=== PATIENT | female | born 1980 | race Caucasian/White ===

== ENCOUNTER 2020-01-02 18:31 | Emergency (ER) | payer OTHER, SELFPAY ==
[2020-01-02 18:37] VITALS: BP 122/85; PULSE 112; RESP 20; TEMP 36.9; O2SAT 98; BMI 37.9
--- NOTE | 2020-01-02 20:15 | ED_ITS ---
HPI - Back Pain/Injury General Chief Complaint: Extremity Injury, Lower Stated Complaint: slip and fall head injury Time Seen by Provider: 01/02/20 19:40 Source: patient Mode of arrival: ambulatory History of Present Illness HPI Narrative: 47-year-old female complaining right-sided low back /buttock pain radiating down right lower extremity times today s/p stepping wrong while going down the stairs. Denies direct trauma / falls. Reports pain with associated tingling. Denies fever, chills, numbness /tingling, incontinence /retention MD elicited complaint: back pain Related Data Previous Rx's Medication Instructions Recorded acetaminophen [Tylenol Extra 500 mg PO Q6H PRN #20 tab 01/02/20 Strength] cyclobenzaprine 5 mg PO Q8H PRN 5 Days #14 tab 01/02/20 lidocaine [Lidoderm] 1 patch TOPICAL DAILY PRN #30 ea 01/02/20 MDD remove after 12 hours naproxen 500 mg PO BID PRN 10 Days #20 tab 01/02/20 Allergies Allergy/AdvReac Type Severity Reaction Status Date / Time bee pollen [BEE STINGS] Allergy Unknown SWELLING Unverified 12/10/19 16:41 capsaicin [CAPSAICIN] Allergy Unknown BAD RED Unverified 12/10/19 16:41 RASH, hives hydromorphone [From DILAUDID] Allergy Unknown NAUSEA & Unverified 12/10/19 16:41 VOMITING Bee stings Allergy Unknown angioedema Uncoded 08/27/19 00:00 bee stings Allergy Unknown Uncoded 08/03/19 00:00 Capsaicin Allergy Unknown Uncoded 08/03/19 00:00 Pt states no food allergies Allergy Unknown Uncoded 08/03/19 00:00 Review of Systems Review of Systems: Constitutional: No Weight loss, No Fever, No Chills, No Night Sweats, No Fatigue, Cardiovascular: No Chest Pain, No SOB, No Dyspnea on Exertion, No Orthopnea, Respiratory: No Cough, No Sputum Gastrointestinal: No Nausea, No Vomiting, No Diarrhea Genitourinary: No irregular bleeding, No Urinary Frequency, No Hematuria,No Urinary Incontinence /retention, No Flank Pain Musculoskeletal: No joint pain, No Myalgias, No Joint Swelling Skin: No Skin Lesions, No rash Neuro: No Weakness, No Numbness, +tingling Yes all other systems are reviewed and are negative Neurologic: Denies Sensory deficit (Neuro) [facility] Past Medical History Attestation statement: The following information was validated with the patient. Medical History (Updated 01/02/20 @ 20:16 by DEMARCUS Cummins) No known health problems Social History Social History Alcohol intake: never Smoked in Last 30 Days: No Use of substances other than those prescribed or required for medical reasons: No Advance Directives: No Advance Directives Information Provided: Yes Physical Exam Vital Signs: Vital Signs: Vital Signs Temp Pulse Resp BP Pulse Ox 01/02/20 18:37 98.4 F 112 H 20 122/85 98 Body Mass Index 37.9 Const: General: cooperative and healthy appearing Orientation/consciousness: patient oriented x3 Limitations: no limitations Eyes: General: appearance normal, both eyes and all related structures EOM: EOMs intact bilaterally Neck: Other: no midline cervical spinous tenderness Neck: Yes normal visual inspection Resp: Effort & Inspection: normal respiratory effort Back/Spine/Pelvis: Other: no midline thoracic or lumbar spinous tenderness. Right-sided lumbar MSK tenderness Skin: Wounds: no wounds Neuro: Other: no saddle anesthesia General: patient oriented x3 Gait exam (Neuro): Normal gait present Motor exam (neuro): 5/5 motor strength present throughout Sensory Exam: No Sensory deficit (Neuro) Extrem: General: Yes normal to inspection Course Course Course Narrative: no red flag symptoms or midline spinous tenderness Discharge Plan Discharge Clinical Impression: Back pain, Sciatic leg pain Patient Disposition: Home, Self-Care Instructions: Back Pain (ED) Additional Instructions: naproxen as an anti-inflammatory /pain medication, take with food Cyclobenzaprine is a muscle relaxer, take at night as it makes you drowsy, do not drive, drink alcohol, or operate machinery while taking In addition Lidoderm patches or numbing patches, apply to painful area. Take Tylenol as well Follow-up with her doctor If you developed numbness, tingling, weakness, incontinence or retention return to the ED Prescriptions: New acetaminophen [Tylenol Extra Strength] 500 mg tablet 500 mg PO Q6H PRN (Reason: pain or fever) Qty: 20 RF: 0 lidocaine [Lidoderm] 5 % adhesive patch,medicated 1 patch topical DAILY MDD remove after 12 hours PRN (Reason: pain) Qty: 30 RF: 0 naproxen 500 mg tablet 500 mg PO BID PRN (Reason: pain) 10 Days Qty: 20 RF: 0 cyclobenzaprine 5 mg tablet 5 mg PO Q8H PRN (Reason: pain (scale score 7-10)) 5 Days Qty: 14 RF: 0
[2020-01-02] MEDS: Cyclobenzaprine HCl 5 MG TABLET PO (20:20)
[2020-01-02] MEDS: Ketorolac Tromethamine 15 MG/ML VIAL IM (20:21)
== END 2020-01-02 20:37 | disposition home or self-care (01) ==
PROVIDERS: Emergency Provider Emergency Medicine Emergency Medical Services; PCP Internal Medicine
DX: S39.92XA Unspecified injury of lower back, initial encounter (principal); S09.90XA Unspecified injury of head, initial encounter; G44.309 Post-traumatic headache, unspecified, not intractable; M54.6 Pain in thoracic spine; M54.32 Sciatica, left side; M54.31 Sciatica, right side; W01.0XXA Fall on same level from slipping, tripping and stumbling without subsequent striking against object, initial encounter; Y93.9 Activity, unspecified; Y92.9 Unspecified place or not applicable
CPT/HCPCS: 96374; 99284; J1885

== ENCOUNTER → 2020-02-11 08:42 | Outpatient (BNVA) | payer OTHER, SELFPAY | PROVIDERS: PCP Internal Medicine; Visit Provider Anesthesiology | DX: Z76.89 Persons encountering health services in other specified circumstances (principal) ==

== ENCOUNTER → 2020-03-30 08:43 | Outpatient (BNVA) | payer OTHER, SELFPAY | PROVIDERS: PCP Internal Medicine; Visit Provider Anesthesiology | DX: Z76.89 Persons encountering health services in other specified circumstances (principal) ==

== ENCOUNTER → 2020-04-21 15:53 | Outpatient (BNVA) | payer OTHER, SELFPAY | PROVIDERS: PCP Internal Medicine; Visit Provider Anesthesiology | DX: M46.1 Sacroiliitis, not elsewhere classified (principal); M53.2X8 Spinal instabilities, sacral and sacrococcygeal region | CPT/HCPCS: 99212 ==

== ENCOUNTER 2020-05-02 11:36 | Emergency (ER) | payer OTHER, SELFPAY ==
[2020-05-02 13:13] VITALS: BP 119/83; PULSE 117; RESP 18; TEMP 36.9; O2SAT 100; BMI 41.5
--- NOTE | 2020-05-02 13:13 | ED.ABDPAIN ---
HPI - Abdominal Pain General Chief Complaint: Abdominal Pain Stated Complaint: abd pain Time Seen by Provider: 05/02/20 13:12 Related Data Previous Rx's Medication Instructions Recorded acetaminophen [Tylenol Extra 500 mg PO Q6H PRN #20 tab 01/02/20 Strength] lidocaine [Lidoderm] 1 patch TOPICAL DAILY PRN #30 ea 01/02/20 MDD remove after 12 hours naproxen 500 mg PO BID PRN 10 Days #20 tab 01/02/20 cyclobenzaprine 10 mg tablet 10 mg PO BID PRN 30 Days #60 tab 02/11/20 gabapentin 300 mg capsule 600 mg PO TID 30 Days #180 cap 02/11/20 trazodone 50 mg tablet 50 mg PO BEDTIME PRN #90 tab 03/15/20 fluoxetine 20 mg tablet 60 mg PO DAILY #270 tab 04/05/20 oxycodone-acetaminophen 5 mg-325 1 tab PO TID PRN #90 tab 04/22/20 mg tablet Allergies Allergy/AdvReac Type Severity Reaction Status Date / Time bee pollen [BEE STINGS] Allergy Unknown SWELLING Verified 05/02/20 13:13 capsaicin [CAPSAICIN] Allergy Unknown BAD RED Verified 05/02/20 13:13 RASH, hives hydromorphone [From DILAUDID] Allergy Unknown NAUSEA & Verified 05/02/20 13:13 VOMITING Bee stings Allergy Unknown angioedema Uncoded 08/27/19 00:00 bee stings Allergy Unknown unknown Uncoded 02/11/20 08:43 Capsaicin Allergy Unknown [email or web address] Uncoded 02/11/20 08:43 Pt states no food allergies Allergy Unknown unknown Uncoded 02/11/20 08:43 Course Course Course Narrative: RME done at this time 1:15pm - 39yoF c PMHx of gastritis/gastric ulcers/gastric bypass [address] Morris and currently on pain contract for chronic SI joint pain presenting to the ED c c/o diffuse abd pain c associated N/V/D x 3 days - Pt A&Ox3 not in any acute distress. Vitals stable. Pt TTP diffusely on abdomen exam. - Labs, UA, UHCG ordered at this time. Discharge Plan Discharge Prescriptions: No Action trazodone 50 mg tablet 50 mg PO BEDTIME PRN (Reason: sleep) Qty: 90 RF: 2 fluoxetine 20 mg tablet 60 mg PO DAILY Qty: 270 RF: 3 oxycodone-acetaminophen [Percocet] 5-325 mg tablet 1 tab PO TID PRN (Reason: pain) Qty: 90 RF: 0 acetaminophen [Tylenol Extra Strength] 500 mg tablet 500 mg PO Q6H PRN (Reason: pain or fever) Qty: 20 RF: 0 lidocaine [Lidoderm] 5 % adhesive patch,medicated 1 patch topical DAILY MDD remove after 12 hours PRN (Reason: pain) Qty: 30 RF: 0 naproxen 500 mg tablet 500 mg PO BID PRN (Reason: pain) 10 Days Qty: 20 RF: 0 cyclobenzaprine 10 mg tablet 10 mg PO BID PRN (Reason: muscle spasm) 30 Days Qty: 60 RF: 12 gabapentin 300 mg capsule 600 mg PO TID 30 Days Qty: 180 RF: 12 PMFSH Past Medical History Medical History (Updated 05/02/20 @ 13:15 by Ailyn Rainey) Gastric ulcer Instability of sacroiliac joint No known health problems Sacroiliitis Surgical History (Updated 05/02/20 @ 13:15 by Ailyn Rainey) Gastric bypass status for obesity Social History Social History Alcohol intake: never
[2020-05-02 13:48] LABS: MANUAL DIFF FLAG NO
[2020-05-02 13:52] LABS: Basophils Percent Auto 0.6 % (0-2); Eosinophils Absolute Auto 0.1 X10*3/uL (0.0-0.4); Eosinophils Percent Auto 0.9 % (0-4); Hematocrit 37.8 % (37-47); Hemoglobin 11.6 g/dl (12.0-16.0); Imm Gran Abs Auto 0.01 X10*3/uL (0.00-0.03); Imm Gran Pct Auto 0.2 % (0.0-0.4); Lymphocytes Absolute Auto 2.3 X10*3/uL (1.2-4.9); Lymphocytes Percent Auto 35.9 % (20-40); Mean Corpuscular HGB Conc 30.7 g/dl (31.0-35.0); Mean Corpuscular Hemoglobin 23.1 pg (27.0-33.0); Mean Corpuscular Volume 75.1 fL (80-98); Mean Platelet Volume 8.9 fL (9.4-12.3); Monocytes Absolute Auto 0.5 X10*3/uL (0.1-1.2); Monocytes Percent Auto 7.1 % (2-11); Neutrophils Absolute Auto 3.6 X10*3/uL (2.0-8.3); Neutrophils Percent Auto 55.3 % (45-73); Platelet Count 448 X10*3/uL (160-400); Red Blood Count 5.03 X10*6/uL (4.20-5.50); Red Cell Distribution Width 15.6 % (11.0-16.0); White Blood Count 6.5 X10*3/uL (4.8-10.8)
[2020-05-02 13:57] LABS: UPreg QC Valid YES; Urine Pregnancy NEGATIVE (NEGATIVE)
[2020-05-02 13:58] LABS: Glucose Urine UA NEG (NEG); Leukocyte Esterase Urine NEG (NEG); Nitrite Urine NEG (NEG); Specific Gravity - Urine >= 1.030 (1.005-1.025); Urine Blood NEG (NEG); Urine Ketones 15 MG/DL (NEG); Urine Protein TRACE MG/DL (NEG-TRACE)
[2020-05-02 13:59] LABS: Appearance Urine CLOUDY; Color Urine DARK YELLOW
[2020-05-02 14:01] LABS: Prothrombin Time 11.4 SEC (10.8-13.0)
[2020-05-02 14:23] LABS: Alanine Aminotransferase 27 U/L (0-31); Albumin Level 4.6 g/dL (3.5-5.0); Alkaline Phosphatase 90 U/L (39-117); Anion Gap 14 (12-20); Aspartate Amino Transferase 19 U/L (5-31); Bilirubin Direct 0.3 mg/dL (0.0-0.5); Bilirubin Total 0.8 mg/dL (0.0-1.0); Blood Urea Nitrogen 9 mg/dL (9-16); C Reactive Protein 0.14 mg/dL (< or = 0.50); Calcium 9.4 mg/dL (8.4-10.2); Carbon Dioxide 25 mmol/L (22-29); Chloride 106 mmol/L (96-108); Creatinine Clr Calc Pharmacy 140.2; Estimated Glomerular Filt Rate > 60; Glucose Random 102 mg/dL (60-115); Lactate Dehydrogenase 177 U/L (122-220); Lipase 31 U/L (8-78); Magnesium 2.1 mg/dL (1.6-2.6); Potassium 4.3 mmol/L (3.3-5.1); Sodium 141 mmol/L (135-145); Total Protein 8.1 g/dL (6.5-8.0)
[2020-05-02 14:40] LABS: Procalcitonin 0.02 ng/mL
[2020-05-02 14:44] LABS: Ferritin 5 ng/mL (10-250)
[2020-05-02 16:02] LABS: Influenza A PCR NEGATIVE (Negative); Influenza B PCR NEGATIVE (Negative); Resp Syncy Virus RNA Qual PCR NEGATIVE (Negative); SARS COV2 PCR INHOUSE NEGATIVE (Negative)
== END 2020-05-02 17:02 | disposition left against medical advice (07) ==
PROVIDERS: Physician Assistant Medical; Emergency Provider Emergency Medicine; PCP Internal Medicine
DX: R10.9 Unspecified abdominal pain (principal); R11.2 Nausea with vomiting, unspecified; Z20.822 Contact with and (suspected) exposure to COVID-19
CPT/HCPCS: 0241U; 36415; 80048; 80076; 81003; 81025; 82728; 83615; 83690; 83735; 84145; 85025; 85610; 86140; 99283

== ENCOUNTER 2020-05-03 10:10 | Emergency (ER) | payer OTHER, SELFPAY ==
--- NOTE | ~2020-05-03 | CT_ITS ---
EXAMINATION: CT ABDOMEN AND PELVIS WITH CONTRAST CLINICAL INFORMATION: Abdominal pain and vomiting. History of gastric bypass. COMPARISON: Previous CT most recent February 2019 TECHNIQUE: Multidetector volumetric images were obtained from the superior aspect of the liver through the pubic symphysis following administration 85 mL of Omnipaque 350 intravenous contrast. Sagittal and coronal reformatted images were obtained on the technologist's workstation. Oral contrast: Yes This CT examination was performed using dose optimization techniques as appropriate, variously including the following: *Automated exposure control *Adjustment of mA and/or kV according to patient size (this includes techniques or standardized protocols for targeted exams where dose is matched to indication/reason for exam; i.e. extremities or head) *Use of iterative reconstruction technique DLP: 979 mGy-cm FINDINGS: LUNG BASES: The visualized lung bases are unremarkable. LIVER, GALLBLADDER, AND BILIARY TREE: The liver is slightly enlarged, right lobe measuring 21 cm in length. The liver is normal in shape and attenuation. No focal hepatic lesion or biliary ductal dilatation is present. The gallbladder has been removed. PANCREAS: Unremarkable. SPLEEN: Unremarkable. ADRENAL GLANDS: Unremarkable. KIDNEYS AND URETERS: There are small bilateral renal stones. Largest stone measures 3 mm in the upper and midpole of the left kidney. No hydronephrosis, ureteral dilatation or ureteral stone is seen. BLADDER: Unremarkable. GASTROINTESTINAL TRACT: There are postoperative changes from gastric bypass. Small and large bowel is otherwise unremarkable. No evidence of obstruction or bowel wall thickening is seen. The appendix has been removed. ABDOMINAL WALL: No significant hernia is appreciated. LYMPH NODES: Normal. VASCULAR: Unremarkable. PELVIC VISCERA: Unremarkable. OSSEOUS STRUCTURES: There are degenerative changes of the spine. CT/CT abdomen pelvis w con IMPRESSION: Stable postoperative change from gastric bypass. No evidence of obstruction. Bilateral renal stones. No hydronephrosis, ureteral dilatation or ureteral stone.
[2020-05-03 10:22] VITALS: BP 103/79; BP 128/81; PULSE 102; PULSE 90; RESP 18; TEMP 37.1; O2SAT 99; BMI 41.5
--- NOTE | 2020-05-03 10:36 | ED_ITS ---
HPI - Abdominal Pain General Chief Complaint: Abdominal Pain Stated Complaint: N+V Time Seen by Provider: 05/03/20 10:34 Source: patient and EMS Mode of arrival: EMS Limitations: no limitations History of Present Illness HPI narrative: 39yoF c PMHx of gastritis/gastric ulcers/gastric bypass [address] oMrris and currently on pain contract for chronic SI joint pain presenting to the ED c c/o diffuse abd pain c associated N/V/D x 48hr. Patient tells me that she has had 3-4 episodes of vomiting a day which she describes as clear and NBNB. She has also had loose stools but no diarrhea. 2-3 episodes today. Generalized diffuse abdominal cramping with no focal tenderness per patient. No fevers or chills or body aches or cough or shortness of breath. Had a COVID test yesterday which was unremarkable. She was seen here yesterday in the emergency department but left prior to being seen by provider due to the wait. MD elicited complaint: abdominal pain Related Data Previous Rx's Medication Instructions Recorded acetaminophen [Tylenol Extra 500 mg PO Q6H PRN #20 tab 01/02/20 Strength] lidocaine [Lidoderm] 1 patch TOPICAL DAILY PRN #30 ea 01/02/20 MDD remove after 12 hours naproxen 500 mg PO BID PRN 10 Days #20 tab 01/02/20 cyclobenzaprine 10 mg tablet 10 mg PO BID PRN 30 Days #60 tab 02/11/20 gabapentin 300 mg capsule 600 mg PO TID 30 Days #180 cap 02/11/20 trazodone 50 mg tablet 50 mg PO BEDTIME PRN #90 tab 03/15/20 fluoxetine 20 mg tablet 60 mg PO DAILY #270 tab 04/05/20 oxycodone-acetaminophen 5 mg-325 1 tab PO TID PRN #90 tab 04/22/20 mg tablet dicyclomine 10 mg PO TID PRN #10 cap 05/03/20 ondansetron 4 mg PO Q6H PRN #10 tab 05/03/20 Allergies Allergy/AdvReac Type Severity Reaction Status Date / Time bee pollen [BEE STINGS] Allergy Unknown SWELLING Verified 05/02/20 13:13 capsaicin [CAPSAICIN] Allergy Unknown BAD RED Verified 05/02/20 13:13 RASH, hives hydromorphone [From DILAUDID] Allergy Unknown NAUSEA & Verified 05/02/20 13:13 VOMITING Bee stings Allergy Unknown angioedema Uncoded 08/27/19 00:00 bee stings Allergy Unknown unknown Uncoded 02/11/20 08:43 Capsaicin Allergy Unknown [email or web address] Uncoded 02/11/20 08:43 Pt states no food allergies Allergy Unknown unknown Uncoded 02/11/20 08:43 Review of Systems Review of Systems Yes all other systems are reviewed and are negative Constitutional: Reports no additional constitutional complaints, Denies body ache(s), Denies chills, Denies fever(s), Denies headache(s) and Denies weakness Eyes: Reports no additional eye complaints and Denies change in vision Reports system reviewed and no additional complaints, except as documented, Denies dizziness, Denies headache(s), Denies nasal congestion, Denies nasal discharge and Denies neck pain Cardiovascular: Reports no additional cardiovascular complaints, Denies chest pain, Denies leg edema and Denies dyspnea Respiratory: Reports no additional respiratory complaints, Denies cough and Denies dyspnea Gastrointestinal: Reports no additional gastrointestinal complaints, Reports abdominal pain, Denies diarrhea, Reports loose stools, Reports nausea and Reports vomiting Genitourinary: Reports no additional female genitourinary complaints and Denies urinary incontinence Musculoskeletal: Reports no additional musculoskeletal complaints, Denies back pain, Denies arthralgias, Denies joint swelling, Denies neck pain, Denies numbness and Denies tingling Skin/Breast: Reports system reviewed and no additional complaints, except as docu and Denies rash Reports system reviewed and no additional complaints, except as documented, Denies Abnormal speech present, Denies dizziness, Denies headache(s), Denies numbness, Denies tingling and Denies weakness Physical Exam Vital Signs: Vital Signs: Last Vital Signs Temp 98.5 F 05/03/20 16:36 Pulse 98 05/03/20 16:36 Resp 18 05/03/20 16:36 BP 115/76 05/03/20 16:36 Pulse Ox 98 05/03/20 16:36 Body Mass Index 41.5 Const: General: cooperative, healthy appearing, comfortable and no acute distress Orientation/consciousness: patient oriented x3 Limitations: no limitations HENMT: Head: Yes normal to inspection Ears: hearing grossly normal bilaterally General nose exam: Normal external nose present Face and sinus: Yes normal facial exam Mouth: Normal oral and palatal mucosa present Throat: Yes posterior oropharynx normal Eyes: General: appearance normal, both eyes and all related structures Pupils: Equal, round and reactive pupils present Neck: Neck: Yes normal visual inspection Chest: Chest palpation & inspection: normal inspection of the chest Resp: Effort & Inspection: normal respiratory effort Auscultation: clear to auscultation bilaterally Cardio: Rate: regular rate Rhythm: regular rhythm Peripheral pulses: Peripheral pulses 2+ throughout GI: Inspection: Yes normal to inspection Palpation (GI): Soft to palpation and Tenderness to palpation present (GI) (Mild diffuse tenderness. No rebound or guarding) Auscultation: normal bowel sounds Back/Spine/Pelvis: Thoracic/Lumbar Spine: thoracic and lumbar spine normal to inspection Skin: General skin exam: no rashes or lesions noted Neuro: General: patient oriented x3, no focal motor deficits and normal sensation to monofilament Cranial nerves: Yes Equal, round and reactive pupils present Cognition (Neuro): normal cognition Speech: No Abnormal speech present Gait exam (Neuro): Normal gait present Motor exam (neuro): 5/5 motor strength present throughout Extrem: General: Yes normal to inspection Course Course Course Narrative: 39 yo female here with diffuse abdominal cramping, vomiting and loose stools x 2 days. No focal tenderness on exam, mild diffuse tenderness. Will check labs, UA. Give NSB, antiemetic, PPI and antispasmodic and re-assess. 1230-labs reviewed and unremarkable. UA is pending. Patient continues to have discomfort. Will provide dose of morphine and discussed bariatric. 1300-Discussed with arron TRACY who will discuss with Dr Castaneda. 1455-D/w with Dr Castaneda who recommended Ct A/P with oral contrast. 1545-CT shows no acute abdominal pathology. Call out to bariatrics to discuss. 1650-Discussed with bariatrics. Plan for discharge home. Likely gastroenteritis. Pain and nausea improved on discharge. Able to tolerate some p.o. liquids. Reviewed worrisome signs and symptoms and when to return to the emergency department. Comfortable discharge home. MDM - Abdominal Pain Medical Records Attestation: I reviewed the patient's medical records. Lab Data Attestation: I reviewed the patient's lab results. Result diagrams: 05/03/20 10:57 05/03/20 10:57 Labs: Lab Results 05/03/20 05/03/20 05/03/20 Range/Units 10:57 10:57 10:57 WBC 5.7 (4.8-10.8) X10*3/uL RBC 4.60 (4.20-5.50) X10*6/uL Hgb 10.8 L (12.0-16.0) g/dl Hct 34.5 L (37-47) % MCV 75.0 L (80-98) fL MCH 23.5 L (27.0-33.0) pg MCHC 31.3 (31.0-35.0) g/dl RDW 15.2 (11.0-16.0) % Plt Count 383 (160-400) X10*3/uL MPV 8.9 L (9.4-12.3) fL Immature Gran % (Auto) 0.2 (0.0-0.4) % Neut % (Auto) 51.4 (45-73) % Lymph % (Auto) 38.5 (20-40) % Casey % (Auto) 8.0 (2-11) % Eos % (Auto) 1.4 (0-4) % Baso % (Auto) 0.5 (0-2) % Lymph # (Auto) 2.2 (1.2-4.9) X10*3/uL Casey # (Auto) 0.5 (0.1-1.2) X10*3/uL Eos # (Auto) 0.1 (0.0-0.4) X10*3/uL Baso # (Auto) 0.0 (0.0-0.2) X10*3/uL Abs Immat Gran (auto) 0.01 (0.00-0.03) X10*3/uL Absolute Neuts (auto) 2.9 (2.0-8.3) X10*3/uL Absolute Nucleated RBC 0.000 (0.0-0.012) X10*3/uL Nucleated RBC % (auto) 0.0 (0.0-0.2) /100WBC Hold Blue Top SEE NOTE Sodium 139 (135-145) mmol/L Potassium 3.9 (3.3-5.1) mmol/L Chloride 105 (96-108) mmol/L Carbon Dioxide 25 (22-29) mmol/L Anion Gap 13 (12-20) BUN 9 (9-16) mg/dL Creatinine 0.68 (0.5-1.4) mg/dL Estim Creat Clear Calc 138.0 Estimated GFR > 60 Random Glucose 101 (60-115) mg/dL Calcium 8.9 (8.4-10.2) mg/dL Total Bilirubin 0.9 (0.0-1.0) mg/dL Direct Bilirubin 0.3 (0.0-0.5) mg/dL AST 18 (5-31) U/L ALT 21 (0-31) U/L Alkaline Phosphatase 85 (39-117) U/L Total Protein 7.4 (6.5-8.0) g/dL Albumin 4.3 (3.5-5.0) g/dL Urine Color Urine Appearance Urine pH (5.0-8.0) Ur Specific [place] (1.005-1.025) Urine Protein (NEG-TRACE) MG/DL Urine Glucose (UA) (NEG) MG/DL Urine Ketones (NEG) MG/DL Urine Blood (NEG) Urine Nitrite (NEG) Ur Leukocyte Esterase (NEG) 05/03/20 Range/Units 12:37 WBC (4.8-10.8) X10*3/uL RBC (4.20-5.50) X10*6/uL Hgb (12.0-16.0) g/dl Hct (37-47) % MCV (80-98) fL MCH (27.0-33.0) pg MCHC (31.0-35.0) g/dl RDW (11.0-16.0) % Plt Count (160-400) X10*3/uL MPV (9.4-12.3) fL Immature Gran % (Auto) (0.0-0.4) % Neut % (Auto) (45-73) % Lymph % (Auto) (20-40) % Casey % (Auto) (2-11) % Eos % (Auto) (0-4) % Baso % (Auto) (0-2) % Lymph # (Auto) (1.2-4.9) X10*3/uL Casey # (Auto) (0.1-1.2) X10*3/uL Eos # (Auto) (0.0-0.4) X10*3/uL Baso # (Auto) (0.0-0.2) X10*3/uL Abs Immat Gran (auto) (0.00-0.03) X10*3/uL Absolute Neuts (auto) (2.0-8.3) X10*3/uL Absolute Nucleated RBC (0.0-0.012) X10*3/uL Nucleated RBC % (auto) (0.0-0.2) /100WBC Hold Blue Top Sodium (135-145) mmol/L Potassium (3.3-5.1) mmol/L Chloride (96-108) mmol/L Carbon Dioxide (22-29) mmol/L Anion Gap (12-20) BUN (9-16) mg/dL Creatinine (0.5-1.4) mg/dL Estim Creat Clear Calc Estimated GFR Random Glucose (60-115) mg/dL Calcium (8.4-10.2) mg/dL Total Bilirubin (0.0-1.0) mg/dL Direct Bilirubin (0.0-0.5) mg/dL AST (5-31) U/L ALT (0-31) U/L Alkaline Phosphatase (39-117) U/L Total Protein (6.5-8.0) g/dL Albumin (3.5-5.0) g/dL Urine Color YELLOW Urine Appearance HAZY Urine pH 6.0 (5.0-8.0) Ur Specific [place] >= 1.030 H (1.005-1.025) Urine Protein TRACE (NEG-TRACE) MG/DL Urine Glucose (UA) NEG (NEG) MG/DL Urine Ketones NEG (NEG) MG/DL Urine Blood NEG (NEG) Urine Nitrite NEG (NEG) Ur Leukocyte Esterase NEG (NEG) Imaging Data CT scan - abdomen: Attestation: I personally reviewed and interpreted this imaging study as follows: Radiologist's impression: EXAMINATION: CT ABDOMEN AND PELVIS WITH CONTRAST CLINICAL INFORMATION: Abdominal pain and vomiting. History of gastric bypass. COMPARISON: Previous CT most recent February 2019 TECHNIQUE: Multidetector volumetric images were obtained from the superior aspect of the liver through the pubic symphysis following administration 85 mL of Omnipaque 350 intravenous contrast. Sagittal and coronal reformatted images were obtained on the technologist's workstation. Oral contrast: Yes This CT examination was performed using dose optimization techniques as appropriate, variously including the following: *Automated exposure control *Adjustment of mA and/or kV according to patient size (this includes techniques or standardized protocols for targeted exams where dose is matched to indication/reason for exam; i.e. extremities or head) *Use of iterative reconstruction technique DLP: 979 mGy-cm FINDINGS: LUNG BASES: The visualized lung bases are unremarkable. LIVER, GALLBLADDER, AND BILIARY TREE: The liver is slightly enlarged, right lobe measuring 21 cm in length. The liver is normal in shape and attenuation. No focal hepatic lesion or biliary ductal dilatation is present. The gallbladder has been removed. PANCREAS: Unremarkable. SPLEEN: Unremarkable. ADRENAL GLANDS: Unremarkable. KIDNEYS AND URETERS: There are small bilateral renal stones. Largest stone measures 3 mm in the upper and midpole of the left kidney. No hydronephrosis, ureteral dilatation or ureteral stone is seen. BLADDER: Unremarkable. GASTROINTESTINAL TRACT: There are postoperative changes from gastric bypass. Small and large bowel is otherwise unremarkable. No evidence of obstruction or bowel wall thickening is seen. The appendix has been removed. ABDOMINAL WALL: No significant hernia is appreciated. LYMPH NODES: Normal. VASCULAR: Unremarkable. PELVIC VISCERA: Unremarkable. OSSEOUS STRUCTURES: There are degenerative changes of the spine. CT/CT abdomen pelvis w con IMPRESSION: Stable postoperative change from gastric bypass. No evidence of obstruction. Bilateral renal stones. No hydronephrosis, ureteral dilatation or ureteral stone. Discharge Plan Discharge Clinical Impression: Gastroenteritis Patient Disposition: Home, Self-Care Instructions: Gastroenteritis (ED) Additional Instructions: Start with clear liquids and advance diet as tolerated You have the nausea meds at home and you may take as needed as well as the medicine helped discomfort. Dr. Garza will reach out to the next few days to check on you and see how you are feeling. Return to the emergency department for severe abdominal pain, 2 or more episodes of vomiting unrelieved with nausea medicine at home. Prescriptions: New ondansetron 4 mg tablet,disintegrating 4 mg PO Q6H PRN (Reason: nausea and vomiting) Qty: 10 RF: 0 dicyclomine 10 mg capsule 10 mg PO TID PRN (Reason: abdominal pain) Qty: 10 RF: 0 No Action trazodone 50 mg tablet 50 mg PO BEDTIME PRN (Reason: sleep) Qty: 90 RF: 2 fluoxetine 20 mg tablet 60 mg PO DAILY Qty: 270 RF: 3 oxycodone-acetaminophen [Percocet] 5-325 mg tablet 1 tab PO TID PRN (Reason: pain) Qty: 90 RF: 0 acetaminophen [Tylenol Extra Strength] 500 mg tablet 500 mg PO Q6H PRN (Reason: pain or fever) Qty: 20 RF: 0 lidocaine [Lidoderm] 5 % adhesive patch,medicated 1 patch topical DAILY MDD remove after 12 hours PRN (Reason: pain) Qty: 30 RF: 0 naproxen 500 mg tablet 500 mg PO BID PRN (Reason: pain) 10 Days Qty: 20 RF: 0 cyclobenzaprine 10 mg tablet 10 mg PO BID PRN (Reason: muscle spasm) 30 Days Qty: 60 RF: 12 gabapentin 300 mg capsule 600 mg PO TID 30 Days Qty: 180 RF: 12 Referrals: Zay Garza MD [Physician] - 2 days Interventions: ED Discharge Assessment Last Done: 05/03/20 16:44 Discharge Date/Time: 05/03/20 16:46 [facility] Past Medical History Attestation statement: The following information was validated with the patient. Source: old records reviewed and nursing notes reviewed Medical History Gastric ulcer Instability of sacroiliac joint No known health problems Sacroiliitis Surgical History Gastric bypass status for obesity Social History Social History Alcohol intake: never Smoking Status: Never smoker Use of substances other than those prescribed or required for medical reasons: No Advance Directives: Yes Advance Directives Information Provided: Yes Advance Directives on File: No
[2020-05-03 11:03] LABS: MANUAL DIFF FLAG NO
[2020-05-03 11:04] LABS: Basophils Percent Auto 0.5 % (0-2); Eosinophils Absolute Auto 0.1 X10*3/uL (0.0-0.4); Eosinophils Percent Auto 1.4 % (0-4); Hematocrit 34.5 % (37-47); Hemoglobin 10.8 g/dl (12.0-16.0); Imm Gran Abs Auto 0.01 X10*3/uL (0.00-0.03); Imm Gran Pct Auto 0.2 % (0.0-0.4); Lymphocytes Absolute Auto 2.2 X10*3/uL (1.2-4.9); Lymphocytes Percent Auto 38.5 % (20-40); Mean Corpuscular HGB Conc 31.3 g/dl (31.0-35.0); Mean Corpuscular Hemoglobin 23.5 pg (27.0-33.0); Mean Platelet Volume 8.9 fL (9.4-12.3); Monocytes Absolute Auto 0.5 X10*3/uL (0.1-1.2); Neutrophils Absolute Auto 2.9 X10*3/uL (2.0-8.3); Neutrophils Percent Auto 51.4 % (45-73); Platelet Count 383 X10*3/uL (160-400); Red Cell Distribution Width 15.2 % (11.0-16.0); White Blood Count 5.7 X10*3/uL (4.8-10.8)
[2020-05-03] MEDS: Famotidine/PF 20 MG/2 ML VIAL IVPUSH (11:23)
[2020-05-03] MEDS: Dicyclomine HCl 10 MG CAPSULE PO (11:23)
[2020-05-03] MEDS: ondansetron HCL 4 MG/2 ML VIAL IVPUSH ×2 (11:23→16:38)
[2020-05-03] MEDS: 0.9 % Sodium Chloride 1,000 ML 999 ML IVCONT ×2 (11:23→13:56)
[2020-05-03 11:28] LABS: Alanine Aminotransferase 21 U/L (0-31); Albumin Level 4.3 g/dL (3.5-5.0); Alkaline Phosphatase 85 U/L (39-117); Anion Gap 13 (12-20); Aspartate Amino Transferase 18 U/L (5-31); Bilirubin Direct 0.3 mg/dL (0.0-0.5); Bilirubin Total 0.9 mg/dL (0.0-1.0); Blood Urea Nitrogen 9 mg/dL (9-16); Calcium 8.9 mg/dL (8.4-10.2); Carbon Dioxide 25 mmol/L (22-29); Chloride 105 mmol/L (96-108); Estimated Glomerular Filt Rate > 60; Glucose Random 101 mg/dL (60-115); Potassium 3.9 mmol/L (3.3-5.1); Sodium 139 mmol/L (135-145); Total Protein 7.4 g/dL (6.5-8.0)
[2020-05-03 11:54] VITALS: BP 112/73; PULSE 87; RESP 18; TEMP 37.1; O2SAT 99
--- NOTE | 2020-05-03 11:54 | PC.NURSE ---
still c/o lower abd pain 10/01, has been nausea and vomited but feeling better overall. fluids running. mmoist mm, skin pale warm dry. up for urine wth steay gait. awaiting call back from bariatrics.
[2020-05-03 12:43] LABS: Glucose Urine UA NEG (NEG); Leukocyte Esterase Urine NEG (NEG); Nitrite Urine NEG (NEG); Specific Gravity - Urine >= 1.030 (1.005-1.025); Urine Blood NEG (NEG); Urine Ketones NEG (NEG); Urine Protein TRACE MG/DL (NEG-TRACE)
[2020-05-03] MEDS: Morphine Sulfate 4 MG/ML CARTRIDGE IVPUSH (12:46)
[2020-05-03 12:47] LABS: Color Urine YELLOW
[2020-05-03 12:48] LABS: Appearance Urine HAZY
[2020-05-03 13:48] VITALS: BP 105/61; PULSE 81; RESP 18; O2SAT 98
[2020-05-03] MEDS: iohexoL 350 MG/ML 100 ML INFUS..BTL 85 ML IV (15:18)
[2020-05-03 16:36] VITALS: BP 115/76; PULSE 98; RESP 18; TEMP 36.9; O2SAT 98
== END 2020-05-03 16:46 | disposition home or self-care (01) ==
PROVIDERS: Nurse Practitioner Family; Emergency Provider Emergency Medicine Emergency Medical Services; PCP Internal Medicine
DX: K52.9 Noninfective gastroenteritis and colitis, unspecified (principal); R10.9 Unspecified abdominal pain; Z98.84 Bariatric surgery status; Z79.899 Other long term (current) drug therapy
CPT/HCPCS: 36415; 74177; 80048; 80076; 81003; 85025; 96361; 96374; 96375; 96376; 99284; J2270; J2405; Q9967

== ENCOUNTER → 2020-05-05 16:18 | Outpatient (BNVA) | payer OTHER, SELFPAY | PROVIDERS: PCP Internal Medicine; Visit Provider Anesthesiology | DX: M46.1 Sacroiliitis, not elsewhere classified (principal); M53.2X8 Spinal instabilities, sacral and sacrococcygeal region | CPT/HCPCS: 99212 ==

== ENCOUNTER → 2020-05-20 11:04 | Day surgery (SDC) | payer OTHER, SELFPAY ==
--- NOTE | 2020-05-19 09:52 | HO.ANESPROP2 ---
Documented by User: Jennifer Xiong 05/19/20 09:59 HPI - Anesthesia Eval Consult details Narrative: 39yo F for Sacroiliac Joint Innervation Injection last Sacroiliac Joint Innervation Injection 08/2019 with MAC PMFSH Active Problems Active Problems: All Active Problems (Updated 05/16/20 @ 13:01 by Kristy Allen) Instability of sacroiliac joint (Acute) Sacroiliitis (Acute) Past Medical History Medical History Anemia Anxiety Back pain Fatty liver Gastric ulcer GERD (gastroesophageal reflux disease) History of tachycardia Hx of hypotension Instability of sacroiliac joint Kidney stones RENO on CPAP Sacroiliitis Surgical History Surgical History Gastric bypass status for obesity History of cholecystectomy History of laparoscopic appendectomy Status post laser lithotripsy of ureteral calculus Social History Social History Alcohol intake: never Smoking Status: Former smoker Use of substances other than those prescribed or required for medical reasons: No Advance Directives: No Advance Directives Information Provided: Yes Meds Allergies Allergy/AdvReac Type Severity Reaction Status Date / Time bee pollen [BEE STINGS] Allergy Unknown SWELLING Verified 05/05/20 16:43 capsaicin [CAPSAICIN] Allergy Unknown BAD RED Verified 05/05/20 16:43 RASH, hives hydromorphone [From DILAUDID] AdvReac Unknown NAUSEA & Verified 05/20/20 11:22 VOMITING Pt states no food allergies Allergy Unknown unknown Uncoded 02/11/20 08:43 Home Medications Medication Instructions Recorded Confirmed Last Taken Type cetirizine 1 tab PO DAILY 05/16/20 05/16/20 Unknown History pantoprazole 1 tab PO DAILY 05/16/20 05/16/20 05/20/20 History Exam Exam Date and Time: May 19, 2020951 Narrative Narrative: ECHO 2018 nml study Assessment and Plan Assessment Anesthesia Assessment: Chart Reviewed Documented by User: Zandra Mckeon 05/20/20 11:40 PMFSH Past Medical History Medical History Anemia Anxiety Back pain Fatty liver Gastric ulcer GERD (gastroesophageal reflux disease) History of tachycardia Hx of hypotension Instability of sacroiliac joint Kidney stones RENO on CPAP Sacroiliitis Surgical History Surgical History Gastric bypass status for obesity History of cholecystectomy History of laparoscopic appendectomy Status post laser lithotripsy of ureteral calculus Social History Social History Alcohol intake: never Smoking Status: Former smoker Use of substances other than those prescribed or required for medical reasons: No Advance Directives: No Advance Directives Information Provided: Yes Meds Allergies Allergy/AdvReac Type Severity Reaction Status Date / Time bee pollen [BEE STINGS] Allergy Unknown SWELLING Verified 05/05/20 16:43 capsaicin [CAPSAICIN] Allergy Unknown BAD RED Verified 05/05/20 16:43 RASH, hives hydromorphone [From DILAUDID] AdvReac Unknown NAUSEA & Verified 05/20/20 11:22 VOMITING Pt states no food allergies Allergy Unknown unknown Uncoded 02/11/20 08:43 Home Medications Medication Instructions Recorded Confirmed Last Taken Type cetirizine 1 tab PO DAILY 05/16/20 05/16/20 Unknown History pantoprazole 1 tab PO DAILY 05/16/20 05/16/20 05/20/20 History Exam Airway Mallampati Class: II TM Dist: >3cm Neck ROM: Full Denture: Upper Heart: RRR Lungs: CTA
--- NOTE | ~2020-05-20 | FL_ITS ---
EXAMINATION: XR FLUOROSCOPY WITH IMAGES CLINICAL INFORMATION: Sacroiliac joint innervation injection COMPARISON: None. TECHNIQUE: Fluoroscopy performed by Dr. Alanis. Fluoroscopy time: 0.6 minutes DAP: 10.7 mGycm2 Images: 2 FINDINGS: FINDINGS: Intraoperative fluoroscopy was provided for use by Dr. Alanis. A radiologist was not present during imaging. Today's dictation is only for administrative purposes to document intraoperative fluoroscopy. FL/FL guidance in OR IMPRESSION: Intraoperative fluoroscopy provided for use by Dr. Alanis. Please see procedure note for details findings.
[2020-05-20 11:22] LABS: UPreg QC Valid YES; Urine Pregnancy NEGATIVE (NEGATIVE)
[2020-05-20 11:30] VITALS: BP 127/83; PULSE 109; RESP 16; TEMP 36.3; O2SAT 98; BMI 41.5
--- NOTE | 2020-05-20 12:27 | MHC.SHP ---
Pre-Procedural Eval Section B Chief Complaint: sacroiliitis Details of Present Illness: as above Relevant Family History (Specify if Yes): No Relevant Social History: None Present Medications: see Short Stay Collaborative assessment Medical History: Significant History History of Previous Operations: No relevant previous surgery Allergies: Allergies Allergy/AdvReac Type Severity Reaction Status Date / Time bee pollen [BEE STINGS] Allergy Unknown SWELLING Verified 05/05/20 16:43 capsaicin [CAPSAICIN] Allergy Unknown BAD RED Verified 05/05/20 16:43 RASH, hives hydromorphone [From DILAUDID] AdvReac Unknown NAUSEA & Verified 05/20/20 11:22 VOMITING Pt states no food allergies Allergy Unknown unknown Uncoded 02/11/20 08:43 Review of Systems Sugical H&P ROS: Negative: Constitution, Cardiovascular, Respiratory, Neurological, Psychiatric, Hem-Onc, Allergic/Immunologic, Gastrointestinal, Genitourinary, Musculoskeletal, Integumentary, Endocrine and Eyes/Ears/Nose/Throat Exam Surgical H&P Exam: Normal: HEENT, Normal: Heart, Normal: Lungs, Normal: Extremities, Normal: Abdomen, Normal: Skin and Normal: Neurological Plan Diagnosis/Plan: Unchanged I have reviewed the history and physical and performed a pertinent physical examination on my patient. No changes have occurred unless specified.
--- NOTE | 2020-05-20 12:28 | W.PM.OPN ---
Operative Note Operative Note Date of Service: 05/20/20 Narrative: Narrative: After obtaining informed consent patient was brought to the operating room, SHE was positioned prone on operating table, [employer] [employer] monitors were applied and patient was deeply sedated. The patient was taken inside of the operating room where she was positioned prone operating table. Time-out was performed delineating correct site, side, the nature of the procedure, patient's allergy, preoperative antibiotic if needed. All operating room staff was participating in OR time-out procedure. Patient's lower back and buttocks were prepped with ChloraPrep and draped with utility drapes. Sterilely draped C-arm was brought over the operating field and the right sacroiliac joint was demonstrated on the screen. The point of interest were delineated as the connection of superior articular process of L5 vertebra with corresponding transverse process, as well as connection of superior articular process of S1 with sacral as well as points down in a palisade fashion from the S1 needle position all the way to the lowest point of the sacroiliac joint on sacral bone side. The projection of the points of interest to the skin was injected with lidocaine 2%. After that 22 gauge 3-1/2 inch and 5 inch needles were driven sequentially to the points of interest under x-ray guidance. When needle gently contacted the bone small amount of the contrast was injected demonstrating no intravascular and no intrathecal uptake of the contrast. After that small amount of bupivacaine 0.5% was injected into each needle without any complications. Total amount of bupivacaine was no more than 12 cc. Total amount per each needle position was no more than 1 mL After that the needles were removed sterile dressing was applied. The patient was awaken and went to PACU without immediate complications.
[2020-05-20] MEDS: Lactated Ringers 1,000 ML 100 ML IVCONT (13:30)
[2020-05-20 14:55] VITALS: BP 122/79; PULSE 92; RESP 16; O2SAT 100
[2020-05-20 15:15] VITALS: BP 111/73; PULSE 97; RESP 18; TEMP 36.6; O2SAT 99
[2020-05-20 15:20] VITALS: BP 122/79; PULSE 108; RESP 20; O2SAT 100
== END | disposition home or self-care (01) ==
PROVIDERS: Nurse Practitioner; PCP Internal Medicine; Visit Provider Anesthesiology
PROC: (CPT 64451; principal; 2020-05-20 12:20)
DX: M46.1 Sacroiliitis, not elsewhere classified (principal); Z98.84 Bariatric surgery status; G47.33 Obstructive sleep apnea (adult) (pediatric); Z99.89 Dependence on other enabling machines and devices; Z79.899 Other long term (current) drug therapy; Z88.8 Allergy status to other drugs, medicaments and biological substances
CPT/HCPCS: 64451; 81025; J2250; J3010; J3300; Q9967

== ENCOUNTER → 2020-05-26 10:25 | Outpatient (BNVA) | payer OTHER, SELFPAY | PROVIDERS: PCP Internal Medicine; Visit Provider Anesthesiology ==

== ENCOUNTER 2020-05-28 13:08 | Emergency (ER) | payer OTHER, SELFPAY ==
--- NOTE | ~2020-05-28 | CT_ITS ---
EXAMINATION: CT ABDOMEN AND PELVIS WITHOUT CONTRAST CLINICAL INFORMATION: Flank pain. History of kidney stones COMPARISON: Portions of a previous CT 05/03/20 TECHNIQUE: Multidetector volumetric imaging was performed from the superior aspect of the liver through the pubic symphysis. Sagittal and coronal reformatted images were obtained on the technologist's workstation. This CT examination was performed using dose optimization techniques as appropriate, variously including the following: *Automated exposure control *Adjustment of mA and/or kV according to patient size (this includes techniques or standardized protocols for targeted exams where dose is matched to indication/reason for exam; i.e. extremities or head) *Use of iterative reconstruction technique DLP: 1188 mGy-cm FINDINGS: Digital Retina Subspecialist: There are surgical clips in the right upper quadrant. There is metallic suture in the left midabdomen. Gas and fecal residue throughout the colon. No large abnormality in the visualized lower chest. LUNG BASES: Gas distends the lower esophagus. LIVER, GALLBLADDER, AND BILIARY TREE: No suspicious focal liver lesion. The liver contour is smooth. There are surgical clips in the expected region of the gallbladder. There is no biliary dilation. PANCREAS: No suspicious abnormality SPLEEN: No suspicious abnormality. ADRENAL GLANDS: Within normal limits and unchanged. KIDNEYS AND URETERS: There is a 0.3 cm nonobstructing calculus at the junction of the mid interpolar right kidney. There is a 0.2 cm nonobstructing mid right renal calculus. There is a punctate calcification at the junction of the interpolar and mid right kidney. No suspicious right renal mass. No dilation of the collecting system on the right. There is mild to moderate left ureteral pelvocaliectasis to the level of a 0.6 cm calculus at the left ureterovesical junction. There is some mild periureteric stranding. There is a 0.3 cm upper pole left renal calculus. There are 3 tiny punctate nonobstructing lower pole left renal calculi. No suspicious left renal mass. BLADDER: No suspicious abnormality in the urinary bladder. GASTROINTESTINAL TRACT: No localized colonic wall thickening. I suspect previous appendectomy. There is no significant small bowel dilation. There is metallic suture in the left midabdomen and there are multiple sutures in the region of the proximal stomach. I suspect previous gastric bypass surgery. No convincing evidence of an internal hernia. No intraperitoneal abscess. ABDOMINAL WALL: No significant hernia is appreciated. LYMPH NODES: There are no enlarged abdominal or pelvic lymph nodes. VASCULAR: There is no abdominal aortic aneurysm. PELVIC VISCERA: The uterus appears within normal limits. No suspicious adnexal mass or collection. OSSEOUS STRUCTURES: No suspicious abnormality. CT/CT abdomen pelvis wo con IMPRESSION: There is a moderately obstructing 0.6 cm left ureterovesical junction calculus. There are several small nonobstructing bilateral renal calculi. Evidence of previous gastric bypass surgery.
[2020-05-28 13:12] VITALS: BP 123/101; PULSE 75; RESP 28; TEMP 36.6; O2SAT 98; BMI 41.5
[2020-05-28] MEDS: 0.9 % Sodium Chloride 1,000 ML 999 ML IVCONT ×2 (13:21→16:17)
[2020-05-28] MEDS: Morphine Sulfate 4 MG/ML CARTRIDGE IVPUSH ×2 (13:21→13:47)
--- NOTE | 2020-05-28 13:23 | ED.ABDPAIN ---
HPI - Abdominal Pain General Chief Complaint: Abdominal Pain Stated Complaint: FLANK PAIN Time Seen by Provider: 05/28/20 13:11 Source: patient and EMS Mode of arrival: EMS Limitations: no limitations History of Present Illness HPI narrative: 39 y/o female with history of kidney stones, s/p gastric bypass, chronic pain on chronic opiates, sacroilitis s/p recent injections, and depression who presents to the ED with acute onset of severe left sided flank pain that started when she was out bringing her nephew for a haircut. She states the pain is sharp and burning in nature and wraps around to her LLQ. She is nauseated and vomiting. She called 911 and received Zofran from EMS with improvement. She denies fever, chills. She arrives to the ER with 10/10 left flank pain she reports is very similar to her prior kidney stones that she experiences several years ago. She denies change of and just finshed her menses. MD elicited complaint: flank pain Pertinent past history: kidney stones Onset (ago): hour(s) (2) Pain Consistency: constant Location: L flank Severity: severe Pain scale (0-10): 10 Quality: stabbing and burning Radiation: LLQ Migration to: no migration Exacerbating factors: movement Relieving factors: nothing Context: history of similar episodes Associated symptoms: nausea and vomiting Treatments prior to arrival: other (IV Zofran ) Related Data Date of Last Menstrual Period: 05/21/20 Patient : No Home Medications Medication Instructions Recorded Confirmed cetirizine 1 tab PO DAILY 05/16/20 05/16/20 pantoprazole 1 tab PO DAILY 05/16/20 05/16/20 Previous Rx's Medication Instructions Recorded acetaminophen [Tylenol Extra 500 mg PO Q6H PRN #20 tab 01/02/20 Strength] lidocaine [Lidoderm] 1 patch TOPICAL DAILY PRN #30 ea 01/02/20 MDD remove after 12 hours naproxen 500 mg PO BID PRN 10 Days #20 tab 01/02/20 cyclobenzaprine 10 mg tablet 10 mg PO BID PRN 30 Days #60 tab 02/11/20 gabapentin 300 mg capsule 600 mg PO TID 30 Days #180 cap 02/11/20 trazodone 50 mg tablet 50 mg PO BEDTIME PRN #90 tab 03/15/20 fluoxetine 20 mg tablet 60 mg PO DAILY #270 tab 04/05/20 dicyclomine 10 mg PO TID PRN #10 cap 05/03/20 ondansetron 4 mg PO Q6H PRN #10 tab 05/03/20 oxycodone-acetaminophen 5 mg-325 1 tab PO TID PRN #90 tab 05/05/20 mg tablet ondansetron HCl [Zofran] 4 mg PO Q8H PRN #10 tab 05/28/20 oxycodone 5 mg PO Q4H PRN #10 tab 05/28/20 prednisone 40 mg PO DAILY #6 tab 05/28/20 tamsulosin [Flomax] 0.4 mg PO DAILY #6 cap 05/28/20 Allergies Allergy/AdvReac Type Severity Reaction Status Date / Time bee pollen [BEE STINGS] Allergy Unknown SWELLING Verified 05/26/20 10:26 capsaicin [CAPSAICIN] Allergy Unknown BAD RED Verified 05/26/20 10:26 RASH, hives hydromorphone [From DILAUDID] AdvReac Unknown NAUSEA & Verified 05/26/20 10:26 VOMITING Pt states no food allergies Allergy Unknown unknown Uncoded 02/11/20 08:43 Review of Systems Review of Systems Constitutional: No Fever, No Chills Cardiovascular: No Chest Pain, No SOB, No Orthopnea, No Edema Respiratory: No Cough, No Sputum, No Wheezing, No dyspnea Gastrointestinal: + Nausea,+ Vomiting, No Diarrhea, + abdominal Pain Genitourinary: No Dysuria, No Urinary Frequency, No Hematuria Musculoskeletal: + joint pain, No Myalgias Skin: No Skin Lesions, No rash Neuro: No Weakness, No Numbness, No Dizziness, No Headache Psych: + Anxiety/Panic, No Depression Heme/Lymph: No Bruising, No Lymphadenopathy Endocrine: No Polyuria, No Polydipsia Physical Exam Vital Signs: Vital Signs: Last Vital Signs Temp 97.9 F 05/28/20 13:12 Pulse 92 05/28/20 14:51 Resp 22 H 05/28/20 13:35 BP 123/82 05/28/20 14:51 Pulse Ox 98 05/28/20 13:12 Body Mass Index 41.5 Appearance: Alert. Oriented X3. Appears in significant pain. Eyes: Pupils equal, round and reactive to light. ENT: Pharynx normal. Neck: Normal inspection. Neck supple. CVS: Normal heart rate and rhythm. Pulses normal. Respiratory: Hyperventilating due to pain. Breath sounds normal. Abdomen: Soft, obese, and nontender. +BS x4, +CVA tenderness on the left Skin: Skin warm and dry. Normal skin color. Normal skin turgor. No rashes. Extremities: No lower extremity edema. Neuro: Oriented X 3. Non-focal Course Course Course Narrative: 39 y/o female presenting with acute onset of severe left sided flank pain along with N/V, concerning for kidney stones. Severe pain on arrival requiring IV morphine x2 for adequate pain control. IVF, labs and CT scan ordered. Dispo pending results and improvement. Reevaluation(s) Reevaluation #1: Significant improvement in pain after medications. CT scan showing mild-moderate left ureteral pelvocalictasis to the level of a 0.6 cm calculus at the left UVJ with mild periureteric stranding. Given decadron for ureteral inflammatoion and flomax in addition to more IVF. She may be able to pass the stone on her own. Will continue to monitor. Reevaluation #2: Patient continues to do well with pain well controlled. She is not nauseated, no vomiting since arrival. UA is negative for infection. Results of CT scan were discussed with the patient. She is comfortable with d/c home with pain control and plan to follow up with Urology on Saturday. She has been our Urology group in the past. She understands to come back to the ER if she has recurrence of severe pain. MDM - Abdominal Pain Lab Data Result diagrams: 05/28/20 13:44 05/28/20 13:44 Labs: Lab Results 05/28/20 05/28/20 05/28/20 Range/Units 13:44 13:44 13:44 WBC 7.7 (4.8-10.8) X10*3/uL RBC 4.41 (4.20-5.50) X10*6/uL Hgb 10.2 L (12.0-16.0) g/dl Hct 32.3 L (37-47) % MCV 73.2 L (80-98) fL MCH 23.1 L (27.0-33.0) pg MCHC 31.6 (31.0-35.0) g/dl RDW 16.0 (11.0-16.0) % Plt Count 426 H (160-400) X10*3/uL MPV 9.6 (9.4-12.3) fL Immature Gran % (Auto) 0.1 (0.0-0.4) % Neut % (Auto) 65.0 (45-73) % Lymph % (Auto) 26.8 (20-40) % Bullock % (Auto) 6.6 (2-11) % Eos % (Auto) 1.2 (0-4) % Baso % (Auto) 0.3 (0-2) % Lymph # (Auto) 2.1 (1.2-4.9) X10*3/uL Bullock # (Auto) 0.5 (0.1-1.2) X10*3/uL Eos # (Auto) 0.1 (0.0-0.4) X10*3/uL Baso # (Auto) 0.0 (0.0-0.2) X10*3/uL Abs Immat Gran (auto) 0.01 (0.00-0.03) X10*3/uL Absolute Neuts (auto) 5.0 (2.0-8.3) X10*3/uL Absolute Nucleated RBC 0.000 (0.0-0.012) X10*3/uL Nucleated RBC % (auto) 0.0 (0.0-0.2) /100WBC Hold Blue Top SEE NOTE Sodium 139 (135-145) mmol/L Potassium 4.2 (3.3-5.1) mmol/L Chloride 106 (96-108) mmol/L Carbon Dioxide 21 L (22-29) mmol/L Anion Gap 16 (12-20) BUN 6 L (9-16) mg/dL Creatinine 0.68 (0.5-1.4) mg/dL Estim Creat Clear Calc 138.0 Estimated GFR > 60 Random Glucose 128 H (60-115) mg/dL Calcium 8.7 (8.4-10.2) mg/dL Magnesium 1.7 (1.6-2.6) mg/dL Total Bilirubin 0.6 (0.0-1.0) mg/dL Direct Bilirubin 0.3 (0.0-0.5) mg/dL AST 15 (5-31) U/L ALT 15 (0-31) U/L Alkaline Phosphatase 79 (39-117) U/L Total Protein 6.9 (6.5-8.0) g/dL Albumin 4.0 (3.5-5.0) g/dL Beta HCG, Quant mIU/mL Urine Color Urine Appearance Urine pH (5.0-8.0) Ur Specific [place] (1.005-1.025) Urine Protein (NEG-TRACE) MG/DL Urine Glucose (UA) (NEG) MG/DL Urine Ketones (NEG) MG/DL Urine Blood (NEG) Urine Nitrite (NEG) Ur Leukocyte Esterase (NEG) Urine RBC (0) /HPF Urine WBC (0-4) /HPF Ur Squamous Epith Cells /LPF Calcium Oxalate Crystal /LPF Urine Bacteria /LPF Urine Mucus /LPF Urine Test (NEGATIVE) 05/28/20 05/28/20 05/28/20 Range/Units 13:44 14:50 14:50 WBC (4.8-10.8) X10*3/uL RBC (4.20-5.50) X10*6/uL Hgb (12.0-16.0) g/dl Hct (37-47) % MCV (80-98) fL MCH (27.0-33.0) pg MCHC (31.0-35.0) g/dl RDW (11.0-16.0) % Plt Count (160-400) X10*3/uL MPV (9.4-12.3) fL Immature Gran % (Auto) (0.0-0.4) % Neut % (Auto) (45-73) % Lymph % (Auto) (20-40) % Bullock % (Auto) (2-11) % Eos % (Auto) (0-4) % Baso % (Auto) (0-2) % Lymph # (Auto) (1.2-4.9) X10*3/uL Bullock # (Auto) (0.1-1.2) X10*3/uL Eos # (Auto) (0.0-0.4) X10*3/uL Baso # (Auto) (0.0-0.2) X10*3/uL Abs Immat Gran (auto) (0.00-0.03) X10*3/uL Absolute Neuts (auto) (2.0-8.3) X10*3/uL Absolute Nucleated RBC (0.0-0.012) X10*3/uL Nucleated RBC % (auto) (0.0-0.2) /100WBC Hold Blue Top Sodium (135-145) mmol/L Potassium (3.3-5.1) mmol/L Chloride (96-108) mmol/L Carbon Dioxide (22-29) mmol/L Anion Gap (12-20) BUN (9-16) mg/dL Creatinine (0.5-1.4) mg/dL Estim Creat Clear Calc Estimated GFR Random Glucose (60-115) mg/dL Calcium (8.4-10.2) mg/dL Magnesium (1.6-2.6) mg/dL Total Bilirubin (0.0-1.0) mg/dL Direct Bilirubin (0.0-0.5) mg/dL AST (5-31) U/L ALT (0-31) U/L Alkaline Phosphatase (39-117) U/L Total Protein (6.5-8.0) g/dL Albumin (3.5-5.0) g/dL Beta HCG, Quant < 2 mIU/mL Urine Color YELLOW Urine Appearance CLEAR Urine pH 6.5 (5.0-8.0) Ur Specific [place] 1.020 (1.005-1.025) Urine Protein NEG (NEG-TRACE) MG/DL Urine Glucose (UA) NEG (NEG) MG/DL Urine Ketones 40 (NEG) MG/DL Urine Blood 2+ H (NEG) Urine Nitrite NEG (NEG) Ur Leukocyte Esterase NEG (NEG) Urine RBC 10-14 H (0) /HPF Urine WBC 1-4 (0-4) /HPF Ur Squamous Epith Cells 2+ /LPF Calcium Oxalate Crystal 1+ /LPF Urine Bacteria TRACE /LPF Urine Mucus 1+ /LPF Urine Test NEGATIVE (NEGATIVE) Discharge Plan Discharge Clinical Impression: Kidney calculi Patient Disposition: Home, Self-Care Instructions: Kidney Stones (ED), How to Strain Your Urine (ED) Additional Instructions: Your CT scan today showed a large kidney stone at the end of your left ureter. It is near the bladder. You are likely to pass this on your own. Increase your fluid intake, drink plenty of water. Take the prescribed medication as directed. Follow up with the Urologist on Saturday. If you have worsening pain, come back to the ER for further evaluation. Prescriptions: New ondansetron HCl [Zofran] 4 mg tablet 4 mg PO Q8H PRN (Reason: nausea and vomiting) Qty: 10 RF: 0 tamsulosin [Flomax] 0.4 mg capsule 0.4 mg PO DAILY Qty: 6 RF: 0 prednisone 20 mg tablet 40 mg PO DAILY Qty: 6 RF: 0 oxycodone 5 mg tablet 5 mg PO Q4H PRN (Reason: pain) Qty: 10 RF: 0 No Action trazodone 50 mg tablet 50 mg PO BEDTIME PRN (Reason: sleep) Qty: 90 RF: 2 fluoxetine 20 mg tablet 60 mg PO DAILY Qty: 270 RF: 3 cetirizine 10 mg tablet 1 tab PO DAILY RF: 0 pantoprazole 40 mg tablet,delayed release (DR/EC) 1 tab PO DAILY RF: 0 ondansetron 4 mg tablet,disintegrating 4 mg PO Q6H PRN (Reason: nausea and vomiting) Qty: 10 RF: 0 dicyclomine 10 mg capsule 10 mg PO TID PRN (Reason: abdominal pain) Qty: 10 RF: 0 acetaminophen [Tylenol Extra Strength] 500 mg tablet 500 mg PO Q6H PRN (Reason: pain or fever) Qty: 20 RF: 0 lidocaine [Lidoderm] 5 % adhesive patch,medicated 1 patch topical DAILY MDD remove after 12 hours PRN (Reason: pain) Qty: 30 RF: 0 naproxen 500 mg tablet 500 mg PO BID PRN (Reason: pain) 10 Days Qty: 20 RF: 0 oxycodone-acetaminophen [Percocet] 5-325 mg tablet 1 tab PO TID PRN (Reason: pain) Qty: 90 RF: 0 cyclobenzaprine 10 mg tablet 10 mg PO BID PRN (Reason: muscle spasm) 30 Days Qty: 60 RF: 12 gabapentin 300 mg capsule 600 mg PO TID 30 Days Qty: 180 RF: 12 Referrals: Asif Arteaga MD [Physician] - 2 days (obstructing kidney stone) Stand Alone Forms: Work/School Release [facility], [facility] Past Medical History Medical History Anemia Anxiety Back pain Fatty liver Gastric ulcer GERD (gastroesophageal reflux disease) History of tachycardia Hx of hypotension Instability of sacroiliac joint Kidney stones RENO on CPAP Sacroiliitis Surgical History Gastric bypass status for obesity History of cholecystectomy History of laparoscopic appendectomy Status post laser lithotripsy of ureteral calculus Date of Last Menstrual Period: 05/21/20 Social History Social History Alcohol intake: never Smoking Status: Former smoker Advance Directives: No Advance Directives Information Provided: No
[2020-05-28 13:35] VITALS: BP 139/82; PULSE 88; RESP 22
[2020-05-28 13:57] LABS: MANUAL DIFF FLAG NO
[2020-05-28 14:04] LABS: Basophils Percent Auto 0.3 % (0-2); Eosinophils Absolute Auto 0.1 X10*3/uL (0.0-0.4); Eosinophils Percent Auto 1.2 % (0-4); Hematocrit 32.3 % (37-47); Hemoglobin 10.2 g/dl (12.0-16.0); Imm Gran Abs Auto 0.01 X10*3/uL (0.00-0.03); Imm Gran Pct Auto 0.1 % (0.0-0.4); Lymphocytes Absolute Auto 2.1 X10*3/uL (1.2-4.9); Lymphocytes Percent Auto 26.8 % (20-40); Mean Corpuscular HGB Conc 31.6 g/dl (31.0-35.0); Mean Corpuscular Hemoglobin 23.1 pg (27.0-33.0); Mean Corpuscular Volume 73.2 fL (80-98); Mean Platelet Volume 9.6 fL (9.4-12.3); Monocytes Absolute Auto 0.5 X10*3/uL (0.1-1.2); Monocytes Percent Auto 6.6 % (2-11); Platelet Count 426 X10*3/uL (160-400); Red Blood Count 4.41 X10*6/uL (4.20-5.50); White Blood Count 7.7 X10*3/uL (4.8-10.8)
[2020-05-28 14:25] LABS: Alanine Aminotransferase 15 U/L (0-31); Alkaline Phosphatase 79 U/L (39-117); Anion Gap 16 (12-20); Aspartate Amino Transferase 15 U/L (5-31); Bilirubin Direct 0.3 mg/dL (0.0-0.5); Bilirubin Total 0.6 mg/dL (0.0-1.0); Blood Urea Nitrogen 6 mg/dL (9-16); Calcium 8.7 mg/dL (8.4-10.2); Carbon Dioxide 21 mmol/L (22-29); Chloride 106 mmol/L (96-108); Estimated Glomerular Filt Rate > 60; Glucose Random 128 mg/dL (60-115); Magnesium 1.7 mg/dL (1.6-2.6); Potassium 4.2 mmol/L (3.3-5.1); Sodium 139 mmol/L (135-145); Total Protein 6.9 g/dL (6.5-8.0)
[2020-05-28 14:29] LABS: HCG Quantitative < 2 mIU/mL
[2020-05-28 14:51] VITALS: BP 123/82; PULSE 92
[2020-05-28 14:59] LABS: Glucose Urine UA NEG (NEG); Leukocyte Esterase Urine NEG (NEG); Nitrite Urine NEG (NEG); PH 6.5 (5.0-8.0); Urine Blood 2+ (NEG); Urine Ketones 40 MG/DL (NEG); Urine Protein NEG (NEG-TRACE)
[2020-05-28 15:03] LABS: Appearance Urine CLEAR; Color Urine YELLOW; Urine Pregnancy NEGATIVE (NEGATIVE)
[2020-05-28 15:04] LABS: UPreg QC Valid YES
[2020-05-28 15:17] LABS: Bacteria Urine TRACE /LPF; Calcium Oxalate Crystals Urine 1+ /LPF; Mucus Urine 1+ /LPF; Squamous Epithelial Cell Urine 2+ /LPF
[2020-05-28] MEDS: Tamsulosin HCL 0.4 MG CAPSULE PO (16:17)
== END 2020-05-28 18:14 | disposition home or self-care (01) ==
PROVIDERS: Physician Assistant; Emergency Provider Emergency Medicine; PCP Internal Medicine
DX: N20.2 Calculus of kidney with calculus of ureter (principal); Z87.442 Personal history of urinary calculi; Z98.84 Bariatric surgery status; G89.29 Other chronic pain; Z79.891 Long term (current) use of opiate analgesic
CPT/HCPCS: 36415; 74176; 80048; 80076; 81001; 81025; 83735; 84702; 85025; 96361; 96374; 96375; 99284; J1100; J2270

== ENCOUNTER → 2020-06-02 16:12 | Outpatient (BNVA) | payer OTHER, SELFPAY | PROVIDERS: PCP Internal Medicine; Visit Provider Anesthesiology | DX: M46.1 Sacroiliitis, not elsewhere classified (principal); M53.2X8 Spinal instabilities, sacral and sacrococcygeal region; Z79.891 Long term (current) use of opiate analgesic | CPT/HCPCS: 99212 ==

== ENCOUNTER → 2020-07-07 15:52 | Outpatient (BNVA) | payer OTHER, SELFPAY | PROVIDERS: PCP Internal Medicine; Visit Provider Anesthesiology | DX: M46.1 Sacroiliitis, not elsewhere classified (principal); M53.2X8 Spinal instabilities, sacral and sacrococcygeal region; Z79.899 Other long term (current) drug therapy | CPT/HCPCS: 99212 ==

== ENCOUNTER → 2020-08-04 09:55 | Outpatient (BNVA) | payer OTHER, SELFPAY | PROVIDERS: PCP Internal Medicine; Visit Provider Anesthesiology | DX: M46.1 Sacroiliitis, not elsewhere classified (principal); M53.2X8 Spinal instabilities, sacral and sacrococcygeal region | CPT/HCPCS: 99212 ==

== ENCOUNTER → 2020-09-01 13:28 | Outpatient (BNVA) | payer OTHER, SELFPAY | PROVIDERS: PCP Internal Medicine; Visit Provider Anesthesiology | DX: M46.1 Sacroiliitis, not elsewhere classified (principal); M53.2X8 Spinal instabilities, sacral and sacrococcygeal region | CPT/HCPCS: 99212 ==

== ENCOUNTER → 2020-09-20 16:30 | Outpatient (BNVA) | payer OTHER, SELFPAY | PROVIDERS: PCP Internal Medicine; Visit Provider Physician Assistant | DX: E66.9 Obesity, unspecified (principal); Z98.84 Bariatric surgery status | CPT/HCPCS: 99212 ==

== ENCOUNTER → 2020-09-29 16:00 | Outpatient (BNVA) | payer OTHER, SELFPAY | PROVIDERS: PCP Internal Medicine; Visit Provider Anesthesiology | DX: M46.1 Sacroiliitis, not elsewhere classified (principal); M53.2X8 Spinal instabilities, sacral and sacrococcygeal region | CPT/HCPCS: 99212 ==

== ENCOUNTER 2020-10-08 07:23 | Outpatient (REF) | payer OTHER, SELFPAY ==
[2020-10-08 08:20] LABS: MANUAL DIFF FLAG NO
[2020-10-08 08:30] LABS: Basophils Percent Auto 0.4 % (0-2); Eosinophils Absolute Auto 0.1 X10*3/uL (0.0-0.4); Eosinophils Percent Auto 2.1 % (0-4); Hematocrit 31.6 % (37-47); Hemoglobin 9.5 g/dl (12.0-16.0); Imm Gran Abs Auto 0.01 X10*3/uL (0.00-0.03); Imm Gran Pct Auto 0.2 % (0.0-0.4); Lymphocytes Absolute Auto 1.9 X10*3/uL (1.2-4.9); Lymphocytes Percent Auto 36.5 % (20-40); Mean Corpuscular HGB Conc 30.1 g/dl (31.0-35.0); Mean Corpuscular Hemoglobin 22.3 pg (27.0-33.0); Mean Corpuscular Volume 74.2 fL (80-98); Mean Platelet Volume 9.6 fL (9.4-12.3); Monocytes Absolute Auto 0.4 X10*3/uL (0.1-1.2); Monocytes Percent Auto 8.2 % (2-11); Neutrophils Absolute Auto 2.8 X10*3/uL (2.0-8.3); Neutrophils Percent Auto 52.6 % (45-73); Platelet Count 417 X10*3/uL (160-400); Red Blood Count 4.26 X10*6/uL (4.20-5.50); Red Cell Distribution Width 16.7 % (11.0-16.0); White Blood Count 5.3 X10*3/uL (4.8-10.8)
[2020-10-08 08:42] LABS: Estimated Average Glucose 108 mg/dL; Hemoglobin A1c % 5.4 %
[2020-10-08 08:51] LABS: Alanine Aminotransferase 7 U/L (0-31); Albumin Level 4.1 g/dL (3.5-5.0); Alkaline Phosphatase 77 U/L (39-117); Anion Gap 14 (12-20); Aspartate Amino Transferase 13 U/L (5-31); Bilirubin Total 0.7 mg/dL (0.0-1.0); Blood Urea Nitrogen 7 mg/dL (9-16); C Reactive Protein 0.49 mg/dL (< or = 0.50); Calcium 9.1 mg/dL (8.4-10.2); Carbon Dioxide 23 mmol/L (22-29); Chloride 107 mmol/L (96-108); Cholesterol 193 mg/dL; Estimated Glomerular Filt Rate > 60; Glucose Random 92 mg/dL (60-115); HDL Cholesterol 41 mg/dL; Iron 18 mcg/dL (30-160); LDL Cholesterol Calculated 117 mg/dl; Percent Iron Saturation 5 % (15-50); Potassium 4.3 mmol/L (3.3-5.1); Sodium 140 mmol/L (135-145); Total Iron Binding Capacity 387 mcg/dL (228-428); Total Protein 7.1 g/dL (6.5-8.0); Triglycerides 178 mg/dL; Unsaturated Iron Binding 369 ug/dL
[2020-10-08 09:13] LABS: Ferritin 6 ng/mL (10-250); TSH reflex Free T4 0.59 uIU/mL (0.32-4.0); Vitamin D 25-OH Total 27.9 ng/mL (>30)
[2020-10-10 10:34] LABS: Folate 9.5 ng/mL (> or = 4.0); Vitamin B12 181 pg/mL (200-900)
[2020-10-10 15:11] LABS: Calcium (PTHI) 9.1 mg/dL (8.6-10.2); PTHI 95 pg/mL (14-64)
[2020-10-10 21:51] LABS: Insulin Level Total 8.7 uIU/mL
[2020-10-11 16:11] LABS: Zinc 62 mcg/dL (60-130)
[2020-10-12 19:16] LABS: Vitamin A 45 mcg/dL (38-98)
[2020-10-13 13:01] LABS: Vitamin B1 8 nmol/L (8-30)
== END 2020-10-08 07:24 | disposition home or self-care (01) ==
LOC: HO.LAB 07:23
PROVIDERS: PCP Internal Medicine; Visit Provider Physician Assistant
DX: E66.9 Obesity, unspecified (principal); Z98.84 Bariatric surgery status
CPT/HCPCS: 36415; 80053; 80061; 82306; 82607; 82728; 82746; 83036; 83525; 83540; 83970; 84425; 84443; 84590; 84630; 85025; 86140

== ENCOUNTER → 2020-10-20 08:10 | Outpatient (BNVA) | payer OTHER, SELFPAY | PROVIDERS: PCP Internal Medicine; Visit Provider Anesthesiology | DX: M46.1 Sacroiliitis, not elsewhere classified (principal); G57.03 Lesion of sciatic nerve, bilateral lower limbs; M53.2X8 Spinal instabilities, sacral and sacrococcygeal region; G47.33 Obstructive sleep apnea (adult) (pediatric); Z99.89 Dependence on other enabling machines and devices | CPT/HCPCS: 99212 ==

== ENCOUNTER 2020-11-17 08:49 | Outpatient (REF) | payer OTHER, SELFPAY | END 2020-11-17 08:50 | disposition home or self-care (01) | LOC: HO.LAB 08:49 | PROVIDERS: PCP Internal Medicine; Visit Provider Anesthesiology | DX: M46.1 Sacroiliitis, not elsewhere classified (principal); M53.2X8 Spinal instabilities, sacral and sacrococcygeal region | CPT/HCPCS: 99212 ==

== ENCOUNTER 2020-12-09 11:29 | Day surgery (SDC) | payer OTHER, SELFPAY ==
[2020-12-05 13:47] VITALS: BMI 41.5
--- NOTE | 2020-12-08 10:25 | HO.ANESPROP2 ---
Documented by User: Jennifer Xiong NP 12/08/20 10:28 HPI - Anesthesia Eval Consult details Narrative: 40yo F for Right S.I. Joint Fusion s/p SI joint injection 04/2020 with MAC PMFSH Active Problems Active Problems: All Active Problems (Updated 09/20/20 @ 15:33 by Sally Giordano PA-C) Obesity (Acute) Gastric bypass status for obesity (Acute) Instability of sacroiliac joint (Acute) Sacroiliitis (Acute) Past Medical History Medical History Anemia Anxiety Back pain Fatty liver Gastric ulcer GERD (gastroesophageal reflux disease) History of tachycardia Hx of hypotension Instability of sacroiliac joint Kidney stones RENO on CPAP Sacroiliitis Family History Family History Father Diabetes Mother Throat cancer HTN (hypertension) Maternal Grandmother Ovarian cancer Maternal Grandfather Prostate cancer Surgical History Surgical History Gastric bypass status for obesity History of cholecystectomy History of laparoscopic appendectomy History of surgery Status post laser lithotripsy of ureteral calculus Social History Social History (Updated 09/20/20 @ 16:50 by Kathy Torre LPN) Alcohol intake: never Patient Tobacco Use Status: Never used Tobacco Advance Directives Information Provided: No Meds Allergies Allergy/AdvReac Type Severity Reaction Status Date / Time bee pollen [BEE STINGS] Allergy Intermediate SWELLING Verified 12/05/20 13:43 capsaicin [CAPSAICIN] Allergy Intermediate BAD RED Verified 12/05/20 13:43 RASH, hives hydromorphone [From DILAUDID] AdvReac Intermediate NAUSEA & Verified 12/05/20 13:43 VOMITING Exam Exam Date and Time: December 08, 2020 1025 Height,Weight and Vital Signs: Height 5 ft 6 in Weight 116.63 kg Pertinent Lab Results Pertinent Lab Results: Laboratory Tests 10/08/20 10/08/20 07:40 07:40 WBC 5.3 Hgb 9.5 L Hct 31.6 L Plt Count 417 H Sodium 140 Potassium 4.3 Chloride 107 Carbon Dioxide 23 BUN 7 L Creatinine 0.70 Narrative Narrative: ECHO 2018 nml study Assessment and Plan Assessment Anesthesia Assessment: Chart Reviewed Documented by User: Zandra Castillo MD 12/09/20 12:45 PMFSH Past Medical History Medical History Anemia Anxiety Back pain Fatty liver Gastric ulcer GERD (gastroesophageal reflux disease) History of tachycardia Hx of hypotension Instability of sacroiliac joint Kidney stones RENO on CPAP Sacroiliitis Functional capacity: independent ambulation Patient : No Family History Family History Father Diabetes Mother Throat cancer HTN (hypertension) Maternal Grandmother Ovarian cancer Maternal Grandfather Prostate cancer Family history of problems with anesthesia: No Surgical History Surgical History Gastric bypass status for obesity History of cholecystectomy History of laparoscopic appendectomy History of surgery Status post laser lithotripsy of ureteral calculus History of Problems with Anesthesia: No Social History Social History (Updated 09/20/20 @ 16:50 by Kathy Torre LPN) Alcohol intake: never Patient Tobacco Use Status: Never used Tobacco Advance Directives Information Provided: No Meds Allergies Allergy/AdvReac Type Severity Reaction Status Date / Time bee pollen [BEE STINGS] Allergy Intermediate SWELLING Verified 12/05/20 13:43 capsaicin [CAPSAICIN] Allergy Intermediate BAD RED Verified 12/05/20 13:43 RASH, hives hydromorphone [From DILAUDID] AdvReac Intermediate NAUSEA & Verified 12/05/20 13:43 VOMITING Exam Airway Mallampati Class: III TM Dist: >3cm Neck ROM: Full Denture: Upper and Lower Heart: RRR Lungs: CTA Assessment and Plan Final Anesthetic Review Family History of Problems with Anesthesia: No History of Problems with Anesthesia: No
[2020-12-09] VITALS (9 sets, daily range): BP systolic 110–142; BP diastolic 70–93; PULSE 101–113; RESP 14–18; TEMP 36.1–36.8; O2SAT 94–100
--- NOTE | ~2020-12-09 | FL_ITS ---
EXAMINATION: XR FLUOROSCOPY WITH IMAGES CLINICAL INFORMATION: SI joint fusion. COMPARISON: None. TECHNIQUE: Fluoroscopy performed by Dr. Art Alanis. Fluoroscopy time: 0.6 minutes DAP: 13.0 mGy-cm2 Images: 4 FINDINGS: There are 4 images obtained of right SI joints with needle positioned in the inferior aspect of SI joint. The last image reveals a small probe within the SI joint on lateral view. FL/FL guidance in OR IMPRESSION: Fluoroscopy was provided for right SI joint fusion/injection to the referring physician.
--- NOTE | 2020-12-09 08:34 | W.PM.OPN ---
Operative Note Operative Note Date of Service: 12/09/20 Narrative: ?Sacroiliac joint stabilisation procedure. posterior sacroiliac joint fusion using LINQ SI joint stabilization system with C-arm fluoroscopy for guidance.? Ms Vargas is very pleasant 40 years old female who is suffering right sacroiliac joint insufficiency and sacroiliitis on the right.??She failed conservative management of sacroiliitis.??She came today to receive the procedures as above.??The risks and benefits including bleeding, infection, peripheral nerve damage, failure to reduce the pain were explained to the patient.?The patient came to the operating room, she was positioned on the stretcher supine, [place] [employer] monitors were applied and patient was administered with general endotracheal anesthesia.??After that the patient was transferred on operating table and positioned prone with all pressure points protected. The patient was administered 2 grams cefazolin IV approximately 25 minutes before the start of the procedure.? Time-out was performed delineating correct site, side, and nature of the procedure, name and date of of the patient, risk of fire, need for DVT prophylaxis, need for antibiotics.? The patient was transferred?on?radiolucent table. All pressure points were protected again. Lower back and bilateral buttocks were prepped with ChloraPrep and draped with full body drape. 3. 5 cm posterior midline incision over the projection of the right S1 foramina was performed.? Soft tissue dissection done to sacroiliac joint and thorough blind dissection was made in the direction of the?sacroiliac joint.? K-wire pin was inserted into the sacroiliac joint and guiding instrument was inserted into the joint using the pin as a guide and advanced into the joint on the intermittent anterior posterior and lateral views.??? After that pin was removed and rasping device was inserted to broach and rasp sacroiliac joint.? Once joint was prepared and inserted the structural allograft implant was hammered into the joint . It was packed with ortho biologics in and around the implant to provide better opportunity? for bones fusion.? The position of the allograft was confirmed radiographically.? The wound was irrigated hemostasis was achieved wound was closed in 2 layers.? Surgery was concluded by performing standard suture closing technique: 0 Polysorb suture was used to close the wound and nylon 2-0 suture vertical mattress was used to approximate the levels of the skin. Injection of the lidocaine 2% mixed with bupivacaine 0.5% was injected into the wound before closure. Skin glue was applied to the skin edges.? Sterile?dressing was applied with bacitracin ointment . The patient tolerated procedure well she was awaken and taken outside of the operating room to PACU where she recovered uneventfully. She went home without immediate complications. She will be wearing an SI joint fixation belt for the 8 weeks after the procedure.
[2020-12-09 12:22] LABS: UPreg QC Valid YES
[2020-12-09 12:23] LABS: Urine Pregnancy NEGATIVE (NEGATIVE)
[2020-12-09] MEDS: Lactated Ringers 1,000 ML 100 ML IVCONT (13:06)
--- NOTE | 2020-12-09 14:04 | MHC.SHP ---
Pre-Procedural Eval Section A Date of Service: 12/09/20 Section B Chief Complaint: sacroiliitis Details of Present Illness: As above Relevant Family History (Specify if Yes): No Relevant Social History: None Present Medications: see Short Stay Collaborative assessment Medical History: No relevant PMH History of Previous Operations: No relevant previous surgery Allergies: Allergies Allergy/AdvReac Type Severity Reaction Status Date / Time bee pollen [BEE STINGS] Allergy Intermediate SWELLING Verified 12/05/20 13:43 capsaicin [CAPSAICIN] Allergy Intermediate BAD RED Verified 12/05/20 13:43 RASH, hives hydromorphone [From DILAUDID] AdvReac Intermediate NAUSEA & Verified 12/05/20 13:43 VOMITING Review of Systems Sugical H&P ROS: Negative: Cardiovascular, Respiratory, Neurological, Psychiatric, Hem-Onc, Allergic/Immunologic, Gastrointestinal, Genitourinary, Musculoskeletal, Integumentary, Endocrine and Eyes/Ears/Nose/Throat and Yes, Specify: Constitution (Morbid obesity) Exam Surgical H&P Exam: Normal: HEENT and Significant Findings: Abdomen (Morbid obesity) Plan Diagnosis/Plan: Unchanged I have reviewed the history and physical and performed a pertinent physical examination on my patient. No changes have occurred unless specified.
--- NOTE | 2020-12-09 15:43 | P.BOP_ITS ---
Brief Operative Note Date of Service: 12/09/20 Pre-op diagnosis: SI joint insufficient, sacroiliitis Post-op diagnosis: same Procedure: SI joint fusion Implants: Cadaver bone Allograft with biologic application to create fusion Surgeon: Art Alanis MD Anesthesia: GETA Was an Claims Account Manager used for this Procedure?: No Estimated blood loss (mL): 80 Pathology: none sent Condition: stable Disposition: PACU
[2020-12-09] MEDS: fentaNYL citrate/PF 100 MCG/2 ML VIAL 50 MCG IVPUSH (16:02)
[2020-12-09] MEDS: oxyCODONE HCl Immed Release 5 MG TABLET PO (16:28)
== END 2020-12-09 16:47 | disposition home or self-care (01) ==
PROVIDERS: Nurse Practitioner; PCP Internal Medicine; Visit Provider Anesthesiology
PROC: (CPT 27279; principal; 2020-12-09 13:10)
DX: M46.1 Sacroiliitis, not elsewhere classified (principal); M53.2X8 Spinal instabilities, sacral and sacrococcygeal region; G47.33 Obstructive sleep apnea (adult) (pediatric); Z79.899 Other long term (current) drug therapy; Z98.84 Bariatric surgery status
CPT/HCPCS: 27279; 81025; C1713; J0690; J1100; J2250; J2405; J3010; J3370

== ENCOUNTER → 2020-12-15 11:04 | Outpatient (BNVA) | payer OTHER, SELFPAY | PROVIDERS: PCP Internal Medicine; Visit Provider Anesthesiology | DX: Z51.81 Encounter for therapeutic drug level monitoring (principal); M53.2X8 Spinal instabilities, sacral and sacrococcygeal region; M46.1 Sacroiliitis, not elsewhere classified | CPT/HCPCS: 99212 ==

== ENCOUNTER → 2020-12-22 09:15 | Outpatient (BNVA) | payer OTHER, SELFPAY | PROVIDERS: PCP Internal Medicine; Visit Provider Anesthesiology | DX: M46.1 Sacroiliitis, not elsewhere classified (principal); M53.2X8 Spinal instabilities, sacral and sacrococcygeal region | CPT/HCPCS: 99212 ==

== ENCOUNTER → 2021-01-09 16:54 | Outpatient (BNVA) | payer OTHER, SELFPAY | PROVIDERS: PCP Internal Medicine; Visit Provider Anesthesiology | DX: Z98.1 Arthrodesis status (principal); M46.1 Sacroiliitis, not elsewhere classified; M53.2X8 Spinal instabilities, sacral and sacrococcygeal region; G47.33 Obstructive sleep apnea (adult) (pediatric); Z98.84 Bariatric surgery status; Z90.49 Acquired absence of other specified parts of digestive tract; Z88.8 Allergy status to other drugs, medicaments and biological substances; Z88.6 Allergy status to analgesic agent; Z91.030 Bee allergy status; Z99.89 Dependence on other enabling machines and devices | CPT/HCPCS: 99212 ==

== ENCOUNTER → 2021-02-13 15:43 | Outpatient (BNVA) | payer OTHER, SELFPAY | PROVIDERS: PCP Internal Medicine; Visit Provider Anesthesiology | DX: Z51.81 Encounter for therapeutic drug level monitoring (principal); M46.1 Sacroiliitis, not elsewhere classified; M53.2X8 Spinal instabilities, sacral and sacrococcygeal region | CPT/HCPCS: 99212 ==

== ENCOUNTER → 2021-03-13 14:54 | Outpatient (BNVA) | payer OTHER, SELFPAY | PROVIDERS: PCP Internal Medicine; Visit Provider Anesthesiology | DX: Z51.81 Encounter for therapeutic drug level monitoring (principal); M46.1 Sacroiliitis, not elsewhere classified; M53.2X8 Spinal instabilities, sacral and sacrococcygeal region | CPT/HCPCS: 99212 ==

== ENCOUNTER → 2021-04-10 15:25 | Outpatient (BNVA) | payer OTHER, SELFPAY | PROVIDERS: PCP Internal Medicine; Visit Provider Anesthesiology | DX: Z51.81 Encounter for therapeutic drug level monitoring (principal); M46.1 Sacroiliitis, not elsewhere classified; M53.2X8 Spinal instabilities, sacral and sacrococcygeal region | CPT/HCPCS: 99212 ==

== ENCOUNTER → 2021-05-08 15:51 | Outpatient (BNVA) | payer OTHER, SELFPAY | PROVIDERS: PCP Internal Medicine; Visit Provider Anesthesiology | DX: Z51.81 Encounter for therapeutic drug level monitoring (principal); F11.20 Opioid dependence, uncomplicated; M46.1 Sacroiliitis, not elsewhere classified; M53.2X8 Spinal instabilities, sacral and sacrococcygeal region | CPT/HCPCS: 99212 ==

== ENCOUNTER → 2021-05-22 10:10 | Outpatient (BNVA) | payer OTHER, SELFPAY | PROVIDERS: PCP Internal Medicine; Referring Provider Internal Medicine; Visit Provider Internal Medicine Cardiovascular Disease | DX: I49.8 Other specified cardiac arrhythmias (principal); R53.83 Other fatigue | CPT/HCPCS: 93005; 99212 ==

== ENCOUNTER → 2021-06-05 15:57 | Outpatient (BNVA) | payer OTHER, SELFPAY | PROVIDERS: PCP Internal Medicine; Visit Provider Anesthesiology | DX: Z51.81 Encounter for therapeutic drug level monitoring (principal); F11.20 Opioid dependence, uncomplicated | CPT/HCPCS: 99211 ==

== ENCOUNTER 2021-06-23 09:55 | Day surgery (SDC) | payer OTHER, SELFPAY ==
--- NOTE | 2021-06-21 14:37 | HO.ANESPROP2 ---
Documented by User: Jennifer Xiong NP 06/21/21 14:37 HPI - Anesthesia Eval Consult details Narrative: 40yo F for Left Diagnostic Sacroiliac Joint Innervation Injection s/p SI joint injection 04/2020 with MAC PMFSH Active Problems Active Problems: All Active Problems (Updated 05/22/21 @ 10:48 by Jayson Rosas MD) POTS (postural orthostatic tachycardia syndrome) (Acute) Anxiety (Acute) Annual physical exam (Acute) Obesity (Acute) Gastric bypass status for obesity (Acute) Instability of sacroiliac joint (Acute) Sacroiliitis (Acute) Past Medical History Medical History Anemia Annual physical exam Anxiety Back pain Fatty liver Gastric ulcer GERD (gastroesophageal reflux disease) History of tachycardia Hx of hypotension Instability of sacroiliac joint Kidney stones RENO on CPAP Sacroiliitis Family History Family History Father Diabetes Mother Throat cancer HTN (hypertension) Maternal Grandmother Ovarian cancer Maternal Grandfather Prostate cancer Family history of problems with anesthesia: No Surgical History Surgical History Gastric bypass status for obesity History of cholecystectomy History of laparoscopic appendectomy History of surgery Status post laser lithotripsy of ureteral calculus History of Problems with Anesthesia: No Social History Social History Housing: House Alcohol intake: never Patient Tobacco Use Status: Former Tobacco user Tobacco use type: Cigarette Years Smoked: quit 19 years ago Smoked in Last 30 Days: No e-Cigarette/Vaping Use: Never Used Second Hand Smoke Exposure: No Use of substances other than those prescribed or required for medical reasons: No Are you DNR?: No Advance Directives: No Advance Directives Information Provided: Yes service: No Current occupational status: employed 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/hazards: No Meds Allergies Allergy/AdvReac Type Severity Reaction Status Date / Time bee pollen [BEE STINGS] Allergy Intermediate SWELLING Verified 06/23/21 10:26 capsaicin [CAPSAICIN] Allergy Intermediate BAD RED Verified 06/23/21 10:26 RASH, hives hydromorphone [From DILAUDID] AdvReac Intermediate NAUSEA & Verified 06/23/21 10:26 VOMITING Exam Exam Date and Time: June 21, 2021 1437 Assessment and Plan Assessment Anesthesia Assessment: Chart Reviewed Final Anesthetic Review Family History of Problems with Anesthesia: No History of Problems with Anesthesia: No Documented by User: Britni Mar MD 06/23/21 12:34 PMFSH Past Medical History Medical History Anemia Annual physical exam Anxiety Back pain Fatty liver Gastric ulcer GERD (gastroesophageal reflux disease) History of tachycardia Hx of hypotension Instability of sacroiliac joint Kidney stones RENO on CPAP Sacroiliitis Family History Family History Father Diabetes Mother Throat cancer HTN (hypertension) Maternal Grandmother Ovarian cancer Maternal Grandfather Prostate cancer Surgical History Surgical History Gastric bypass status for obesity History of cholecystectomy History of laparoscopic appendectomy History of surgery Status post laser lithotripsy of ureteral calculus Social History Social History Housing: House Alcohol intake: never Patient Tobacco Use Status: Former Tobacco user Tobacco use type: Cigarette Years Smoked: quit 19 years ago Smoked in Last 30 Days: No e-Cigarette/Vaping Use: Never Used Second Hand Smoke Exposure: No Use of substances other than those prescribed or required for medical reasons: No Are you DNR?: No Advance Directives: No Advance Directives Information Provided: Yes service: No Current occupational status: employed 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/hazards: No Meds Allergies Allergy/AdvReac Type Severity Reaction Status Date / Time bee pollen [BEE STINGS] Allergy Intermediate SWELLING Verified 06/23/21 10:26 capsaicin [CAPSAICIN] Allergy Intermediate BAD RED Verified 06/23/21 10:26 RASH, hives hydromorphone [From DILAUDID] AdvReac Intermediate NAUSEA & Verified 06/23/21 10:26 VOMITING Exam Airway Mallampati Class: II TM Dist: >3cm Neck ROM: Full Denture: Upper and Lower Loose/Missing/Broken Teeth: Yes, Upper and Lower Heart: RRR Lungs: CTA Assessment and Plan Assessment Anesthesia Assessment: Anesthesia Plan Discussed Final Anesthetic Review NPO: Yes ASA Class: III Final Preanesthetic Review: Meds/Allgs Chart Reviewed, Consent Obtained/Reviewed and Anes Risks/Benef Reviewed Patient Risk: Intermediate Procedure Risk: Low Anesthetic Plan Anesthetic Plan: MAC: Disposition: Standard PACU
--- NOTE | ~2021-06-23 | FL_ITS ---
EXAMINATION: XR FLUOROSCOPY WITH IMAGES CLINICAL INFORMATION: Diagnostic sacroiliac joint injection, left COMPARISON: 12/09/2020 TECHNIQUE: Fluoroscopy performed by Dr. Art Alanis. Fluoroscopy time: 0.3 minutes DAP: 2.50 Gycm2 Images: 4 FINDINGS: There is injection of contrast seen overlying the left sacrum/sacroiliac joint. FL/FL guidance in OR IMPRESSION: Fluoroscopic guidance for injection over the left sacroiliac region. Please refer to procedural report for further information.
[2021-06-23 10:16] VITALS: BP 128/84; PULSE 90; RESP 16; TEMP 36.4; O2SAT 97
[2021-06-23 10:22] VITALS: BMI 42.0
[2021-06-23 10:26] LABS: UPreg QC Valid YES; Urine Pregnancy NEGATIVE (NEGATIVE)
[2021-06-23] MEDS: Lactated Ringers 1,000 ML 100 ML IVCONT (10:50)
--- NOTE | 2021-06-23 12:21 | MHC.SHP ---
Pre-Procedural Eval Section A Date of Service: 06/23/21 The patient is an INPATIENT: No Changes since office visit: Yes Patient answered all questions The History & Physical has been completed within 30 days and I have reviewed it.: No Section B Chief Complaint: sacroilitis Details of Present Illness: as above Relevant Family History (Specify if Yes): No Relevant Social History: None Present Medications: see Short Stay Collaborative assessment Medical History: Significant History History of Previous Operations: No relevant previous surgery Allergies: Allergies Allergy/AdvReac Type Severity Reaction Status Date / Time bee pollen [BEE STINGS] Allergy Intermediate SWELLING Verified 06/23/21 10:26 capsaicin [CAPSAICIN] Allergy Intermediate BAD RED Verified 06/23/21 10:26 RASH, hives hydromorphone [From DILAUDID] AdvReac Intermediate NAUSEA & Verified 06/23/21 10:26 VOMITING Review of Systems Sugical H&P ROS: Negative: Cardiovascular, Respiratory, Neurological, Psychiatric, Hem-Onc, Allergic/Immunologic, Gastrointestinal, Genitourinary, Integumentary, Endocrine and Eyes/Ears/Nose/Throat and Yes, Specify: Constitution (morbid obesity) and Musculoskeletal (sacroiliatis) Exam Surgical H&P Exam: Normal: HEENT, Normal: Heart, Normal: Lungs, Normal: Extremities, Normal: Abdomen, Normal: Skin and Normal: Neurological Plan Diagnosis/Plan: Unchanged I have reviewed the history and physical and performed a pertinent physical examination on my patient. No changes have occurred unless specified.
--- NOTE | 2021-06-23 13:10 | P.OP_ITS ---
Operative Note Operative Note Date of Service: 06/23/21 Narrative: Informed consent was explained to the patient. All questions were explained and? answered.? The patient was taken inside the operating room where she was positioned prone on the operating table. ASA m-rs applied and the patient was minimally sedated. Time-out was performed delineating correct site, side, the nature of the procedure, patient's allergy, preoperative antibiotic if needed.? All operating room staff was participating in OR time-out procedure. ? ?The lower back was prepped with ChloraPrep and draped with sterile towels. C- arm was brought over the operating field and picture of the LEFT SI joint was delineated on the screen.? Point of interest were delineated as POINT A: connection of the sacral ala on the left? with superior articular process of S1.?the other point of interest was POINT B : the lowest portion of the sacroiliac joint on the left on the sacral side of the joint. The rest of the targets were points 0.7 cm apart points from the Point A and point B in a palisade fashion. The projection of the point of interest to the skin were injected with the small amount of local anesthetic lidocaine 2% 1-1.5 cc.? After that 22 gauge 5 and 3-1/2 inch spinal needle was driven sequentially to the points of interest in tunnel vision fashion. After needles gently contacted the bone at the point of interests the needle was injected with small amount of the contrast.? The injection of the contrast did not demonstrate any intravascular or intrathecal spread of the contrast.? After that injection of the?Bupivacain 0.5% - about 1cc was performed at each needle location.?total number of injectio n was 10. ?Upon completion of the injections? needle was? removed and sterile Band-Aids were applied.? Patient tolerated procedure well. She was taken outside the OR to the PACU.
[2021-06-23 13:12] VITALS: BP 124/84; PULSE 98; RESP 16; TEMP 36.8; O2SAT 98
[2021-06-23 13:28] VITALS: BP 122/82; PULSE 93; RESP 16; TEMP 36.8; O2SAT 98
== END 2021-06-23 13:50 | disposition home or self-care (01) ==
PROVIDERS: Nurse Practitioner; PCP Internal Medicine; Visit Provider Anesthesiology
PROC: (CPT 64451; principal; 2021-06-23 11:40)
DX: M46.1 Sacroiliitis, not elsewhere classified (principal); M53.2X8 Spinal instabilities, sacral and sacrococcygeal region; G47.33 Obstructive sleep apnea (adult) (pediatric); Z79.891 Long term (current) use of opiate analgesic; Z99.89 Dependence on other enabling machines and devices; Z88.5 Allergy status to narcotic agent; Z88.8 Allergy status to other drugs, medicaments and biological substances; Z98.84 Bariatric surgery status
CPT/HCPCS: 64451; 81025; J2250; Q9967

== ENCOUNTER → 2021-06-28 16:11 | Outpatient (BNVA) | payer OTHER, SELFPAY | PROVIDERS: PCP Internal Medicine; Visit Provider Anesthesiology | DX: M46.1 Sacroiliitis, not elsewhere classified (principal); M53.2X8 Spinal instabilities, sacral and sacrococcygeal region | CPT/HCPCS: 99212 ==

== ENCOUNTER → 2021-07-17 11:23 | Outpatient (BNVA) | payer OTHER, SELFPAY | PROVIDERS: PCP Internal Medicine; Visit Provider Nurse Practitioner Family | DX: Z13.89 Encounter for screening for other disorder (principal) ==

== ENCOUNTER → 2021-08-02 14:55 | Outpatient (REF) | payer OTHER, SELFPAY ==
--- NOTE | 2021-08-02 15:00 | HM_ITS ---
* Total monitoring time 3 days and 10 hours. * Underlying rhythm is sinus. Average rate 105/Min; range 69 to 175/Min. About 56% the time, rate > 100/Min. * No atrial fibrillation or flutter. No pauses or AV blocks. * Very rare supraventricular and ventricular ectopy with minimal burden. * No patient events. MTDD
--- NOTE | 2021-08-02 15:00 | CA_ITS ---
Transthoracic Echocardiogram Patient (Last, First, Middle): Eloina Vargas S Gender: Female Date of : 1980 Age: 40 Procedure Date: 08/02/2021 Procedure Type: Transthoracic Echocardiogram Location: OP Height: 165.1 cm Weight: 113.85 kg BSA: 2.18 m2 Heart Rate: bpm [employer] Checker: EDWIN Referring MD: Jayson Rosas MD [employer] Founder: Jayson Rosas MD Symptoms: I49.8 - Other specified cardiac arrhythmias Study Quality: Technically Difficult, Contrast used ECG Rhythm: Sinus Conclusions: - 1. Technically limited study due to body habitus 2. Normal LV systolic and diastolic function 3. Limited evaluation of cardiac valves with normal cardiac valvular Doppler Findings Left Ventricle Normal left ventricular size, thickness, and systolic function. The visually estimated ejection fraction is between 60-65%. Spectral Doppler is indicative of a normal filling pattern. Right Ventricle The right ventricle was not well visualized. Atria The left atrium was not well visualized. Interatrial shunt cannot be excluded. The right atrium was not well visualized. Aortic Valve The aortic valve was not well visualized. There is no aortic valve stenosis. There is no aortic valve regurgitation. Mitral Valve The mitral valve was not well visualized. There is no mitral valve stenosis. Pulmonic Valve The pulmonic valve was not well visualized. Tricuspid Valve The tricuspid valve was not well visualized. Tricuspid regurgitation envelope is inadequate for calculation of right ventricular systolic pressure. Great Vessels The aorta was not well visualized. The pulmonary artery was not well visualized. Venous The inferior vena cava was not well visualized. Pericardium/Pleural The pericardium was not well visualized. Measurements 2D Linear Measurements IVSd: 0.72 0.6-0.9/0.6-1.0 cm LVIDd: 5.11 3.9-5.3/4.2-5.9 cm LVIDd Index: 2.34 2.4-3.2/2.2-3.1 cm/m2 LVIDs: 3.75 2.0-3.6 cm LVPWd: 0.61 0.7-1.1 cm Ao Root: 2.70 2.1-3.5 cm LA Diam: 3.00 2.7-3.8/3.0-4.0 cm LAIDs Index: 1.38 1.5-2.3 cm/m2 LV Mass: 137.97 67-162/88-224 g LV Mass Index: 63.29 43-95/49-115 g/m2 LVOT Diam: 2.20 3.0+(-)1.3 cm 2D Systolic Function EF 4C: 50.00 >55% EF 2C: 53.20 >55% Mitral Valve MV Pk E: 0.72 MV PK A: 0.54 MV Decel Time: 202.00 E/A: 1.30 E'Lateral: 12.50 E'Medial: 9.90 E/E' Med: 7.30 E/E' Lat: 5.80 PHT: 59.00 MVA PHT: 3.73 Decel Borden: 3.56 Aortic Valve AoV Pk Ramon: 1.10 AoV Mn Ramon: 0.86 AoV VTI: 0.24 AoV Pk Grad: 5.00 Aov Mn Grad: 3.00 BRAD Cont.VTI: 3.01 LVOT LVOT Pk Ramon: 0.94 LVOT Mn Ramon: 0.66 LVOT VTI: 0.19 LVOT Pk Grad: 4.00 LVOT Mn Grad: 2.00 LVOT Diam: 2.20 LVOT Area: 3.80 Diastolic Function MV Pk E: 0.72 MV Pk A: 0.54 E/A: 1.30 E'Medial: 9.90 E/E' Med: 7.30 E' Laterial: 12.50 E/E' Lat: 5.80 Right Ventricle TAPSE (mm): 23.50 TVS' Ramon: 12.30 Tricuspid Valve RA Press: 3.00 Great Vessels Aorta Ao Root-2D: 2.70 2.0-3.7 cm Sinus of Valsalva: 2.70 2.0-3.5 cm Ao Asc: 2.70 2.1-3.4 cm Pulmonary Veins Pulm Vein S/D 1.70 Pulmonary Valve PV Pk Ramon: 0.90 Peak PV Grad: 3.00 Updated in Other Vendor System with Status of Final Jayson Rosas MD electronically signed on 08/03/2021 1:45:02 PM with status of Final
== END ==
LOC: HO.CARD 14:55
PROVIDERS: PCP Internal Medicine; Visit Provider Internal Medicine Cardiovascular Disease
DX: I49.8 Other specified cardiac arrhythmias (principal)
CPT/HCPCS: 93242; 93306; Q9957

== ENCOUNTER → 2021-08-14 13:42 | Outpatient (BNVA) | payer OTHER, SELFPAY | PROVIDERS: PCP Internal Medicine; Visit Provider Anesthesiology | DX: Z13.89 Encounter for screening for other disorder (principal) ==

== ENCOUNTER → 2021-08-28 10:48 | Outpatient (BNVA) | payer OTHER, SELFPAY | PROVIDERS: Visit Provider Anesthesiology | DX: Z13.89 Encounter for screening for other disorder (principal) ==

== ENCOUNTER 2021-09-01 15:22 | Emergency (ER) | payer OTHER, SELFPAY ==
--- NOTE | ~2021-09-01 | CT_ITS ---
EXAMINATION: CT ABDOMEN AND PELVIS WITH CONTRAST CLINICAL INFORMATION: Epigastric pain COMPARISON: 05/28/2020 TECHNIQUE: Multidetector volumetric images were obtained from the superior aspect of the liver through the pubic symphysis following administration 85 mL of Omnipaque 350 intravenous contrast. Sagittal and coronal reformatted images were obtained on the technologist's workstation. Oral contrast: No This CT examination was performed using dose optimization techniques as appropriate, variously including the following: *Automated exposure control *Adjustment of mA and/or kV according to patient size (this includes techniques or standardized protocols for targeted exams where dose is matched to indication/reason for exam; i.e. extremities or head) *Use of iterative reconstruction technique DLP: 896 mGy-cm FINDINGS: LUNG BASES: The visualized lung bases are unremarkable. LIVER, GALLBLADDER, AND BILIARY TREE: The liver is normal in size, shape, and attenuation. No focal hepatic lesion or biliary ductal dilatation is present. Cholecystectomy. PANCREAS: Unremarkable. SPLEEN: Unremarkable. ADRENAL GLANDS: Unremarkable. KIDNEYS AND URETERS: The kidneys are normal in size, shape, and attenuation. There are 2 punctate nonobstructive calculi in the right kidney and a single punctate nonobstructive calculus in the left kidney. No hydronephrosis or hydroureter No perinephric stranding. BLADDER: Unremarkable. GASTROINTESTINAL TRACT: Arsenio-en-Y gastrojejunostomy is normal in appearance. No intestinal obstruction or inflammation. Previous appendectomy. Left colonic diverticulosis without evidence of diverticulitis. ABDOMINAL WALL: No significant hernia is appreciated. LYMPH NODES: Normal. VASCULAR: Aorta is mildly atherosclerotic. Patent vascular structures. PELVIC VISCERA: Uterus and ovaries unremarkable. OSSEOUS STRUCTURES: No acute or suspicious osseous abnormalities. CT/CT abdomen pelvis w con IMPRESSION: * No potential etiology for the patient's symptomatology is identified. * Normal appearance of the patient's Arsenio-en-Y gastrojejunostomy. * Bilateral punctate nonobstructive intrarenal calculi. * Cholecystectomy.
[2021-09-01 15:59] VITALS: BP 106/79; PULSE 89; RESP 16; TEMP 36.9; O2SAT 97; BMI 42.5
--- NOTE | 2021-09-01 16:03 | ECG_ITS ---
Test Reason : LIGHTHEADED Blood Pressure : / mmHG Vent. Rate : 085 BPM Atrial Rate : 085 BPM P-R Int : 146 ms QRS Dur : 074 ms QT Int : 356 ms P-R-T Axes : 007 -24 -04 degrees QTc Int : 423 ms Normal sinus rhythm Septal infarct , age undetermined Abnormal ECG When compared with ECG of 06-NOV-2018 11:25, No significant change was found Referred By: Generic ED Physician Electronically Signed By:SHIRA SHI
--- NOTE | 2021-09-01 22:04 | ED.ABDPAIN ---
HPI - Abdominal Pain General Chief Complaint: Abdominal Pain Stated Complaint: Abdominal pain Time Seen by Provider: 09/01/21 21:54 History of Present Illness HPI narrative: Patient is a 40-year-old female presents today with having abdominal pain in the epigastric area. Status post gastric bypass approximately 4 years prior. History of reflux. Pain is epigastric in nature. There is no change in the nature of the pain. It is burning. It is worse with food. Patient denies any chest pain. No shortness of breath no diaphoresis. No fever no chills. No history of diabetes, hypertension, mi, family history of DE. Positive epigastric pain. No change in bowel movement. Related Data Previous Rx's Medication Instructions Recorded lidocaine 5 % topical patch 1 patch topical DAILY PRN pain #30 01/02/20 (Lidoderm) ea gabapentin 300 mg capsule 600 mg PO TID 30 days #180 caps 02/11/20 cholecalciferol (vitamin D3) 50 50 mcg PO DAILY #30 caps 10/10/20 mcg (2,000 unit) capsule iron,carbonyl 65 mg-vitamin C 125 1 tab PO BEDTIME #30 tabs 10/10/20 mg tablet,delayed release (Vitron-C) cyclobenzaprine 10 mg tablet 10 mg PO BID PRN for muscle spasm 03/27/21 #60 tabs trazodone 50 mg tablet 50 mg PO BEDTIME PRN sleep #90 tabs 05/19/21 fludrocortisone 0.1 mg tablet 0.1 mg PO DAILY #30 tabs 05/22/21 fluoxetine 60 mg tablet 60 mg PO DAILY #90 tabs 05/22/21 cetirizine 10 mg tablet 10 mg PO DAILY #90 tabs 06/29/21 metoprolol succinate 25 mg 25 mg PO DAILY 30 days #30 tabs 08/16/21 tablet,extended release 24 hr oxycodone-acetaminophen 5 mg-325 1 tab PO TID PRN pain 30 days #90 08/24/21 mg tablet (Percocet) tabs pantoprazole 40 mg tablet,delayed 40 mg PO DAILY #14 tabs 09/02/21 release (Protonix) Allergies Allergy/AdvReac Type Severity Reaction Status Date / Time bee pollen [BEE STINGS] Allergy Intermediate SWELLING Verified 08/28/21 10:49 capsaicin [CAPSAICIN] Allergy Intermediate BAD RED Verified 08/28/21 10:49 RASH, hives hydromorphone [From DILAUDID] AdvReac Intermediate NAUSEA & Verified 08/28/21 10:49 VOMITING Review of Systems Review of Systems No fever no chills positive epigastric pain Yes all other systems are reviewed and are negative [facility] Past Medical History Attestation statement: The following information was validated with the patient. Medical History Anemia Annual physical exam Anxiety Back pain Fatty liver Gastric ulcer GERD (gastroesophageal reflux disease) History of tachycardia Hx of hypotension Instability of sacroiliac joint Kidney stones RENO on CPAP Sacroiliac joint pain Sacroiliitis Surgical History Gastric bypass status for obesity History of cholecystectomy History of laparoscopic appendectomy History of surgery Status post laser lithotripsy of ureteral calculus Family History Family History Father Diabetes Mother Throat cancer HTN (hypertension) Maternal Grandmother Ovarian cancer Maternal Grandfather Prostate cancer Social History Social History Housing: House Alcohol intake: never Patient Tobacco Use Status: Former Tobacco user Tobacco use type: Cigarette Years Smoked: quit 19 years ago e-Cigarette/Vaping Use: Never Used Second Hand Smoke Exposure: No Use of substances other than those prescribed or required for medical reasons: No Advance Directives: No Advance Directives Information Provided: No Patient : No service: No Current occupational status: employed 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/hazards: No Physical Exam ED Vital Signs: Vital Signs - 24 hr 09/01/21 15:59 09/01/21 22:16 09/02/21 00:09 Temperature 98.4 F Pulse Rate 89 85 75 Respiratory Rate 16 20 16 Blood Pressure 106/79 136/84 146/93 H Pulse Oximetry 97 98 100 Oxygen Delivery Method Nasal Cannula Room Air Room Air BMI result Body Mass Index 42.5 Appearance: Alert. Oriented X3. No acute distress. Eyes: Pupils equal, round and reactive to light. ENT: Pharynx normal. Neck: Normal inspection. Neck supple. No lymph nodes noted. No crepitus CVS: Normal heart rate and rhythm. Pulses normal. Normal S1 and S2 Respiratory: No respiratory distress. Breath sounds normal. No Wheezing. No rales Abdomen: Soft and nontender. No rigidity. No distention. good BS x4 Skin: Skin warm and dry. Normal skin color. Normal skin turgor. Extremities: No lower extremity edema. Neurovascular intact to all extremities. No Lacerations. No Rash Neuro: Oriented X 3. No motor deficit. No sensory deficit. Moving all extermities. No slurred speech MDM - Abdominal Pain MDM Narrative Medical decision making narrative: Patient had epigastric pain. Status post gastric bypass. CT scan of the abdomen was done. There is no evidence obstruction, abscess, perforation, leakage. No evidence for appendicitis. Patient's white count is normal. Electrolytes unremarkable. test negative. Urine showed no signs of infection. Question gastritis. Will have patient take PPI. Will have patient follow-up on an outpatient basis. An EKG was done and showed a sinus pattern heart rate was 80 [place] cares QT within normal limits no acute ST segment elevation noted. Differential Diagnosis Differential diagnosis: Likely gastritis Medical Records Attestation: I reviewed the patient's medical records. Lab Data Attestation: I reviewed the patient's lab results. Result diagrams: 09/01/21 22:33 09/02/21 00:07 Labs: Lab Results 09/01/21 09/01/21 09/02/21 Range/Units 22:30 22:33 00:07 WBC 8.4 (4.8-10.8) X10*3/uL RBC 4.36 (4.20-5.50) X10*6/uL Hgb 11.4 L (12.0-16.0) g/dl Hct 35.1 L (37.0-47.0) % MCV 80.5 (80.0-98.0) fL MCH 26.1 L (27.0-33.0) pg MCHC 32.5 (31.0-35.0) g/dl RDW 15.9 (11.0-16.0) % Plt Count 370 (160-400) X10*3/uL MPV 9.0 L (9.4-12.3) fL Immature Gran % (Auto) 0.2 (0.0-0.4) % Neut % (Auto) 53.7 (45-73) % Lymph % (Auto) 35.8 (20-40) % [place] % (Auto) 7.4 (2-11) % Eos % (Auto) 2.5 (0-4) % Baso % (Auto) 0.4 (0-2) % Lymph # (Auto) 3.0 (1.2-4.9) X10*3/uL [place] # (Auto) 0.6 (0.1-1.2) X10*3/uL Eos # (Auto) 0.2 (0.0-0.4) X10*3/uL Baso # (Auto) 0.0 (0.0-0.2) X10*3/uL Abs Immat Gran (auto) 0.02 (0.00-0.03) X10*3/uL Absolute Neuts (auto) 4.5 (2.0-8.3) x10*3/uL Absolute Nucleated RBC 0.000 (0.0-0.012) X10*3/uL Nucleated RBC % (auto) 0.0 (0.0-0.2) /100WBC Sodium 138 (135-145) mmol/L Potassium 4.0 (3.3-5.1) mmol/L Chloride 107 (96-108) mmol/L Carbon Dioxide 21 L (22-29) mmol/L Anion Gap 14 (12-20) BUN 9 (9-16) mg/dL Creatinine 0.62 (0.5-1.4) mg/dL Estim Creat Clear Calc 151.9 Estimated GFR > 60 Random Glucose 91 (60-115) mg/dL Calcium 8.6 (8.4-10.2) mg/dL Total Bilirubin 0.8 (0.0-1.0) mg/dL Direct Bilirubin 0.3 (0.0-0.5) mg/dL AST 45 H D (5-31) U/L ALT 87 H (0-31) U/L Alkaline Phosphatase 94 D (39-117) U/L Total Protein 7.0 (6.5-8.0) g/dL Albumin 4.0 (3.5-5.0) g/dL Lipase 26 (8-78) U/L Beta HCG, Quant < 2 mIU/mL Urine Color DK YELLOW Urine Appearance HAZY Urine pH 5.5 (5.0-8.0) Ur Specific [place] >= 1.030 H (1.005-1.025) Urine Protein TRACE (NEG-TRACE) MG/DL Urine Glucose (UA) NEG (NEG) MG/DL Urine Ketones 5 (NEG) MG/DL Urine Blood NEG (NEG) Urine Nitrite NEG (NEG) Ur Leukocyte Esterase NEG (NEG) Urine RBC 0-2 (0) /HPF Urine WBC 0-2 (0-4) /HPF Ur Squamous Epith Cells 2+ /LPF Calcium Oxalate Crystal 2+ /LPF Urine Bacteria NONE /LPF Urine Mucus 2+ /LPF Discharge Plan Discharge Clinical Impression: Gastric bypass status for obesity, Gastritis Patient Disposition: Home, Self-Care Instructions: Gastritis (ED) Prescriptions: New pantoprazole [Protonix] 40 mg tablet,delayed release (DR/EC) 40 mg PO DAILY Qty: 14 0RF No Action cholecalciferol (vitamin D3) 50 mcg (2,000 unit) capsule 50 mcg PO DAILY Qty: 30 11RF Vitron-C 65 mg iron- 125 mg tablet,delayed release (DR/EC) 1 tab PO BEDTIME Qty: 30 6RF cyclobenzaprine 10 mg tablet 10 mg PO BID PRN (Reason: for muscle spasm) Qty: 60 12RF fluoxetine 60 mg tablet 60 mg PO DAILY Qty: 90 3RF cetirizine 10 mg tablet 10 mg PO DAILY Qty: 90 3RF metoprolol succinate 25 mg tablet extended release 24 hr 25 mg PO DAILY 30 Days Qty: 30 3RF oxycodone-acetaminophen [Percocet] 5-325 mg tablet 1 tab PO TID PRN (Reason: pain) 30 Days Qty: 90 0RF Rx Instructions: Partial fill only per patient's request lidocaine [Lidoderm] 5 % adhesive patch,medicated 1 patch topical DAILY MDD remove after 12 hours PRN (Reason: pain) Qty: 30 0RF Rx Instructions: leave on most painful area for up to 12 hrs trazodone 50 mg tablet 50 mg PO BEDTIME PRN (Reason: sleep) Qty: 90 2RF gabapentin 300 mg capsule 600 mg PO TID 30 Days Qty: 180 12RF Rx Instructions: 1-2 capsules 3 times a day p.r.n. pain fludrocortisone 0.1 mg tablet 0.1 mg PO DAILY Qty: 30 11RF Referrals: Natalia Boogie MD [Primary Care Provider] -
[2021-09-01 22:16] VITALS: BP 136/84; PULSE 85; RESP 20; O2SAT 98
[2021-09-01] MEDS: ondansetron HCL 4 MG/2 ML VIAL IVPUSH (22:26)
[2021-09-01] MEDS: Magnesium Hydrox/Alum Hydrox 30 ML ORAL.SUSP PO (22:26)
[2021-09-01] MEDS: 0.9 % Sodium Chloride 1,000 ML 999 ML IV (22:26)
[2021-09-01 22:37] LABS: MANUAL DIFF FLAG NO
[2021-09-01 22:39] LABS: Basophils Percent Auto 0.4 % (0-2); Eosinophils Absolute Auto 0.2 X10*3/uL (0.0-0.4); Eosinophils Percent Auto 2.5 % (0-4); Hematocrit 35.1 % (37.0-47.0); Hemoglobin 11.4 g/dl (12.0-16.0); Imm Gran Abs Auto 0.02 X10*3/uL (0.00-0.03); Imm Gran Pct Auto 0.2 % (0.0-0.4); Lymphocytes Percent Auto 35.8 % (20-40); Mean Corpuscular HGB Conc 32.5 g/dl (31.0-35.0); Mean Corpuscular Hemoglobin 26.1 pg (27.0-33.0); Mean Corpuscular Volume 80.5 fL (80.0-98.0); Monocytes Absolute Auto 0.6 X10*3/uL (0.1-1.2); Monocytes Percent Auto 7.4 % (2-11); Neutrophils Absolute Auto 4.5 x10*3/uL (2.0-8.3); Neutrophils Percent Auto 53.7 % (45-73); Platelet Count 370 X10*3/uL (160-400); Red Blood Count 4.36 X10*6/uL (4.20-5.50); Red Cell Distribution Width 15.9 % (11.0-16.0); White Blood Count 8.4 X10*3/uL (4.8-10.8)
[2021-09-01 22:40] LABS: Appearance Urine HAZY; Color Urine DK YELLOW; Glucose Urine UA NEG (NEG); Leukocyte Esterase Urine NEG (NEG); Nitrite Urine NEG (NEG); PH 5.5 (5.0-8.0); Specific Gravity - Urine >= 1.030 (1.005-1.025); Urine Blood NEG (NEG); Urine Ketones 5 MG/DL (NEG); Urine Protein TRACE MG/DL (NEG-TRACE)
[2021-09-01 23:07] LABS: RBC Urine 0-2 /HPF (0); WBC Urine 0-2 /HPF (0-4)
[2021-09-01 23:08] LABS: Calcium Oxalate Crystals Urine 2+ /LPF; Mucus Urine 2+ /LPF; Squamous Epithelial Cell Urine 2+ /LPF
[2021-09-02 00:09] VITALS: BP 146/93; PULSE 75; RESP 16; O2SAT 100
[2021-09-02] MEDS: Morphine Sulfate 4 MG/ML CARTRIDGE IVPUSH (00:10)
[2021-09-02 00:32] LABS: Alanine Aminotransferase 87 U/L (0-31); Alkaline Phosphatase 94 U/L (39-117); Anion Gap 14 (12-20); Aspartate Amino Transferase 45 U/L (5-31); Bilirubin Direct 0.3 mg/dL (0.0-0.5); Bilirubin Total 0.8 mg/dL (0.0-1.0); Blood Urea Nitrogen 9 mg/dL (9-16); Calcium 8.6 mg/dL (8.4-10.2); Carbon Dioxide 21 mmol/L (22-29); Chloride 107 mmol/L (96-108); Creatinine Clr Calc Pharmacy 151.9; Estimated Glomerular Filt Rate > 60; Glucose Random 91 mg/dL (60-115); Lipase 26 U/L (8-78); Sodium 138 mmol/L (135-145)
[2021-09-02 01:13] LABS: HCG Quantitative < 2 mIU/mL
[2021-09-02] MEDS: iohexoL 300 MG/ML 100 ML INFUS..BTL IV (01:28)
[2021-09-02 02:50] VITALS: BP 147/96; PULSE 99; RESP 20; TEMP 36.5; O2SAT 97
== END 2021-09-02 02:59 | disposition home or self-care (01) ==
PROVIDERS: Emergency Provider Emergency Medicine Emergency Medical Services; PCP Internal Medicine
DX: K29.70 Gastritis, unspecified, without bleeding (principal); G47.33 Obstructive sleep apnea (adult) (pediatric); E66.9 Obesity, unspecified; Z68.42 Body mass index [BMI] 45.0-49.9, adult; Z98.84 Bariatric surgery status; Z99.89 Dependence on other enabling machines and devices
CPT/HCPCS: 36415; 74177; 80048; 80076; 81001; 83690; 84702; 85025; 93005; 96361; 96374; 96375; 99284; J2270; J2405; Q9967

== ENCOUNTER → 2021-09-11 13:22 | Outpatient (BNVA) | payer OTHER, SELFPAY | PROVIDERS: PCP Internal Medicine; Visit Provider Anesthesiology | DX: Z79.891 Long term (current) use of opiate analgesic (principal) | CPT/HCPCS: 99211 ==

== ENCOUNTER → 2021-10-09 13:22 | Outpatient (BNVA) | payer OTHER, SELFPAY | PROVIDERS: PCP Internal Medicine; Visit Provider Anesthesiology | DX: M46.1 Sacroiliitis, not elsewhere classified (principal); M53.2X8 Spinal instabilities, sacral and sacrococcygeal region; M53.3 Sacrococcygeal disorders, not elsewhere classified; Z79.891 Long term (current) use of opiate analgesic | CPT/HCPCS: 99212 ==

== ENCOUNTER → 2021-11-06 13:26 | Outpatient (BNVA) | payer OTHER, SELFPAY | PROVIDERS: PCP Internal Medicine; Visit Provider Anesthesiology | DX: Z79.899 Other long term (current) drug therapy (principal); Z79.891 Long term (current) use of opiate analgesic | CPT/HCPCS: 99211 ==

== ENCOUNTER 2021-11-27 11:16 | Emergency (ER) | payer OTHER, SELFPAY ==
--- NOTE | ~2021-11-27 | XR_ITS ---
EXAMINATION: XR SHOULDER, LEFT CLINICAL INFORMATION: Left shoulder pain status post fall. COMPARISON: None. TECHNIQUE: AP external rotation, Grashey, scapular Y, and axillary views of the left shoulder. FINDINGS: The bones and soft tissues are normal. No fracture. Glenohumeral and acromioclavicular alignment is anatomic with normal joint space. No abnormal soft tissue calcifications. XR/XR shoulder LT min 2V IMPRESSION: Unremarkable left shoulder.
[2021-11-27 11:17] VITALS: BP 123/90; PULSE 110; RESP 18; TEMP 36.7; O2SAT 96; BMI 41.5
--- NOTE | 2021-11-27 11:54 | ED_ITS ---
HPI - Extremity Problem General Chief complaint: Extremity Problem Stated complaint: L shoulder inj Time Seen by Provider: 11/27/21 11:20 Source: patient Mode of arrival: ambulatory Limitations: no limitations History of Present Illness HPI Narrative: patient presents emergency department for evaluation of left shoulder pain. She states that 2 days ago she was lifting something up over her head and she developed worsening pain to the right shoulder. She additionally had a fall 3 weeks ago where she landed onto the right shoulder and had been having pain since then. She is currently followed by pain management clinic for which she is prescribed oxycodone for her chronic hip pain. She has not been using any gort-dyj-zigsjka medications such as NSAIDs. denies any numbness or tingling to the arm or hand. Denies any weakness. Related Data Home Medications Medication Instructions Recorded Confirmed omeprazole 20 mg capsule,delayed 20 mg PO DAILY 11/06/21 11/06/21 release Previous Rx's Medication Instructions Recorded gabapentin 300 mg capsule 600 mg PO TID 30 days #180 caps 02/11/20 cholecalciferol (vitamin D3) 50 50 mcg PO DAILY #30 caps 10/10/20 mcg (2,000 unit) capsule iron,carbonyl 65 mg-vitamin C 125 1 tab PO BEDTIME #30 tabs 10/10/20 mg tablet,delayed release (Vitron-C) cyclobenzaprine 10 mg tablet 10 mg PO BID PRN for muscle spasm 03/27/21 #60 tabs trazodone 50 mg tablet 50 mg PO BEDTIME PRN sleep #90 tabs 05/19/21 fludrocortisone 0.1 mg tablet 0.1 mg PO DAILY #30 tabs 05/22/21 fluoxetine 60 mg tablet 60 mg PO DAILY #90 tabs 05/22/21 cetirizine 10 mg tablet 10 mg PO DAILY #90 tabs 06/29/21 metoprolol succinate 25 mg 25 mg PO DAILY 30 days #30 tabs 08/16/21 tablet,extended release 24 hr oxycodone-acetaminophen 5 mg-325 1 tab PO TID PRN pain 30 days #90 11/08/21 mg tablet (Percocet) tabs lidocaine 5 % topical patch 2 patch topical DAILY #30 ea 11/27/21 (Lidoderm) Allergies Allergy/AdvReac Type Severity Reaction Status Date / Time bee pollen [BEE STINGS] Allergy Intermediate SWELLING Verified 11/06/21 13:39 capsaicin [CAPSAICIN] Allergy Intermediate BAD RED Verified 11/06/21 13:39 RASH, hives hydromorphone [From DILAUDID] AdvReac Intermediate NAUSEA & Verified 11/06/21 13:39 VOMITING Review of Systems Review of Systems: Constitutional: No weight loss, fever, chills, weakness or fatigue. Skin: No rash or itching. Cardiovascular: No chest pain, chest pressure or chest discomfort. No palpitations Respiratory: No shortness of breath, cough or sputum production. Gastrointestinal: No nausea, vomiting or diarrhea. No abdominal pain Genitourinary: No burning micturition. No urinary frequency or incontinence. Musculoskeletal: Positive shoulder pain Psychiatric: No depression or anxiety. Yes all other systems are reviewed and are negative [facility] Past Medical History Attestation statement: The following information was validated with the patient. Source: old records reviewed Medical History Anemia Annual physical exam Anxiety Back pain Fatty liver Gastric ulcer GERD (gastroesophageal reflux disease) History of tachycardia Hx of hypotension Instability of sacroiliac joint Kidney stones RENO on CPAP Sacroiliac joint pain Sacroiliitis Surgical History Gastric bypass status for obesity History of cholecystectomy History of laparoscopic appendectomy History of surgery Status post laser lithotripsy of ureteral calculus Family History Family History Father Diabetes Mother Throat cancer HTN (hypertension) Maternal Grandmother Ovarian cancer Maternal Grandfather Prostate cancer Social History Social History Housing: House Alcohol intake: never Patient Tobacco Use Status: Former Tobacco user Tobacco use type: Cigarette Years Smoked: quit 19 years ago e-Cigarette/Vaping Use: Never Used Second Hand Smoke Exposure: No Advance Directives: Yes Advance Directives Information Provided: Yes Advance Directives on File: No service: No Current occupational status: employed 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/hazards: No Physical Exam Vital Signs: Vital Signs: Last Vital Signs Temp 98.0 F 11/27/21 11:17 Pulse 110 H 11/27/21 11:17 Resp 18 11/27/21 11:17 BP 123/90 H 11/27/21 11:17 Pulse Ox 96 11/27/21 11:17 O2 Del Method 11/27/21 11:17 BMI result Body Mass Index 41.5 Appearance: Alert.?Oriented to person, place and time. No acute distress.?Normal affect. Eyes: Pupils equal, round and reactive to light.? ENT: Pharynx normal.?? Neck: Normal inspection.? Neck supple.?? CVS: Heart sounds normal. Normal heart rate and rhythm.? Pulses normal.?? Respiratory: No respiratory distress.? Lung sounds clear to auscultation bilaterally?? Abdomen: Soft and non-tender. Skin: Skin warm and dry.? Normal skin color.? Extremities: No lower extremity edema.? left shoulder with mild decreased range of motion, particularly with abduction and forward raising. Palpable 2+ radial pulse bilaterally. Able to externally rotate the shoulder. 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 Sensation is intact. No obvious swelling, redness, or deformity. Neuro: Moves all extremities spontaneously. Sensation intact bilaterally. No motor deficits. Ambulates with normal steady gait. Course Course Course Narrative: patient is a 41-year-old female with a past medical history of POTS, anxiety, obesity, SI joint pain followed by pain management with oxycodone prescription. Presents emergency department for evaluation of left shoulder pain. Has been ongoing for a few weeks after a fall, exacerbated 2 days ago with overhead lifting. XR reveals acute fracture or dislocation, AC joint is normal. Physical exam/ history not consistent with septic arthritis. Advised patient cannot completely exclude ligamentous injury as XR imaging is not the preferred modality for this. However, no red flag signs upon examination. Discussed plan of care for discharge home, NSAIDs, Lidoderm patch, outpatient follow-up with primary care provider/ Orthopedics as needed. Reviewed worrisome signs and symptoms to return back to the emergency department for. All questions were answered, patient is discharged home in stable condition. MDM - Extremity (Nontraumatic) Medical Records Attestation: I reviewed the patient's medical records. Imaging Data XR shoulder: Radiologist's impression: FINDINGS: The bones and soft tissues are normal. No fracture. Glenohumeral and acromioclavicular alignment is anatomic with normal joint space. No abnormal soft tissue calcifications.? XR/XR shoulder LT min 2V IMPRESSION: Unremarkable left shoulder. Discharge Plan Discharge Clinical Impression: Sprain of left shoulder Patient Disposition: Home, Self-Care Instructions: Shoulder Sprain (ED) Additional Instructions: As we discussed, your x-ray does not reveal any fracture or dislocation. You can take ibuprofen 200 mg, 3 tablets (600mg) every 6-8 hours as needed for pain, in addition to Tylenol 500 mg, 2 tablets (1,000mg) every 4-6 hours as needed for pain, but not to exceed 3 doses daily (3,000mg).? You have additionally been given a prescription for Lidoderm patch, please place this to the area of most pain daily, leave on for 12 hours and remove for 12 hours. Follow-up with your primary care provider as needed for further evaluation and treatment. Return to the emergency department any new or worsening symptoms or concerns Prescriptions: New lidocaine [Lidoderm] 5 % adhesive patch,medicated 2 patch topical DAILY Qty: 30 0RF Rx Instructions: leave on most painful area for up to 12 hrs No Action cholecalciferol (vitamin D3) 50 mcg (2,000 unit) capsule 50 mcg PO DAILY Qty: 30 11RF Vitron-C 65 mg iron- 125 mg tablet,delayed release (DR/EC) 1 tab PO BEDTIME Qty: 30 6RF cyclobenzaprine 10 mg tablet 10 mg PO BID PRN (Reason: for muscle spasm) Qty: 60 12RF fluoxetine 60 mg tablet 60 mg PO DAILY Qty: 90 3RF cetirizine 10 mg tablet 10 mg PO DAILY Qty: 90 3RF metoprolol succinate 25 mg tablet extended release 24 hr 25 mg PO DAILY 30 Days Qty: 30 3RF oxycodone-acetaminophen [Percocet] 5-325 mg tablet 1 tab PO TID PRN (Reason: pain) 30 Days Qty: 90 0RF Rx Instructions: Partial fill only per patient's request trazodone 50 mg tablet 50 mg PO BEDTIME PRN (Reason: sleep) Qty: 90 2RF gabapentin 300 mg capsule 600 mg PO TID 30 Days Qty: 180 12RF Rx Instructions: 1-2 capsules 3 times a day p.r.n. pain fludrocortisone 0.1 mg tablet 0.1 mg PO DAILY Qty: 30 11RF omeprazole 20 mg capsule,delayed release(DR/EC) 20 mg PO DAILY Referrals: Natalia Boogie MD [Primary Care Provider] -
== END 2021-11-27 12:27 | disposition home or self-care (01) ==
PROVIDERS: Emergency Provider Emergency Medicine; PCP Internal Medicine
DX: S43.402A Unspecified sprain of left shoulder joint, initial encounter (principal); X50.0XXA Overexertion from strenuous movement or load, initial encounter; Y93.9 Activity, unspecified; Y92.9 Unspecified place or not applicable; Y99.9 Unspecified external cause status
CPT/HCPCS: 73030; 99282; 99283

== ENCOUNTER → 2021-12-06 13:53 | Outpatient (BNVA) | payer OTHER, SELFPAY | PROVIDERS: PCP Internal Medicine; Visit Provider Anesthesiology | DX: M46.1 Sacroiliitis, not elsewhere classified (principal); M53.2X8 Spinal instabilities, sacral and sacrococcygeal region; M53.3 Sacrococcygeal disorders, not elsewhere classified; Z79.891 Long term (current) use of opiate analgesic | CPT/HCPCS: 99212 ==

== ENCOUNTER → 2022-01-03 08:28 | Outpatient (BNVA) | payer OTHER, SELFPAY | PROVIDERS: PCP Internal Medicine; Visit Provider Anesthesiology | DX: Z51.81 Encounter for therapeutic drug level monitoring (principal); F11.20 Opioid dependence, uncomplicated | CPT/HCPCS: 99211 ==

== ENCOUNTER 2022-01-04 12:09 | Day surgery (SDC) | payer OTHER, SELFPAY ==
--- NOTE | 2022-01-03 11:44 | P.CONAN_ITS ---
Documented by User: Jennifer Xiong NP 01/03/22 11:46 HPI - Anesthesia Eval Consult details Narrative: 41yo F for Left Sacroiliac Joint Fusion s/p SI injection 06/2021 with MAC PMF Active Problems Active Problems: All Active Problems (Updated 11/28/21 @ 00:02 by Background [place]) Sacroiliac joint pain (Acute) POTS (postural orthostatic tachycardia syndrome) (Acute) Anxiety (Acute) Annual physical exam (Acute) Obesity (Acute) Gastric bypass status for obesity (Acute) Instability of sacroiliac joint (Acute) Sacroiliitis (Acute) Past Medical History Medical History Anemia Annual physical exam Anxiety Back pain Fatty liver Gastric ulcer GERD (gastroesophageal reflux disease) History of tachycardia Hx of hypotension Instability of sacroiliac joint Kidney stones RENO on CPAP Sacroiliac joint pain Sacroiliitis Family History Family History Father Diabetes Mother Throat cancer HTN (hypertension) Maternal Grandmother Ovarian cancer Maternal Grandfather Prostate cancer Family history of problems with anesthesia: No Surgical History Surgical History Gastric bypass status for obesity History of cholecystectomy History of laparoscopic appendectomy History of surgery Status post laser lithotripsy of ureteral calculus History of Problems with Anesthesia: No Social History Social History Housing: House Alcohol intake: never Patient Tobacco Use Status: Former Tobacco user Tobacco use type: Cigarette Years Smoked: quit 19 years ago e-Cigarette/Vaping Use: Never Used Second Hand Smoke Exposure: No Use of substances other than those prescribed or required for medical reasons: No Are you DNR?: No Advance Directives: No Advance Directives Information Provided: Yes service: No Current occupational status: employed 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/hazards: No Meds Allergies Allergy/AdvReac Type Severity Reaction Status Date / Time bee pollen [BEE STINGS] Allergy Intermediate SWELLING Verified 01/03/22 08:51 capsaicin [CAPSAICIN] Allergy Intermediate BAD RED Verified 01/03/22 08:51 RASH, hives hydromorphone [From DILAUDID] AdvReac Intermediate NAUSEA & Verified 01/03/22 08:51 VOMITING Home Medications Medication Instructions Recorded Confirmed Last Taken Type omeprazole 20 mg capsule,delayed 20 mg PO DAILY 11/06/21 01/03/22 Unknown History release Exam Exam Date and Time: January 03, 2022 1144 Pertinent Lab Results Pertinent Lab Results: Laboratory Tests 09/01/21 09/02/21 22:33 00:07 WBC 8.4 Hgb 11.4 L Hct 35.1 L Plt Count 370 Sodium 138 Potassium 4.0 Chloride 107 Carbon Dioxide 21 L BUN 9 Creatinine 0.62 Narrative Narrative: EKG 08/2021 Vent. Rate : 085 BPM ? ? Atrial Rate : 085 BPM ?? P-R Int : 146 ms? QRS Dur : 074 ms ? ? QT Int : 356 ms ? ? ? P-R-T Axes : 007 -24 -04 degrees ?? QTc Int : 423 ms ? Normal sinus rhythm Septal infarct , age undetermined Abnormal ECG When compared with ECG of 06-NOV-2018 11:25, No significant change was found Assessment and Plan Assessment Anesthesia Assessment: Chart Reviewed Final Anesthetic Review Family History of Problems with Anesthesia: No History of Problems with Anesthesia: No Documented by User: Fara Castillo MD 01/04/22 18:00 [facility] Past Medical History Medical History Anemia Annual physical exam Anxiety Back pain Fatty liver Gastric ulcer GERD (gastroesophageal reflux disease) History of tachycardia Hx of hypotension Instability of sacroiliac joint Kidney stones RENO on CPAP Sacroiliac joint pain Sacroiliitis Family History Family History Father Diabetes Mother Throat cancer HTN (hypertension) Maternal Grandmother Ovarian cancer Maternal Grandfather Prostate cancer Surgical History Surgical History Gastric bypass status for obesity History of cholecystectomy History of laparoscopic appendectomy History of surgery Status post laser lithotripsy of ureteral calculus Social History Social History Housing: House Alcohol intake: never Patient Tobacco Use Status: Former Tobacco user Tobacco use type: Cigarette Years Smoked: quit 19 years ago e-Cigarette/Vaping Use: Never Used Second Hand Smoke Exposure: No Use of substances other than those prescribed or required for medical reasons: No Are you DNR?: No Advance Directives: No Advance Directives Information Provided: Yes service: No Current occupational status: employed 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/hazards: No Meds Allergies Allergy/AdvReac Type Severity Reaction Status Date / Time bee pollen [BEE STINGS] Allergy Intermediate SWELLING Verified 01/03/22 08:51 capsaicin [CAPSAICIN] Allergy Intermediate BAD RED Verified 01/03/22 08:51 RASH, hives hydromorphone [From DILAUDID] AdvReac Intermediate NAUSEA & Verified 01/03/22 08:51 VOMITING Home Medications Medication Instructions Recorded Confirmed Last Taken Type omeprazole 20 mg capsule,delayed 20 mg PO DAILY 11/06/21 01/03/22 Unknown History release Exam Airway Mallampati Class: III Denture: Upper and Lower Assessment and Plan Assessment Anesthesia Assessment: Anesthesia Plan Discussed Final Anesthetic Review NPO: Yes ASA Class: III Final Preanesthetic Review: No Changes in Pt Med Stat, Meds/Allgs Chart Reviewed, Consent Obtained/Reviewed and Anes Risks/Benef Reviewed Patient Risk: Low Procedure Risk: Low Anesthetic Plan Anesthetic Plan: GA Disposition: Standard PACU
--- NOTE | ~2022-01-04 | FL_ITS ---
EXAMINATION: XR FLUOROSCOPY WITH IMAGES CLINICAL INFORMATION: SI joint fusion COMPARISON: CT pelvis 09/02/2021 TECHNIQUE: Fluoroscopy performed by Dr. Art Alanis. Fluoroscopy time: 0.7 minutes. Cumulative Dose: 23.3 mGy. DAP: 6.35 Gycm2. Images: 14. FINDINGS: FINDINGS: Initial images demonstrate spinal needle overlying mid right SI joint with needle tip at mid to anterior depth. Subsequent images show hardware and a cannulated device overlying the SI joint. FL/FL guidance in OR IMPRESSION: Fluoroscopy for pain management procedure.
[2022-01-04 12:46] VITALS: BMI 41.2
[2022-01-04 12:55] VITALS: BP 106/74; PULSE 92; RESP 16; TEMP 36.3; O2SAT 96
[2022-01-04 13:06] LABS: UPreg QC Valid YES; Urine Pregnancy NEGATIVE (NEGATIVE)
[2022-01-04] MEDS: Lactated Ringers 1,000 ML 100 ML IVCONT (13:24)
--- NOTE | 2022-01-04 15:39 | MHC.SHP ---
Pre-Procedural Eval Section A Date of Service: 01/04/22 The patient is an INPATIENT: No Changes since office visit: Yes Patient answered all questions The History & Physical has been completed within 30 days and I have reviewed it.: No Section B Chief Complaint: Sacroiliitis, not elsewhere classified Details of Present Illness: as above Relevant Family History (Specify if Yes): No Relevant Social History: None Present Medications: see Short Stay Collaborative assessment Medical History: No relevant PMH History of Previous Operations: Relevant previous surgery/procedure and date(s) Allergies: Allergies Allergy/AdvReac Type Severity Reaction Status Date / Time bee pollen [BEE STINGS] Allergy Intermediate SWELLING Verified 01/03/22 08:51 capsaicin [CAPSAICIN] Allergy Intermediate BAD RED Verified 01/03/22 08:51 RASH, hives hydromorphone [From DILAUDID] AdvReac Intermediate NAUSEA & Verified 01/03/22 08:51 VOMITING Review of Systems Sugical H&P ROS: Negative: Constitution, Cardiovascular, Respiratory, Neurological, Psychiatric, Hem-Onc, Allergic/Immunologic, Gastrointestinal, Genitourinary, Musculoskeletal, Integumentary, Endocrine and Eyes/Ears/Nose/Throat Exam Surgical H&P Exam: Normal: HEENT, Normal: Heart, Normal: Lungs, Normal: Extremities, Normal: Abdomen, Normal: Skin and Normal: Neurological Plan Diagnosis/Plan: Unchanged I have reviewed the history and physical and performed a pertinent physical examination on my patient. No changes have occurred unless specified.
--- NOTE | 2022-01-04 17:41 | P.BOP_ITS ---
Brief Operative Note Date of Service: 01/04/22 Pre-op diagnosis: Sacroiliitis Post-op diagnosis: same Procedure: sacroiliac joint stabilization with cadaver bone fusion Implants: cadaver bone allograft and ortho biological Surgeon: Art Alanis MD Anesthesia: GETA Was an Scientific Software Developer used for this Procedure?: No Estimated blood loss (mL): 120 Pathology: none sent Condition: stable Disposition: PACU
--- NOTE | 2022-01-04 17:42 | W.PM.OPN ---
Operative Note Operative Note Date of Service: 12/09/20 Narrative: ?Sacroiliac joint stabilisation procedure. posterior sacroiliac joint fusion using LINQ SI joint stabilization system with C-arm fluoroscopy for guidance.? Ms Vargas is very pleasant 40 years old female who is suffering from left sacroiliac joint insufficiency and sacroiliitis . previously she had right sacroiliac joint fusion performed with good results in pain reduction to 0. However she on the background of disappearing right-sided pain started to feel more of her pain on the left. She had diagnostic injection into the left sacroiliac joint with very good results.??She failed conservative management of sacroiliitis.??She came today to receive the procedures as above.??The risks and benefits including bleeding, infection, peripheral nerve damage, failure to reduce the pain were explained to the patient.?The patient came to the operating room, she was positioned on the stretcher supine, [place] [employer] monitors were applied and patient was administered with general endotracheal anesthesia.??After that the patient was transferred on operating table and positioned prone with all pressure points protected. The patient was administered 3 grams cefazolin IV approximately 25 minutes before the start of the procedure.? Time-out was performed delineating correct site, side, and nature of the procedure, name and date of of the patient, risk of fire, need for DVT prophylaxis, need for antibiotics.? The patient was transferred?on?radiolucent table. All pressure points were protected again. Lower back and bilateral buttocks were prepped with ChloraPrep and draped with full body drape. 3. 5 cm posterior midline incision over the projection of the Left S1 foramina was performed.? Soft tissue dissection done to sacroiliac joint and thorough blind dissection was made in the direction of the?sacroiliac joint.? K-wire pin was inserted into the sacroiliac joint and guiding instrument was inserted into the joint using the pin as a guide and advanced into the joint on the intermittent anterior posterior and lateral views.??? After that pin was removed and rasping device was inserted to broach and rasp sacroiliac joint.? Once joint was prepared and inserted the structural allograft implant was hammered into the joint . It was packed with ortho biologics in and around the implant to provide better opportunity? for bones fusion.? The position of the allograft was confirmed radiographically.? brisk bleeding after removal of the was stopped using electrocautery and temporary packing of the wound with Surgicel. Surgicel was removed, the hemorrhage was arrested.The wound was irrigated , Final hemostasis was achieved, the wound was closed in 2 layers.? Surgery was concluded by performing standard suture closing technique: 0 Polysorb suture was used to close the wound 2-0 Polysorb sutures were used to approximate the level of the skin. After that krystyna were applied to the level of the skin. Bacitracin ointment was applied. Injection of the lidocaine 2% mixed with Ropivacaine0.5% was injected into the wound before closure. Sterile?dressing was applied with bacitracin ointment . The patient tolerated procedure well she was awaken and taken outside of the operating room to PACU where she recovered uneventfully. She went home without immediate complications. She will be wearing an SI joint fixation belt for the 10 weeks after the procedure.
[2022-01-04 17:55] VITALS: BP 125/81; PULSE 129; RESP 16; TEMP 36.7; O2SAT 100
[2022-01-04 18:10] VITALS: BP 123/72; PULSE 112; RESP 16; O2SAT 100
[2022-01-04 18:15] VITALS: BP 117/72; PULSE 98; RESP 18; O2SAT 94
[2022-01-04 18:23] VITALS: BP 112/80; PULSE 98; RESP 18; TEMP 36.6; O2SAT 92
== END 2022-01-04 18:42 | disposition home or self-care (01) ==
PROVIDERS: Nurse Practitioner; PCP Internal Medicine; Visit Provider Anesthesiology
PROC: (CPT 27279; principal; 2022-01-04 13:50)
DX: M46.1 Sacroiliitis, not elsewhere classified (principal); M53.2X8 Spinal instabilities, sacral and sacrococcygeal region; M53.3 Sacrococcygeal disorders, not elsewhere classified; D64.9 Anemia, unspecified; K76.0 Fatty (change of) liver, not elsewhere classified; G90.A Postural orthostatic tachycardia syndrome [POTS]; G47.33 Obstructive sleep apnea (adult) (pediatric); K21.9 Gastro-esophageal reflux disease without esophagitis; Z79.899 Other long term (current) drug therapy; Z99.89 Dependence on other enabling machines and devices; Z88.8 Allergy status to other drugs, medicaments and biological substances; Z98.84 Bariatric surgery status; Z87.442 Personal history of urinary calculi; Z90.49 Acquired absence of other specified parts of digestive tract; Z87.891 Personal history of nicotine dependence
CPT/HCPCS: 27279; 81025; C1713; J0690; J1100; J1170; J1885; J2250; J2405; J2795; J3010; J3370

== ENCOUNTER → 2022-01-10 08:23 | Outpatient (BNVA) | payer OTHER, SELFPAY | PROVIDERS: PCP Internal Medicine; Visit Provider Anesthesiology | DX: M46.1 Sacroiliitis, not elsewhere classified (principal); M53.2X8 Spinal instabilities, sacral and sacrococcygeal region; M53.3 Sacrococcygeal disorders, not elsewhere classified | CPT/HCPCS: 99212 ==

== ENCOUNTER → 2022-01-18 09:51 | Outpatient (BNVA) | payer OTHER, SELFPAY | PROVIDERS: PCP Internal Medicine; Visit Provider Nurse Practitioner Family | DX: Z48.02 Encounter for removal of sutures (principal); M46.1 Sacroiliitis, not elsewhere classified; M53.3 Sacrococcygeal disorders, not elsewhere classified; M53.2X8 Spinal instabilities, sacral and sacrococcygeal region | CPT/HCPCS: 99212 ==

== ENCOUNTER 2022-10-08 16:01 | Emergency (ER) | payer OTHER, SELFPAY ==
--- NOTE | 2022-10-08 16:06 | ECG_ITS ---
Test Reason : CHEST PAIN Blood Pressure : / mmHG Vent. Rate : 083 BPM Atrial Rate : 083 BPM P-R Int : 158 ms QRS Dur : 080 ms QT Int : 378 ms P-R-T Axes : 005 -25 -10 degrees QTc Int : 444 ms Normal sinus rhythm Normal ECG When compared with ECG of 01-SEP-2021 15:58, No significant change was found Referred By: Generic ED Physician Electronically Signed By:Skyler Ewing
[2022-10-08 17:40] VITALS: BP 120/70; PULSE 83; RESP 16; TEMP 36.6; O2SAT 96; BMI 43.3
--- NOTE | 2022-10-08 17:40 | ED.GENADULT ---
HPI - General Adult General Chief complaint: Abdominal Pain Stated complaint: chest pain, history of gastric ulcers Related Data Previous Rx's Medication Instructions Recorded gabapentin 300 mg capsule 600 mg PO TID 30 days #180 caps 02/11/20 cholecalciferol (vitamin D3) 50 50 mcg PO DAILY #30 caps 10/10/20 mcg (2,000 unit) capsule iron,carbonyl 65 mg-vitamin C 125 1 tab PO BEDTIME #30 tabs 10/10/20 mg tablet,delayed release (Vitron-C) cetirizine 10 mg tablet 10 mg PO DAILY #90 tabs 06/29/21 metoprolol succinate 25 mg 25 mg PO DAILY #30 tabs 12/19/21 tablet,extended release 24 hr trazodone 50 mg tablet 50 mg PO BEDTIME PRN for insomnia 02/12/22 #90 tabs cyclobenzaprine 10 mg tablet 10 mg PO BID PRN for muscle spasm 06/18/22 #60 tabs fludrocortisone 0.1 mg tablet 0.1 mg PO DAILY 90 days #90 tabs 06/18/22 fluoxetine 60 mg tablet 60 mg PO DAILY #90 tabs 08/22/22 Allergies Allergy/AdvReac Type Severity Reaction Status Date / Time bee pollen [BEE STINGS] Allergy Intermediate SWELLING Verified 10/08/22 17:40 capsaicin [CAPSAICIN] Allergy Intermediate BAD RED Verified 10/08/22 17:40 RASH, hives hydromorphone [From DILAUDID] AdvReac Intermediate NAUSEA & Verified 10/08/22 17:40 VOMITING PMFSH Past Medical History Medical History Anemia Annual physical exam Anxiety Back pain Fatty liver Gastric ulcer GERD (gastroesophageal reflux disease) History of tachycardia Hx of hypotension Instability of sacroiliac joint Kidney stones RENO on CPAP Sacroiliac joint pain Sacroiliitis Surgical History Gastric bypass status for obesity History of cholecystectomy History of laparoscopic appendectomy History of surgery Status post laser lithotripsy of ureteral calculus Family History Family History Father Diabetes Mother Throat cancer HTN (hypertension) Maternal Grandmother Ovarian cancer Maternal Grandfather Prostate cancer Social History Social History Housing: House Alcohol intake: never Patient Tobacco Use Status: Former Tobacco user (15 years ago) Tobacco use type: Cigarette Years Smoked: quit 19 years ago e-Cigarette/Vaping Use: Never Used Second Hand Smoke Exposure: No Advance Directives: No Advance Directives Information Provided: Yes service: No Current occupational status: employed 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 This is a [id number] presenting to the emergency department with a complaint of epigastric pain since last night. Hx of ulcers, sxs feel similar. No bloody vomitus. 9/10 epigastric pain. Has been taking tylenol for her symptoms without any pain. Currently on omeprazole. Hard time eating. hx of gastric bypass in 2018, cholescystectomy. No fevers or chills. Plan: Labs Reevaluation(s) Reevaluation #1: Patient eloped prior to being seen by primary provider. Discharge Plan Discharge Clinical Impression: Abdominal pain Patient Disposition: Elopement Prescriptions: No Action cholecalciferol (vitamin D3) 50 mcg (2,000 unit) capsule 50 mcg PO DAILY Qty: 30 11RF Vitron-C 65 mg iron- 125 mg tablet,delayed release (DR/EC) 1 tab PO BEDTIME Qty: 30 6RF cetirizine 10 mg tablet 10 mg PO DAILY Qty: 90 3RF metoprolol succinate 25 mg tablet extended release 24 hr 25 mg PO DAILY Qty: 30 5RF Rx Instructions: Please call and schedule follow up for 2022. [phone] trazodone 50 mg tablet 50 mg PO BEDTIME PRN (Reason: for insomnia) Qty: 90 2RF fludrocortisone 0.1 mg tablet 0.1 mg PO DAILY 90 Days Qty: 90 0RF Rx Instructions: Must make cardiology appt for refills cyclobenzaprine 10 mg tablet 10 mg PO BID PRN (Reason: for muscle spasm) Qty: 60 12RF fluoxetine 60 mg tablet 60 mg PO DAILY Qty: 90 3RF gabapentin 300 mg capsule 600 mg PO TID 30 Days Qty: 180 12RF Rx Instructions: 1-2 capsules 3 times a day p.r.n. pain Interventions: ED Discharge Assessment Last Done: 10/08/22 22:27 Discharge Date/Time: 10/08/22 22:27
== END 2022-10-08 22:27 | disposition left against medical advice (07) ==
PROVIDERS: Emergency Provider Emergency Medicine; PCP Internal Medicine
DX: R10.13 Epigastric pain (principal); Z87.891 Personal history of nicotine dependence; Z90.49 Acquired absence of other specified parts of digestive tract; Z98.84 Bariatric surgery status; Z79.899 Other long term (current) drug therapy
CPT/HCPCS: 93005; 99283

== ENCOUNTER → 2022-10-08 16:06 | Outpatient (BNV) | payer OTHER, SELFPAY | PROVIDERS: Emergency Provider Emergency Medicine; PCP Internal Medicine; Visit Provider Internal Medicine Cardiovascular Disease | DX: R07.9 Chest pain, unspecified (principal) | CPT/HCPCS: 93010 ==

== ENCOUNTER 2022-11-28 16:24 | Emergency (ER) | payer OTHER, SELFPAY ==
--- NOTE | 2022-11-28 16:31 | ECG_ITS ---
Test Reason : MED CLEARANCE Blood Pressure : / mmHG Vent. Rate : 088 BPM Atrial Rate : 088 BPM P-R Int : 152 ms QRS Dur : 082 ms QT Int : 386 ms P-R-T Axes : 010 -22 -02 degrees QTc Int : 467 ms Normal sinus rhythm Normal ECG When compared with ECG of 08-OCT-2022 16:32, No significant change was found Referred By: Generic ED Physician Electronically Signed By:LAURA HELLER
[2022-11-28 16:32] VITALS: BP 138/89; BP 154/100; PULSE 110; PULSE 89; RESP 14; TEMP 36.6; O2SAT 98; BMI 44.9
[2022-11-28 16:47] LABS: MANUAL DIFF FLAG NO
[2022-11-28 16:49] LABS: Basophils Percent Auto 0.7 % (0-2); Eosinophils Absolute Auto 0.1 X10*3/uL (0.0-0.4); Eosinophils Percent Auto 1.3 % (0-4); Hematocrit 32.3 % (37.0-47.0); Hemoglobin 10.3 g/dl (12.0-16.0); Imm Gran Abs Auto 0.02 X10*3/uL (0.00-0.03); Imm Gran Pct Auto 0.3 % (0.0-0.4); Lymphocytes Absolute Auto 2.2 X10*3/uL (1.2-4.9); Lymphocytes Percent Auto 36.7 % (20-40); Mean Corpuscular HGB Conc 31.9 g/dl (31.0-35.0); Mean Corpuscular Hemoglobin 24.5 pg (27.0-33.0); Mean Corpuscular Volume 76.9 fL (80.0-98.0); Mean Platelet Volume 9.3 fL (9.4-12.3); Monocytes Absolute Auto 0.6 X10*3/uL (0.1-1.2); Monocytes Percent Auto 9.9 % (2-11); Neutrophils Absolute Auto 3.1 x10*3/uL (2.0-8.3); Neutrophils Percent Auto 51.1 % (45-73); Platelet Count 451 X10*3/uL (160-400); Red Cell Distribution Width 17.9 % (11.0-16.0); White Blood Count 6.1 X10*3/uL (4.8-10.8)
[2022-11-28 17:08] LABS: Alanine Aminotransferase 16 U/L (0-31); Albumin Level 3.8 g/dL (3.5-5.0); Alkaline Phosphatase 64 U/L (39-117); Anion Gap 13 (12-20); Aspartate Amino Transferase 23 U/L (5-31); Bilirubin Total 0.6 mg/dL (0.0-1.0); Blood Urea Nitrogen 9 mg/dL (9-16); Calcium 9.3 mg/dL (8.4-10.2); Carbon Dioxide 23 mmol/L (22-29); Chloride 107 mmol/L (96-108); Creatinine Clr Calc Pharmacy 140.1; Estimated Glomerular Filt Rate > 60; Glucose Random 93 mg/dL (60-115); Lipase 18 U/L (8-78); Potassium 3.4 mmol/L (3.3-5.1); Sodium 140 mmol/L (135-145)
[2022-11-28 17:23] LABS: Troponin-I High Sensitivity < 2.7 ng/L (<3.5-17.0)
--- NOTE | 2022-11-28 17:49 | ED.CHESTPAIN ---
HPI - Chest Pain General Chief Complaint: Chest Pain Stated Complaint: n/v x 3 days, chest pains, abd pain, per ems Time Seen by Provider: 11/28/22 16:43 Source: patient Mode of arrival: EMS History of Present Illness HPI narrative: 42-year-old female with epigastric pain with nausea and vomiting and diarrhea, denies any sick contacts, denies any fevers or chills but is still nauseous at this time, denies any urinary pain/burning/frequency. Related Data Previous Rx's Medication Instructions Recorded gabapentin 300 mg capsule 600 mg PO TID 30 days #180 caps 02/11/20 cholecalciferol (vitamin D3) 50 50 mcg PO DAILY #30 caps 10/10/20 mcg (2,000 unit) capsule iron,carbonyl 65 mg-vitamin C 125 1 tab PO BEDTIME #30 tabs 10/10/20 mg tablet,delayed release (Vitron-C) cetirizine 10 mg tablet 10 mg PO DAILY #90 tabs 06/29/21 metoprolol succinate 25 mg 25 mg PO DAILY #30 tabs 12/19/21 tablet,extended release 24 hr cyclobenzaprine 10 mg tablet 10 mg PO BID PRN for muscle spasm 06/18/22 #60 tabs fludrocortisone 0.1 mg tablet 0.1 mg PO DAILY 90 days #90 tabs 06/18/22 fluoxetine 60 mg tablet 60 mg PO DAILY #90 tabs 08/22/22 trazodone 50 mg tablet 50 mg PO BEDTIME PRN for insomnia 11/20/22 #90 tabs Allergies Allergy/AdvReac Type Severity Reaction Status Date / Time bee pollen [BEE STINGS] Allergy Intermediate SWELLING Verified 10/08/22 17:40 capsaicin [CAPSAICIN] Allergy Intermediate BAD RED Verified 10/08/22 17:40 RASH, hives hydromorphone [From DILAUDID] AdvReac Intermediate NAUSEA & Verified 10/08/22 17:40 VOMITING Review of Systems Review of Systems: Pertinent positives and negatives as stated in HPI PMFSH Past Medical History Source: nursing notes reviewed Medical History Anemia Annual physical exam Anxiety Back pain Fatty liver Gastric ulcer GERD (gastroesophageal reflux disease) History of tachycardia Hx of hypotension Instability of sacroiliac joint Kidney stones RENO on CPAP Sacroiliac joint pain Sacroiliitis Surgical History Gastric bypass status for obesity History of cholecystectomy History of laparoscopic appendectomy History of surgery Status post laser lithotripsy of ureteral calculus Family History Family History Father Diabetes Mother Throat cancer HTN (hypertension) Maternal Grandmother Ovarian cancer Maternal Grandfather Prostate cancer Social History Social History Housing: House Alcohol intake: never Patient Tobacco Use Status: Former Tobacco user (15 years ago) Tobacco use type: Cigarette Years Smoked: quit 19 years ago Smoked in Last 30 Days: No e-Cigarette/Vaping Use: Never Used Second Hand Smoke Exposure: No Use of substances other than those prescribed or required for medical reasons: No Advance Directives: No Advance Directives Information Provided: Yes Patient : No service: No Current occupational status: employed 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/hazards: No Cognitive needs: No Hearing needs: No Vision needs: Yes Physical Exam Vital Signs: Vital Signs: Last Vital Signs Temp 98.6 F 11/28/22 20:09 Pulse 80 11/28/22 20:09 Resp 18 11/28/22 20:09 BP 125/89 11/28/22 20:09 Pulse Ox 96 11/28/22 20:09 O2 Del Method Room Air 11/28/22 20:09 BMI result Body Mass Index 44.9 VITAL SIGNS: Reviewed. GENERAL: Well developed, well nourished, in no acute distress. HEAD: Normocephalic/atraumatic EYES: PERRLA, EOMI EARS: Ext canals without abnormality NOSE: Nares patent bilateral OROPHARYNX: no oral lesions noted, posterior pharynx clear NECK: Supple, no adenopathy LUNGS: Normal breath sounds. No adventitious sounds or accessory muscle use. SpO2<98> CARDIOVASCULAR: Regular rate and rhythm without noted murmurs ABDOMEN: Soft, non-tender, non-distended with bowel sounds. MUSCULOSKELETAL: No tenderness, deformities, or effusions noted on gross inspection. EXTREMITIES: No cyanosis, clubbing or edema. SKIN: Inspection of the skin reveals no rashes NEUROLOGIC: Alert and oriented x 4. Strength and sensation to light touch were grossly intact x 4. Medications Administered Discontinued Medications Generic Name Dose Route Start Last Admin Trade Name Son PRN Reason Stop Dose Admin Sodium Chloride 1,000 mls @ 999 mls/hr 11/28/22 18:00 11/28/22 18:13 Ns IV 11/28/22 19:00 999 mls/hr .Q1H1M [place] Administration Sodium Chloride 1,000 mls @ 999 mls/hr 11/28/22 19:30 11/28/22 20:11 Ns IV 11/28/22 20:30 999 mls/hr .Q1H1M [place] Administration Lidocaine/Diphenhydr/Alum/Mg/Simeth 10 ml 11/28/22 20:22 11/28/22 20:30 Mag&Al/Sim/Diphenhyd/Lidocaine 10 Ml Oral.Susp PO 11/28/22 20:23 10 ml ONCE ONE Administration Protocol Ondansetron HCl 4 mg 11/28/22 17:50 11/28/22 18:13 Ondansetron Hcl 4 Mg/2 Ml Vial IVPUSH 11/28/22 17:51 4 mg ONCE ONE Administration Sucralfate 1 gm 11/28/22 20:22 11/28/22 20:30 Sucralfate Oral Suspension 1 Gm/10 Ml Oral.Susp PO 11/28/22 20:23 1 gm ONCE ONE Administration Medical Decision Making Medical Decision Making MDM Narrative: 42-year-old female with history and clinical presentation, DDX: Gastroenteritis, gastritis, COVID, low clinical suspicion for pancreatitis or cholecystitis, and no clinical suspicion for ACS or pneumonia.. I reviewed all investigations after giving patient IV fluids and antiemetics, hematologic indices are negative for leukocytosis or left shift, patient is afebrile and has a chronically stable microcytic anemia without thrombocytopenia. Chemistry indices are negative for NENO and there are no electrolyte derangements. Liver enzymes are without abnormalities and troponin is undetectable. COVID-19 testing is negative. Patient no longer nauseous and vomiting, provided GI cocktail as well as Carafate and on re-evaluation she reports feeling better in she is otherwise discharged with a prescription for Carafate and Zofran. My interpretation is that patient has an episode of gastroenteritis with corresponding gastritis. Differential Diagnosis Differential Diagnoses: The differential diagnosis associated with the presentation includes Please see the discussion above Admission/Observation Consideration of admission/observation: Escalation of care including admission/observation considered Please see the discussion above Lab Data MDM Lab Attestation statement: I reviewed the patient's lab results. Please see the discussion above 11/28/22 16:36 11/28/22 16:36 Labs: Lab Results 11/28/22 11/28/22 11/28/22 Range/Units 16:36 16:36 16:36 WBC 6.1 (4.8-10.8) X10*3/uL RBC 4.20 (4.20-5.50) X10*6/uL Hgb 10.3 L (12.0-16.0) g/dl Hct 32.3 L (37.0-47.0) % MCV 76.9 L (80.0-98.0) fL MCH 24.5 L (27.0-33.0) pg MCHC 31.9 (31.0-35.0) g/dl RDW 17.9 H (11.0-16.0) % Plt Count 451 H (160-400) X10*3/uL MPV 9.3 L (9.4-12.3) fL Immature Gran % (Auto) 0.3 (0.0-0.4) % Neut % (Auto) 51.1 (45-73) % Lymph % (Auto) 36.7 (20-40) % [place] % (Auto) 9.9 (2-11) % Eos % (Auto) 1.3 (0-4) % Baso % (Auto) 0.7 (0-2) % Lymph # (Auto) 2.2 (1.2-4.9) X10*3/uL [place] # (Auto) 0.6 (0.1-1.2) X10*3/uL Eos # (Auto) 0.1 (0.0-0.4) X10*3/uL Baso # (Auto) 0.0 (0.0-0.2) X10*3/uL Abs Immat Gran (auto) 0.02 (0.00-0.03) X10*3/uL Absolute Neuts (auto) 3.1 (2.0-8.3) x10*3/uL Absolute Nucleated RBC 0.000 (0.0-0.012) X10*3/uL Nucleated RBC % (auto) 0.0 (0.0-0.2) /100WBC Sodium 140 (135-145) mmol/L Potassium 3.4 (3.3-5.1) mmol/L Chloride 107 (96-108) mmol/L Carbon Dioxide 23 (22-29) mmol/L Anion Gap 13 (12-20) BUN 9 (9-16) mg/dL Creatinine 0.68 (0.5-1.4) mg/dL Estim Creat Clear Calc 140.1 Estimated GFR > 60 Random Glucose 93 (60-115) mg/dL Calcium 9.3 D (8.4-10.2) mg/dL Total Bilirubin 0.6 (0.0-1.0) mg/dL AST 23 (5-31) U/L ALT 16 (0-31) U/L Alkaline Phosphatase 64 (39-117) U/L Troponin I High Sens < 2.7 (<3.5-17.0) ng/L Total Protein 7.0 (6.5-8.0) g/dL Albumin 3.8 (3.5-5.0) g/dL Lipase 18 (8-78) U/L COVID-19 ([facility]) (Negative) COVID-19 Clin Com 11/28/22 Range/Units 18:11 WBC (4.8-10.8) X10*3/uL RBC (4.20-5.50) X10*6/uL Hgb (12.0-16.0) g/dl Hct (37.0-47.0) % MCV (80.0-98.0) fL MCH (27.0-33.0) pg MCHC (31.0-35.0) g/dl RDW (11.0-16.0) % Plt Count (160-400) X10*3/uL MPV (9.4-12.3) fL Immature Gran % (Auto) (0.0-0.4) % Neut % (Auto) (45-73) % Lymph % (Auto) (20-40) % [place] % (Auto) (2-11) % Eos % (Auto) (0-4) % Baso % (Auto) (0-2) % Lymph # (Auto) (1.2-4.9) X10*3/uL [place] # (Auto) (0.1-1.2) X10*3/uL Eos # (Auto) (0.0-0.4) X10*3/uL Baso # (Auto) (0.0-0.2) X10*3/uL Abs Immat Gran (auto) (0.00-0.03) X10*3/uL Absolute Neuts (auto) (2.0-8.3) x10*3/uL Absolute Nucleated RBC (0.0-0.012) X10*3/uL Nucleated RBC % (auto) (0.0-0.2) /100WBC Sodium (135-145) mmol/L Potassium (3.3-5.1) mmol/L Chloride (96-108) mmol/L Carbon Dioxide (22-29) mmol/L Anion Gap (12-20) BUN (9-16) mg/dL Creatinine (0.5-1.4) mg/dL Estim Creat Clear Calc Estimated GFR Random Glucose (60-115) mg/dL Calcium (8.4-10.2) mg/dL Total Bilirubin (0.0-1.0) mg/dL AST (5-31) U/L ALT (0-31) U/L Alkaline Phosphatase (39-117) U/L Troponin I High Sens (<3.5-17.0) ng/L Total Protein (6.5-8.0) g/dL Albumin (3.5-5.0) g/dL Lipase (8-78) U/L COVID-19 ([facility]) Negative (Negative) COVID-19 Clin Com See Note Independent Interpretation I performed an independent interpretation of an: EKG Interpretation: Normal sinus rhythm, HR-88, no STEMI, CA/QRS/QTC is within normal limits. External Record Review External record reviewed: Outpatient record, Prior outpatient labs and Prior outpatient radiology Discharge Plan Discharge Clinical Impression: Gastroenteritis, Gastritis Patient Disposition: Home, Self-Care Instructions: Gastritis (ED), Diet for Stomach Ulcers and Gastritis (ED), Gastroenteritis (ED), Nutrition Tips for Relief of Diarrhea (ED) Additional Instructions: 1. Resume all home medications as prescribed. 2. Please take the Carafate and Zofran as prescribed. 3. Follow-up with primary care provider. Return to the ER for any worsening symptoms. Prescriptions: No Action cholecalciferol (vitamin D3) 50 mcg (2,000 unit) capsule 50 mcg PO DAILY Qty: 30 11RF Vitron-C 65 mg iron- 125 mg tablet,delayed release (DR/EC) 1 tab PO BEDTIME Qty: 30 6RF cetirizine 10 mg tablet 10 mg PO DAILY Qty: 90 3RF metoprolol succinate 25 mg tablet extended release 24 hr 25 mg PO DAILY Qty: 30 5RF Rx Instructions: Please call and schedule follow up for 2022. [phone] fludrocortisone 0.1 mg tablet 0.1 mg PO DAILY 90 Days Qty: 90 0RF Rx Instructions: Must make cardiology appt for refills cyclobenzaprine 10 mg tablet 10 mg PO BID PRN (Reason: for muscle spasm) Qty: 60 12RF trazodone 50 mg tablet 50 mg PO BEDTIME PRN (Reason: for insomnia) Qty: 90 2RF fluoxetine 60 mg tablet 60 mg PO DAILY Qty: 90 3RF gabapentin 300 mg capsule 600 mg PO TID 30 Days Qty: 180 12RF Rx Instructions: 1-2 capsules 3 times a day p.r.n. pain Referrals: Natalia Boogie MD [Primary Care Provider] -
[2022-11-28] MEDS: ondansetron HCL 4 MG/2 ML VIAL IVPUSH (18:13)
[2022-11-28] MEDS: 0.9 % Sodium Chloride 1,000 ML 999 ML IV ×2 (18:13→20:11)
[2022-11-28 18:57] LABS: COVID-19 Test Negative (Negative); IDNOW Serial# 08D9AD1C
[2022-11-28 20:09] VITALS: BP 125/89; PULSE 80; RESP 18; TEMP 37; O2SAT 96
[2022-11-28] MEDS: Sucralfate Oral Suspension 1 GM/10 ML ORAL.SUSP PO (20:30)
[2022-11-28] MEDS: Mag&Al/Sim/Diphenhyd/Lidocaine 10 ML ORAL.SUSP PO (20:30)
[2022-11-28 22:00] VITALS: BP 125/89; PULSE 84; RESP 16
== END 2022-11-28 22:49 | disposition home or self-care (01) ==
PROVIDERS: Emergency Provider Student in an Organized Health Care Education/Training Program; PCP Internal Medicine
DX: K52.9 Noninfective gastroenteritis and colitis, unspecified (principal); K29.60 Other gastritis without bleeding; Z20.822 Contact with and (suspected) exposure to COVID-19; E66.9 Obesity, unspecified; Z68.41 Body mass index [BMI] 40.0-44.9, adult; Z98.84 Bariatric surgery status
CPT/HCPCS: 36415; 80053; 83690; 84484; 85025; 87635; 93005; 96361; 96374; 99284; 99285; J2405

== ENCOUNTER 2023-02-27 08:37 | Outpatient (AMB) | payer OTHER, SELFPAY ==
--- NOTE | 2023-02-27 08:44 | A.OFFVIS_ITS ---
Intake Vital Signs 02/27/23 08:45 02/27/23 08:52 02/27/23 08:52 Height 5 ft 5 in Weight 244 lb 11.41 oz BMI 40.7 BP 123/57 L 123/84 114/76 Blood Pressure Location Lt brachial Lt brachial Lt brachial Position Supine Sitting Standing Pulse 100 102 H 122 H Intake Visit Reasons: Pots check up Intake Note: Follow-up on POTS with orthostatic bp c/o dizziness is worries in the summer not to bad now [employer] Super[employer] Required: No Allergies bee pollen [BEE STINGS] Allergy (Intermediate, Verified 10/08/22 17:40) SWELLING capsaicin [CAPSAICIN] Allergy (Intermediate, Verified 10/08/22 17:40) BAD RED RASH, hives hydromorphone [From DILAUDID] Adverse Reaction (Intermediate, Verified 10/08/22 17:40) NAUSEA & VOMITING Medication List - Last Reconciled 02/27/23 by Jayson Rosas MD cetirizine 10 mg PO DAILY cholecalciferol (vitamin D3) 50 mcg PO DAILY cyclobenzaprine 10 mg PO BID PRN fludrocortisone 0.1 mg PO DAILY iron,carbonyl-vitamin C 65 mg iron- 125 mg (Vitron-C) 1 tab PO BEDTIME metoprolol succinate ER 25 mg PO DAILY trazodone 50 mg PO BEDTIME PRN HPI HPI Comments History of Present Illness Details Eloina continues to have symptoms of orthostatic lightheadedness and rapid heart rate. She also complains of fatigue. She says she tries to drink a lot of fluid but is not always possible for her. Denies any syncopal episodes. Denies any orthopnea, PND, leg edema. [facility] Medical History Sacroiliac joint pain Annual physical exam Back pain Anemia GERD (gastroesophageal reflux disease) Kidney stones Fatty liver Anxiety RENO on CPAP History of tachycardia Hx of hypotension Gastric ulcer Instability of sacroiliac joint Sacroiliitis Surgical History History of surgery History of laparoscopic appendectomy History of cholecystectomy Status post laser lithotripsy of ureteral calculus Gastric bypass status for obesity Family History Father Diabetes Mother Throat cancer HTN (hypertension) Maternal Grandmother Ovarian cancer Maternal Grandfather Prostate cancer Social History Housing: House Alcohol intake: never Patient Tobacco Use Status: Former Tobacco user (15 years ago) Tobacco use type: Cigarette Years Smoked: quit 19 years ago e-Cigarette/Vaping Use: Never Used Second Hand Smoke Exposure: No service: No Current occupational status: employed 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/hazards: No Cognitive needs: No Hearing needs: No Vision needs: Yes Review of Systems Const Denies chills, Denies fatigue, Denies fever(s), Denies frequent falls, Denies weakness, Denies weight gain and Denies weight loss ENT Denies dizziness Card Denies chest pain, Denies leg edema, Denies lightheadedness, Denies palpitati ons, Denies dyspnea, Denies dyspnea on exertion, Denies orthopnea and Denies other (loss of consciousness) Resp Denies cough, Denies dyspnea and Denies dyspnea on exertion GI Denies hematochezia and Denies change in stool character Musc Denies abnormal gait, Denies muscle weakness, Denies numbness, Denies radiating pain into limb and Denies tingling Neuro Denies abnormal gait, Denies dizziness, Denies frequent falls, Denies numbness, Denies tingling and Denies weakness Endo Denies fatigue and Denies palpitations Physical Exam Vital Signs: Last Vital Signs Pulse 122 H 02/27/23 08:52 BP 114/76 02/27/23 08:52 BMI result Body Mass Index 40.7 Const General: cooperative, comfortable, no acute distress, alert and awake Nutritional Appearance: obese centrally obese Orientation/consciousness: patient oriented x3 Neck Neck: Yes trachea midline, Yes supple and Yes no JVD Resp Effort & Inspection: normal respiratory effort Auscultation: clear to auscultation bilaterally Cardio Jugular venous distension: no JVD Rate: regular rate and tachycardic Rhythm: regular rhythm Heart sounds: S1 normal heart sound present, S2 normal heart sound present, no click, no gallops, no murmurs and no rubs GI Inspection: Yes obesity Auscultation: normal bowel sounds Skin General skin exam: no rashes or lesions noted Neuro General: patient oriented x3 and no focal motor deficits Extrem General: Yes no clubbing, cyanosis or edema Assessment & Plan Assessment & Plan (1) POTS (postural orthostatic tachycardia syndrome): Comment: On metoprolol follow-up with Cardiology Code(s): I49.8 - Other specified cardiac arrhythmias Plan: Postural orthostatic tachycardia syndrome with persistent orthostatic tachycardia. Advised to increase fluid and salt intake. Meanwhile will also increase fludrocortisone to 0.2 mg daily for volume expansion and at the same time increase Toprol XL to 50 mg daily. Follow-up orthostatic vitals in 1 month's time. Lab work in 1 month's time. Patient also complains of fatigue and daytime somnolence. Would advise home sleep study. Continue participate heart healthy lifestyle and weight loss program. Will follow up in the clinic in 1 year's time, sooner p.r.n.. Orders: Orders Basic Metabolic Panel 4 Weeks I49.8 - Other specified cardiac arrhythmias Magnesium 4 Weeks I49.8 - Other specified cardiac arrhythmias, I50.30 - Unspecified diastolic (congestive) heart failure TSH reflex Free T4 4 Weeks I49.8 - Other specified cardiac arrhythmias RT home sleep study Today R40.0 - Somnolence Medications: New metoprolol succinate ER (Toprol XL) 50 mg PO DAILY 90 tabs 3RF Changed From fludrocortisone OVERDUE FOR APPT. PLEASE CALL [phone] TO SCHEDULE FOLLOW UP SO WE CAN CONTINUE REFILLING YOUR MEDICATIONS. 0.1 mg PO DAILY 90 tabs 0RF To fludrocortisone OVERDUE FOR APPT. PLEASE CALL [phone] TO SCHEDULE FOLLOW UP SO WE CAN CONTINUE REFILLING YOUR MEDICATIONS. 0.2 mg (2 x 0.1 mg) PO DAILY 180 tabs 3RF Discontinued metoprolol succinate ER Please keep your appointment on 02/27/23 8:45 w Jayson Vasquez MD at [facility] [address] Discontinued Reason: Doctor's Order 25 mg PO DAILY 30 tabs 1RF Coding Level of Care Code Est Pt Level 3 (95214) Diagnoses POTS (postural orthostatic tachycardia syndrome) I49.8
[2023-02-27 08:45] VITALS: BP 123/57; PULSE 100; BMI 40.7
[2023-02-27 08:52] VITALS: BP 114/76; BP 123/84; PULSE 102; PULSE 122
== END 2023-02-27 09:07 | disposition home or self-care (01) ==
PROVIDERS: PCP Internal Medicine; Visit Provider Internal Medicine Cardiovascular Disease
DX: I49.8 Other specified cardiac arrhythmias (principal)
CPT/HCPCS: 99213

== ENCOUNTER → 2023-02-27 08:37 | Outpatient (BNVA) | payer OTHER, SELFPAY | PROVIDERS: PCP Internal Medicine; Visit Provider Internal Medicine Cardiovascular Disease | DX: I49.8 Other specified cardiac arrhythmias (principal); Z79.899 Other long term (current) drug therapy | CPT/HCPCS: 99212 ==

== ENCOUNTER 2023-06-11 13:21 | Outpatient (REF) | payer OTHER, SELFPAY ==
[2023-06-11 13:37] VITALS: BP 146/80; PULSE 86; O2SAT 100
[2023-06-17 14:44] LABS: Hematocrit 34.1 % (37.0-47.0); Hemoglobin 10.6 g/dl (12.0-16.0); Mean Corpuscular HGB Conc 31.1 g/dl (31.0-35.0); Mean Corpuscular Hemoglobin 24.1 pg (27.0-33.0); Mean Corpuscular Volume 77.7 fL (80.0-98.0); Mean Platelet Volume 10.7 fL (9.4-12.3); Platelet Count 365 X10*3/uL (160-400); Red Blood Count 4.39 X10*6/uL (4.20-5.50); Red Cell Distribution Width 15.5 % (11.0-16.0); White Blood Count 4.9 X10*3/uL (4.8-10.8)
[2023-06-17 14:49] LABS: Estimated Average Glucose 105 mg/dL; Hemoglobin A1c % 5.3 % (<6.0)
[2023-06-17 15:05] LABS: Alanine Aminotransferase 10 U/L (0-31); Alkaline Phosphatase 89 U/L (39-117); Anion Gap 11 (12-20); Aspartate Amino Transferase 13 U/L (5-31); Bilirubin Total 0.6 mg/dL (0.0-1.0); Blood Urea Nitrogen 5 mg/dL (9-16); Carbon Dioxide 25 mmol/L (22-29); Chloride 106 mmol/L (96-108); Cholesterol 172 mg/dL (<200); Estimated Glomerular Filt Rate > 60; Glucose Fasting 95 mg/dL (60-99); HDL Cholesterol 45 mg/dL (>40); Iron 8 mcg/dL (30-160); LDL Cholesterol Calculated 108 mg/dL (<100); Percent Iron Saturation 3 % (15-50); Potassium 4.1 mmol/L (3.3-5.1); Sodium 138 mmol/L (135-145); Total Iron Binding Capacity 319 mcg/dL (228-428); Total Protein 7.1 g/dL (6.5-8.0); Triglycerides 99 mg/dL (<150); Unsaturated Iron Binding 311 ug/dL
[2023-06-17 15:39] LABS: Folate 7.4 ng/mL (> or = 4.0); Vitamin B12 210 pg/mL (200-900)
[2023-06-21 01:28] LABS: VITAMIN D (1,25 OH) D3 103 pg/mL; Vit D (1,25-Dihydroxy) Total 103 pg/mL (18-72); Vitamin D (1,25 OH) D2 <8 pg/mL
== END 2023-06-17 11:33 | disposition home or self-care (01) ==
LOC: HO.WFDLDS 06-17 11:32
PROVIDERS: Emergency Provider Emergency Medicine; Visit Provider Nurse Practitioner Family
DX: D50.9 Iron deficiency anemia, unspecified (principal); K76.0 Fatty (change of) liver, not elsewhere classified; K21.9 Gastro-esophageal reflux disease without esophagitis
CPT/HCPCS: 36415; 80053; 80061; 82607; 82652; 82746; 83036; 83540; 85027

== ENCOUNTER 2023-06-17 10:29 | Outpatient (AMB) | payer OTHER, SELFPAY ==
--- NOTE | 2023-06-17 10:34 | A.OFFPC_ITS ---
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: No Is last menstrual period known: Yes Patient : No Allergies bee pollen [BEE STINGS] Allergy (Intermediate, Verified 06/17/23 11:09) SWELLING capsaicin [CAPSAICIN] Allergy (Intermediate, Verified 06/17/23 11:09) BAD RED RASH, hives hydromorphone [From DILAUDID] Adverse Reaction (Intermediate, Verified 06/17/23 11:09) NAUSEA & VOMITING Medication List - Last Reconciled 06/17/23 by Shanell Olson, [employer]- cetirizine 10 mg PO DAILY cholecalciferol (vitamin D3) 50 mcg PO DAILY cyclobenzaprine 10 mg PO BID PRN fludrocortisone 0.2 mg (2 x 0.1 mg) PO DAILY metoprolol succinate ER (Toprol XL) 50 mg PO DAILY trazodone 50 mg PO BEDTIME PRN Tobacco use date assessed: 08/22/22 Dental Screening Did you have a dental visit in the last 12 months?: No Did you have a dental problem in the last 6 months where you did not have access to dental care?: No Was dental information given to patient?: Patient has dentist HPI HPI Comments History of Present Illness Details 42-year-old female with vitamin-D defic iency, MDD, generalized anxiety disorder, iron deficiency anemia, insomnia, chronic low back pain, fatty liver, GERD, kidney stones, sleep apnea on CPAP, POTs, Surgical history Gastric bypass, cholecystectomy, appendectomy, ESWL Health maintenance Mammogram has never had 1, ordered today. Pap smear Specialists Cardiology visits twice per year, last Fall 2022. Lasted a labs 11/28/2022 show chronic anemia, normal CMP Here today for complaints of abdominal pain. Pain started last week assoc w/ vomiting. Pressure in epigastric region. States it reminds her when she had her gastric ulcer. was taking OMeprazole in the past; has been w/o as she couldnt get refills. Was on carafate as well. Has been without meds for at least months. Pain is Worse when eating. Normal bowel movements. NOrmal urination. pain radiates into shoulder blades. Denies fever, chills. MDD/MONIK was on prozac. Has been w/o refills. So stopped. Interested in restarting. [facility] Medical History (Updated 06/17/23 @ 12:45 by Shanell Olson, [facility]) Sacroiliac joint pain Annual physical exam Back pain Anemia GERD (gastroesophageal reflux disease) Kidney stones Fatty liver Anxiety RENO on CPAP History of tachycardia Hx of hypotension Gastric ulcer Instability of sacroiliac joint Sacroiliitis Surgical History History of surgery History of laparoscopic appendectomy History of cholecystectomy Status post laser lithotripsy of ureteral calculus Gastric bypass status for obesity Family History Father Diabetes Mother Throat cancer HTN (hypertension) Maternal Grandmother Ovarian cancer Maternal Grandfather Prostate cancer Social History Housing: House Alcohol intake: never Patient Tobacco Use Status: Former Tobacco user (15 years ago) Tobacco use type: Cigarette Years Smoked: quit 19 years ago e-Cigarette/Vaping Use: Never Used Second Hand Smoke Exposure: No service: No Current occupational status: employed 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 1. Little interest or pleasure in doing things: not at all 2. Feeling down, depressed, or hopeless: not at all 3. Trouble falling or staying asleep, or sleeping too much: not at all 4. Feeling tired or having little energy: not at all 5. Poor appetite or overeating: not at all 6. Feeling bad about yourself - or that you are a failure or have let yourself or your family down: not at all 7. Trouble concentrating on things, such as reading the newspaper or watching television: not at all 8. Moving or speaking so slowly that other people could have noticed. Or the opposite - being so fidgety or restless that you have been moving around a lot more than usual: not at all 9. Thoughts that you would be better off or of hurting yourself in some way: not at all Total score: 0 Depression Screening Interpretation: Negative Depression Screening Done: Yes [id number] - PHQ-9 Billing: Yes Source: Developed by Drs. Chadwick Sheth, Kami Mishra, Delfino Winchester and colleagues, with an educational pedro luis from [employer]. Thrive Questionnaire Date Thrive assessed: 08/22/22 What is your living situation today?: I have a steady place to live Within the past 12 months, did the food you bought not last and you didn't have the money to get more?: Never true Within the past 12 months, did you worry whether your food would run out before you got money to buy more?: Never true Do you have trouble paying for medicines?: No Do you have trouble getting transportation to medical appointments?: No Do you have trouble paying your heating and electricity bill?: No Do you have trouble taking care of your child, family member or friend?: No Do you have trouble with day-to-day activities such as bathing, preparing meals, shopping, managing finances, etc.?: No Are you currently unemployed and looking for a job?: No Are you interested in more education?: No Please select the resources that you would like help with: None Currently or been in a relationship where the following occur: no concerns reported THRIVE Score: 0 AUDIT C Alcohol Use Questionnaire (AUDIT-C) 1. How often do you have a drink containing alcohol?: Monthly or less 2. How many drinks containing alcohol do you have on a typical day when you are drinking?: 1 or 2 3. How often do you have six or more drinks on one occasion?: Never Total Score: 1 Score Reviewed/Action Taken: Yes MONIK-7 AMB Questionnaire MONIK-7 Date MONIK - 7 assessed: 08/22/22 Feeling nervous, anxious, or on edge: 0 = Not at all Not being able to stop or control worryin = Not at all Worrying too much about different things: 0 = Not at all Trouble relaxin = Not at all Being so restless that it is hard to sit still: 0 = Not at all Becoming easily annoyed or irritable: 0 = Not at all Feeling afraid as if something awful might happen: 0 = Not at all Total MONIK-7 score (0-4 normal; 5-9 mild; 10-14 moderate; 15-21 severe): 0 Source: Developed by Drs. Chadwick Sheth, Kami Mishra, Delfino Winchester and colleagues, with an educational pedro luis from [employer]. MONIK-7 Assessment Billing MONIK-7 Assessment Tool: MONIK-7 Assessment 64459 Review of Systems Const All systems reviewed & are unremarkable except as noted in HPI and below Physical exam (Primary Care) Vital Signs: Last Vital Signs Temp 97.6 F 06/17/23 10:40 Pulse 89 06/17/23 10:40 Resp 13 06/17/23 10:40 BP 118/86 06/17/23 10:40 Pulse Ox 99 06/17/23 10:40 Oxygen Delivery Method Room Air 06/17/23 10:40 BMI result Body Mass Index 40.3 Tobacco/Smoking Status: Tobacco use Status Tobacco use date assessed 08/22/22 06/17/23 10:46 Patient Tobacco Use Status Former Tobacco user (15 06/17/23 10:46 years ago) Tobacco use type Cigarette 06/17/23 10:46 e-Cigarette/Vaping Use Never Used 06/17/23 10:46 PHQ-9: PHQ-9 Score PHQ-9: Total score 0 06/17/23 11:12 Depression Screening Interpretation: Negative Thrive Assessment: Date of Thrive Assessment Date Thrive assessed 08/22/22 06/17/23 10:46 Currently or been in a relationship where the following occur: no concerns reported Const Other: awake alert NAD Scleras nonicteric bilat MMM RRR LS CTAB Abd soft, normoactive bs x 4 quads, epigastric tendernessm no CVAT Mood and affect appropriate Assessment and Plan Assessment & Plan (1) Iron deficiency anemia: Comment: KNOWN HISTORY. WAS ON IRON SUPPLEMENTS IN THE PAST. HAS STOPPED TAKING. WE WILL CHECK LABS. Code(s): D50.9 - Iron deficiency anemia, unspecified Qualifiers: Iron deficiency anemia type: other iron deficiency Qualified Code(s): D50.8 - Other iron deficiency anemias (2) Fatty liver: Comment: We will check LFTs. Code(s): K76.0 - Fatty (change of) liver, not elsewhere classified (3) GERD (gastroesophageal reflux disease): Comment: With history of gastric ulcer in the past status post gastric bypass. She was on omeprazole as well as Carafate. She has been with out refills on these medications. The symptoms of GERD and ulceration have recurred. The plan will be to check an H pylori stool as well as her labs and then have her restart omeprazole 20 mg p.o. daily. We will follow up with her in 1 week to make sure that her symptoms are improving. She may benefit from a referral to GI. Code(s): K21.9 - Gastro-esophageal reflux disease without esophagitis Qualifiers: Esophagitis presence: without esophagitis Qualified Code(s): K21.9 - Gastro-esophageal reflux disease without esophagitis (4) Morbid obesity: Comment: BMI > 40 S/P GASTRIC BYPASS Code(s): E66.01 - Morbid (severe) obesity due to excess calories (5) Anxiety: Comment: Was maintained on Prozac 60 mg in the past. Has been without this for 1 year. Interested in restarting. Plan: Prozac 20 mg take 1 tablet daily for 1 week, then increase to 2 tablets daily for 1 week, then increase to 3 tablets daily x1 week. Code(s): F41.9 - Anxiety disorder, unspecified Plan This note is constructed using voice recognition software. While every effort has been made to ensure accuracy in garment manufacturer, still errors may have been included Sometimes, these errors may affect the content or meaning of the given sentence . Total time spent caring for the patient today was 45 minutes. This includes time spent before the visit reviewing the chart, time spent during the visit, and time spent after the visit on documentation Orders: Orders H pylori Ag Stool Today D50.9 - Iron deficiency anemia, unspecified, K21.9 - Gastro-esophageal reflux disease without esophagitis, K76.0 - Fatty (change of) liver, not elsewhere classified Comprehensive Carriere. Panel Fast Today D50.9 - Iron deficiency anemia, unspecified, K21.9 - Gastro-esophageal reflux disease without esophagitis, K76.0 - Fatty (change of) liver, not elsewhere classified Lipid Panel Today D50.9 - Iron deficiency anemia, unspecified, K21.9 - Gastro- esophageal reflux disease without esophagitis, K76.0 - Fatty (change of) liver, not elsewhere classified Vitamin D 1,25 dihydroxy Today D50.9 - Iron deficiency anemia, unspecified, K21.9 - Gastro-esophageal reflux disease without esophagitis, K76.0 - Fatty (change of) liver, not elsewhere classified IRON PROFILE Today D50.9 - Iron deficiency anemia, unspecified, K21.9 - Gastro-esophageal reflux disease without esophagitis, K76.0 - Fatty (change of) liver, not elsewhere classified Complete Blood Count no Diff Today D50.9 - Iron deficiency anemia, unspecified, K21.9 - Gastro-esophageal reflux disease without esophagitis, K76.0 - Fatty (change of) liver, not elsewhere classified Vitamin B12 and Folate Today D50.9 - Iron deficiency anemia, unspecified, K21.9 - Gastro-esophageal reflux disease without esophagitis, K76.0 - Fatty (change of) liver, not elsewhere classified Hemoglobin A1c Today D50.9 - Iron deficiency anemia, unspecified, K21.9 - Gastro-esophageal reflux disease without esophagitis, K76.0 - Fatty (change of) liver, not elsewhere classified Amylase Today D50.9 - Iron deficiency anemia, unspecified, K21.9 - Gastro- esophageal reflux disease without esophagitis, K76.0 - Fatty (change of) liver, not elsewhere classified MM tomosynthesis screening BI Today Z12.31 - Encounter for screening mammogram for malignant neoplasm of breast TSH reflex Free T4 Today D50.9 - Iron deficiency anemia, unspecified, K21.9 - Gastro-esophageal reflux disease without esophagitis, K76.0 - Fatty (change of) liver, not elsewhere classified Lipase Today D50.9 - Iron deficiency anemia, unspecified, K21.9 - Gastro- esophageal reflux disease without esophagitis, K76.0 - Fatty (change of) liver, not elsewhere classified Microalbumin, Random (w Creat) Today K76.0 - Fatty (change of) liver, not elsewhere classified Medications: New omeprazole 20 mg PO DAILY 90 caps 0RF ondansetron 4 mg PO Q8H 5 days PRN 15 tabs 0RF nausea and vomiting fluoxetine (Prozac) Take 1 tab daily x 1 week, then 2 tabs daily x 1 week then 3 tabs daily (60mg) 20 mg PO DAILY 90 caps 0RF Patient Instructions: Return to office in 1 week to follow up on lab results and symptom management. Telehealth visit is fine. Coding Level of Care Code Est Pt Level 5 (60801) Diagnoses Other iron deficiency anemia D50.8 Iron deficiency anemia type: other iron deficiency Fatty liver K76.0 Gastroesophageal reflux disease without esophagitis K21.9 Esophagitis presence: without esophagitis Morbid obesity E66.01 Anxiety F41.9 Additional Codes MONIK-7 Assessment Billing - MONIK-7 Assessment Tool: MONIK-7 Assessment 02546 ([id number])
[2023-06-17 10:40] VITALS: BP 118/86; PULSE 89; RESP 13; TEMP 36.4; O2SAT 99; BMI 40.3
== END 2023-06-17 11:53 | disposition home or self-care (01) ==
PROVIDERS: Visit Provider Nurse Practitioner Family
DX: D50.8 Other iron deficiency anemias (principal); E66.01 Morbid (severe) obesity due to excess calories; Z68.41 Body mass index [BMI] 40.0-44.9, adult; K76.0 Fatty (change of) liver, not elsewhere classified; K21.9 Gastro-esophageal reflux disease without esophagitis; F41.9 Anxiety disorder, unspecified
CPT/HCPCS: 99215

== ENCOUNTER 2023-06-17 21:18 | Emergency (ER) | payer OTHER, SELFPAY ==
[2023-06-17 21:32] VITALS: BP 134/91; PULSE 88; RESP 16; TEMP 36.5; O2SAT 98; BMI 40.7
[2023-06-17 21:53] LABS: MANUAL DIFF FLAG NO
[2023-06-17 21:54] LABS: Basophils Percent Auto 0.3 % (0-2); Eosinophils Absolute Auto 0.1 X10*3/uL (0.0-0.4); Eosinophils Percent Auto 1.3 % (0-4); Hematocrit 33.4 % (37.0-47.0); Hemoglobin 10.7 g/dl (12.0-16.0); Imm Gran Abs Auto 0.01 X10*3/uL (0.00-0.03); Imm Gran Pct Auto 0.1 % (0.0-0.4); Lymphocytes Percent Auto 39.5 % (20-40); Mean Corpuscular Hemoglobin 24.2 pg (27.0-33.0); Mean Corpuscular Volume 75.6 fL (80.0-98.0); Mean Platelet Volume 9.8 fL (9.4-12.3); Monocytes Absolute Auto 0.7 X10*3/uL (0.1-1.2); Monocytes Percent Auto 9.5 % (2-11); Neutrophils Absolute Auto 3.7 x10*3/uL (2.0-8.3); Neutrophils Percent Auto 49.3 % (45-73); Platelet Count 355 X10*3/uL (160-400); Red Blood Count 4.42 X10*6/uL (4.20-5.50); Red Cell Distribution Width 15.3 % (11.0-16.0); White Blood Count 7.6 X10*3/uL (4.8-10.8)
[2023-06-17 22:12] LABS: Anion Gap 11 (12-20); Blood Urea Nitrogen 8 mg/dL (9-16); Calcium 8.9 mg/dL (8.4-10.2); Carbon Dioxide 24 mmol/L (22-29); Chloride 108 mmol/L (96-108); Creatinine Clr Calc Pharmacy 123.2; Estimated Glomerular Filt Rate > 60; Glucose Random 100 mg/dL (60-115); Potassium 4.2 mmol/L (3.3-5.1); Sodium 139 mmol/L (135-145)
[2023-06-17 23:38] LABS: Appearance Urine Clear; Color Urine Yellow; Glucose Urine UA Negative (Negative); Leukocyte Esterase Urine Negative (Negative); Nitrite Urine Negative (Negative); PH 7.5 (5.0-9.0); Urine Blood Negative (Negative); Urine Ketones Negative (Negative); Urine Protein Negative (Neg-Trace)
[2023-06-17 23:42] LABS: UPreg QC Valid YES; Urine Pregnancy NEGATIVE (NEGATIVE)
[2023-06-18 00:12] VITALS: BP 110/77; PULSE 70; RESP 17; TEMP 36.6; O2SAT 100
--- NOTE | 2023-06-18 00:25 | ED_ITS ---
HPI - Abdominal Pain General Chief Complaint: Abdominal Pain Stated Complaint: abd pain,nausea Time Seen by Provider: 06/18/23 00:24 Source: patient Mode of arrival: ambulatory Limitations: no limitations History of Present Illness HPI narrative: Patient is status post gastric bypass surgery 2018 complaining of pain in the epigastric area with vomiting about 4 times clear in color no melena . Patient is moving her bowels normal Related Data Previous Rx's Medication Instructions Recorded cholecalciferol (vitamin D3) 50 50 mcg PO DAILY #30 caps 10/10/20 mcg (2,000 unit) capsule cetirizine 10 mg tablet 10 mg PO DAILY #90 tabs 01/11/23 cyclobenzaprine 10 mg tablet 10 mg PO BID PRN for muscle spasm 01/11/23 #60 tabs trazodone 50 mg tablet 50 mg PO BEDTIME PRN for insomnia 01/11/23 #90 tabs fludrocortisone 0.1 mg tablet 0.2 mg (2 x 0.1 mg) PO DAILY #180 02/27/23 tabs metoprolol succinate 50 mg 50 mg PO DAILY #90 tabs 02/27/23 tablet,extended release 24 hr (Toprol XL) fluoxetine 20 mg capsule (Prozac) 20 mg PO DAILY #90 caps 06/17/23 omeprazole 20 mg capsule,delayed 20 mg PO DAILY #90 caps 06/17/23 release ondansetron 4 mg disintegrating 4 mg PO Q8H PRN nausea and 06/17/23 tablet vomiting 5 days #15 tabs pantoprazole 40 mg tablet,delayed 40 mg PO DAILY #30 tabs 06/18/23 release (Protonix) sucralfate 1 gram tablet 1 g PO BID #60 tabs 06/18/23 Allergies Allergy/AdvReac Type Severity Reaction Status Date / Time bee pollen [BEE STINGS] Allergy Intermediate SWELLING Verified 06/17/23 11:09 capsaicin [CAPSAICIN] Allergy Intermediate BAD RED Verified 06/17/23 11:09 RASH, hives hydromorphone [From DILAUDID] AdvReac Intermediate NAUSEA & Verified 06/17/23 11:09 VOMITING PMFSH Past Medical History Medical History (Updated 06/18/23 @ 02:01 by Fox Díaz MD) Sacroiliac joint pain Annual physical exam Back pain Anemia GERD (gastroesophageal reflux disease) Kidney stones Fatty liver Anxiety RENO on CPAP History of tachycardia Hx of hypotension Gastric ulcer Instability of sacroiliac joint Sacroiliitis Surgical History History of surgery History of laparoscopic appendectomy History of cholecystectomy Status post laser lithotripsy of ureteral calculus Gastric bypass status for obesity Family History Family History Father Diabetes Mother Throat cancer HTN (hypertension) Maternal Grandmother Ovarian cancer Maternal Grandfather Prostate cancer Social History Social History Housing: House Alcohol intake: never Patient Tobacco Use Status: Former Tobacco user (15 years ago) Tobacco use type: Cigarette Years Smoked: quit 19 years ago Smoked in Last 30 Days: No e-Cigarette/Vaping Use: Never Used Second Hand Smoke Exposure: No Use of substances other than those prescribed or required for medical reasons: No Advance Directives: No Advance Directives Information Provided: No service: No Current occupational status: employed 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 Oriented X3. No acute distress. Eyes: No pallor or icterus ENT: Pharynx normal. Oral Mucosa moist Neck: Normal inspection. Neck supple. CVS: Normal heart rate and rhythm. Pulses normal. Respiratory: No respiratory distress. Equal air entry bilateral, no wheezing/rales/rhonchi Abdomen: Soft , mild epigastric tenderness Bowel sounds are present, Skin: Skin warm and dry. Normal skin color. Normal skin turgor. Extremities: No lower extremity edema. No calf tenderness Neuro: Oriented X 3. No motor deficit. Medical Decision Making Medical Decision Making MDM Narrative: Patient has epigastric pain with nausea vomiting no bleeding no melena out coffee colored vomitus responded to Maalox discharge patient on Protonix and MiraLax advised to follow with PCP/GI Differential Diagnosis Differential Diagnoses: The differential diagnosis associated with the presentation includes Acute gastritis/chronic abdominal pain/pancreatitis Lab Data MDM Lab Attestation statement: I reviewed the patient's lab results. 06/17/23 21:48 06/17/23 21:48 Labs: Lab Results 06/17/23 06/17/23 Range/Units 21:48 23:28 WBC 7.6 (4.8-10.8) X10*3/uL RBC 4.42 (4.20-5.50) X10*6/uL Hgb 10.7 L (12.0-16.0) g/dl Hct 33.4 L (37.0-47.0) % MCV 75.6 L (80.0-98.0) fL MCH 24.2 L (27.0-33.0) pg MCHC 32.0 (31.0-35.0) g/dl RDW 15.3 (11.0-16.0) % Plt Count 355 (160-400) X10*3/uL MPV 9.8 (9.4-12.3) fL Immature Gran % (Auto) 0.1 (0.0-0.4) % Neut % (Auto) 49.3 (45-73) % Lymph % (Auto) 39.5 (20-40) % Harney % (Auto) 9.5 (2-11) % Eos % (Auto) 1.3 (0-4) % Baso % (Auto) 0.3 (0-2) % Lymph # (Auto) 3.0 (1.2-4.9) X10*3/uL Harney # (Auto) 0.7 (0.1-1.2) X10*3/uL Eos # (Auto) 0.1 (0.0-0.4) X10*3/uL Baso # (Auto) 0.0 (0.0-0.2) X10*3/uL Abs Immat Gran (auto) 0.01 (0.00-0.03) X10*3/uL Absolute Neuts (auto) 3.7 (2.0-8.3) x10*3/uL Absolute Nucleated RBC 0.000 (0.0-0.012) X10*3/uL Nucleated RBC % (auto) 0.0 (0.0-0.2) /100WBC Sodium 139 (135-145) mmol/L Potassium 4.2 (3.3-5.1) mmol/L Chloride 108 (96-108) mmol/L Carbon Dioxide 24 (22-29) mmol/L Anion Gap 11 L (12-20) BUN 8 L (9-16) mg/dL Creatinine 0.68 (0.5-1.4) mg/dL Estim Creat Clear Calc 123.2 Estimated GFR > 60 Random Glucose 100 (60-115) mg/dL Calcium 8.9 (8.4-10.2) mg/dL Urine Color Yellow Urine Appearance Clear Urine pH 7.5 (5.0-9.0) Ur Specific Cavalier 1.020 (1.005-1.025) Urine Protein Negative (Neg-Trace) mg/dL Urine Glucose (UA) Negative (Negative) mg/dL Urine Ketones Negative (Negative) mg/dL Urine Blood Negative (Negative) Urine Nitrite Negative (Negative) Ur Leukocyte Esterase Negative (Negative) Urine Test NEGATIVE (NEGATIVE) Medications Administered Discontinued Medications Generic Name Dose Route Start Last Admin Trade Name Freq PRN Reason Stop Dose Admin Al Hydroxide/Mg Hydroxide 30 ml 06/18/23 00:32 06/18/23 00:58 Magnesium Hydrox/Alum Hydrox 30 Ml Oral.Susp PO 06/18/23 00:33 30 ml ONCE ONE Administration Lidocaine HCl 15 ml 06/18/23 00:33 06/18/23 00:58 Lidocaine Hcl Viscous 2 % 15 Ml Solution MUCOUS MEM 06/18/23 00:34 15 ml ONCE ONE Administration Omeprazole 40 mg 06/18/23 00:32 06/18/23 01:30 Omeprazole 40 Mg Capsule.Dr PO 06/18/23 00:33 40 mg ONCE ONE Administration Ondansetron HCl 4 mg 06/18/23 00:33 06/18/23 00:58 Ondansetron Odt 4 Mg Tab.Rapdis TRANSLINGU 06/18/23 00:34 4 mg ONCE ONE Administration Discharge Plan Discharge Clinical Impression: Acute gastritis Patient Disposition: Home, Self-Care Instructions: Gastritis (ED) Additional Instructions: Drink plenty of fluids Take Protonix daily Sucralfate 1 tablet twice daily before meals Avoid fried and spicy food Follow-up with your PCP/manager medical device Prescriptions: New pantoprazole [Protonix] 40 mg tablet,delayed release (DR/EC) 40 mg PO DAILY Qty: 30 0RF sucralfate 1 gram tablet 1 g PO BID Qty: 60 0RF No Action cholecalciferol (vitamin D3) 50 mcg (2,000 unit) capsule 50 mcg PO DAILY Qty: 30 11RF cetirizine 10 mg tablet 10 mg PO DAILY Qty: 90 3RF trazodone 50 mg tablet 50 mg PO BEDTIME PRN (Reason: for insomnia) Qty: 90 2RF cyclobenzaprine 10 mg tablet 10 mg PO BID PRN (Reason: for muscle spasm) Qty: 60 12RF omeprazole 20 mg capsule,delayed release(DR/EC) 20 mg PO DAILY Qty: 90 0RF ondansetron 4 mg tablet,disintegrating 4 mg PO Q8H PRN (Reason: nausea and vomiting) 5 Days Qty: 15 0RF fluoxetine [Prozac] 20 mg capsule 20 mg PO DAILY Qty: 90 0RF Rx Instructions: Take 1 tab daily x 1 week, then 2 tabs daily x 1 week then 3 tabs daily (60mg) fludrocortisone 0.1 mg tablet 0.2 mg PO DAILY Qty: 180 3RF Rx Instructions: OVERDUE FOR APPT. PLEASE CALL [phone] TO SCHEDULE FOLLOW UP SO WE CAN CONTINUE REFILLING YOUR MEDICATIONS. metoprolol succinate [Toprol XL] 50 mg tablet extended release 24 hr 50 mg PO DAILY Qty: 90 3RF Referrals: Carol Haynes MD [Physician] - Interventions: ED Discharge Assessment Last Done: 06/18/23 02:36 Discharge Date/Time: 06/18/23 02:37
[2023-06-18] MEDS: Ondansetron ODT 4 MG TAB.RAPDIS TRANSLINGU (00:58)
[2023-06-18] MEDS: Lidocaine HCl Viscous 2 % 15 ML SOLUTION MUCOUS MEM (00:58)
[2023-06-18] MEDS: Magnesium Hydrox/Alum Hydrox 30 ML ORAL.SUSP PO (00:58)
[2023-06-18] MEDS: Omeprazole 40 MG CAPSULE.DR PO (01:30)
[2023-06-18 02:36] VITALS: BP 110/77; PULSE 70; RESP 17; TEMP 36.6; O2SAT 100
== END 2023-06-18 02:37 | disposition home or self-care (01) ==
PROVIDERS: Emergency Provider Internal Medicine; PCP Internal Medicine
DX: K29.00 Acute gastritis without bleeding (principal); R10.13 Epigastric pain; Z98.84 Bariatric surgery status; Z79.899 Other long term (current) drug therapy; Z87.891 Personal history of nicotine dependence
CPT/HCPCS: 36415; 80048; 81003; 81025; 85025; 99283; 99284

== ENCOUNTER 2023-06-18 15:59 | Outpatient (REF) | payer OTHER, SELFPAY | END 2023-06-18 16:00 | disposition home or self-care (01) | LOC: HO.LNP 15:59 | PROVIDERS: Visit Provider Nurse Practitioner Family | DX: D50.9 Iron deficiency anemia, unspecified (principal); K76.0 Fatty (change of) liver, not elsewhere classified; K21.9 Gastro-esophageal reflux disease without esophagitis | CPT/HCPCS: 87338 ==

== ENCOUNTER 2023-08-16 16:43 | Inpatient (IN) | payer OTHER, SELFPAY ==
[2023-08-16 16:45] VITALS: BP 140/90; PULSE 160; PULSE 170; RESP 31; BMI 42.9
--- NOTE | 2023-08-16 17:08 | ECG_ITS ---
Test Reason : OVERDOSE Blood Pressure : / mmHG Vent. Rate : 140 BPM Atrial Rate : 140 BPM P-R Int : 128 ms QRS Dur : 068 ms QT Int : 288 ms P-R-T Axes : 013 -36 074 degrees QTc Int : 439 ms Sinus tachycardia Left axis deviation Nonspecific ST abnormality Abnormal ECG When compared with ECG of 28-NOV-2022 17:23, Vent. rate has increased BY 52 BPM Nonspecific T wave abnormality no longer evident in Anterior leads Nonspecific T wave abnormality now evident in Lateral leads Referred By: Jeni Sow Electronically Signed By:Skyler Ewing
[2023-08-16 17:14] LABS: MANUAL DIFF FLAG NO
--- NOTE | 2023-08-16 17:16 | ED.OVERDOSE ---
HPI - Overdose General Chief Complaint: Overdose Stated Complaint: SI attempt, narcan given Time Seen by Provider: 08/16/23 16:49 Source: patient, family, EMS and old records reviewed Mode of arrival: EMS Limitations: other (agitation in withdrawal) History of Present Illness ED Provider: PEPE SHERIDAN Narrative: 42 yo female s/p gastric bypass in 2018 has had anastomotic ulcer, anxiety, POTS, anemia, GERD she comes after being found down at home reportedly there was a suicide letter she ingested possibly 200mL of oxycodone 5mg/5mL. She was given 3mg IV narcan comes in severely agitated, crying out in pain, writhing around stating her whole body hurts with pilorection of the skin and she is restless. She admits to taking her mother's pain medications on the regular daily. She is very agitated and in withdrawal on arrival. She denies other ingestions but flexeril was found as well. She will not sit still for EKG. Her sister notes she has never done this before and she that Eloina must have freaked out as the mom coded last night and is now in our ICU and is critically ill. 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) Timing confirmed by: family member Intent: other (she left letter reportedly then said to us she just wanted to treat her pain) How Overdose Was Discovered: left note and family/friend present at time Context: Intentional Overdose: recent loss (mom is in ICU) and other (admits to using mom's pain medications) Treatments Prior to Arrival: narcan (3mg IV narcan) Related Data Previous Rx's ?Medication ?Instructions ?Recorded cetirizine 10 mg tablet 10 mg PO DAILY #90 tabs 01/11/23 cyclobenzaprine 10 mg tablet 10 mg PO BID PRN for muscle spasm 01/11/23 #60 tabs trazodone 50 mg tablet 50 mg PO BEDTIME PRN for insomnia 01/11/23 #90 tabs fludrocortisone 0.1 mg tablet 0.2 mg (2 x 0.1 mg) PO DAILY #180 02/27/23 tabs metoprolol succinate 50 mg 50 mg PO DAILY #90 tabs 02/27/23 tablet,extended release 24 hr (Toprol XL) fluoxetine 20 mg capsule (Prozac) 20 mg PO DAILY #90 caps 06/17/23 omeprazole 20 mg capsule,delayed 20 mg PO DAILY #90 caps 06/17/23 release ondansetron 4 mg disintegrating 4 mg PO Q8H PRN nausea and 06/17/23 tablet vomiting 5 days #15 tabs sucralfate 1 gram tablet 1 g PO BID #60 tabs 06/18/23 ferrous fumarate 324 mg (106 mg 324 mg PO BID #180 tabs 06/24/23 iron) tablet mecobalamin (vitamin B12) 1,000 1,000 mcg PO DAILY #90 ea 06/24/23 mcg lozenges Allergies Allergy/AdvReac Type Severity Reaction Status Date / Time bee pollen [BEE STINGS] Allergy Intermediate SWELLING Verified 08/16/23 17:43 capsaicin [CAPSAICIN] Allergy Intermediate BAD RED Verified 08/16/23 17:43 RASH, hives hydromorphone [From DILAUDID] AdvReac Intermediate NAUSEA & Verified 08/16/23 17:43 VOMITING Review of Systems Review of Systems: ROS unable to be obtained due to agitation PMFSH Past Medical History Source: old records reviewed Medical History Sacroiliac joint pain Annual physical exam Back pain Anemia GERD (gastroesophageal reflux disease) Kidney stones Fatty liver Anxiety RENO on CPAP History of tachycardia Hx of hypotension Gastric ulcer Instability of sacroiliac joint Sacroiliitis Surgical History History of surgery History of laparoscopic appendectomy History of cholecystectomy Status post laser lithotripsy of ureteral calculus Gastric bypass status for obesity Family History Family History Father Diabetes Mother Throat cancer HTN (hypertension) Maternal Grandmother Ovarian cancer Maternal Grandfather Prostate cancer Social History Social History Housing: House Alcohol intake: never Patient Tobacco Use Status: Former Tobacco user Tobacco use type: Cigarette Years Smoked: quit 19 years ago e-Cigarette/Vaping Use: Never Used Second Hand Smoke Exposure: No Advance Directives: No Advance Directives Information Provided: No Do you have a plan to hurt others: No Plan Patient : No service: No Current occupational status: employed 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 moderate acute distress. Eyes: Pupils equal, round and reactive to light. dilated 4mm ENT: Pharynx normal. atraumatic Neck: Normal inspection. Neck supple. CVS: tachyardic heart rate and rhythm. Pulses normal. Respiratory: No respiratory distress. Breath sounds normal. Abdomen: Soft and nontender. Skin: Skin warm and dry. pale skin color. Normal skin turgor. Extremities: No lower extremity edema. No calf ttp Neuro: confused agitated moves all extremities. No motor deficit. No sensory deficit. Course Course Course Narrative: no response to initial versed/droperidol IV valium ordered - no response thrashing IV valium ordered - more calm at this time will hydrate and continue to monitor Reevaluation(s) Reevaluation #1: signed out to Dr. Chapman Medications Administered Generic Name Dose Route Start Last Admin Trade Name Freq PRN Reason Stop Dose Admin Magnesium Sulfate 2 gm in 50 mls @ 25 mls/hr 08/16/23 20:11 08/16/23 20:21 Magnesium Sulfate/H2o IV 08/16/23 22:10 25 mls/hr ONCE ONE Administration Discontinued Medications Generic Name Dose Route Start Last Admin Trade Name Freq PRN Reason Stop Dose Admin Diazepam 2.5 mg 08/16/23 17:36 08/16/23 17:45 Diazepam 10 Mg/2 Ml Cartridge IVPUSH 08/16/23 17:37 2.5 mg STAT STA Administration Diazepam 2.5 mg 08/16/23 17:54 08/16/23 18:17 Diazepam 10 Mg/2 Ml Cartridge IVPUSH 08/16/23 17:55 2.5 mg STAT STA Administration Droperidol 1.25 mg 08/16/23 17:09 08/16/23 17:22 Droperidol 5 Mg/2 Ml Vial IVPUSH 08/16/23 17:10 1.25 mg ONCE ONE Administration Sodium Chloride 1,000 mls @ 999 mls/hr 08/16/23 18:22 08/16/23 19:13 Ns IV 08/16/23 19:22 999 mls/hr .Q1H1M ONE Administration Sodium Chloride 1,000 mls @ 999 mls/hr 08/16/23 18:46 08/16/23 19:13 Ns IV 08/16/23 19:46 999 mls/hr .Q1H1M ONE Administration Midazolam HCl 2 mg 08/16/23 17:09 08/16/23 17:22 Midazolam Hcl/Pf 2 Mg/2 Ml Vial IVPUSH 08/16/23 17:10 2 mg ONCE ONE Administration Medical Decision Making Medical Decision Making [facility] Narrative: 42 yo female s/p gastric bypass in 2018 has had anastomotic ulcer, anxiety, POTS, anemia, GERD here with c/o SI attempt by ingesting 200mL of her mom's oxycodone 5mg/5mL receiving 3mg IV narcan now in severe withdrawal crying out in pain, restless, attempting to leave, piloerection which is unusual for one time overdose she then admits to taking her mom's medications almost daily to treat her pain. At this time I cannot keep her in the bed safely she is receiving IV benzos, labs, EKG, droperidol, will monitor and refer to CARE team Differential Diagnosis Differential Diagnoses: The differential diagnosis associated with the presentation includes suicide attempt, toxic ingestion, opiate overdose Admission/Observation Consideration of admission/observation: Escalation of care including admission/observation considered physician observation ordered pending improvement and CARE team consult started at 827pm Consult Healthcare Provider Management of the patient was discussed with: Pharmacy General Manager poison control 8pm - given flexeril overdose monitor for anticholinergic symptoms, urinary retention, benzos to treat symptoms, repeat EKG again. I have ordered K and magnesium. Lab Data [facility] Lab Attestation statement: I reviewed the patient's lab results. 08/16/23 17:10 08/16/23 17:10 Labs: Lab Results 08/16/23 Range/Units 17:10 WBC 8.2 (4.8-10.8) X10*3/uL RBC 5.05 (4.20-5.50) X10*6/uL Hgb 13.3 D (12.0-16.0) g/dl Hct 40.3 D (37.0-47.0) % MCV 79.8 L (80.0-98.0) fL MCH 26.3 L (27.0-33.0) pg MCHC 33.0 (31.0-35.0) g/dl RDW 18.3 H (11.0-16.0) % Plt Count 358 (160-400) X10*3/uL MPV 10.1 (9.4-12.3) fL Immature Gran % (Auto) 0.2 (0.0-0.4) % Neut % (Auto) 57.8 (45-73) % Lymph % (Auto) 31.4 (20-40) % Clay % (Auto) 8.2 (2-11) % Eos % (Auto) 1.9 (0-4) % Baso % (Auto) 0.5 (0-2) % Lymph # (Auto) 2.6 (1.2-4.9) X10*3/uL Clay # (Auto) 0.7 (0.1-1.2) X10*3/uL Eos # (Auto) 0.2 (0.0-0.4) X10*3/uL Baso # (Auto) 0.0 (0.0-0.2) X10*3/uL Abs Immat Gran (auto) 0.02 (0.00-0.03) X10*3/uL Absolute Neuts (auto) 4.8 (2.0-8.3) x10*3/uL Absolute Nucleated RBC 0.000 (0.0-0.012) X10*3/uL Nucleated RBC % (auto) 0.0 (0.0-0.2) /100WBC Sodium 140 (135-145) mmol/L Potassium 3.3 D (3.3-5.1) mmol/L Chloride 108 (96-108) mmol/L Carbon Dioxide 21 L (22-29) mmol/L Anion Gap 14 (12-20) BUN 6 L (9-16) mg/dL Creatinine 0.70 (0.5-1.4) mg/dL Estim Creat Clear Calc TNP Estimated GFR > 60 Random Glucose 113 (60-115) mg/dL Calcium 9.4 (8.4-10.2) mg/dL Magnesium 1.8 (1.6-2.6) mg/dL Total Bilirubin 0.9 (0.0-1.0) mg/dL Direct Bilirubin 0.3 (0.0-0.5) mg/dL AST 17 (5-31) U/L ALT 23 (0-31) U/L Alkaline Phosphatase 118 H (39-117) U/L Total Creatine Kinase 51 (26-140) U/L Total Protein 7.9 (6.5-8.0) g/dL Albumin 4.3 (3.5-5.0) g/dL Lipase 15 (8-78) U/L TSH 1.89 (0.32-4.0) uIU/mL Beta HCG, Quant < 2 mIU/mL Salicylates < 5.0 L (15-30) mg/dL Acetaminophen < 3 (<30) mcg/mL Ethyl Alcohol < 10 mg/dL Independent Interpretation I performed an independent interpretation of an: EKG Interpretation: Rate: 140 Rhythm: sinus tach Sims: left Normal P waves. Normal GIOVANNA. Normal QRS complex. ST T wave : nonspecific ST T wave changes no ARMANDO qTC: 439 prior studies: no acute ischemia The study has been interpreted contemporaneously by me. EKG #2 Rate: 91 Rhythm: NSR Sims: left Normal P waves. Normal GIOVANNA. Normal QRS complex. ST T wave : nonspecific ST T wave changes inf leads, no ARMANDO qTC: 455 prior studies: no sig change The study has been interpreted contemporaneously by me. . Independent Historian Clinical information obtained from an independent historian. History obtained from or confirmed by: Other (sister) External Record Review External record reviewed: Inpatient record and Office record Critical Care Time Critical Care Time Critical Care Time: Yes Total Critical Care Time: 75 Attestation: review of records, repeat IV valium for agitation, repletion of K and magnesium, poison control discussion, family discussion I attest to this time spent taking care of the patient Discharge Plan Discharge Clinical Impression: Drug overdose Qualifiers: Encounter type: initial encounter Injury intent: intentional self-harm Qualified Code(s): T50.902A - Poisoning by unspecified drugs, medicaments and biological substances, intentional self-harm, initial encounter Patient Disposition: Still a Patient Prescriptions: No Action cetirizine 10 mg tablet 10 mg PO DAILY Qty: 90 3RF trazodone 50 mg tablet 50 mg PO BEDTIME PRN (Reason: for insomnia) Qty: 90 2RF cyclobenzaprine 10 mg tablet 10 mg PO BID PRN (Reason: for muscle spasm) Qty: 60 12RF sucralfate 1 gram tablet 1 g PO BID Qty: 60 0RF omeprazole 20 mg capsule,delayed release(DR/EC) 20 mg PO DAILY Qty: 90 0RF ondansetron 4 mg tablet,disintegrating 4 mg PO Q8H PRN (Reason: nausea and vomiting) 5 Days Qty: 15 0RF fluoxetine [Prozac] 20 mg capsule 20 mg PO DAILY Qty: 90 0RF Rx Instructions: Take 1 tab daily x 1 week, then 2 tabs daily x 1 week then 3 tabs daily (60mg) ferrous fumarate 324 mg (106 mg iron) tablet 324 mg PO BID Qty: 180 1RF mecobalamin (vitamin B12) 1,000 mcg lozenge 1,000 mcg PO DAILY Qty: 90 3RF Rx Instructions: allow to dissolve in mouth OR may chew lightly before swallowing fludrocortisone 0.1 mg tablet 0.2 mg PO DAILY Qty: 180 3RF Rx Instructions: OVERDUE FOR APPT. PLEASE CALL [phone] TO SCHEDULE FOLLOW UP SO WE CAN CONTINUE REFILLING YOUR MEDICATIONS. metoprolol succinate [Toprol XL] 50 mg tablet extended release 24 hr 50 mg PO DAILY Qty: 90 3RF Print Language: Thai
[2023-08-16] MEDS: droPERidol 5 MG/2 ML VIAL 1.25 MG IVPUSH (17:22)
[2023-08-16] MEDS: Midazolam HCl/PF 2 MG/2 ML VIAL IVPUSH (17:22)
[2023-08-16 17:25] LABS: Basophils Percent Auto 0.5 % (0-2); Eosinophils Absolute Auto 0.2 X10*3/uL (0.0-0.4); Eosinophils Percent Auto 1.9 % (0-4); Hematocrit 40.3 % (37.0-47.0); Hemoglobin 13.3 g/dl (12.0-16.0); Imm Gran Abs Auto 0.02 X10*3/uL (0.00-0.03); Imm Gran Pct Auto 0.2 % (0.0-0.4); Lymphocytes Absolute Auto 2.6 X10*3/uL (1.2-4.9); Lymphocytes Percent Auto 31.4 % (20-40); Mean Corpuscular Hemoglobin 26.3 pg (27.0-33.0); Mean Corpuscular Volume 79.8 fL (80.0-98.0); Mean Platelet Volume 10.1 fL (9.4-12.3); Monocytes Absolute Auto 0.7 X10*3/uL (0.1-1.2); Monocytes Percent Auto 8.2 % (2-11); Neutrophils Absolute Auto 4.8 x10*3/uL (2.0-8.3); Neutrophils Percent Auto 57.8 % (45-73); Platelet Count 358 X10*3/uL (160-400); Red Blood Count 5.05 X10*6/uL (4.20-5.50); Red Cell Distribution Width 18.3 % (11.0-16.0); White Blood Count 8.2 X10*3/uL (4.8-10.8)
[2023-08-16 17:29] LABS: Acetaminophen LAB < 3 mcg/mL (<30); Salicylate < 5.0 mg/dL (15-30)
--- NOTE | 2023-08-16 17:40 | MHC.EDTECH ---
Unable to get vital signs and EKG due to pt being uncooperative and not able to hold still
[2023-08-16 17:41] LABS: Alanine Aminotransferase 23 U/L (0-31); Albumin Level 4.3 g/dL (3.5-5.0); Alkaline Phosphatase 118 U/L (39-117); Anion Gap 14 (12-20); Aspartate Amino Transferase 17 U/L (5-31); Bilirubin Direct 0.3 mg/dL (0.0-0.5); Bilirubin Total 0.9 mg/dL (0.0-1.0); Blood Urea Nitrogen 6 mg/dL (9-16); Calcium 9.4 mg/dL (8.4-10.2); Carbon Dioxide 21 mmol/L (22-29); Chloride 108 mmol/L (96-108); Estimated Glomerular Filt Rate > 60; Ethanol < 10 mg/dL; Glucose Random 113 mg/dL (60-115); Lipase 15 U/L (8-78); Magnesium 1.8 mg/dL (1.6-2.6); Potassium 3.3 mmol/L (3.3-5.1); Sodium 140 mmol/L (135-145); Total Protein 7.9 g/dL (6.5-8.0)
[2023-08-16] MEDS: diazePAM 10 MG/2 ML CARTRIDGE 2.5 MG IVPUSH ×2 (17:45→18:17)
[2023-08-16 17:50] LABS: HCG Quantitative < 2 mIU/mL; TSH reflex Free T4 1.89 uIU/mL (0.32-4.0)
--- NOTE | 2023-08-16 17:58 | MHC.EDTECH ---
Humberto serrano locked n [facility] by security
[2023-08-16 18:48] VITALS: BP 137/86; PULSE 106; RESP 14; O2SAT 95
[2023-08-16 19:07] VITALS: BP 113/81; PULSE 114; RESP 20; TEMP 36.4; O2SAT 98
[2023-08-16] MEDS: 0.9 % Sodium Chloride 1,000 ML 999 ML IV ×2 (19:13)
--- NOTE | 2023-08-16 19:13 | PC.NURSE ---
this rn assumed care of pt. pt alert to name at this time, pt slightly agitated trying to get out of bed but easily redirectable. pt sating 98-100 on room air, sinus tachy on tele 103-112 bpm. 1:1 sitter at bedside for safety. IV fluid bolus administered at this time.
--- NOTE | 2023-08-16 20:15 | ECG_ITS ---
Test Reason : OVERDOSE Blood Pressure : / mmHG Vent. Rate : 091 BPM Atrial Rate : 091 BPM P-R Int : 138 ms QRS Dur : 074 ms QT Int : 370 ms P-R-T Axes : 010 -25 000 degrees QTc Int : 455 ms Normal sinus rhythm Normal ECG When compared with ECG of 16-AUG-2023 18:17, Vent. rate has decreased BY 49 BPM T wave inversion now evident in Inferior leads Nonspecific T wave abnormality no longer evident in Lateral leads Referred By: Jeni Sow Electronically Signed By:Skyler Ewing
[2023-08-16] MEDS: Magnesium Sulfate/H2O 2 GM/50 ML PIGGYBACK IV (20:21)
--- NOTE | 2023-08-16 20:25 | PC.NURSE ---
per run magnesium over one hour at this time, administer potassium once magnesium infusion completes.
[2023-08-16 20:51] VITALS: BP 126/89; PULSE 90; RESP 18; O2SAT 100
[2023-08-16] MEDS: Potassium Chloride/H20 10 MEQ/100 ML PIGGYBACK 100 MEQ IV ×2 (21:25→22:25)
--- NOTE | 2023-08-16 21:52 | PC.NURSE ---
Nilo from poison control requesting update on pt.
--- NOTE | 2023-08-16 23:29 | PC.NURSE ---
per , hold 2 bags of potassium at this time and administer PO potassium.
[2023-08-16] MEDS: Potassium Chloride Packet 20 MEQ PACKET 40 MEQ PO (23:46)
[2023-08-17 00:09] LABS: Anion Gap 10 (12-20); Blood Urea Nitrogen 5 mg/dL (9-16); Calcium 8.6 mg/dL (8.4-10.2); Carbon Dioxide 20 mmol/L (22-29); Chloride 112 mmol/L (96-108); Creatinine Clr Calc Pharmacy 154.3; Estimated Glomerular Filt Rate > 60; Glucose Random 91 mg/dL (60-115); Potassium 4.1 mmol/L (3.3-5.1); Sodium 138 mmol/L (135-145)
[2023-08-17 01:23] VITALS: BP 116/77; PULSE 82; RESP 16; TEMP 37.3; O2SAT 97
[2023-08-17 01:34] LABS: Appearance Urine Cloudy; Color Urine Dark Yellow; Glucose Urine UA Negative (Negative); Leukocyte Esterase Urine Small (1+) (Negative); Nitrite Urine Negative (Negative); PH 6.5 (5.0-9.0); UMIC TRIGGER UACC YES; Urine Blood Negative (Negative); Urine Ketones 40 mg/dL (Negative); Urine Protein Trace mg/dL (Neg-Trace)
[2023-08-17 01:46] LABS: Bacteria Urine Trace (None Seen); Hyaline Casts Urine >20 /LPF (0-2); RBC Urine 0-2 /HPF (0-2); UACC Culture Trigger YES; WBC Urine 0-5 /HPF (0-5)
[2023-08-17 01:51] LABS: Amphetamine Screen Urine Not Detected (Not Detect); Barbiturates, Urine Not Detected (Not Detect); Benzodiazepines Screen Urine POSITIVE (Not Detect); Buprenorphine Scr Not Detected (Not Detect); Cannabinoid Screen Urine POSITIVE (Not Detect); Cocaine Screen Urine Not Detected (Not Detect); Fentanyl, urine Not Detected (Not Detect); Methadone Screen, Urine Not Detected (Not Detect); Opiate Screen Urine POSITIVE (Not Detect); Oxycodone Screen Urine Positive (Not Detect); Phencyclidine Screen Urine Not Detected (Not Detect)
--- NOTE | 2023-08-17 03:23 | PC.NURSE ---
Julienne from poison control on phone for follow up, update given. per Julienne, pt okayed to be medically cleared at this time.
--- NOTE | 2023-08-17 10:38 | HO.SUDE ---
Briefly met with pt in [facility] after pt presented to the ED after intentional opioid overdose. Pt had been found on floor unresponsive by family with her mother's pain meds next to her, IV Narcan was administered. Pts UDS positive for opiates, oxycodone, benzodiazepines, THC. Pt laying in bed, awake, alert, difficult to engage in conversation. Pt reports she takes her mother's pain medications once in awhile when I am in pain. Pt denies daily use. Pt denies ever experiencing withdrawal symptoms, including at this time. Pt does appear diaphoretic. Pt denies hx overdoses. Pt difficult to engage in further conversation, encouraged pt to notify staff if withdrawal symptoms occur or if pt would like to speak more regarding substance use. Pt denies questions or concerns for t/w.
--- NOTE | 2023-08-17 11:49 | MHC.CARE ---
Patient's family members came in, apparently patient's mother yesterday. They report patient is aware of this, but they wanted to support patient and also appeared to want to discuss planning and were inquiring into length of stay and inpatient psych processes to best determine a date. Did not appear to be an appropriate discussion given patient's circumstances for being in the ED. Family agreed and requested to be contacted when she has been seen. Primary contact is Memo Vargas [phone]
[2023-08-17 13:47] VITALS: RESP 18
[2023-08-17 17:14] VITALS: BP 114/62; PULSE 74; RESP 16; TEMP 36.2; O2SAT 97
--- NOTE | 2023-08-17 19:45 | PC.NURSE ---
patient appears to remain resting on rear couch patient appears sad/in low mood appropriately so patient appears in no distress
--- NOTE | 2023-08-18 07:06 | PC.NURSE ---
Assumed care of patient at 0645. Patient is observed resting quietly in their bed. No signs of distress observed. Breathing is even and unlabored. Will continue plan of care.
[2023-08-18 13:20] VITALS: BP 123/81; PULSE 83; TEMP 36.7; O2SAT 98
[2023-08-18] MEDS: hydrOXYzine HCL 50 MG TABLET PO (13:32)
--- NOTE | 2023-08-18 19:36 | PC.NURSE ---
patient appears to remain at rest at present respirations are even and unlabored patient appears in no distress
[2023-08-18 20:34] VITALS: BP 108/74; PULSE 108; RESP 18; TEMP 36.8; O2SAT 96
[2023-08-19] MEDS: diphenhydrAMINE HCL 25 MG CAPSULE 50 MG PO ×2 (00:39→21:00)
--- NOTE | 2023-08-19 03:29 | PC.NURSE ---
pt resting comfortably with eyes closed, breathing even and unlabored, no apparent distress noted at this time
[2023-08-19 06:34] VITALS: BP 112/63; PULSE 74; RESP 16; TEMP 36.4; O2SAT 98
--- NOTE | 2023-08-19 11:27 | PC.NURSE ---
Nursing Communication Patient approached nursing station requesting medication for anxiety. aware. MD with orders
[2023-08-19] MEDS: Propranolol HCL 20 MG TABLET PO (11:29)
[2023-08-19 14:00] VITALS: BP 103/62; PULSE 94; TEMP 37.2; O2SAT 96
[2023-08-19 22:40] VITALS: BP 120/86; PULSE 107; RESP 18; TEMP 36.6; O2SAT 98
--- NOTE | 2023-08-20 06:23 | PC.NURSE ---
Patient slept through the night, meds and meals compliant, denied SI/HI/AVH, no other distress observed/reported, VSS, patient is calm, quiet, and pleasant, disposition per care is section 12 inpatient bed search, will continue to monitor.
[2023-08-20 07:36] VITALS: BP 102/70; PULSE 85; RESP 16; O2SAT 98
--- NOTE | 2023-08-20 09:15 | PC.NURSE ---
Assumed care of patient at 0645, patient appears to be sleeping, respirations even and unlabored, no apparent distress noted. Patient ate breakfast without issue. Continue plan of care for inpatient bedsearch
[2023-08-20 14:15] VITALS: BP 128/80; PULSE 114; RESP 18; TEMP 36.4; O2SAT 97
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
[2023-08-20 20:00] VITALS: BP 118/68; PULSE 96; RESP 17; TEMP 36.7; O2SAT 97
[2023-08-20] MEDS: traZODone HCL 50 MG TABLET PO (20:06)
[2023-08-21 07:30] VITALS: BP 91/60; PULSE 83; RESP 16; TEMP 36.6; O2SAT 97
[2023-08-21] MEDS: Cyanocobalamin (Vitamin B-12) 1,000 MCG TABLET 1000 MCG PO (08:45)
[2023-08-21 08:58] LABS: Cholesterol 167 mg/dL (<200); HDL Cholesterol 34 mg/dL (>40); LDL Cholesterol Calculated 118 mg/dL (<100); Triglycerides 77 mg/dL (<150)
[2023-08-21 09:57] LABS: Estimated Average Glucose 97 mg/dL
--- NOTE | 2023-08-21 09:57 | P.HPPS_ITS ---
HPI Date of Service: 08/21/23 Chief Complaint: Overdose SI Sources of Information: patient interviewed, chart reviewed and crisis/core team assessment reviewed HPI Subjective Notes: Neil Warning and Conditional Voluntary Healthcare Proxy: No Guardianship: No Medical Problems Affecting Mental Status: No Narrative: 42 yo female, s/p overdose of liquid oxycontin and muscle relaxants which were her mother's medications in a reported impulsive attempt to end her life. At the time she did this, her mother was a patient in [facility] ICU with terminal prognosis/process. Mother on 08/16/23. Pt, one of her care providers, stated she wanted to join her. Admitted to adult psychiatry 08/20/23. Pt has been asking to discharge to be with her family during this time of loss. Family has asked for the same. Met with pt who reports she took the medications before her mother passed to be with her. This action she reports was not pre-planned or thought through, but impulsive and precipitous. Pt, her step father and other family members had been providing care for mother who had been at home until this recent decline. Pt reports mother fought cancer to remission in 2016. She experienced many SE from radiation and became bed bound in Feb 2023, spending a few months in ICU, coming home at the end of Mar 2023. We all thought she was getting better. Pt reports she is currently not suicidal, she is pleased this attempt was unsuccessful and just wants to be with my family. Collateral contact with sister Malu [phone] who reports pt has never made any attempts like this and family believes she was overwhelmed in the moment. They would like her home and offer her stable support. Malu will be away from work for the next several weeks and will be able to spend time with pt. Reports sleep is appropriate prior to mothers passing, appetite is decreased d/t gastric bypass Past Psychiatric History: IP: Denies PHP: A few years ago-she was diagnosed with ulcer and could not use Prozac so attended for added support. OP: None currently Meds: PCP Flora Arias Trials: Prozac- helpful. Suicide attempts-no history. Medical Evaluation Reviewed: Yes [facility] Medical History (Updated 08/21/23 @ 16:58 by Celia Dowling, RADHA) Adjustment reaction with mixed disturbance of emotions and conduct Sacroiliac joint pain Annual physical exam Back pain Anemia GERD (gastroesophageal reflux disease) Kidney stones Fatty liver Anxiety RENO on CPAP History of tachycardia Hx of hypotension Gastric ulcer Instability of sacroiliac joint Sacroiliitis Narrative: PODS Surgical History History of surgery History of laparoscopic appendectomy History of cholecystectomy Status post laser lithotripsy of ureteral calculus Gastric bypass status for obesity Family History: Denies Social History: Two brothers, One sister, Three step sisters. All are supportive of her. Mother remarried. 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 [employer] History: Denies Trauma History: Loss of mother Diagnostics Vital Signs (24Hr): Vital Signs - 24 hr 08/20/23 14:15 08/20/23 20:00 Temperature 97.6 F 98.1 F Pulse Rate 114 H 96 Respiratory Rate 18 17 Blood Pressure 128/80 118/68 Pulse Oximetry 97 97 Oxygen Delivery Method Room Air Room Air BMI result Body Mass Index 42.9 Labs 08/16/23 17:10 08/16/23 23:40 Labs: Laboratory Results - last 48 hr 08/21/23 08:30 Estimat Average Glucose 97 Hemoglobin A1c % 5.0 Triglycerides 77 Cholesterol 167 LDL Cholesterol, Calc 118 H HDL Cholesterol 34 L Meds/Allergies Allergies Allergies Allergy/AdvReac Type Severity Reaction Status Date / Time bee pollen [BEE STINGS] Allergy Intermediate SWELLING Verified 08/16/23 17:43 capsaicin [CAPSAICIN] Allergy Intermediate BAD RED Verified 08/16/23 17:43 RASH, hives hydromorphone [From DILAUDID] AdvReac Intermediate NAUSEA & Verified 08/16/23 17:43 VOMITING Mental Status Exam Mental Status Exam Patient Appearance: Appropriate Patient Orientation: Person, Place, Time and Situation Level of Consciousness: Alert Patient Behavior: Appropriate, Talkative, Cooperative, Good Eye Contact and Crying Mood Description: Sad Affect Description: Flat Ability to Follow Directions: Good Speech Pattern: Spontaneous Speech Memory Description: Intact Hallucinations: None Delusions: Not Present Thought Process: Intact and Goal Oriented Thought Content: positive for Intact, positive for Goal Oriented and positive for Suicidal Ideation (denies SI, plan, intent. Identifies actions [employer] as impulsive, not like me. ) Depressive Symptoms: Increased Anxiety and Thoughts of /Suicide (denies SI plan or intent) Judgement: Good Assessment & Plan Assessment & Plan (1) Adjustment reaction with mixed disturbance of emotions and conduct: Status: Acute Code(s): F43.25 - Adjustment disorder with mixed disturbance of emotions and conduct (2) Anxiety: Status: Acute Code(s): F41.9 - Anxiety disorder, unspecified Plan 42 yo female, s/p overdose of mother's liquid oxycontin and muscle relaxants in an impulsive suicide attempt while mother was in [facility] ICU progressing through final stages of terminal illness. Pt has no history of suicide attempts, in patient care admissions or psychiatric treatment except for taking Prozac prescribed by PCP and attending PHP when she could not take her Prozac due to a gastric ulcer. Collateral contact with pt's sister indicates family believes this was an impulsive attempt fueled by grief and being overwhelmed with the impending loss of her mother. Family and pt would like her to return home to participate in their process of saying goodbye to their mother. Pt reports she is not suicidal has no plan or intent, is grateful she is alive, does feel guilt for the intensity of her reaction and agrees to consider grief therapy, individual therapy and/or a return to [facility] when the family process has concluded. Sister will be available for pt and her needs as she is currently on maternity leave. Patient educated on: therapeutic strategies Informed Consent: understands Reason for continued inpatient stay Substantial Risk for: stable for discharge Statement Statement: I have reviewed the history and physical and performed a pertinent examination on my patient. No changes have occurred unless specified. If the History and Physical was not performed prior to admission, the Hospitalist's service will be consulted for completing the admission physical. Time Spent With Patient Time: Total time managing care of this patient today ____ minutes.
--- NOTE | 2023-08-21 17:09 | P.DS_ITS ---
DS: Providers Provider Date of Service: 08/21/23 Date of admission: 08/20/23 12:55 Date of discharge: 08/21/23 Primary care physician: Unknown Physician Admitting clinician: Celia Dowling Attending physician on admission: Roger Tan Attending physician on discharge: Roger Tan Discharging clinician: Celia Dowling DS: Diagnosis Discharge Diagnosis (1) Adjustment reaction with mixed disturbance of emotions and conduct: Status: Acute (2) Anxiety: Status: Acute DS: Medications Discharge Medications Home Medications: Previous Rx's ?Medication ?Instructions ?Recorded mecobalamin (vitamin B12) 1,000 1,000 mcg PO DAILY #90 ea 06/24/23 mcg lozenges Mental Status Exam Mental Status Exam Patient Appearance: Appropriate Patient Orientation: Person, Place, Time and Situation Level of Consciousness: Alert Patient Behavior: Appropriate, Talkative, Cooperative, Good Eye Contact and Crying Mood Description: Sad Affect Description: Flat Ability to Follow Directions: Good Speech Pattern: Spontaneous Speech Memory Description: Intact Hallucinations: None Delusions: Not Present Thought Process: Intact and Goal Oriented Thought Content: positive for Intact, positive for Goal Oriented and positive for Suicidal Ideation (denies SI, plan, intent. Identifies actions [employer] as impulsive, not like me. ) Depressive Symptoms: Increased Anxiety and Thoughts of /Suicide (denies SI plan or intent) Judgement: Good Data Data Completed and Pending Completed studies during hospitalization [Text1]: 08/16/23 08/16/23 08/17/23 17:10 23:40 01:26 WBC 8.2 RBC 5.05 Hgb 13.3 D Hct 40.3 D MCV 79.8 L MCH 26.3 L MCHC 33.0 RDW 18.3 H Plt Count 358 MPV 10.1 Immature Gran % (Auto) 0.2 Neut % (Auto) 57.8 Lymph % (Auto) 31.4 [place] % (Auto) 8.2 Eos % (Auto) 1.9 Baso % (Auto) 0.5 Lymph # (Auto) 2.6 [place] # (Auto) 0.7 Eos # (Auto) 0.2 Baso # (Auto) 0.0 Abs Immat Gran (auto) 0.02 Absolute Neuts (auto) 4.8 Absolute Nucleated RBC 0.000 Nucleated RBC % (auto) 0.0 Sodium 140 138 Potassium 3.3 D 4.1 D Chloride 108 112 H Carbon Dioxide 21 L 20 L Anion Gap 14 10 L BUN 6 L 5 L Creatinine 0.70 0.58 Estim Creat Clear Calc TNP 154.3 Estimated GFR > 60 > 60 Random Glucose 113 91 Estimat Average Glucose Hemoglobin A1c % Calcium 9.4 8.6 D Magnesium 1.8 Total Bilirubin 0.9 Direct Bilirubin 0.3 AST 17 ALT 23 Alkaline Phosphatase 118 H Total Creatine Kinase 51 Total Protein 7.9 Albumin 4.3 Triglycerides Cholesterol LDL Cholesterol, Calc HDL Cholesterol Lipase 15 TSH 1.89 Beta HCG, Quant < 2 Urine Color Dark Yellow Urine Appearance Cloudy Urine pH 6.5 Ur Specific [place] 1.020 Urine Protein Trace Urine Glucose (UA) Negative Urine Ketones 40 Urine Blood Negative Urine Nitrite Negative Ur Leukocyte Esterase Small (1+) H Urine RBC 0-2 Urine WBC 0-5 Ur Squamous Epith Cells 11-20 Urine Bacteria Trace Hyaline Casts >20 Salicylates < 5.0 L Urine Opiates Screen POSITIVE H Ur Buprenorphine Scrn Not Detected Ur Oxycodone Screen Positive H Urine Methadone Screen Not Detected Urine Fentanyl Screen Not Detected Acetaminophen < 3 Ur Barbiturates Screen Not Detected Ur Phencyclidine Scrn Not Detected Ur Amphetamines Screen Not Detected U Benzodiazepines Scrn POSITIVE H Urine Cocaine Screen Not Detected U Marijuana (THC) Screen POSITIVE H Ethyl Alcohol < 10 08/21/23 08:30 WBC RBC Hgb Hct MCV MCH MCHC RDW Plt Count MPV Immature Gran % (Auto) Neut % (Auto) Lymph % (Auto) [place] % (Auto) Eos % (Auto) Baso % (Auto) Lymph # (Auto) [place] # (Auto) Eos # (Auto) Baso # (Auto) Abs Immat Gran (auto) Absolute Neuts (auto) Absolute Nucleated RBC Nucleated RBC % (auto) Sodium Potassium Chloride Carbon Dioxide Anion Gap BUN Creatinine Estim Creat Clear Calc Estimated GFR Random Glucose Estimat Average Glucose 97 Hemoglobin A1c % 5.0 Calcium Magnesium Total Bilirubin Direct Bilirubin AST ALT Alkaline Phosphatase Total Creatine Kinase Total Protein Albumin Triglycerides 77 Cholesterol 167 LDL Cholesterol, Calc 118 H HDL Cholesterol 34 L Lipase TSH Beta HCG, Quant Urine Color Urine Appearance Urine pH Ur Specific [place] Urine Protein Urine Glucose (UA) Urine Ketones Urine Blood Urine Nitrite Ur Leukocyte Esterase Urine RBC Urine WBC Ur Squamous Epith Cells Urine Bacteria Hyaline Casts Salicylates Urine Opiates Screen Ur Buprenorphine Scrn Ur Oxycodone Screen Urine Methadone Screen Urine Fentanyl Screen Acetaminophen Ur Barbiturates Screen Ur Phencyclidine Scrn Ur Amphetamines Screen U Benzodiazepines Scrn Urine Cocaine Screen U Marijuana (THC) Screen Ethyl Alcohol 08/17/23 Unknown Urine clean catch - Clean Catch Midstream Urine Culture - Final DS: Summary Hospital Course Hospital Course: Admission to adult psychiatry s/p impulsive, precipitous overdose of mothers oxycontin and muscle relaxants while mother was in [facility] [place] in a [place] process. Pt/family report this was precipitous, impulsive, prompted by grief and being overwhelmed with mother's impending . Pt denies SI, plan, intent. There is no history nor active symptoms of psychosis. She did not have any plan to do this prior to mothers passing. This was an impulsive thought/action. Collateral contact with pt's sister who concurs that pt, with no history of ps ychiatric care, suicide attempts therapy or psychiatric diagnoses. Pt/Family ask that she be discharged to home to participate with them in the process of grief and loss of their mother. Status at Discharge Functional status at discharge: independent ambulation Overall status at discharge: patient is progressing back to baseline Time Spent with Patient Time attestation: Total time managing care of this patient today ____ minutes. Time spent: Less than 30 minutes Discharge Plan Discharge Anticipated Discharge Date/Time: 08/21/23 12:00 Patient Disposition: Home, Self-Care Discharge Diagnosis: Acute Grief Reaction Referrals: [facility] Walk-In Therapy Appointment [Other] - 1 Week (Walk-in appt hours, M-F 10-12pm.) Grief Group Support [Other] - 1 Week (The Website [facility] has multiple resources for Grief Support. [email or web address] Physician,Unknown J [Primary Care Provider] - 1 Week Discharge Medications: Continued mecobalamin (vitamin B12) 1,000 mcg lozenge 1,000 mcg PO DAILY Qty: 90 3RF Rx Instructions: allow to dissolve in mouth OR may chew lightly before swallowing Discharge Orders: Discharge Order (Routine); Ordered 08/21/23 Ordered By: Celia Dowling Diet: Advance to usual diet Activity on Discharge: As tolerated Stand Alone Forms: Patient Portal Discharge page, Community Support Print Language: Malaysian Care Plan Goals: Mood and Behavioral Stabilization Grief work Health Concerns: Mood and Behavioral Stabilization Grief work Plan of Treatment: Mother has on 08/16/23. Pt will be spending time with her family during this initial time of loss/grief. Discussed grieving groups, individual psychotherapy, PHP as options to consider when family responsibilities are settled. Assessment: Pt interviewed prior to discharge and found to be fully oriented and without SI/HI Pt has insight and demonstrates good judgment in terms of wanting to pursue treatment Pt is not in imminent risk of harm to self or others and has a safety plan that includes presenting to the closest ER or calling 911 if feeling unsafe. Sister Malu was contacted at [phone]. Family supports pt returning home and they will be available for support as needed. Pt has been observed closely by nursing and unit staff throughout admission. Pt has not engaged in any behaviors that suggest dangerousness to self or others and has demonstrated appropriate behaviors and impulse control. Discharge Date/Time: 08/21/23 11:38
== END 2023-08-21 11:38 | disposition home or self-care (01) | DRG 882 ==
LOC: HO.ED 08-18 13:50 → HO.PM5 08-20 13:05
PROVIDERS: Internal Medicine; Admitting Provider Psychiatry & Neurology Psychiatry; Emergency Provider Emergency Medicine; Visit Provider Clinical Nurse Specialist Psychiatric/Mental Health, Adult
DX: F43.25 Adjustment disorder with mixed disturbance of emotions and conduct (principal); F41.9 Anxiety disorder, unspecified; K21.9 Gastro-esophageal reflux disease without esophagitis; T40.2X2A Poisoning by other opioids, intentional self-harm, initial encounter; T48.202A Poisoning by unspecified drugs acting on muscles, intentional self-harm, initial encounter; Z98.84 Bariatric surgery status; Z87.891 Personal history of nicotine dependence; Z79.899 Other long term (current) drug therapy
CPT/HCPCS: 36415; 80048; 80061; 80076; 80143; 80179; 80307; 81001; 82550; 83036; 83690; 83735; 84443; 84702; 85025; 87086; 93005; 99285; J1790; J2250; J3360; J3475; J3480; S9485

== ENCOUNTER → 2023-08-16 17:08 | Outpatient (BNV) | payer OTHER, SELFPAY | PROVIDERS: Emergency Provider Emergency Medicine; Visit Provider Internal Medicine Cardiovascular Disease | DX: T40.2X1A Poisoning by other opioids, accidental (unintentional), initial encounter (principal) | CPT/HCPCS: 93010 ==

== ENCOUNTER → 2023-08-20 12:55 | Outpatient (BNV) | payer OTHER, SELFPAY | PROVIDERS: Admitting Provider Psychiatry & Neurology Psychiatry; Emergency Provider Emergency Medicine; Visit Provider Clinical Nurse Specialist Psychiatric/Mental Health, Adult | DX: F43.25 Adjustment disorder with mixed disturbance of emotions and conduct (principal); F41.9 Anxiety disorder, unspecified | CPT/HCPCS: 99235; 99499 ==

== ENCOUNTER 2023-10-16 09:01 | Emergency (ER) | payer OTHER, SELFPAY ==
[2023-10-16 09:09] VITALS: BP 110/79; PULSE 76; RESP 18; TEMP 36.6; O2SAT 99; BMI 38.0
[2023-10-16 10:12] VITALS: BP 113/70; PULSE 64
[2023-10-16 10:15] VITALS: BP 112/78; PULSE 77
--- NOTE | 2023-10-16 10:16 | ED_ITS ---
HPI - Dizziness General Chief Complaint: Dizziness Stated Complaint: Dizziness/Nausea Time Seen by Provider: 10/16/23 10:11 Source: patient Mode of arrival: ambulatory Limitations: no limitations History of Present Illness ED Provider: Viktor Brooks PA-C HPI Narrative: 42 year female with a PMHx of POTS and anemia presents to the ER with step father at beside due to 1 day history of lightheadedness. The patient states that she was working, when she all of a sudden started to feel lightheaded but it does not feel like the room is spinning. Feels weak and unsteady on her feet. Worsens when moving. It feels like POTS feeling but worse. Has associated nausea and headache that has been constant. Took acetaminophen with no relief. Reports that menses began yesterday, it is heavy- goes through 4 pads a day. Has history of anemia with no blood transfusion, on daily iron supplements. Is not on any contraception or hormonal medications. Denies vision changes, fever, chills, recent illness, chest pain, palpitations, dyspnea, N/V/C/D, abdominal pain, flank or back pain. No recent injuries or fall. MD elicited complaint: lightheadedness Pertinent past history: other (POTS) Onset (ago): day(s) (1) Timing: sudden onset Severity: moderate Description: lightheadedness Context: change in body position and other (menstrual bleeding) History of similar symptoms: Yes Exacerbating factors: movement/ambulation and change in body position Associated symptoms: nausea Related Data Previous Rx's ?Medication ?Instructions ?Recorded mecobalamin (vitamin B12) 1,000 1,000 mcg PO DAILY #90 ea 06/24/23 mcg lozenges Allergies Allergy/AdvReac Type Severity Reaction Status Date / Time bee pollen [BEE STINGS] Allergy Intermediate SWELLING Verified 10/16/23 09:12 capsaicin [CAPSAICIN] Allergy Intermediate BAD RED Verified 10/16/23 09:12 RASH, hives hydromorphone [From DILAUDID] AdvReac Intermediate NAUSEA & Verified 10/16/23 09:12 VOMITING Review of Systems 2 Constitutional: Constitutional: Reports as per HPI Eyes: Eyes: Reports as per HPI ENT: Reports as per HPI Cardiovascular: Cardiovascular: Reports as per HPI Respiratory: Respiratory: Reports as per HPI Gastrointestinal: Gastrointestinal: Reports as per HPI Musculoskeletal: Musculoskeletal: Reports as per HPI Integumentary/Breasts: Skin/Breast: Reports as per HPI Neurologic: Reports as per HPI Psychiatric: Psychiatric: Reports as per HPI Endocrine: Endocrine: Reports as per HPI Hematologic/Lymphatic: Hematologic/Lymphatic: Reports as per HPI Allergic/Immunologic: Allergic/Immunologic: Reports as per HPI [facility] Past Medical History Medical History (Updated 10/16/23 @ 11:44 by DEMARCUS Devine) Adjustment reaction with mixed disturbance of emotions and conduct Sacroiliac joint pain Annual physical exam Back pain Anemia GERD (gastroesophageal reflux disease) Kidney stones Fatty liver Anxiety RENO on CPAP History of tachycardia Hx of hypotension Gastric ulcer Instability of sacroiliac joint Sacroiliitis Surgical History (Updated 08/29/23 @ 00:03 by Carlos Scherer) History of surgery History of laparoscopic appendectomy History of cholecystectomy Status post laser lithotripsy of ureteral calculus Gastric bypass status for obesity Family History Family History Father Diabetes Mother Throat cancer HTN (hypertension) Maternal Grandmother Ovarian cancer Maternal Grandfather Prostate cancer Social History Social History Household Members: Other Household Members Other:: Stepfather Housing: House Do you presently have visiting nurse or other home services: No Alcohol intake: never Patient Tobacco Use Status: Former Tobacco user Tobacco use type: Cigarette Years Smoked: quit 19 years ago e-Cigarette/Vaping Use: Never Used Second Hand Smoke Exposure: No Substance Use Type: Marijuana Advance Directives: No Advance Directives Information Provided: Yes Do you have a plan to hurt others: No Plan service: No Current occupational status: employed 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/hazards: No Sexual orientation: Straight/Heterosexual Cognitive needs: No Hearing needs: No Vision needs: Yes Physical Exam 2 Vital Signs: Vital Signs: Last Vital Signs Temp 98.4 F 10/16/23 11:49 Pulse 62 10/16/23 11:49 Resp 16 10/16/23 11:49 BP 117/73 10/16/23 11:49 Pulse Ox 98 10/16/23 11:49 O2 Del Method Room Air 10/16/23 11:49 BMI result Body Mass Index 38.0 Appearance: Alert. Oriented X3. No acute distress. Head: normocephalic, atraumatic. Eyes: Pupils equal, round and reactive to light. Left eye exotropia strabismus (chronic finding) ENT: Pharynx normal. No tonsillar swelling or exudate. Neck: Normal inspection. Neck supple. CVS: Normal heart rate and rhythm. Pulses normal. Respiratory: No respiratory distress. Breath sounds normal. Abdomen: Soft, obese, non-distended, and nontender. +BS x4 Skin: Skin warm and dry. Normal skin color. Normal skin turgor. No rashes. Extremities: No lower extremity edema. No joint swelling. Neuro/psych: Oriented X 3. No motor deficit. No sensory deficit. CN II-XII intact. Normal speech and cognition. Medical Decision Making Medical Decision Making [facility] Narrative: 42 year female with a PMHx of POTS and anemia presents to the ER with step father at bedside due to 1 day history of lightheadedness. On arrival, the patient is hemodynamially stable and in no acute distress. Examination is unremarkable. At this time, I have low suspicion for CVA. The patient is alert and oriented x3, no neuro focal deficits are present. No indication for head CT. Cardiac arrhythmia unlikely, EKG demonstrates sinus bradycardia 55 BPM, troponin is negative. Orthostatic BP readings are not consistent with orthostatic hypotension. ME not consistent with POTS. Labs portray mild anemia H &H 11.5 and 34.6, upon review of her records those results are around her baseline. Reassuring is not an acute anemia. No transfusion indicated at this time. Remaining labs are unremarkable. U/A portrays blood however, patient is on menstruating, beta Hcg negative. Plan is to discharge patient, advised to follow up with PCP for dizziness and gynecology to discuss treatment options for menorrhagia. Return precautions are discussed and patient has clear understanding. Differential Diagnosis Differential Diagnoses: The differential diagnosis associated with the presentation includes CVA, POTS exacerbation, heart block, a-fib, vertigo, BPPV, tension like headache, migraine, menorrhagia, acute anemia Admission/Observation Consideration of admission/observation: Escalation of care including admission/observation considered Lab Data [facility] Lab Attestation statement: I reviewed the patient's lab results. stable normocytic anemia 10/16/23 10:38 10/16/23 10:38 Labs: Lab Results 07/24/24 07/24/24 Range/Units 10:37 10:38 WBC 4.7 L (4.8-10.8) X10*3/uL RBC 4.09 L (4.20-5.50) X10*6/uL Hgb 11.5 L (12.0-16.0) g/dl Hct 34.6 L (37.0-47.0) % MCV 84.6 (80.0-98.0) fL MCH 28.1 (27.0-33.0) pg MCHC 33.2 (31.0-35.0) g/dl RDW 14.8 (11.0-16.0) % Plt Count 318 (160-400) X10*3/uL MPV 9.6 (9.4-12.3) fL Immature Gran % (Auto) 0.2 (0.0-0.4) % Neut % (Auto) 44.6 L (45-73) % Lymph % (Auto) 43.5 H (20-40) % [place] % (Auto) 9.6 (2-11) % Eos % (Auto) 1.5 (0-4) % Baso % (Auto) 0.6 (0-2) % Lymph # (Auto) 2.0 (1.2-4.9) X10*3/uL [place] # (Auto) 0.5 (0.1-1.2) X10*3/uL Eos # (Auto) 0.1 (0.0-0.4) X10*3/uL Baso # (Auto) 0.0 (0.0-0.2) X10*3/uL Abs Immat Gran (auto) 0.01 (0.00-0.03) X10*3/uL Absolute Neuts (auto) 2.1 (2.0-8.3) x10*3/uL Absolute Nucleated RBC 0.000 (0.0-0.012) X10*3/uL Nucleated RBC % (auto) 0.0 (0.0-0.2) /100WBC Sodium 138 (135-145) mmol/L Potassium 4.5 (3.3-5.1) mmol/L Chloride 109 H (96-108) mmol/L Carbon Dioxide 22 (22-29) mmol/L Anion Gap 12 (12-20) BUN 7 L (9-16) mg/dL Creatinine 0.68 (0.5-1.4) mg/dL Estim Creat Clear Calc 122.8 Estimated GFR > 60 Random Glucose 94 (60-115) mg/dL Calcium 8.6 (8.4-10.2) mg/dL Magnesium 2.2 (1.6-2.6) mg/dL Total Bilirubin 0.8 (0.0-1.0) mg/dL Direct Bilirubin 0.2 (0.0-0.5) mg/dL AST 13 (5-31) U/L ALT 9 (0-31) U/L Alkaline Phosphatase 77 (39-117) U/L Troponin I High Sens < 2.7 (<3.5-17.0) ng/L Total Protein 6.7 (6.5-8.0) g/dL Albumin 3.7 (3.5-5.0) g/dL Urine Color Yellow Urine Appearance Clear Urine pH 5.5 (5.0-9.0) Ur Specific [place] >= 1.030 H (1.005-1.025) Urine Protein Trace (Neg-Trace) mg/dL Urine Glucose (UA) Negative (Negative) mg/dL Urine Ketones Negative (Negative) mg/dL Urine Blood Large (3+) H (Negative) Urine Nitrite Negative (Negative) Ur Leukocyte Esterase Negative (Negative) Urine RBC >20 H (0-2) /HPF Urine WBC 0-5 (0-5) /HPF Ur Squamous Epith Cells 0-2 (0-2) /HPF Urine Bacteria None Seen (None Seen) Hyaline Casts 0-2 (0-2) /LPF Urine Test NEGATIVE (NEGATIVE) Independent Interpretation I performed an independent interpretation of an: EKG Interpretation: Sinus bradycardia, heart rate 55, normal ME interval 128, no ST segment elevations or depressions External Record Review External record reviewed: Office record, Outpatient record, Prior outpatient labs and Prior outpatient radiology Prescription Management I considered prescription management with: Other (midodrine considered) Chronic Conditions Patient?s care impacted by: Other (POTS) Critical Care Time Critical Care Time Critical Care Time: No Discharge Plan Discharge Clinical Impression: Dizziness Patient Disposition: Home, Self-Care Instructions: Dizziness (ED) Additional Instructions: Your lab work today showed stable anemia. Your hemoglobin was 11.5 in your hematocrit was 34.6. There is no need for blood transfusion today. Recommend rest, drink plenty of fluids. Follow-up with your OBGYN, police clerk and primary care doctor. If you develop new or worsening symptoms call 911 or come back to the ER for further evaluation. Prescriptions: No Action mecobalamin (vitamin B12) 1,000 mcg lozenge 1,000 mcg PO DAILY Qty: 90 3RF Rx Instructions: allow to dissolve in mouth OR may chew lightly before swallowing Interventions: ED Discharge Assessment Last Done: 10/16/23 11:49 Discharge Date/Time: 10/16/23 11:50 Print Language: [place]
--- NOTE | 2023-10-16 10:16 | ECG_ITS ---
Test Reason : Dizziness Blood Pressure : / mmHG Vent. Rate : 055 BPM Atrial Rate : 055 BPM P-R Int : 128 ms QRS Dur : 074 ms QT Int : 430 ms P-R-T Axes : 012 -26 -07 degrees QTc Int : 411 ms Sinus bradycardia Septal infarct , age undetermined Abnormal ECG When compared with ECG of 16-AUG-2023 20:19, Vent. rate has decreased BY 36 BPM QT has shortened Referred By: Oanh Brooks Electronically Signed By:SHIRA SHI
[2023-10-16 10:18] VITALS: BP 95/73; PULSE 80
[2023-10-16 10:41] LABS: MANUAL DIFF FLAG NO
[2023-10-16 10:43] LABS: Basophils Percent Auto 0.6 % (0-2); Eosinophils Absolute Auto 0.1 X10*3/uL (0.0-0.4); Eosinophils Percent Auto 1.5 % (0-4); Hematocrit 34.6 % (37.0-47.0); Hemoglobin 11.5 g/dl (12.0-16.0); Imm Gran Abs Auto 0.01 X10*3/uL (0.00-0.03); Imm Gran Pct Auto 0.2 % (0.0-0.4); Lymphocytes Percent Auto 43.5 % (20-40); Mean Corpuscular HGB Conc 33.2 g/dl (31.0-35.0); Mean Corpuscular Hemoglobin 28.1 pg (27.0-33.0); Mean Corpuscular Volume 84.6 fL (80.0-98.0); Mean Platelet Volume 9.6 fL (9.4-12.3); Monocytes Absolute Auto 0.5 X10*3/uL (0.1-1.2); Monocytes Percent Auto 9.6 % (2-11); Neutrophils Absolute Auto 2.1 x10*3/uL (2.0-8.3); Neutrophils Percent Auto 44.6 % (45-73); Platelet Count 318 X10*3/uL (160-400); Red Blood Count 4.09 X10*6/uL (4.20-5.50); Red Cell Distribution Width 14.8 % (11.0-16.0); White Blood Count 4.7 X10*3/uL (4.8-10.8)
[2023-10-16 10:45] LABS: Appearance Urine Clear; Color Urine Yellow; Glucose Urine UA Negative (Negative); Leukocyte Esterase Urine Negative (Negative); Nitrite Urine Negative (Negative); PH 5.5 (5.0-9.0); Specific Gravity - Urine >= 1.030 (1.005-1.025); UMIC TRIGGER UACC YES; Urine Blood Large (3+) (Negative); Urine Ketones Negative (Negative); Urine Protein Trace mg/dL (Neg-Trace)
[2023-10-16 10:47] LABS: Bacteria Urine None Seen (None Seen); Hyaline Casts Urine 0-2 /LPF (0-2); RBC Urine >20 /HPF (0-2); Squamous Epithelial Cell Urine 0-2 /HPF (0-2); WBC Urine 0-5 /HPF (0-5)
[2023-10-16 10:51] LABS: UPreg QC Valid YES; Urine Pregnancy NEGATIVE (NEGATIVE)
[2023-10-16 10:57] LABS: Alanine Aminotransferase 9 U/L (0-31); Albumin Level 3.7 g/dL (3.5-5.0); Alkaline Phosphatase 77 U/L (39-117); Anion Gap 12 (12-20); Aspartate Amino Transferase 13 U/L (5-31); Bilirubin Direct 0.2 mg/dL (0.0-0.5); Bilirubin Total 0.8 mg/dL (0.0-1.0); Blood Urea Nitrogen 7 mg/dL (9-16); Calcium 8.6 mg/dL (8.4-10.2); Carbon Dioxide 22 mmol/L (22-29); Chloride 109 mmol/L (96-108); Creatinine Clr Calc Pharmacy 122.8; Estimated Glomerular Filt Rate > 60; Glucose Random 94 mg/dL (60-115); Magnesium 2.2 mg/dL (1.6-2.6); Potassium 4.5 mmol/L (3.3-5.1); Sodium 138 mmol/L (135-145); Total Protein 6.7 g/dL (6.5-8.0)
[2023-10-16 11:00] VITALS: BP 106/64; PULSE 76; RESP 15; TEMP 36.9; O2SAT 97
[2023-10-16 11:04] LABS: Troponin-I High Sensitivity < 2.7 ng/L (<3.5-17.0)
[2023-10-16 11:49] VITALS: BP 117/73; PULSE 62; RESP 16; TEMP 36.9; O2SAT 98
== END 2023-10-16 11:50 | disposition home or self-care (01) ==
PROVIDERS: Physician Assistant; Emergency Provider Emergency Medicine Emergency Medical Services; PCP Internal Medicine
DX: R42 Dizziness and giddiness (principal); R53.1 Weakness; R26.81 Unsteadiness on feet
CPT/HCPCS: 36415; 80048; 80076; 81001; 81025; 83735; 84484; 85025; 93005; 99283; 99284

== ENCOUNTER → 2023-10-16 10:16 | Outpatient (BNV) | payer OTHER, SELFPAY | PROVIDERS: Emergency Provider Emergency Medicine Emergency Medical Services; PCP Internal Medicine; Visit Provider Internal Medicine | DX: R42 Dizziness and giddiness (principal) | CPT/HCPCS: 93010 ==

== ENCOUNTER 2024-02-29 15:28 | Emergency (ER) | payer OTHER, SELFPAY ==
--- NOTE | ~2024-02-29 | XR_ITS ---
EXAMINATION: XR ANKLE, RIGHT CLINICAL INFORMATION: fall, pain COMPARISON: None available. TECHNIQUE: AP, lateral, and mortise views of the right ankle. FINDINGS: No acute fracture or dislocation. Soft tissue swelling around the lateral malleolus. Small ankle joint effusion. Plantar calcaneal spurring. XR/XR ankle RT 2V IMPRESSION: Soft tissue swelling around the lateral malleolus. No acute fracture or dislocation. Electronically signed by: Roosevelt Delcid MD 02/29/2024 04:35 PM [facility]
[2024-02-29 15:31] VITALS: BP 133/79; PULSE 79; RESP 19; TEMP 36.6; O2SAT 99; BMI 36.7
--- NOTE | 2024-02-29 15:32 | ED.LOWEXIN ---
HPI - Extremity Injury (Lower) General Chief Complaint: Extremity Injury, Lower Stated Complaint: right ankle inj Time Seen by Provider: 02/29/24 17:24 Source: patient Mode of arrival: ambulatory Limitations: no limitations History of Present Illness ED Provider: FREYA RÍOS PA-C HPI Narrative: 43-year-old female with pmhx significant for anxiety, POTS, anemia, GERD presents to the ED today for evaluation of right ankle pain status post twisting injury yesterday morning. She states that she was descending the stairs of her apartment when she missed the last step, causing her right ankle to roll inward. She did not fall to the ground. No head strike or LOC. Not on anticoagulation. She has been able to bear weight on the right lower extremity however this causes pain. Pain is primarily to the outer portion of the right ankle. No radiation. She has been taking Tylenol at home which relieves pain temporarily. Denies any numbness/tingling/weakness of the right lower extremity. Denies any fever, chills. Related Data Previous Rx's ?Medication ?Instructions ?Recorded mecobalamin (vitamin B12) 1,000 1,000 mcg PO DAILY #90 ea 06/24/23 mcg lozenges Allergies Allergy/AdvReac Type Severity Reaction Status Date / Time bee pollen [BEE STINGS] Allergy Intermediate SWELLING Verified 02/29/24 15:33 capsaicin [CAPSAICIN] Allergy Intermediate BAD RED Verified 02/29/24 15:33 RASH, hives hydromorphone [From DILAUDID] AdvReac Intermediate NAUSEA & Verified 02/29/24 15:33 VOMITING Review of Systems Review of Systems: Constitutional: No fever, chills, fatigue, night sweats, weight changes ENT/Mouth: No ear pain, hearing loss, nasal congestion, sinus pain, rhinorrhea, sore throat Eyes: No eye pain, swelling, redness, vision changes, discharge Cardio: No chest pain, palpitations, TAM, orthopnea, peripheral edema Pulm: No SOB, cough, sputum, wheezing, dyspnea, hemoptysis GI: No nausea, vomiting, hematemesis, abdominal pain, diarrhea, constipation, hematochezia, melena : No irregular bleeding, dysuria, frequency, urgency, hesitancy, hematuria, flank pain, urinary flow changes, urinary incontinence or retention MSK: No back pain, neck pain, joint pain, myalgias, +right ankle pain Skin: No lesions, rashes Neuro: No weakness, numbness, paresthesias, LOC, dizziness, headache Psych: No anxiety/panic, depression, SI/HI, AH/VH All other systems reviewed and are negative. [facility] Past Medical History Attestation statement: The following information was validated with the patient. Source: old records reviewed and nursing notes reviewed Medical History Adjustment reaction with mixed disturbance of emotions and conduct Sacroiliac joint pain Annual physical exam Back pain Anemia GERD (gastroesophageal reflux disease) Kidney stones Fatty liver Anxiety RENO on CPAP History of tachycardia Hx of hypotension Gastric ulcer Instability of sacroiliac joint Sacroiliitis Surgical History History of surgery History of laparoscopic appendectomy History of cholecystectomy Status post laser lithotripsy of ureteral calculus Gastric bypass status for obesity Family History Family History Father Diabetes Mother Throat cancer HTN (hypertension) Maternal Grandmother Ovarian cancer Maternal Grandfather Prostate cancer Social History Social History Household Members: Other Household Members Other:: Stepfather Housing: House Do you presently have visiting nurse or other home services: No Alcohol intake: never Patient Tobacco Use Status: Former Tobacco user Tobacco use type: Cigarette Years Smoked: quit 19 years ago e-Cigarette/Vaping Use: Never Used Second Hand Smoke Exposure: No Substance Use Type: Marijuana Advance Directives: No Advance Directives Information Provided: No Do you have a plan to hurt others: No Plan service: No Current occupational status: employed 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 Skin: Warm, dry, intact. No rashes or lesions. Head: Normocephalic, atraumatic. EENT: Hearing is intact b/l. Conjunctiva clear. PERRLA. EOM intact. Moist mucous membranes.? Cardiac: Chest wall symmetric. RRR Lungs: Normal respiratory effort without accessory muscle use. Ext: +noted swelling to right ankle primarily over lateral malleolus. Limited ROM to right ankle due to pain/swelling. Able to move all toes on right foot. Sensation intact. Cap refill less than 2 seconds. 2+ PT/DP pulse intact. No tenderness over plantar fascia or Achilles tendon. Negative Britton test. Ambulating with limping gait. Neuro: AOx3. Normal speech. Psych: Appropriate mood and affect. Responds appropriately to questions. Course Course Course Narrative: This is a rapid medical exam. Deferred additional HPI, ROS, PE to primary provider, 43 yo female here with right ankle pain after a slip and fall down 2 steps. Will obtain x-rays NETTIE Mejia APRN Reevaluation(s) Reevaluation #1: X-ray of right ankle does not reveal acute fracture. There is swelling noted over lateral malleolus, consistent with exam findings. Concern for MSK sprain. Patient placed in walking boot. Advised to bear weight as tolerated. Provided with crutches. Educated on rice therapy. Advised to follow up with our orthopedic team. Referral provided. Patient has remained stable throughout ED visit today. Discussed worrisome signs and symptoms and when to return to the ED. All questions answered at this time. Patient is agreeable with disposition and stable for discharge. Medications Administered Discontinued Medications Generic Name Dose Route Start Last Admin Trade Name Freq PRN Reason Stop Dose Admin Ketorolac Tromethamine 30 mg 02/29/24 17:30 02/29/24 18:16 Ketorolac Tromethamine 30 Mg/Ml Vial IM 02/29/24 17:31 30 mg ONCE ONE Administration Medical Decision Making Medical Decision Making MDM Narrative: 43-year-old female with pmhx significant for anxiety, POTS, anemia, GERD presents to the ED today for evaluation of right ankle pain status post twisting injury yesterday morning. Vital signs stable. Afebrile. On exam, there is noted swelling to right ankle primarily over lateral malleolus. Limited ROM to right ankle due to pain/swelling. Able to move all toes on right foot. Sensation intact. Cap refill less than 2 seconds. 2+ PT/DP pulse intact. No tenderness over plantar fascia or Achilles tendon. Negative Britton test. Ambulating with limping gait. Differential diagnosis includes MSK sprain/strain, fracture, dislocation, contusion, arthritis. Unlikely neurovascular compromise, threat to limb, compartment syndrome. Presentation not consistent with gout, pseudogout, Lyme arthritis, septic joint. Plan for imaging, pain control, re-evaluation. Differential Diagnosis Differential Diagnoses: The differential diagnosis associated with the presentation includes as above. Admission/Observation Not indicated. Independent Interpretation I performed an independent interpretation of an: Plain X-Ray Interpretation: xr right ankle without fracture, there is soft tissue swelling over lateral malleolus Radiology Impression Discussion of test interpretation with radiology: I have reviewed the radiologist's reading. Radiologist Impression: EXAMINATION: XR ANKLE, RIGHT CLINICAL INFORMATION: fall, pain COMPARISON: None available. TECHNIQUE: AP, lateral, and mortise views of the right ankle. FINDINGS: No acute fracture or dislocation. Soft tissue swelling around the lateral malleolus. Small ankle joint effusion. Plantar calcaneal spurring. XR/XR ankle RT 2V IMPRESSION: Soft tissue swelling around the lateral malleolus. No acute fracture or dislocation. Electronically signed by: Roosevelt Delcid MD 02/29/2024 04:35 PM [facility] External Record Review External record reviewed: Inpatient record, Office record, Outpatient record, Prior outpatient labs, Prior outpatient radiology, Primary care record and Outside ED record Prescription Management I considered prescription management with: Pain Medication Social Determinants Patient?s care significantly limited by Social Determinants of Health including: Other Social Determinant of Health Procedures Orthopedic Splinting/Casting Injury #1: Side: right Lower Extremity Injury Location: ankle Lower Extremity Immobilizer: boot orthosis Other Orthopedic Equipment: crutches Critical Care Time Critical Care Time Critical Care Time: No Discharge Plan Discharge Clinical Impression: Right ankle sprain Qualifiers: Encounter type: initial encounter Involved ligament of ankle: calcaneofibular ligament Qualified Code(s): S93.411A - Sprain of calcaneofibular ligament of right ankle, initial encounter Patient Disposition: Home, Self-Care Instructions: Ankle Sprain (ED), Crutch Instructions (ED), R.I.C.E. Treatment (ED), Walking Boot (ED) Additional Instructions: You have been evaluated in the Emergency Department today for ankle pain. Your x-rays do not show fracture. You likely sprained your right ankle. You were placed in a walking boot and can bear weight as tolerated. You have also been provided with crutches. Rest and elevate the ankle. I recommend you take 600mg ibuprofen every 6 hours or tylenol 650mg every 6 hours as needed for pain. If needed, you can alternate these medications so that you take one medication every 3 hours. For example, at noon take ibuprofen, then at 3pm take tylenol, then at 6pm take ibuprofen.? Please follow-up with an orthopedic surgeon in 1 week. You have been provided with a referral. Call them to make an appointment, they will not call you. Return to the Emergency Department if you experience worsening pain, numbness, tingling, change of color in your toes, or any other concerning symptoms. Prescriptions: No Action mecobalamin (vitamin B12) 1,000 mcg lozenge 1,000 mcg PO DAILY Qty: 90 3RF Rx Instructions: allow to dissolve in mouth OR may chew lightly before swallowing Referrals: [facility] [place] [facility] [Provider Group] Shanell Olson FNP-RONIT [Primary Care Provider] - Interventions: ED Discharge Assessment Last Done: 02/29/24 18:26 Discharge Date/Time: 02/29/24 18:26 Print Language: Polish
[2024-02-29] MEDS: Ketorolac Tromethamine 30 MG/ML VIAL IM (18:16)
[2024-02-29 18:26] VITALS: BP 133/79; PULSE 79; RESP 19; TEMP 36.6; O2SAT 99
== END 2024-02-29 18:26 | disposition home or self-care (01) ==
PROVIDERS: Emergency Provider Emergency Medicine; PCP Nurse Practitioner Family
DX: S93.411A Sprain of calcaneofibular ligament of right ankle, initial encounter (principal); W10.8XXA Fall (on) (from) other stairs and steps, initial encounter; Y93.89 Activity, other specified; Y92.038 Other place in apartment as the place of occurrence of the external cause; Y99.9 Unspecified external cause status
CPT/HCPCS: 73600; 96372; 99283; 99284; J1885

== ENCOUNTER 2024-03-24 11:25 | Outpatient (AMB) | payer OTHER, SELFPAY ==
--- NOTE | 2024-03-24 11:29 | A.OFFVIS_ITS ---
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 Patient reports she was descending the stairs of her apartment when she missed the last step, causing her right ankle to roll causing her to fall. Seen at [facility] the following day where xrays were taken and was placed in a walking boot. Currently her pain is located at the lateral aspect of ankle. Denies numbness and tingling. She continues to wear boot as instructed. 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 She was seen in the emergency department where x-rays were obtained and she was placed in a tall walking boot. She has been weight-bearing as tolerated. She states she does have tenderness over the lateral aspect of the ankle. No other concerns today. 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 Annual physical exam Back pain Anemia GERD (gastroesophageal reflux disease) Kidney stones Fatty liver Anxiety RENO on CPAP History of tachycardia Hx of hypotension Gastric ulcer Instability of sacroiliac joint Sacroiliitis Surgical History History of surgery History of laparoscopic appendectomy History of cholecystectomy Status post laser lithotripsy of ureteral calculus Gastric bypass status for obesity Family History Father Diabetes Mother Throat cancer HTN (hypertension) Maternal Grandmother Ovarian cancer Maternal Grandfather Prostate cancer Social History Household Members: Other Household Members Other:: Stepfather Housing: House Do you presently have visiting nurse or other home services: No Alcohol intake: never Patient Tobacco Use Status: Former Tobacco user Tobacco use type: Cigarette Years Smoked: quit 19 years ago e-Cigarette/Vaping Use: Never Used Second Hand Smoke Exposure: No Substance Use Type: Marijuana service: No Current occupational status: employed 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/hazards: No Sexual orientation: Straight/Heterosexual Cognitive needs: No Hearing needs: No Vision needs: Yes Review of Systems Const All systems reviewed & are unremarkable except as noted in HPI and below Physical Exam Vital Signs: BMI result Body Mass Index 36.6 Const General: cooperative and no acute distress Orientation/consciousness: patient oriented x3 Resp Effort & Inspection: normal respiratory effort and able to speak in complete sentences Cardio Peripheral pulses: Peripheral pulses 2+ throughout Neuro General: patient oriented x3 Extrem Other: Right ankle normal to inspection with diffuse swelling over the lateral malleolus with tenderness to the . No pain along the syndesmosis or anterior tibia. No laxity, NVI. Results Reviewed Results Reviewed: xrays of the right ankle obtained on 02/29/24 IMPRESSION: Soft tissue swelling around the lateral malleolus. No acute fracture or dislocation. Assessment & Plan Assessment & Plan (1) Left ankle sprain: Code(s): S93.402A - Sprain of unspecified ligament of left ankle, initial encounter Category: Medical Plan: Patient will continue with the boot weight-bearing as tolerated for another 1-2 weeks and transition to a lace-up ankle brace which was provided in the office today. I did put in a referral for physical therapy to work on range of motion, gentle strengthening proprioceptive training. I did explain to her the rehab process which includes typically 4-6 weeks of inflammation and pain management. Also working with physical therapy to work on strengthening and stabilizing the ankle. I did explain that she may have moments of ups and Downs with inflammation and discomfort. At that time she should work on icing anti- inflammatory use and modification of activity. She is content with this plan and will see me back as needed. Coding Level of Care Code New Pt Level 3 (32275) Complex EM visit Add On G2211 Diagnoses Left ankle sprain S93.402A
[2024-03-24 11:46] VITALS: BMI 36.6
== END 2024-03-24 12:02 | disposition home or self-care (01) ==
PROVIDERS: PCP Nurse Practitioner Family; Visit Provider Physician Assistant
DX: S93.402A Sprain of unspecified ligament of left ankle, initial encounter (principal)
CPT/HCPCS: 99203

== ENCOUNTER → 2024-03-24 11:25 | Outpatient (BNVA) | payer OTHER, SELFPAY | PROVIDERS: PCP Nurse Practitioner Family; Visit Provider Physician Assistant ==

== ENCOUNTER 2024-04-10 14:52 | Outpatient (REF) | payer OTHER, SELFPAY ==
[2024-04-11 13:15] LABS: Influenza A PCR NEGATIVE (Negative); Influenza B PCR NEGATIVE (Negative); Resp Syncy Virus RNA Qual PCR NEGATIVE (Negative); SARS COV2 PCR INHOUSE POSITIVE (Negative)
== END 2024-04-10 14:53 | disposition home or self-care (01) ==
LOC: HO.LNP 14:52
PROVIDERS: PCP Nurse Practitioner Family; Visit Provider Physician Assistant
DX: J06.9 Acute upper respiratory infection, unspecified (principal)
CPT/HCPCS: 0241U

== ENCOUNTER 2024-04-10 14:52 | Outpatient (AMB) | payer OTHER, SELFPAY ==
--- NOTE | 2024-04-10 15:49 | AM.OFFWIN_ITS ---
Intake Vital Signs 04/10/24 15:50 Weight 225 lb BP 124/70 Blood Pressure Location Rt brachial Position Sitting Pulse 88 Pulse Source Pulse Oximeter Temp 98.0 F Temp Source Oral Pulse Oximetry (%) 100 Oxygen Delivery Method Room Air Intake Visit Reasons: EP-chest congestion, sore throat Intake Note: Patient here for chest tightness,congestion, headaches, body aches and chills which started Saturday. Patient Tobacco Use Status: Former Tobacco user Allergies bee pollen [BEE STINGS] Allergy (Intermediate, Verified 04/10/24 15:50) SWELLING capsaicin [CAPSAICIN] Allergy (Intermediate, Verified 04/10/24 15:50) BAD RED RASH, hives hydromorphone [From DILAUDID] Adverse Reaction (Intermediate, Verified 04/10/24 15:50) NAUSEA & VOMITING Do you need a note to return to daycare/school/sports/work: No HPI HPI Comments History of Present Illness Details History - The patient is a 43-year-old female pr esenting with congestion and respiratory symptoms. - Onset of symptoms was two days prior, and includes both head and chest congestion, along with continuous nasal discharge. - Associated symptoms reported are sinus pain, headache, ear pressure, body aches, chills, and possible fever with inconsistent temperature regulation. - Past medical history includes ear and sinus infections, with no history of asthma or COPD reported. - Management measures taken include the use of DayQuil gel tabs and Tylenol for alleviation of symptoms. - A transient lacy rash was observed on bilateral arms on occasion, suspected to be from fluctuations in body temperature. Not itchy, not painful Physical Exam General: Cooperative, healthy appearing, comfortable and no acute distress Orientation/consciousness: Patient oriented x3 Limitations: No limitations Head: Normal to inspection Ears: Hearing grossly normal bilaterally, external ears normal, and TM's bilateral cerumen impaction Nose: Normal external nose present, Normal nares present and No nasal discharge present Face and sinus: Normal facial exam and ethmoid Sinuses tender Mouth: Normal oral and palatal mucosa present and moist mucous membranes Throat: Yes tonsils normal, Yes uvula midline. Posterior oropharynx erythema Eyes: Appearance normal, both eyes and all related structures Neck: Normal visual inspection Respiratory: Clear to auscultation bilaterally. Normal respiratory effort, able to speak in complete sentences, Actively coughing, no respiratory distress, not tachypneic, no tripod positioning and no use of accessory muscles Cardiovascular: Regular rate and rhythm. Normal S1 and S2 Skin: Lacy rash noted Neuro: Patient oriented x3 Extremities: b/l UE lacy rash and Yes no clubbing, cyanosis or edema [facility] Medical History Adjustment reaction with mixed disturbance of emotions and conduct Sacroiliac joint pain Annual physical exam Back pain Anemia GERD (gastroesophageal reflux disease) Kidney stones Fatty liver Anxiety RENO on CPAP History of tachycardia Hx of hypotension Gastric ulcer Instability of sacroiliac joint Sacroiliitis Surgical History History of surgery History of laparoscopic appendectomy History of cholecystectomy Status post laser lithotripsy of ureteral calculus Gastric bypass status for obesity Family History Father Diabetes Mother Throat cancer HTN (hypertension) Maternal Grandmother Ovarian cancer Maternal Grandfather Prostate cancer Social History Household Members: Other Household Members Other:: Stepfather Housing: House Do you presently have visiting nurse or other home services: No Alcohol intake: never Patient Tobacco Use Status: Former Tobacco user Tobacco use type: Cigarette Years Smoked: quit 19 years ago e-Cigarette/Vaping Use: Never Used Second Hand Smoke Exposure: No Substance Use Type: Marijuana service: No Current occupational status: employed 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/hazards: No Sexual orientation: Straight/Heterosexual Cognitive needs: No Hearing needs: No Vision needs: Yes Review of Systems Const All systems reviewed & are unremarkable except as noted in HPI and below Physical Exam Vital Signs: Last Vital Signs Temp 98.0 F 04/10/24 15:50 Pulse 88 04/10/24 15:50 BP 124/70 04/10/24 15:50 Pulse Ox 100 04/10/24 15:50 Oxygen Delivery Method Room Air 04/10/24 15:50 Assessment & Plan Assessment & Plan (1) URI, acute: Code(s): J06.9 - Acute upper respiratory infection, unspecified Plan: The patient presents with symptoms indicative of an acute viral respiratory infection, suspected to be influenza, COVID-19, or RSV. Diagnostic testing has been conducted, with results expected the next day, to confirm the viral etiology. Tamiflu and Paxlovid therapy were discussed for influenza and COVID- 19, respectively, with Paxlovid contraindications noted. Current symptom management includes use of [id number] medications like DayQuil, with NyQuil and Theraflu as alternatives recommended based on patient reports. Bilateral ear cerumen impaction requires addressing post-recovery with Debrox drops aiding in interim management. A Neti pot with distilled water and flonase twice daily can aid in sinus symptoms. Patient was informed and verbally consented to the use of an ambient scribe for clinic note documentation during this visit Orders: Orders SARS-CoV2/FLU/RSV Today R09.89 - Other specified symptoms and signs involving the circulatory and respiratory systems Coding Level of Care Code Est Pt Level 3 (19433) Diagnoses URI, acute J06.9
[2024-04-10 15:50] VITALS: BP 124/70; PULSE 88; TEMP 36.7; O2SAT 100
== END 2024-04-10 16:22 | disposition home or self-care (01) ==
PROVIDERS: PCP Nurse Practitioner Family; Visit Provider Physician Assistant
DX: J06.9 Acute upper respiratory infection, unspecified (principal)

== ENCOUNTER 2024-04-19 08:25 | Emergency (ER) | payer OTHER, SELFPAY ==
[2024-04-19 08:38] VITALS: BP 110/66; PULSE 82; RESP 16; TEMP 36.5; O2SAT 100; BMI 36.6
--- NOTE | 2024-04-19 13:19 | ED_ITS ---
HPI - Skin/Abscess/Foreign Bdy General Chief complaint: Skin/Abscess/Foreign Body Stated complaint: Sore on buttock Time Seen by Provider: 04/19/24 13:23 Source: patient Mode of arrival: ambulatory Limitations: no limitations History of Present Illness ED Provider: Ruth Mejia APRN HPI narrative: 43 yo female with no known medical history here with complaints of abscess to right buttocks since Saturday/. No fevers, chills. Related Data Previous Rx's ?Medication ?Instructions ?Recorded mecobalamin (vitamin B12) 1,000 1,000 mcg PO DAILY #90 ea 06/24/23 mcg lozenges sulfamethoxazole 800 1 tab PO BID #14 tabs 04/19/24 mg-trimethoprim 160 mg tablet (Bactrim DS) Allergies Allergy/AdvReac Type Severity Reaction Status Date / Time bee pollen [BEE STINGS] Allergy Intermediate SWELLING Verified 04/19/24 08:42 capsaicin [CAPSAICIN] Allergy Intermediate BAD RED Verified 04/19/24 08:42 RASH, hives hydromorphone [From DILAUDID] AdvReac Intermediate NAUSEA & Verified 04/19/24 08:42 VOMITING Review of Systems 2 Review of Systems: Yes all other systems are reviewed and are negative Constitutional: Constitutional: Reports no additional constitutional complaints, Denies body ache(s), Denies chills, Denies fever(s), Denies headache(s) and Denies weakness Eyes: Eyes: Reports no additional eye complaints and Denies change in vision ENT: Reports system reviewed and no additional complaints, except as documented, Denies dizziness, Denies headache(s), Denies nasal congestion, Denies nasal discharge and Denies neck pain Cardiovascular: Cardiovascular: Reports no additional cardiovascular complaints, Denies chest pain, Denies leg edema and Denies dyspnea Respiratory: Respiratory: Reports no additional respiratory complaints, Denies cough and Denies dyspnea Gastrointestinal: Gastrointestinal: Reports no additional gastrointestinal complaints, Denies abdominal pain, Denies diarrhea, Denies nausea and Denies vomiting Genitourinary: Genitourinary: Reports no additional female genitourinary complaints and Denies urinary incontinence Musculoskeletal: Musculoskeletal: Reports no additional musculoskeletal complaints, Denies back pain, Denies arthralgias, Denies joint swelling, Denies neck pain, Denies numbness and Denies tingling Integumentary/Breasts: Skin/Breast: Reports system reviewed and no additional complaints, except as docu, Reports furuncle and Denies rash Neurologic: Reports system reviewed and no additional complaints, except as documented, Denies Abnormal speech present, Denies dizziness, Denies headache(s), Denies numbness, Denies tingling and Denies weakness PMFSH Past Medical History Attestation statement: The following information was validated with the patient. Source: old records reviewed and nursing notes reviewed Medical History Adjustment reaction with mixed disturbance of emotions and conduct Sacroiliac joint pain Annual physical exam Back pain Anemia GERD (gastroesophageal reflux disease) Kidney stones Fatty liver Anxiety RENO on CPAP History of tachycardia Hx of hypotension Gastric ulcer Instability of sacroiliac joint Sacroiliitis Surgical History History of surgery History of laparoscopic appendectomy History of cholecystectomy Status post laser lithotripsy of ureteral calculus Gastric bypass status for obesity Family History Family History Father Diabetes Mother Throat cancer HTN (hypertension) Maternal Grandmother Ovarian cancer Maternal Grandfather Prostate cancer Social History Social History Household Members: Other Household Members Other:: Stepfather Housing: House Do you presently have visiting nurse or other home services: No Alcohol intake: never Patient Tobacco Use Status: Former Tobacco user Tobacco use type: Cigarette Years Smoked: quit 19 years ago e-Cigarette/Vaping Use: Never Used Second Hand Smoke Exposure: No Substance Use Type: Marijuana Advance Directives: No Advance Directives Information Provided: Yes Do you have a plan to hurt others: No Plan service: No Current occupational status: employed 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/hazards: No Sexual orientation: Straight/Heterosexual Cognitive needs: No Hearing needs: No Vision needs: Yes Physical Exam 2 Vital Signs: Vital Signs: Last Vital Signs Temp 97.8 F 04/19/24 13:20 Pulse 98 04/19/24 13:20 Resp 18 04/19/24 13:20 BP 136/97 H 04/19/24 13:20 Pulse Ox 100 01/26/25 13:20 O2 Del Method Room Air 04/19/24 13:20 BMI result Body Mass Index 36.6 Const: General: cooperative, healthy appearing, comfortable and no acute distress Orientation/consciousness: patient oriented x3 Limitations: no limitations HEENT: Head: Yes normal to inspection Ears: hearing grossly normal bilaterally General nose exam: Normal external nose present Face and sinus: Yes normal facial exam Mouth: Normal oral and palatal mucosa present Throat: Yes posterior oropharynx normal Eyes: General: appearance normal, both eyes and all related structures P upils: Equal, round and reactive pupils present Neck: Neck: Yes normal visual inspection Chest: Chest palpation & inspection: normal inspection of the chest Resp: Effort & Inspection: normal respiratory effort Auscultation: clear to auscultation bilaterally Cardio: Rate: regular rate Rhythm: regular rhythm Peripheral pulses: P eripheral pulses 2+ throughout GI: Inspection: Yes normal to inspection Palpation (GI): Soft to palpation and nontender Auscultation: normal bowel sounds Back/Spine/Pelvis: Thoracic/Lumbar Spine: thoracic and lumbar spine normal to inspection Back/spine/pelvis image: 1. Medium sized abscess which is soft and fluctuant. No extension to perineum Skin: General skin exam: no rashes or lesions noted Neuro: General: patient oriented x3, no focal motor deficits and normal sensation to monofilament Cranial nerves: Yes Equal, round and reactive pupils present Cognition (Neuro): normal cognition Speech: No Abnormal speech present Gait exam (Neuro): Normal gait present Motor exam (neuro): 5/5 motor strength present throughout Extrem: General: Yes normal to inspection Course Course Course Narrative: This is a rapid medical exam. Deferred additional HPI, ROS, PE to primary provider. 43 yo female here with abscess to buttocks since Saturday. NETTIE Mejia APRN Medical Decision Making Medical Decision Making MDM Narrative: 43 yo female with no known medical history here with complaints of abscess to right buttocks since Saturday/. No fevers, chills. Medium sized abscess which is soft and fluctuant. No extension to perineum Offered I&D and home antibiotics vs going home to perform warm compresses and take home antibiotics. Patient does not want to wait for I&D. Will discharge home with warm compresses, antibiotics. Differential Diagnosis Differential Diagnoses: The differential diagnosis associated with the presentation includes abscess, low suspicion for deeper spaced infection/fourniers gangrene Admission/Observation Consideration of admission/observation: Escalation of care including admission/observation considered see above Tests considered The following testing was considered but not selected: low suspicion for fourniers gangrene requiring CT imaging Prescription Management I considered prescription management with: Antibiotic Discharge Plan Discharge Clinical Impression: Abscess Patient Disposition: Home, Self-Care Instructions: Abscess (ED) Additional Instructions: Warm compresses to the area Return for increasing redness, swelling or pain Prescriptions: New sulfamethoxazole-trimethoprim [Bactrim DS] 800-160 mg tablet 1 tab PO BID Qty: 14 0RF No Action mecobalamin (vitamin B12) 1,000 mcg lozenge 1,000 mcg PO DAILY Qty: 90 3RF Rx Instructions: allow to dissolve in mouth OR may chew lightly before swallowing Referrals: Shanell Olson, [facility] [Primary Care Provider] - 1 week Print Language: Tristanian
[2024-04-19 13:20] VITALS: BP 136/97; PULSE 98; RESP 18; TEMP 36.6; O2SAT 100
--- OUTSIDE RECORDS SUMMARY | 2024-04-19 13:27 | XMS_ITS | Clinical Summary ---
Author Organization [facility] it Address [address] [place] [address] Care Team Providers Care Guardian Family Member Name Role Phone Unavailable Primary Care Provider Unavailabl e Social History Tobacco Use Types Packs/Day Years Used Date Smoking Tobacco: Never Assessed Sex and Gender Information Value Date Recorded Sex Assigned at Not on file Gender Identity Not on file Sexual Orientation Not on file Plan of Treatment Health Maintenance Due Date Last Done Comments Breast Cancer Screening 1979 DTaP,Tdap,and Td Vaccines (1 - Tdap) 10/23/1998 Hepatitis B Vaccines (1 of 3 - 19+ 3-dose series) 10/23/1998 Cervical Cancer Screening: P ap Smear 10/23/2000 COVID-19 Vaccine (2023-2 5 season) 2023 Influenza Vaccine (#1) 2023 HIB Vaccines Aged Out No longer eligi ble based on patient's age to complete this topic HPV Vaccines Aged Out No longer eligi ble based on patient's age to complete this topic Hepatitis A Vaccines Aged Out No long er eligible based on patient's age to complete this topic IPV Vaccines Aged Out No longer eligi ble based on patient's age to complete this topic MMR Vaccines Aged Out No longer eligi ble based on patient's age to complete this topic Meningococcal ACWY Vaccine Aged Out N o longer eligible based on patient's age to complete this topic Pneumococcal Vaccine: Pediat rics (0 to 5 Years) and At-Risk Patients (6 to 64 Years) Aged Out No longer eligible b ased on patient's age to complete this topic RSV Immunization Patients Un tanika 20 months Aged Out No longer eligible b ased on patient's age to complete this topic Varicella Vaccines Aged Out No longer eligible based on patient's age to complete this topic
[2024-04-19 13:31] VITALS: BP 136/97; PULSE 98; RESP 18; TEMP 36.6; O2SAT 100
== END 2024-04-19 13:32 | disposition home or self-care (01) ==
PROVIDERS: Emergency Provider Emergency Medicine; PCP Nurse Practitioner Family
DX: L02.31 Cutaneous abscess of buttock (principal); Z87.891 Personal history of nicotine dependence
CPT/HCPCS: 99282

== ENCOUNTER 2024-07-10 11:55 | Outpatient (AMB) | payer OTHER, SELFPAY ==
--- NOTE | 2024-07-10 12:01 | MHC.OFFVIS ---
Intake Visit Reasons: CPE Intake Note: Eloina present in the office today for her annual physical. Allergies bee pollen [BEE STINGS] Allergy (Intermediate, Verified 07/10/24 12:02) SWELLING capsaicin [CAPSAICIN] Allergy (Intermediate, Verified 07/10/24 12:02) BAD RED RASH, hives hydromorphone [From DILAUDID] Adverse Reaction (Intermediate, Verified 07/10/24 12:02) NAUSEA & VOMITING Is last menstrual period known: Yes Post menopausal: No Patient : No Do you need a note to return to daycare/school/sports/work: No PFSH Medical History Adjustment reaction with mixed disturbance of emotions and conduct Sacroiliac joint pain Annual physical exam Back pain Anemia GERD (gastroesophageal reflux disease) Kidney stones Fatty liver Anxiety RENO on CPAP History of tachycardia Hx of hypotension Gastric ulcer Instability of sacroiliac joint Sacroiliitis Surgical History History of surgery History of laparoscopic appendectomy History of cholecystectomy Status post laser lithotripsy of ureteral calculus Gastric bypass status for obesity Family History Father Diabetes Mother Throat cancer HTN (hypertension) Maternal Grandmother Ovarian cancer Maternal Grandfather Prostate cancer Social History (Updated 07/10/24 @ 12:04 by Lauren Todd MA) Household Members: Other Household Members Other:: Stepfather Housing: House Do you presently have visiting nurse or other home services: No Alcohol intake: current Alcohol intake frequency: does not drink Comment: Rarely Patient Tobacco Use Status: Former Tobacco user Tobacco use type: Cigarette Years Smoked: quit 19 years ago e-Cigarette/Vaping Use: Never Used Second Hand Smoke Exposure: No Substance Use Type: Marijuana service: No Current occupational status: employed 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/hazards: No Sexual orientation: Straight/Heterosexual Cognitive needs: No Hearing needs: No Vision needs: Yes 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
--- NOTE | 2024-07-10 12:08 | MHC.PC.OV ---
Vital Signs 07/10/24 12:10 Height 5 ft 5 in Weight 237 lb BMI 39.4 BP 128/82 Blood Pressure Location Rt brachial Position Sitting Respiration 17 Pulse 92 Pulse Source Pulse Oximeter Temp 98.7 F Temp Source Temporal Artery Scan Pulse Oximetry (%) 98 Oxygen Delivery Method Room Air Intake Visit Reasons: CPE Intake Note: Eloina presents in [facility] office today for her annual physical. Allergies bee pollen [BEE STINGS] Allergy (Intermediate, Verified 07/10/24 12:19) SWELLING capsaicin [CAPSAICIN] Allergy (Intermediate, Verified 07/10/24 12:19) BAD RED RASH, hives hydromorphone [From DILAUDID] Adverse Reaction (Intermediate, Verified 07/10/24 12:19) NAUSEA & VOMITING Medication List - Last Reconciled 07/10/24 by YENY Driscoll- mecobalamin (vitamin B12) 1,000 mcg PO DAILY Tobacco use date assessed: 07/10/24 Dental Screening Dental Screen Date: 07/10/24 Did you have a dental visit in the last 12 months?: No Did you have a dental problem in the last 6 months where you did not have access to dental care?: No Was dental information given to patient?: Patient has dentist HPI HPI Comments History of Present Illness Details 42-year-old female with vitamin-D deficiency, MDD, generalized anxiety disorder, iron deficiency anemia, insomnia, chronic low back pain, fatty liver, GERD, kidney stones, sleep apnea on CPAP, POTs, suicide attempt via oxycodone and flexeril overdose 08/16/23, inappropriate use of narcotics (taking terminally ill Mother's liquid oxycodone), obesity Surgical history Gastric bypass, cholecystectomy, appendectomy, ESWL Health maintenance Mammogram Colon Pap smear Specialists Cardiology visits twice per year, last Fall 2022 Labs from 06/17/2023 show microcytic anemia consistent with iron deficiency anemia hemoglobin 10.6, hematocrit 34.1, low MCV and MCH, iron level low at 8, total iron binding capacity normal 319, % iron saturation low at 3, unsaturated iron binding 311, hemoglobin A1c 5.3, normal renal function, normal LFTs, normal cholesterol, low normal B12 210 Vit d > 100 H Pylori negative History of Present Illness - The patient is a 43-year-old female presenting for an annual wellness exam. - Known history of major depressive disorder and generalized anxiety disorder, with a suicide attempt noted in 2023, indicating significant mental health concerns. Was referred to counseling but did not go. Is ready now. Was on prozac in the past with some relief of sx. Current denies si.hi. - Reports a pattern of poor medication adherence. - Describes disturbed sleep, correlated with anxiety and complications with CPAP machine, citing its obsolescence and her aversion to it. - Recalls vivid nightmares during Trazodone use, causing hesitance in using this medication. - Emotional distress notably exacerbated by the recent passing of her mother. GERD was on PPI and Carafate with + effect in past POTS was ff'd by Cards, needs updated referral. Wearing stockings QD c/o pain bilat arms shoulders and upper backs, for months; no improvements. 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 - Recently acquired her own housing, indicating improved stability - Emotional impact from the recent passing of her mother, significantly affecting her mental health - Discussed reluctance to engage in counseling Health Maintenance - Discussion regarding updating the sleep study to evaluate current obstructive sleep apnea and CPAP use - Referral placed for mammogram screening - Referral to gastroenterology for colonoscopy due to family history of colon cancer - Referral to gynecology for Pap smear - Initiated referral for counseling to address mental health concerns - Prescribed a home sleep study to assess necessity and settings for CPAP therapy - Repeat labs are anticipated Review of Systems - Psychiatric: Reports anxiety, depressed mood, and difficulty sleeping; Denies any current suicidal ideations - Cardiovascular: Denies any changes or acute issues - Respiratory: Denies symptoms aside from sleep apnea management challenges - Gastrointestinal: Reports recent increase in symptoms of GERD - Musculoskeletal: Reports chronic back pain; Denies new musculoskeletal concerns - Neurological: Reports dizziness with position change attributable to POTS - General: Denies recent surgeries or need for other specialist consultations Physical Exam General: Well developed, well nourished, in no acute distress. Appears stated age. Head: Normocephalic, atraumatic. Eyes: Pupils are equal, round and reactive to light and accommodation. Conjunctivae are clear. Vision grossly normal. + strabismus Ears: Cerumen impaction bilat, tx w/ lavage at time of visit reveavling: TMs clear AU, EACS WNL. Nose: Patent, without discharge. Neck: Supple, no adenopathy or thyromegaly. Breast: Edu on SBE. Order placed for mammogram. Lungs: Clear to auscultation bilaterally. No rales, rhonchi or wheeze noted. Good air flow in all pettit. Heart: Regular rate and rhythm. No murmurs, click, rubs or gallops are noted. Abdomen: Bowel sounds present in all quadrants. The abdomen is soft, nontender, with no masses or organomegaly noted. No hernias are noted. Chronic pain noted in RUQ : Deferred. 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 Referral placed for Pap smear. Pulses: Peripheral pulses are equal and palpable bilaterally. Extremities: No clubbing, cyanosis nor edema is noted. Patient wears stockings for support. Neurologic: Gait and station normal. Cranial Nerves 2-12 intact. Motor strength grossly symmetrical and intact. No sensory loss. Balance normal. Reports dizziness with position changes due to POTS. Skin: No rashes, ulcers, or lesions noted. Turgor is good. Skin color is good. Hair and nails are without abnormalities. Psych: Normal eye contact, affect and mood appropriate, and normal interactions. Patient is alert and appropriate to context. Results - Labs: Vitamin D was previously noted as high; Iron levels are low - Tests: A home sleep study has been ordered to assess current status of obstructive sleep apnea Discussion Notes I discussed with the patient her significant mental health history, including major depressive disorder and generalized anxiety disorder, and the importance of managing these conditions with both counseling and pharmacotherapy. We reviewed the side effects of previous medications and considered alternatives, such as mirtazapine, which may help address her insomnia and mood symptoms. We explored the impact of untreated obstructive sleep apnea on her mood and overall health, and I emphasized the importance of updating her sleep study to optimize her CPAP therapy. We addressed her poor compliance on iron supplementation and its connection to her anemia, recommending restarting supplementation. Furthermore, I encouraged screening for colon cancer and routine mammogram, considering her family history. We will follow up in six weeks, either virtually or in person, to review her response to the new medications and any additional evaluations performed. Assessment and Plan 1. Major Depressive Disorder and Generalized Anxiety Disorder Counseling referral was made to assist in mental health management, with mirtazapine prescribed to support mood stabilization and sleep improvement. 2. Obstructive Sleep Apnea A home sleep study was ordered to evaluate current CPAP needs and improve therapy adherence. 3. Iron Deficiency Anemia Resumed iron supplementation, addressing past adherence challenges and low iron levels. 4. Gastroesophageal Reflux Disease (GERD) Restarted her prior effective medication regimen to manage recent symptoms. 5. Preventive Health Measures Initiated mammogram and colonoscopy screenings considering her age and family cancer history, with a referral for Pap smear also arranged. Refer to physiatry to arm/back/shoulder pain Patient Instructions - Take iron supplements (ferrous fumarate) as directed, twice daily, to improve your anemia. - Use mirtazapine 7.5mg - 15mg as prescribed to help manage anxiety and improve sleep quality. - Participate in the home sleep study and await follow-up instructions for CPAP use. - Restart pantoprazole and carafate to manage GERD symptoms and monitor for relief. - Attend appointments for the mammogram, colonoscopy consultation, and Pap smear. - Engage in counseling services to address mental health needs. - Follow up in six weeks in-person to review progress and sleep study results. Consent Patient was informed and verbally consented to the use of an ambient scribe for clinic note documentation during this visit. An additional 30 minutes was spent addressing the problem(s) noted at todays visit. This includes time spent before the visit reviewing the chart, time spent during the visit, and time spent after the visit on documentation reviewing laboratory results, diagnostic imaging, medications, performing a medically necessary evaluation, counseling on diagnoses, care coordination, ordering appropriate tests, ordering appropriate medications, review of tests performed by other providers, reporting test results with the patient, communication with other healthcare providers. [facility] Medical History (Updated 07/10/24 @ 15:26 by Shanell Olson, RESEARCH WORKER [facility]) Adjustment reaction with mixed disturbance of emotions and conduct Anemia Annual physical exam (~06/2024) Anxiety Back pain Fatty liver Gastric ulcer GERD (gastroesophageal reflux disease) History of tachycardia Hx of hypotension Instability of sacroiliac joint Kidney stones RENO on CPAP Sacroiliac joint pain Sacroiliitis Surgical History Gastric bypass status for obesity History of cholecystectomy History of laparoscopic appendectomy History of surgery Status post laser lithotripsy of ureteral calculus Family History Father Diabetes Mother Throat cancer HTN (hypertension) Maternal Grandmother Ovarian cancer Maternal Grandfather Prostate cancer Social History (Updated 07/10/24 @ 12:04 by Lauren Todd MA) Household Members: Other Household Members Other:: Stepfather Housing: House Do you presently have visiting nurse or other home services: No Alcohol intake: current Alcohol intake frequency: does not drink Comment: Rarely Patient Tobacco Use Status: Former Tobacco user Tobacco use type: Cigarette Years Smoked: quit 19 years ago e-Cigarette/Vaping Use: Never Used Second Hand Smoke Exposure: No Substance Use Type: Marijuana service: No Current occupational status: employed 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 1. Little interest or pleasure in doing things: not at all 2. Feeling down, depressed, or hopeless: several days 3. Trouble falling or staying asleep, or sleeping too much: nearly every day 4. Feeling tired or having little energy: several days 5. Poor appetite or overeating: not at all 6. Feeling bad about yourself - or that you are a failure or have let yourself or your family down: not at all 7. Trouble concentrating on things, such as reading the newspaper or watching television: not at all 8. Moving or speaking so slowly that other people could have noticed. Or the opposite - being so fidgety or restless that you have been moving around a lot more than usual: not at all 9. Thoughts that you would be better off or of hurting yourself in some way: not at all Total score: 5 Depression Screening Interpretation: Positive Depression Screening Follow-up: Existing condition and Declines treatment Depression Screening Done: Yes 39674 - PHQ-9 Billing: Patient declined-do not bill Source: Developed by Drs. Chadwick Sheth, Kami Mishra, Delfino Winchester and colleagues, with an educational pedro luis from [employer]. Thrive Questionnaire Date Thrive assessed: 07/10/24 I am a: Patient What is your living situation today?: I have a steady place to live Within the past 12 months, did the food you bought not last and you didn't have the money to get more?: Never true Within the past 12 months, did you worry whether your food would run out before you got money to buy more?: Never true Do you have trouble paying for medicines?: No Do you have trouble getting transportation to medical appointments?: Yes Do you have trouble paying your heating and electricity bill?: No Do you have trouble taking care of your child, family member or friend?: No Do you have trouble with day-to-day activities such as bathing, preparing meals, shopping, managing finances, etc.?: No Are you currently unemployed and looking for a job?: No Are you interested in more education?: No Please select the resources that you would like help with: None Currently or been in a relationship where the following occur: No concerns reported THRIVE Score: 1 AUDIT C Alcohol Use Questionnaire (AUDIT-C) 1. How often do you have a drink containing alcohol?: Monthly or less 2. How many drinks containing alcohol do you have on a typical day when you are drinking?: 1 or 2 3. How often do you have six or more drinks on one occasion?: Never Total Score: 1 Score Reviewed/Action Taken: Yes MONIK-7 AMB Questionnaire MONIK-7 Date MONIK - 7 assessed: 07/10/24 Feeling nervous, anxious, or on edge: 3 = Nearly every day Not being able to stop or control worryin = Nearly every day Worrying too much about different things: 3 = Nearly every day Trouble relaxin = Several days Being so restless that it is hard to sit still: 0 = Not at all Becoming easily annoyed or irritable: 0 = Not at all Feeling afraid as if something awful might happen: 0 = Not at all Total MONIK-7 score (0-4 normal; 5-9 mild; 10-14 moderate; 15-21 severe): 10 Source: Developed by Drs. Chadwick Sheth, Kami Mishra, Delfino Winchester and colleagues, with an educational pedro luis from [employer]. MONIK-7 Assessment Billing MONIK-7 Assessment Tool: MONIK-7 Assessment 28212 ACT Questionnaire In the past 4 weeks, how much of the time did your asthma keep you from getting as much done at work, school or at home?: None of the time Score: 5 Physical exam (Primary Care) Vital Signs: Last Vital Signs Temp 98.7 F 07/10/24 12:10 Pulse 92 07/10/24 12:10 Resp 17 07/10/24 12:10 BP 128/82 07/10/24 12:10 Pulse Ox 98 07/10/24 12:10 Oxygen Delivery Method Room Air 07/10/24 12:10 BMI result Body Mass Index 39.4 BMI Assessment/Plan discussion: High BMI High, discussed plan: lifestyle Tobacco/Smoking Status: Tobacco use Status Tobacco use date assessed 07/10/24 07/10/24 12:14 Patient Tobacco Use Status Former Tobacco user 07/10/24 12:14 Tobacco use type Cigarette 07/10/24 12:14 e-Cigarette/Vaping Use Never Used 07/10/24 12:14 PHQ-9: PHQ-9 Score PHQ-9: Total score 5 07/10/24 12:24 Depression Screening Interpretation: Positive Depression Screening Follow-up: Existing condition and Declines treatment Thrive Assessment: Date of Thrive Assessment Date Thrive assessed 07/10/24 07/10/24 12:14 Currently or been in a relationship where the following occur: No concerns reported Office Procedures Cerumen Removal From which ear canal was the cerumen removed: bilateral Removal: irrigation Notes: patient tolerated procedure well, no complications and ear canal clear [id number] Irrigation/Lavage Coding Level of Care Code Est Pt Level 4 (91002) Est Pt Prev Care 40-64y(42839) Diagnoses Encounter for general adult medical examination with abnormal findings Z00.01 Morbid obesity E66.01 POTS (postural orthostatic tachycardia syndrome) I49.8 B12 deficiency E53.8 Fatty liver K76.0 Gastric bypass status for obesity Z98.84 Gastroesophageal reflux disease without esophagitis K21.9 Esophagitis presence: without esophagitis Other iron deficiency anemia D50.8 Iron deficiency anemia type: other iron deficiency Anxiety F41.9 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 Moderate episode of recurrent major depressive disorder F33.1 Major depression episode severity: moderate RENO (obstructive sleep apnea) G47.33 Bilateral arm pain M79.601; M79.602 Chronic pain of both shoulders M25.511; M25.512; G89.29 Chronicity: chronic Impacted cerumen, bilateral H61.23 History of suicide attempt Z91.51 CPT Codes Office Procedure - CPT: 56268-Gez Irrigation/Lavage ([id number]) Additional Codes MONIK-7 Assessment Billing - MONIK-7 Assessment Tool: MONIK-7 Assessment 84439 ([id number]) Assessment & Plan Assessment & Plan (1) Encounter for general adult medical examination with abnormal findings: Onset Date: 06/2024 Code(s): Z00.01 - Encounter for general adult medical examination with abnormal findings Category: Medical (2) Morbid obesity: Comment: BMI > 39 S/P GASTRIC BYPASS Code(s): E66.01 - Morbid (severe) obesity due to excess calories Category: Medical (3) POTS (postural orthostatic tachycardia syndrome): Comment: On metoprolol in the past; follow-up with Cardiology Code(s): I49.8 - Other specified cardiac arrhythmias Category: Medical (4) B12 deficiency: Comment: Low normal B12 210 06/17/23 restart vitamin B12 a 1000 mcg p.o. daily. Advised that this may be available only [id number] not covered by her insurance. Code(s): E53.8 - Deficiency of other specified B group vitamins Category: Medical (5) Fatty liver: Code(s): K76.0 - Fatty (change of) liver, not elsewhere classified Category: Medical (6) Gastric bypass status for obesity: Code(s): Z98.84 - Bariatric surgery status Category: Medical (7) GERD (gastroesophageal reflux disease): Comment: With history of gastric ulcer in the past status post gastric bypass. She was on omeprazole as well as Carafate. Labs from 06/17/2023 show microcytic anemia consistent with iron deficiency anemia hemoglobin 10.6, hematocrit 34.1, low MCV and MCH, iron level low at 8, total iron binding capacity normal 319, % iron saturation low at 3, unsaturated iron binding 311, hemoglobin A1c 5.3, normal renal function, normal LFTs, normal cholesterol, low normal B12 210 H Pylori negative Did have benefit with restarting omeprazole 40 mg & Carafate Code(s): K21.9 - Gastro-esophageal reflux disease without esophagitis Category: Medical Qualifiers: Esophagitis presence: without esophagitis Qualified Code(s): K21.9 - Gastro-esophageal reflux disease without esophagitis (8) Iron deficiency anemia: Comment: Labs from 06/17/2023 show microcytic anemia consistent with iron deficiency anemia hemoglobin 10.6, hematocrit 34.1, low MCV and MCH, iron level low at 8, total iron binding capacity normal 319, % iron saturation low at 3, unsaturated iron binding 311 Plan start ferrous fumarate 324 mg p.o. b.i.d.. Advised to take with vitamin-C beverage like orange juice. If unable to tolerate advised that she let me know right away. Repeat labs in 3 months Code(s): D50.9 - Iron deficiency anemia, unspecified Category: Medical Qualifiers: Iron deficiency anemia type: other iron deficiency Qualified Code(s): D50.8 - Other iron deficiency anemias (9) Anxiety: Code(s): F41.9 - Anxiety disorder, unspecified Category: Medical (10) Adjustment reaction with mixed disturbance of emotions and conduct: Code(s): F43.25 - Adjustment disorder with mixed disturbance of emotions and conduct Category: Medical (11) MDD (major depressive disorder), recurrent episode: Code(s): F33.9 - Major depressive disorder, recurrent, unspecified Category: Medical Qualifiers: Major depression episode severity: moderate Qualified Code(s): F33.1 - Major depressive disorder, recurrent, moderate (12) RENO (obstructive sleep apnea): Code(s): G47.33 - Obstructive sleep apnea (adult) (pediatric) Category: Medical (13) Bilateral arm pain: Code(s): M79.601 - Pain in right arm; M79.602 - Pain in left arm Category: Medical (14) Bilateral shoulder pain: Code(s): M25.511 - Pain in right shoulder; M25.512 - Pain in left shoulder Category: Medical Qualifiers: Chronicity: chronic Qualified Code(s): M25.511 - Pain in right shoulder; M25.512 - Pain in left shoulder; G89.29 - Other chronic pain (15) Impacted cerumen, bilateral: Code(s): H61.23 - Impacted cerumen, bilateral (16) History of suicide attempt: Code(s): Z91.51 - Personal history of suicidal behavior Category: Medical Plan . Orders: Orders RT home sleep study Today G47.33 - Obstructive sleep apnea (adult) (pediatric), R06.83 - Snoring MM tomosynthesis screening BI Today Z12.31 - Encounter for screening mammogram for malignant neoplasm of breast Referrals Physiatry Referral M25.511 - Pain in right shoulder, M25.512 - Pain in left shoulder, M79.601 - Pain in right arm, M79.602 - Pain in left arm Gastroenterology Referral Z12.11 - Encounter for screening for malignant neoplasm of colon HEALTH EDUCATION ASSISTANT Referral Z12.4 - Encounter for screening for malignant neoplasm of cervix Nurse Navigator Referral F33.9 - Major depressive disorder, recurrent, unspecified, F41.9 - Anxiety disorder, unspecified, F43.25 - Adjustment disorder with mixed disturbance of emotions and conduct Cardiology Referral I49.8 - Other specified cardiac arrhythmias Medications: New mirtazapine take 1 tab at bedtime x 2 weeks then increase to 2 tabs at bedtime daily 7.5 mg PO BEDTIME 45 tabs 1RF Changed From sucralfate 10 mL PO BID PRN 400 mL 0RF s/p gastric bypass To sucralfate (Carafate) 10 mL PO BID 1,800 mL 2RF s/p gastric bypass Refilled mecobalamin (vitamin B12) allow to dissolve in mouth OR may chew lightly before swallowing 1,000 mcg PO DAILY 90 ea 3RF ferrous fumarate 324 mg PO BID 180 tabs 1RF pantoprazole (Protonix) 40 mg PO DAILY 90 tabs 1RF Patient Instructions: Health screenings for women You should visit your health care provider from time to time, even if you are healthy. The purpose of these visits is to: Screen for medical issues Assess your risk for future medical problems Encourage a healthy lifestyle Update vaccinations and other preventive care services Help you get to know your provider in case of an illness Information Even if you feel fine, you should still see your provider for regular checkups. These visits can help you avoid problems in the future. For example, the only way to find out if you have high blood pressure is to have it checked regularly. High blood sugar and high cholesterol levels also may not have any symptoms in the early stages. A simple blood test can check for these conditions. There are specific times when you should see your provider or receive specific health screenings. The [place] Preventive Services Task Force publishes a list of recommended screenings. Below are screening guidelines for women ages 18 to 39. BLOOD PRESSURE SCREENING Your blood pressure should be checked at least once every 3 to 5 years if: Your blood pressure is in the normal range (top number less than 120 mm Hg and bottom number less than 80 mm Hg) You don't have risk factors for high blood pressure Ask your provider if you need your blood pressure checked more often if: The top number is 120 to 129 mm Hg or the bottom number is 70 to 79 mm Hg You have diabetes, heart disease, kidney problems, are overweight, or have certain other health conditions You have a first-degree relative with high blood pressure You are Black You had high blood pressure during a If the top number is 130 mm Hg or greater or the bottom number is 80 mm Hg or greater, this is considered stage 1 hypertension. Schedule an appointment with your provider to learn how you can reduce your blood pressure. Watch for blood pressure screenings in your area. Ask your provider if you can stop in to have your blood pressure checked. BREAST CANCER SCREENING Experts do not agree about the benefits of breast self-exams in finding breast cancer or saving lives. Talk to your provider about what is best for you. A screening mammogram is not recommended for most women under age 40. Your provider may discuss and recommend mammograms, MRI scans, or ultrasounds if you have an increased risk for breast cancer, such as: A mother or sister who had breast cancer at a young age (most often starting screening earlier than the age the close relative was diagnosed) You carry a high-risk genetic marker CERVICAL CANCER SCREENING Cervical cancer screening should start at age 21 years unless your provider advises otherwise. After the first test: Women ages 21 through 29 should have a Pap test every 3 years. Exoprts do not agree on whether HPV testing is recommended for this age group. Women ages 30 through 65 should be screened with either a Pap test every 3 years or the HPV test every 5 years or both tests every 5 years (called cotesting ). Women who have been treated for precancer (cervical dysplasia) should continue to have Pap tests for 20 years after treatment or until age 65, whichever is longer. If you have had your uterus and cervix removed (total hysterectomy), and you have not been diagnosed with cervical cancer or precancer (high grade cervical neoplasia), you do not need cervical cancer screening. CHOLESTEROL SCREENING Cholesterol screening should begin at: Age 45 for women with no known risk factors for coronary heart disease Age 20 for women with known risk factors for coronary heart disease Repeat cholesterol screening should take place: Every 5 years for women with normal cholesterol levels More often if changes occur in lifestyle (including weight gain and diet) More often if you have diabetes, heart disease, kidney problems, or certain other conditions DIABETES SCREENING You should be screened for diabetes starting at age 35 and then repeated every 3 years if you have no risk factors for diabetes. Screening may need to start earlier and be repeated more often if you have other risk factors for diabetes, such as: You have a first degree relative with diabetes. You are overweight or have obesity. You have high blood pressure, prediabetes, or a history of heart disease. Screening for diabetes should be done if you are planning to become and you are overweight and have other risk factors such as high blood pressure. DENTAL EXAM Go to the dentist once or twice every year for an exam and cleaning. Your dentist will evaluate if you need more frequent visits. EYE EXAM Have an eye exam every 5 to 10 years before age 40. If you have vision problems, have an eye exam every 2 years or more often if recommended by your provider. You should have an eye exam that includes an examination of your retina (back of your eye) at least every year if you have diabetes. IMMUNIZATIONS Commonly needed vaccines include: Flu shot: get one every year. COVID-19 vaccine: ask your provider what is best for you. Tetanus-diphtheria and acellular pertussis (Tdap) vaccine: have one at or after age 19 as one of your tetanus-diphtheria vaccines if you did not receive it as an adolescent. Tetanus-diphtheria: have a booster (or Tdap) every 10 years. Varicella vaccine: receive 2 doses if you never had chickenpox or the varicella vaccine. Hepatitis B vaccine: receive 2, 3, or 4 doses, depending on your exact circumstances. Measles, mumps, and rubella (MMR) vaccine: receive 1 to 2 doses if you are not already immune to MMR. Your provider can tell you if you are immune. Ask your provider about the human papillomavirus (HPV) vaccine if: You have not received the HPV vaccine in the past You have not completed the full vaccine series (you should catch up on this shot) Ask your provider if you should receive other immunizations if you have certain health problems that increase your risk for some diseases such as pneumonia. INFECTIOUS DISEASE SCREENING Women who are sexually active should be screened for chlamydia and gonorrhea up until age 25. Women 25 years and older should be screened for chlamydia and gonorrhea if at high risk. Screening for hepatitis C: All adults ages 18 to 79 should get a one-time test for hepatitis C. people should be screened at every . Screening for human immunodeficiency virus (HIV): All people ages 15 to 65 should get a one-time test for HIV. Depending on your lifestyle and medical history, you may also need to be screened for infections such as syphilis and HIV, as well as other infections. PHYSICAL EXAM All adults should visit their provider from time to time, even if they are healthy. The purpose of these visits is to: Screen for disease Assess your risk of future medical problems Encourage a healthy lifestyle Update your vaccinations and other preventive care services Maintain a relationship with a provider in case of an illness Your height, weight, and BMI should be checked at every exam. During your exam, your provider may ask you about: Depression and anxiety Diet and exercise Alcohol and tobacco use Safety issues, such as using seat belts, smoke detectors, and intimate partner violence Your medicines and risk for interactions SKIN SELF-EXAM Your provider may check your skin for signs of skin cancer, especially if you're at high risk, such as if you: Have had skin cancer before Have close relatives with skin cancer Have a weakened immune system OTHER SCREENING Talk with your provider about colon cancer screening if you have a strong family history of colon cancer or polyps, or if you have had inflammatory bowel disease or polyps yourself. Routine bone density screening of women under 40 is not recommended.
[2024-07-10 12:10] VITALS: BP 128/82; PULSE 92; RESP 17; TEMP 37.1; O2SAT 98; BMI 39.4
--- OUTSIDE RECORDS SUMMARY | 2024-07-10 12:52 | XMS_ITS | Clinical Summary ---
Author Organization [facility] it Address [address] [place] [address] Care Team Providers Care Ict Help Desk Officer Name Role Phone Unavailable Primary Care Provider Unavailabl e Social History Tobacco Use Types Packs/Day Years Used Date Smoking Tobacco: Never Assessed Comments Unknown Sex and Gender Information Value Date Recorded Sex Assigned at Not on file Legal Sex Female 4:49 PM EST Gender Identity Not on file Sexual Orientation Not on file Plan of Treatment Health Maintenance Due Date Last Done Comments Breast Cancer Screening 1979 DTaP,Tdap,and Td Vaccines (1 - Tdap) 10/23/1998 Hepatitis B Vaccines (1 of 3 - 19+ 3-dose series) 10/23/1998 Cervical Cancer Screening: P ap Smear 10/23/2000 COVID-19 Vaccine (2023-2 5 season) 2023 Influenza Vaccine (Season Ended) 2024 HIB Vaccines Aged Out No longer eligi [...] patient's age to complete this topic Meningococcal B Vaccine Aged Out No l onger eligible based on patient's age to complete [...]
== END 2024-07-10 13:01 | disposition home or self-care (01) ==
LOC: HO.HMCFM 11:56
PROVIDERS: PCP Nurse Practitioner Family; Visit Provider Nurse Practitioner Family
DX: Z00.01 Encounter for general adult medical examination with abnormal findings (principal); I49.8 Other specified cardiac arrhythmias; E66.01 Morbid (severe) obesity due to excess calories; F33.1 Major depressive disorder, recurrent, moderate; Z68.39 Body mass index [BMI] 39.0-39.9, adult; E53.8 Deficiency of other specified B group vitamins; Z98.84 Bariatric surgery status; K21.9 Gastro-esophageal reflux disease without esophagitis; D50.8 Other iron deficiency anemias; F41.9 Anxiety disorder, unspecified; H61.23 Impacted cerumen, bilateral; F43.25 Adjustment disorder with mixed disturbance of emotions and conduct

== ENCOUNTER → 2024-07-10 11:55 | Outpatient (BNVA) | payer OTHER, SELFPAY | PROVIDERS: PCP Nurse Practitioner Family; Visit Provider Nurse Practitioner Family | DX: Z00.01 Encounter for general adult medical examination with abnormal findings (principal); E66.01 Morbid (severe) obesity due to excess calories; Z68.39 Body mass index [BMI] 39.0-39.9, adult; I49.8 Other specified cardiac arrhythmias; E53.8 Deficiency of other specified B group vitamins; K76.0 Fatty (change of) liver, not elsewhere classified; K21.9 Gastro-esophageal reflux disease without esophagitis; D50.8 Other iron deficiency anemias; F41.9 Anxiety disorder, unspecified; F43.25 Adjustment disorder with mixed disturbance of emotions and conduct; F33.1 Major depressive disorder, recurrent, moderate; G47.33 Obstructive sleep apnea (adult) (pediatric); M79.601 Pain in right arm; M79.602 Pain in left arm; M25.511 Pain in right shoulder; M25.512 Pain in left shoulder; G89.29 Other chronic pain; H61.23 Impacted cerumen, bilateral; Z91.51 Personal history of suicidal behavior; Z98.84 Bariatric surgery status | CPT/HCPCS: 69209; 96127 ==

== ENCOUNTER 2024-07-30 11:04 | Outpatient (AMB) | payer OTHER, SELFPAY ==
--- NOTE | 2024-07-30 11:13 | A.OFFVIS_ITS ---
Vital Signs 07/30/24 11:15 07/30/24 11:26 07/30/24 11:26 Height 5 ft 5 in Weight 244 lb 11.41 oz BMI 40.7 BP 116/72 117/76 124/75 Blood Pressure Location Lt brachial Lt brachial Lt brachial Position Supine Sitting Standing Pulse 87 88 95 Intake Visit Reasons: overdue follow up/med review Intake Note: Overdue follow-up with ekg c/o palpitations and dizziness has been on med's for awhile Fuel Testing Technician Required: No Allergies bee pollen [BEE STINGS] Allergy (Intermediate, Verified 07/10/24 12:19) SWELLING capsaicin [CAPSAICIN] Allergy (Intermediate, Verified 07/10/24 12:19) BAD RED RASH, hives hydromorphone [From DILAUDID] Adverse Reaction (Intermediate, Verified 07/10/24 12:19) NAUSEA & VOMITING Medication List - Last Reconciled 07/30/24 by Jayson Rosas MD ferrous fumarate 324 mg PO BID mecobalamin (vitamin B12) 1,000 mcg PO DAILY mirtazapine 7.5 mg PO BEDTIME pantoprazole (Protonix) 40 mg PO DAILY sucralfate (Carafate) 10 mL PO BID HPI Comments Details: Eloina comes for follow-up. She continues to have symptoms of lightheadedness when she gets up suddenly or after warm shower. She understands how to deal with it. She usually takes rest or lies down and symptoms improved. She has has associated fast heart rate. Her on today's exam she does not have significant postural tachycardia. She has been maintaining adequate hydration. She is also increase her salt intake. Denies any syncopal episodes. No other cardiac symptoms. FORMERLY [facility], [facility] Medical History Adjustment reaction with mixed disturbance of emotions and conduct Sacroiliac joint pain Annual physical exam (~06/2024) Back pain Anemia GERD (gastroesophageal reflux disease) Kidney stones Fatty liver Anxiety RENO on CPAP History of tachycardia Hx of hypotension Gastric ulcer Instability of sacroiliac joint Sacroiliitis Surgical History History of surgery History of laparoscopic appendectomy History of cholecystectomy Status post laser lithotripsy of ureteral calculus Gastric bypass status for obesity Family History Father Diabetes Mother Throat cancer HTN (hypertension) Maternal Grandmother Ovarian cancer Maternal Grandfather Prostate cancer Social History Household Members: Other Household Members Other:: Stepfather Housing: House Do you presently have visiting nurse or other home services: No Alcohol intake: current Alcohol intake frequency: does not drink Comment: Rarely Patient Tobacco Use Status: Former Tobacco user Tobacco use type: Cigarette Years Smoked: quit 19 years ago e-Cigarette/Vaping Use: Never Used Second Hand Smoke Exposure: No Substance Use Type: Marijuana service: No Current occupational status: employed 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/hazards: No Sexual orientation: Straight/Heterosexual Cognitive needs: No Hearing needs: No Vision needs: Yes Review of Systems Const Denies chills, Denies fatigue, Denies fever(s), Denies frequent falls, Denies weakness, Denies weight gain and Denies weight loss ENT Denies dizziness Card Denies chest pain, Denies leg edema, Denies lightheadedness, Denies palpitations, Denies dyspnea, Denies dyspnea on exertion, Denies orthopnea and Denies other (loss of consciousness) Resp Denies cough, Denies dyspnea and Denies dyspnea on exertion GI Denies hematochezia and Denies change in stool character Musc Denies abnormal gait, Denies muscle weakness, Denies numbness, Denies radiating pain into limb and Denies tingling Neuro Denies abnormal gait, Denies dizziness, Denies frequent falls, Denies numbness, Denies tingling and Denies weakness Endo Denies fatigue and Denies palpitations Physical Exam Vital Signs: Last Vital Signs Pulse 95 07/30/24 11:26 BP 124/75 07/30/24 11:26 BMI result Body Mass Index 40.7 Const General: cooperative, comfortable, no acute distress, alert and awake Nutritional Appearance: obese centrally obese Orientation/consciousness: patient oriented x3 Neck Neck: Yes trachea midline, Yes supple and Yes no JVD Resp Effort & Inspection: normal respiratory effort Auscultation: clear to auscultation bilaterally Cardio Jugular venous distension: no JVD Rate: regular rate and tachycardic Rhythm: regular rhythm Heart sounds: S1 normal heart sound present, S2 normal heart sound present, no click, no gallops, no murmurs and no rubs GI Inspection: Yes obesity Auscultation: normal bowel sounds Skin General skin exam: no rashes or lesions noted Neuro General: patient oriented x3 and no focal motor deficits Extrem General: Yes no clubbing, cyanosis or edema Office Procedures EKG Details: EKG shows normal sinus rhythm with low-voltage QRS with poor R-wave progression due to lead placement [id number], Complete Assessment & Plan Assessment & Plan (1) POTS (postural orthostatic tachycardia syndrome): Comment: On metoprolol in the past; follow-up with Cardiology Code(s): I49.8 - Other specified cardiac arrhythmias Category: Medical Plan: Prior history of POTS with today on clinical exam not exhibiting any significant tachycardia. Heart rate is stable. At this point time we discussed again management of POTS. She does have some symptoms associated with it. She understands symptoms and corrective action needed to be taken at that point time. At this point time I would suggest no change in therapy. There was no need for current beta-kyle therapy or Florinef therapy as her blood pressure and heart rate are stable with orthostatic stress. Advised to maintain adequate hydration salt intake. Encouraged to continue to participate in regular physica l activity and weight loss program. Will follow up in the clinic in 1 year's time, sooner p.r.n.. Thank you for allowing me to partake in her care Coding Level of Care Code Est Pt Level 4 (76313) Complex EM visit Add On G2211 Diagnoses POTS (postural orthostatic tachycardia syndrome) I49.8 CPT Codes EKG - CPT: 11772-[id number], Complete ([id number])
[2024-07-30 11:15] VITALS: BP 116/72; PULSE 87; BMI 40.7
[2024-07-30 11:26] VITALS: BP 117/76; BP 124/75; PULSE 88; PULSE 95
--- OUTSIDE RECORDS SUMMARY | 2024-07-30 12:35 | XMS_ITS | Clinical Summary ---
Author Organization [facility] it Address [address] [place] [address] Care Team Providers Care Silviculture Forester Name Role Phone Unavailable Primary Care Provider [...]
== END 2024-07-30 11:42 | disposition home or self-care (01) ==
LOC: HO.HCS 11:05
PROVIDERS: PCP Nurse Practitioner Family; Visit Provider Internal Medicine Cardiovascular Disease
DX: I49.8 Other specified cardiac arrhythmias (principal)
CPT/HCPCS: 93010; 99214

== ENCOUNTER → 2024-07-30 11:04 | Outpatient (BNVA) | payer OTHER, SELFPAY | PROVIDERS: PCP Nurse Practitioner Family; Visit Provider Internal Medicine Cardiovascular Disease | DX: I49.8 Other specified cardiac arrhythmias (principal); Z79.899 Other long term (current) drug therapy | CPT/HCPCS: 93005 ==

== ENCOUNTER 2024-09-07 15:38 | Outpatient (REF) | payer OTHER, SELFPAY ==
--- OUTSIDE RECORDS SUMMARY | 2024-09-07 17:32 | XMS_ITS | Clinical Summary ---
Author Organization [facility] it Address [address] [place] [address] Care Team Providers Care Consumer Science Teacher Name Role Phone Unavailable Primary Care Provider [...]
== END 2024-09-07 15:39 | disposition home or self-care (01) ==
LOC: HO.MAMMO 15:38
PROVIDERS: PCP Nurse Practitioner Family; Visit Provider Nurse Practitioner Family
DX: Z12.31 Encounter for screening mammogram for malignant neoplasm of breast (principal)
CPT/HCPCS: 77063; 77067

== ENCOUNTER → 2024-09-07 15:45 | Outpatient (BNV) | payer OTHER, SELFPAY | PROVIDERS: PCP Nurse Practitioner Family; Visit Provider Internal Medicine | DX: Z12.31 Encounter for screening mammogram for malignant neoplasm of breast (principal) | CPT/HCPCS: 77063; 77067 ==

== ENCOUNTER 2024-09-23 15:44 | Outpatient (AMB) | payer OTHER, SELFPAY ==
--- NOTE | 2024-09-23 15:48 | MHC.OFFVIS ---
Vital Signs 09/23/24 15:54 Height 5 ft 5 in Weight 236 lb BMI 39.3 BP 120/80 Blood Pressure Location Lt brachial Position Sitting Pulse 94 Pulse Source Pulse Oximeter Pulse Oximetry (%) 97 Oxygen Delivery Method Room Air Intake Visit Reasons: colo screen and gerd Intake Note: Patient new consult for pre Colonoscopy screening. Patient cc: Pt wishes to discuss possibly having EGD as well as colo. Pt would also like to discuss difficulties with obtaining sucralfate from her pharmacy. Pt was not given any reason as to why. Configuration Developer Required: No Accompanied by: Self / Same As Patient Allergies bee pollen (BEE STINGS) Allergy (Intermediate, Verified 09/23/24 15:48) SWELLING capsaicin (CAPSAICIN) Allergy (Intermediate, Verified 09/23/24 15:48) BAD RED RASH, hives hydromorphone (From DILAUDID) Adverse Reaction (Intermediate, Verified 09/23/24 15:48) NAUSEA & VOMITING HPI HPI colo screen and gerd: Details: Patient is a 43-year-old female with PMH of obesity, RENO, anxiety, depression, vitamin deficiency, gastric bypass surgery (2017), gastric ulcer (2018), POTS and GERD. Referred by PCP for pre colonoscopy screening and further evaluation of GERD. Since her gastric ulcer in 2018 she has ongoing epigastric pain without heartburn or regurgitation. She has been taking pantoprazole 40 mg daily since June, which has been helping her symptoms. She was prescribed sucralfate by her primary care provider but has been unable to obtain it due to possible insurance issues. She denies dysphagia, regurgitation, constipation, diarrhea, or blood in stools. She reports recent 10-pound weight loss attributed to increased water intake and cessation of soda consumption. She has chronic anemia and takes iron supplements since June. She describes heavy menstrual cycles. Her POTS symptoms are well-controlled and she has been taken off medication for this condition. Social hx: -Former smoker (quit 10+ years ago) - Alcohol rarely - Works in [employer]; local to [employer] 30 years - family hx as below -denies personal hx of CA -denies significant cardiopulmonary history -tolerated anesthesia in the past without difficulty. FOR[facility] Medical History (Updated 09/23/24 @ 22:56 by Zulema Ramsey CNP) Colon cancer screening Adjustment reaction with mixed disturbance of emotions and conduct Sacroiliac joint pain Annual physical exam (~06/2024) Back pain Anemia GERD (gastroesophageal reflux disease) Kidney stones Fatty liver Anxiety RENO on CPAP History of tachycardia Hx of hypotension Gastric ulcer Instability of sacroiliac joint Sacroiliitis Surgical History (Updated 09/23/24 @ 15:57 by ELIEZER Roy) Hx of colonoscopy History of surgery History of laparoscopic appendectomy History of cholecystectomy Status post laser lithotripsy of ureteral calculus Gastric bypass status for obesity Family History Father Diabetes Mother Throat cancer HTN (hypertension) Maternal Grandmother Ovarian cancer Maternal Grandfather Prostate cancer Social History Household Members: Other Household Members Other:: Stepfather Housing: House Do you presently have visiting nurse or other home services: No Alcohol intake: current Alcohol intake frequency: does not drink Comment: Rarely Patient Tobacco Use Status: Former Tobacco user Tobacco use type: Cigarette Years Smoked: quit 19 years ago e-Cigarette/Vaping Use: Never Used Second Hand Smoke Exposure: No Substance Use Type: Marijuana service: No Current occupational status: employed 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/hazards: No Sexual orientation: Straight/Heterosexual Cognitive needs: No Hearing needs: No Vision needs: Yes Review of Systems Const Reports as per HPI ENT Reports as per HPI Card Reports as per HPI Resp Reports as per HPI GI Reports as per HPI Reports as per HPI Physical Exam Vital Signs: Last Vital Signs Pulse 94 09/23/24 15:54 BP 120/80 09/23/24 15:54 Pulse Ox 97 09/23/24 15:54 Oxygen Delivery Method Room Air 09/23/24 15:54 BMI result Body Mass Index 39.3 Const General: healthy appearing, no acute distress and well developed Nutritional Appearance: well nourished Orientation/consciousness: patient oriented x3 HEENT Head: Yes normal to inspection, Yes normocephalic and Yes atraumatic Face and sinus: Yes normal facial exam Neck Neck: Yes normal visual inspection Resp Effort & Inspection: normal respiratory effort, able to speak in complete sentences, no tracheal deviation and symmetric chest movement Auscultation: clear to auscultation bilaterally Cardio Jugular venous distension: no JVD Rate: regular rate Rhythm: regular rhythm Heart sounds: S1 normal heart sound present, S2 normal heart sound present, no gallops and no murmurs GI Inspection: Yes normal to inspection, No distended, Yes obesity and Yes striae Palpation (GI): Soft to palpation, not firm, nontender and No hepatosplenomegaly present Auscultation: normal bowel sounds Neuro General: patient oriented x3 Gait exam (Neuro): Normal gait present Psych Appearance: grossly normal Mental Status: mental status grossly normal Speech and movement: Normal speech and movement present Affect: normal affect Attitude: cooperative Thought process: Normal thought process present Thought content: Normal thought content present Insight: Good insight present (Psych) Judgement: Good judgement present (Psych) Assessment & Plan Assessment & Plan (1) GERD (gastroesophageal reflux disease): Code(s): K21.9 - Gastro-esophageal reflux disease without esophagitis Category: Medical Qualifiers: Esophagitis presence: without esophagitis Qualified Code(s): K21.9 - Gastro-esophageal reflux disease without esophagitis Plan: Ongoing epigastric pain since gastric ulcer in 2019, following gastric bypass surgery in 2018. - Continue pantoprazole 40 mg daily in the morning without food. - Add sucralfate on empty stomach, 2 hours apart from other oral medications, after dinner before bedtime. - Lifestyle modifications: avoid known triggers, stay hydrated, consider looser-fitting clothing to reduce abdominal constriction. - Perform upper endoscopy in conjunction with scheduled colonoscopy. (2) Colon cancer screening: Code(s): Z12.11 - Encounter for screening for malignant neoplasm of colon Category: Medical Plan: Approaching 44 years old, family history of colon cancer in ? maternal grandfather and cousin. - Perform screening colonoscopy. Medications: -prescriptions for laxative tablets and MiraLax sent to pharmacy; instructions for Gatorade purchase and clear liquid diet given. Patient educated on scheduling process, procedure preparation, including avoiding certain foods and ensuring clear liquid intake Advised on necessity for ride post-procedure due to sedation. (3) Iron deficiency anemia: Code(s): D50.9 - Iron deficiency anemia, unspecified Category: Medical Qualifiers: Iron deficiency anemia type: other iron deficiency Qualified Code(s): D50.8 - Other iron deficiency anemias Plan: Chronic anemia with low iron levels, last iron level 8 in 2023. - Continue current iron supplementation. - Laboratory tests on or after October 09: complete blood count, iron studies, comprehensive metabolic panel. - Fasting at least 8 hours before blood draw. - Colonoscopy to evaluate for potential gastrointestinal causes of anemia. Plan Follow-up after endoscopy or sooner as needed Time: I spent a total of 35 minutes on the date of encounter which includes: Preparing to see the patient (reviewed previous documentation, test results and medical history) Performing a medically appropriate exam and/or evaluation Ordering medications, tests, and procedures Documenting clinical information in the health record Orders: Orders Complete Blood Count Auto Diff Today D50.8 - Other iron deficiency anemias IRON PROFILE Today D50.8 - Other iron deficiency anemias Comprehensive [place]. Panel Fast Today D50.8 - Other iron deficiency anemias Medications: New polyethylene glycol 3350 (Miralax) per colonoscopy prep instructions 238 grams PO ONCE 238 grams 0RF bisacodyl Take four tablets once for 1 day per colonoscopy instructions 5 mg PO ONCE 4 tabs 0RF 1 day Refilled sucralfate (Carafate) 10 mL PO BID 1,800 mL 2RF s/p gastric bypass Coding Level of Care Code New Pt New Pt Level 3 (36445) Patient Type New Diagnoses Gastroesophageal reflux disease without esophagitis K21.9 Esophagitis presence: without esophagitis Colon cancer screening Z12.11 Other iron deficiency anemia D50.8 Iron deficiency anemia type: other iron deficiency
--- OUTSIDE RECORDS SUMMARY | 2024-09-23 15:48 | XMS_ITS | Clinical Summary ---
Author Organization [facility] it Address [address] [place] [address] Care Team Providers Care Depilatory Painter Name Role Phone Unavailable Primary Care Provider [...]
[2024-09-23 15:54] VITALS: BP 120/80; PULSE 94; O2SAT 97; BMI 39.3
== END 2024-09-23 16:24 | disposition home or self-care (01) ==
LOC: HO.HGI 15:45
PROVIDERS: PCP Nurse Practitioner Family; Visit Provider Nurse Practitioner Family
DX: K21.9 Gastro-esophageal reflux disease without esophagitis (principal); D50.8 Other iron deficiency anemias
CPT/HCPCS: 99203

== ENCOUNTER → 2024-09-28 14:48 | Outpatient (REF) | payer OTHER, SELFPAY ==
--- OUTSIDE RECORDS SUMMARY | 2024-09-28 15:20 | XMS_ITS | Clinical Summary ---
Author Organization [facility] it Address [address] [place] [address] Care Team Providers Care Heat Welder Plastics Name Role Phone Unavailable Primary Care Provider [...] (2023-2 5 season) 2023 Influenza Vaccine (#1) 2024 HIB Vaccines Aged Out No longer [...] 5 Years) and At-Risk Patients (6 to 49 Years) Aged Out No longer eligible b ased on patient's age to complete this topic RSV Immunization Patients Un tanika 20 months Aged Out No longer eligible b ased on patient's age to complete this topic Varicella Vaccines Aged Out No longer eligible based on patient's age to complete this topic
== END ==
LOC: HO.SL 14:48
PROVIDERS: PCP Nurse Practitioner Family; Visit Provider Nurse Practitioner Family
DX: R06.83 Snoring (principal); G47.33 Obstructive sleep apnea (adult) (pediatric)
CPT/HCPCS: 95806

== ENCOUNTER → 2024-09-28 15:00 | Outpatient (BNV) | payer OTHER, SELFPAY | PROVIDERS: PCP Nurse Practitioner Family; Visit Provider Internal Medicine | DX: R06.83 Snoring (principal) | CPT/HCPCS: 95806 ==

== ENCOUNTER 2024-10-05 12:25 | Outpatient (AMB) | payer OTHER, SELFPAY ==
--- NOTE | 2024-10-05 12:28 | A.OFFPC_ITS ---
Vital Signs 3 10/05/24 12:32 Height 5 ft 5 in Weight 235 lb 8 oz BMI 39.2 BP 110/70 Blood Pressure Location Lt brachial Position Sitting Respiration 12 Pulse 89 Pulse Source Pulse Oximeter Temp 96.9 F Temp Source Oral Pulse Oximetry (%) 100 Oxygen Delivery Method Room Air Intake Visit Reasons: 6 weeks 30 min fu sleep sdy results/ mirtaz start Intake Note: Follow up to review sleep study and patient also has questions on her medication Health Assessment And Treatment Teacher Required: No Allergies bee pollen (BEE STINGS) Allergy (Intermediate, Verified 10/05/24 12:39) SWELLING capsaicin (CAPSAICIN) Allergy (Intermediate, Verified 10/05/24 12:39) BAD RED RASH, hives hydromorphone (From DILAUDID) Adverse Reaction (Intermediate, Verified 10/05/24 12:39) NAUSEA & VOMITING Medication List - Last Reconciled 10/05/24 by Shanell Olson, MANAGER SPEECH- bisacodyl 5 mg PO ONCE 1 day ferrous fumarate 324 mg PO BID mecobalamin (vitamin B12) 1,000 mcg PO DAILY mirtazapine 7.5 mg PO BEDTIME pantoprazole (Protonix) 40 mg PO DAILY polyethylene glycol 3350 (Miralax) 238 grams PO ONCE sucralfate (Carafate) 10 mL PO BID Tobacco use date assessed: 10/05/24 Dental Screening Dental Screen Date: 10/05/24 Did you have a dental visit in the last 12 months?: Yes Did you have a dental problem in the last 6 months where you did not have access to dental care?: No Was dental information given to patient?: Patient has dentist HPI HPI Comments 2 History of Present Illness0 Details 43-year-old female with vitamin-D defici ency, MDD, generalized anxiety disorder, iron deficiency anemia, insomnia, chronic low back pain, fatty liver, GERD, kidney stones, sleep apnea on CPAP, POTs, suicide attempt via oxycodone and flexeril overdose 08/16/23, inappropriate use of narcotics (taking terminally ill Mother's liquid oxycodone), obesity Surgical history Gastric bypass, cholecystectomy, appendectomy, ESWL Health maintenance Mammogram 08/2024 WNL Colon to be done at [facility] [place] [place] Pap smear DUE 09/2024 Sleep study negative Specialists Cardiology visits twice per year, last 07/2024 [employer] 07/2024 did not schedule [employer], referral closed. GI 09/2024 consult note reviewed, plan for EGD and colon History of Present Illness - The patient is a 43-year-old female pr esenting with follow-up on mood and sleep issues. - Persistent insomnia despite mirtazapin e 15mg at bedtime; frequent nighttime awakenings noted. - Mirtazapine prescribed for mood stabil ization, with stable mood reported. - Nondiagnostic sleep study due to insuf ficient sleep duration during testing. - Pharmacy issues noted with Carafate pr escription, active w/ administrative services specialist, advised her to f/u with them directly . - Ongoing treatment for Iron deficiency anemia and GERD. - C/o L shoulder pain, appt w/ Physiatry 10/2024 Review of Systems - Constitutional: Denies weight loss or fatigue. - Eyes: Reports paleness below eyes. - Respiratory: Denies shortness of breat h or cough. - Cardiovascular: Denies chest pain or i rregular heartbeat. - Gastrointestinal: Reports no change in bowel movements; endorses GERD symptoms. - Musculoskeletal: Reports left leg weak ness; denies swelling. - Neurological: Reports frequent night a wakenings. - Psychological: Denies worsening mood s ymptoms. Physical Exam General: Well developed, well nourished, in no acute distress. Appears stated age. Head: Normocephalic, atraumatic. Eyes: Pupils are equal, round and reactive to light and accommodation. Conjunctivae are clear. Vision grossly normal. + strabismus Lungs: Clear to auscultation bilaterally. No rales, rhonchi or wheeze noted. Good air flow in all pettit. Heart: Regular rate and rhythm. No murmurs, click, rubs or gallops are noted. Pulses: Peripheral pulses are equal and palpable bilaterally. Extremities: No clubbing, cyanosis nor edema is noted. Patient wears stockings for support. Neurologic: Gait and station normal. Cranial Nerves 2-12 intact. Motor strength grossly symmetrical and intact. No sensory loss. Balance normal. Reports dizziness with position changes due to POTS. MSK: normal L shoulder Skin: No rashes, ulcers, or lesions noted. Turgor is good. Skin color is good. Hair and nails are without abnormalities. Psych: Normal eye contact, affect and mood appropriate, and normal interactions. Patient is alert and appropriate to context. Discussion Notes I discussed with the patient her current medication regimen, highlighting mirtazapine?s role in mood stabilization and addressing insomnia. Considering the ineffective sleep improvement, I proposed increasing the mirtazapine dosage from 15 mg to 30 mg at bedtime, which the patient agreed to. We reviewed her nondiagnostic sleep study, and I recommended deferring any sleep apnea reevaluation until her sleep quality improves. I introduced GeneSight testing to evaluate her medication metabolism, which could guide future pharmacotherapy decisions. The risks, benefits, and lack of genetic foreign exchange services manager time of this testing were outlined. Instructions were given on how to proceed with [facility] On[employer]ineight if she chooses to participate. Pt sent home w/ kit, electronic order placed. We also discussed ongoing GI symptoms management, existing appointments for endoscopy, and maintaining her anemia and GERD treatments. Follow-up was recommended within eight weeks to assess the effectiveness of the adjusted mirtazapine dose. Assessment and Plan 1. Major Depressive Disorder/Insomnia - Increase mirtazapine to 30 mg bedtime. - Monitor mood and sleep. - Consider GeneSight for medication guid ance. 2. Wear posture support to help L should er; fu with physiatry 3. Iron deficiency anemia - Continue ferrous fumarate. 4. Gastroesophageal Reflux Disease (GERD ) - Continue Protonix and Carafate. FU with GI Colon and EGD scheduled. 5. Suspected Obstructive Sleep Apnea - Repeat study deferred; focus on improv ing sleep quality. Patient Instructions - Increase mirtazapine to 30 mg at bedti me. - Follow up GI specialist for further te sts. - Continue iron and GERD medications. - Consider GeneSight testing, follow ins tructions if interested. - Notify about any worsening symptoms or new concerns. - FU in 8 weeks to review Genesight test ing (if completed) and increase in remeron. Consent Patient was informed and verbally consented to the use of an ambient scribe for clinic note documentation during this visit. Total time spent caring for the patient today was 40 minutes. This includes time spent before the visit reviewing the chart, time spent during the visit, and time spent after the visit on documentation, reviewing laboratory results, diagnostic imaging, medications, performing a medically necessary evaluation, counseling on diagnoses, care coordination, ordering appropriate tests, ordering appropriate medications, review of tests performed by other providers, reporting test results with the patient, communication with other healthcare providers. GENESIGHT TEST ORDERED TODAY Patient Medical Record Information MARTHA CRISOSTOMO : 1980 Clinician: Shanell Olson Confirmed: 10/05/2024 5:00:15 PM ICD-10 Code(s) F33.2 - Major depressive disorder, recurrent severe without psychotic features F41.1 - Generalized anxiety disorder Failed Medications Prozac? ( fluoxetine ), Desyrel? ( trazodone ), Remeron? ( mirtazapine ) Treatment Plan I'm considering augmenting therapy with a new medication or starting/switching to a new medication List all the GeneSight medications that you are considering for augmentation or starting/switching to Cymbalta? ( duloxetine ), Depakote? ( valproic aciddivalproex ), Lamictal? ( lamotrigine ) I'm considering a dosage adjustment to currently prescribed medication(s) List all the GeneSight medications that you are considering for dosage adjustment Remeron? ( mirtazapine ) Have you considered non-genetic factors to make a preliminary drug selection, including a personalized medication decision based on the patient's diagnosis, the patient's other medical conditions, other medications the patient is taking, professional judgment, clinical science and basic science pertinent to the drug (e.g. mechanism of action, side effects), the patient's past medical history, and when pertinent, family history and the patient's preferences and values? Note: Many insurance providers require clinicians to consider non-genetic factors when ordering this test. Yes ICD-10 Code(s) F33.2 - Major depressive disorder, recurrent severe without psychotic features F41.1 - Generalized anxiety disorder [facility] Medical History (Updated 10/05/24 @ 13:10 by Shanlel Olson, [facility]) Adjustment reaction with mixed disturbance of emotions and conduct Anemia Annual physical exam (~06/2024) Anxiety Back pain Colon cancer screening Fatty liver Gastric ulcer GERD (gastroesophageal reflux disease) History of tachycardia Hx of hypotension Instability of sacroiliac joint Kidney stones RENO on CPAP Sacroiliac joint pain Sacroiliitis Surgical History (Updated 09/23/24 @ 15:57 by Kurtis Watson [facility]) Gastric bypass status for obesity History of cholecystectomy History of laparoscopic appendectomy History of surgery Hx of colonoscopy Status post laser lithotripsy of ureteral calculus Family History Father Diabetes Mother Throat cancer HTN (hypertension) Maternal Grandmother Ovarian cancer Maternal Grandfather Prostate cancer Social History Household Members: Other Household Members Other:: Stepfather Housing: House Do you presently have visiting nurse or other home services: No Alcohol intake: current Alcohol intake frequency: does not drink Comment: Rarely Patient Tobacco Use Status: Former Tobacco user Tobacco use type: Cigarette Years Smoked: quit 19 years ago e-Cigarette/Vaping Use: Never Used Second Hand Smoke Exposure: No Substance Use Type: Marijuana service: No Current occupational status: employed 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/hazards: No Sexual orientation: Straight/Heterosexual Cognitive needs: No Hearing needs: No Vision needs: Yes Questionnaire Thrive Questionnaire Date Thrive assessed: 07/04/24 I am a: Patient What is your living situation today?: I have a steady place to live Within the past 12 months, did the food you bought not last and you didn't have the money to get more?: Never true Within the past 12 months, did you worry whether your food would run out before you got money to buy more?: Never true Do you have trouble paying for medicines?: No Do you have trouble getting transportation to medical appointments?: Yes Do you have trouble paying your heating and electricity bill?: No Do you have trouble taking care of your child, family member or friend?: No Do you have trouble with day-to-day activities such as bathing, preparing meals, shopping, managing finances, etc.?: No Are you currently unemployed and looking for a job?: No Are you interested in more education?: No Please select the resources that you would like help with: None Currently or been in a relationship where the following occur: No concerns reported THRIVE Score: 1 MONIK-7 AMB Questionnaire MONIK-7 Date MONIK - 7 assessed: 07/10/24 Source: Developed by Drs. Chadwick Sheth, Kami Mishra, Delfino Winchester and colleagues, with an educational pedro luis from [employer]. Physical exam (Primary Care) Vital Signs: Last Vital Signs Temp 96.9 F 10/05/24 12:32 Pulse 89 10/05/24 12:32 Resp 12 10/05/24 12:32 BP 110/70 10/05/24 12:32 Pulse Ox 100 10/05/24 12:32 Oxygen Delivery Method Room Air 10/05/24 12:32 BMI result Body Mass Index 39.2 Tobacco/Smoking Status: Tobacco use Status Tobacco use date assessed 10/05/24 10/05/24 12:31 Patient Tobacco Use Status Former Tobacco user 10/05/24 12:31 Tobacco use type Cigarette 10/05/24 12:31 e-Cigarette/Vaping Use Never Used 10/05/24 12:31 Thrive Assessment: Date of Thrive Assessment Date Thrive assessed 07/04/24 10/05/24 12:31 Currently or been in a relationship where the following occur: No concerns reported Results Reviewed Results Reviewed: Coding Level of Care Code Est Pt Level 5 (05679) Complex EM visit Add On G2211 Diagnoses Anxiety F41.9 Moderate episode of recurrent major depressive disorder F33.1 Major depression episode severity: moderate History of suicide attempt Z91.51 POTS (postural orthostatic tachycardia syndrome) I49.8 Other iron deficiency anemia D50.8 Iron deficiency anemia type: other iron deficiency Chronic pain of both shoulders M25.511; M25.512; G89.29 Chronicity: chronic RENO (obstructive sleep apnea) G47.33 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 Assessment & Plan Assessment & Plan (1) Anxiety: Code(s): F41.9 - Anxiety disorder, unspecified Category: Medical (2) MDD (major depressive disorder), recurrent episode: Code(s): F33.9 - Major depressive disorder, recurrent, unspecified Category: Medical Qualifiers: Major depression episode severity: moderate Qualified Code(s): F33.1 - Major depressive disorder, recurrent, moderate (3) History of suicide attempt: Code(s): Z91.51 - Personal history of suicidal behavior Category: Medical (4) POTS (postural orthostatic tachycardia syndrome): Comment: On metoprolol in the past; follow-up with Cardiology Code(s): I49.8 - Other specified cardiac arrhythmias Category: Medical (5) Iron deficiency anemia: Code(s): D50.9 - Iron deficiency anemia, unspecified Category: Medical Qualifiers: Iron deficiency anemia type: other iron deficiency Qualified Code(s): D 50.8 - Other iron deficiency anemias (6) Bilateral shoulder pain: Code(s): M25.511 - Pain in right shoulder; M25.512 - Pain in left shoulder Category: Medical Qualifiers: Chronicity: chronic Qualified Code(s): M25.511 - Pain in right shoulder; M25.512 - Pain in left shoulder; G89.29 - Other chronic pain (7) RENO (obstructive sleep apnea): Comment: repeat sleep study 09/2024 negative, although she did not sleep for much of this; therefore considered non-diagnostic Code(s): G47.33 - Obstructive sleep apnea (adult) (pediatric) Category: Medical (8) Insomnia due to mental condition: Code(s): F51.05 - Insomnia due to other mental disorder Category: Medical Plan . Medications: New 2 mirtazapine 30 mg PO BEDTIME 30 tabs 2RF Discontinued 2 mirtazapine take 1 tab at bedtime x 2 weeks then increase to 2 tabs at bedtime daily Discontinued Reason: Patient Completed Course 7.5 mg PO BEDTIME 45 tabs 1RF
[2024-10-05 12:32] VITALS: BP 110/70; PULSE 89; RESP 12; TEMP 36.1; O2SAT 100; BMI 39.2
--- OUTSIDE RECORDS SUMMARY | 2024-10-05 13:20 | XMS_ITS | Clinical Summary ---
Author Organization [facility] it Address [address] [place] [address] Care Team Providers Care Marketing Database Analyst Name Role Phone Unavailable Primary Care Provider [...]
== END 2024-10-05 12:58 | disposition home or self-care (01) ==
LOC: HO.HMCFM 12:26
PROVIDERS: PCP Nurse Practitioner Family; Visit Provider Nurse Practitioner Family
DX: I49.8 Other specified cardiac arrhythmias (principal); F41.9 Anxiety disorder, unspecified; F33.1 Major depressive disorder, recurrent, moderate; Z91.51 Personal history of suicidal behavior; D50.8 Other iron deficiency anemias; M25.511 Pain in right shoulder; M25.512 Pain in left shoulder; G89.29 Other chronic pain; G47.33 Obstructive sleep apnea (adult) (pediatric); F51.05 Insomnia due to other mental disorder

== ENCOUNTER 2024-10-30 11:25 | Outpatient (AMB) | payer OTHER, SELFPAY ==
--- OUTSIDE RECORDS SUMMARY | 2024-10-30 11:28 | XMS_ITS | Clinical Summary ---
Author Organization [facility] ity Address [address] [place] [address] Care Team Providers Care Telegraph Service Clerk Name Role Phone Unavailable Primary Care Provider [...] 10/23/2000 COVID-19 Vaccine (2023-2 5 season) 2023 Depression Screening 03/25/2024 Influenza Vaccine (#1) 2024 HIB Vaccines Aged [...]
--- NOTE | 2024-10-30 11:34 | MHC.OFFVIS ---
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 Patient was referred by [facility] [place] Family Medicine, 07/10/24. Patient had a fall back in 11/27/2021 which caused her bilateral shoulder pain to flair up. States she did not seek medical advice at the time. At today's visit patient states she is having pain, stiffness and limited ROM. She has to run hot water in the shower and helps to loosen up shoulder movement. She also has neck pain and at time she experiences radiating sharp pain down her left side of her neck into her shoulder. Denies numbness or tingling in hands. No EMG done. MRI done approx 7-10 yr ago at [facility] [place]. Allergies bee pollen (BEE STINGS) Allergy (Intermediate, Verified 10/05/24 12:39) SWELLING capsaicin (CAPSAICIN) Allergy (Intermediate, Verified 10/05/24 12:39) BAD RED RASH, hives hydromorphone (From DILAUDID) Adverse Reaction (Intermediate, Verified 10/05/24 12:39) NAUSEA & VOMITING Medication List - Last Reconciled 10/30/24 by Alysa Guerra MD bisacodyl 5 mg PO ONCE 1 day ferrous fumarate 324 mg PO BID mecobalamin (vitamin B12) 1,000 mcg PO DAILY mirtazapine 30 mg PO BEDTIME pantoprazole (Protonix) 40 mg PO DAILY polyethylene glycol 3350 (Miralax) 238 grams PO ONCE sucralfate (Carafate) 10 mL PO BID HPI Comments Details: Chronic bilateral shoulder pain, from fall 2021. Left xray back then normal. No MRI. Still full ROM but with pain. But feel stiffness in the morning. Denies other joint stiffness. Left sided lateral neck pain. Comes with the shoulder pain. No numbness. No weakness. No recent PT. [facility] Medical History (Updated 10/30/24 @ 12:01 by Alysa Guerra MD) Colon cancer screening Adjustment reaction with mixed disturbance of emotions and conduct Sacroiliac joint pain Annual physical exam (~06/2024) Back pain Anemia GERD (gastroesophageal reflux disease) Kidney stones Fatty liver Anxiety RENO on CPAP History of tachycardia Hx of hypotension Gastric ulcer Instability of sacroiliac joint Sacroiliitis Surgical History Hx of colonoscopy History of surgery History of laparoscopic appendectomy History of cholecystectomy Status post laser lithotripsy of ureteral calculus Gastric bypass status for obesity Family History Father Diabetes Mother Throat cancer HTN (hypertension) Maternal Grandmother Ovarian cancer Maternal Grandfather Prostate cancer Social History (Updated 10/30/24 @ 11:41 by ELIEZER Lang) Household Members: Other Household Members Other:: Stepfather Housing: House Do you presently have visiting nurse or other home services: No Alcohol intake: current Alcohol intake frequency: does not drink Comment: Rarely Patient Tobacco Use Status: Former Tobacco user Tobacco use type: Cigarette Years Smoked: quit 19 years ago e-Cigarette/Vaping Use: Never Used Second Hand Smoke Exposure: No Substance Use Type: Marijuana service: No Current occupational status: employed 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 Patient was appropriately conversant and oriented. Good historian. MSK: Inspection reveals appropriate head and neck positioning. Tenderness over upper trapezius, left worse than right. No tenderness over spinous processes. Cervical ROM was full. Spurling's sign negative. Bilateral shoulder, elbow and wrist ROM WNL. No ligamentous laxity or crepitance. No increased effusion. Bilateral Claros sign negative. Bilateral empty can sign negative. Strength is 5/5 in all muscle groups tested. No increased tone noted. Neurological: Neurologic examination of the upper and lower extremities was nonfocal with intact sensation, muscle stretch reflexes and without focal motor deficits . Diaz?s negative bilaterally. Babinski was down going bilaterally. Clonus was negative. Gait is non-antalgic without loss of balance. Vital Signs: BMI result Body Mass Index 39.1 Results Reviewed Results Reviewed: Ordering Physician: Raul Orellana MD Date of Service: 11/27/21 Procedure(s): XR shoulder LT min 2V Accession Number(s): [id number] cc: Raul Orellana MD~ EXAMINATION: XR SHOULDER, LEFT CLINICAL INFORMATION: Left shoulder pain status post fall. COMPARISON: None. TECHNIQUE: AP external rotation, Grashey, scapular Y, and axillary views of the left shoulder. FINDINGS: The bones and soft tissues are normal. No fracture. Glenohumeral and acromioclavicular alignment is anatomic with normal joint space. No abnormal soft tissue calcifications. XR/XR shoulder LT min 2V IMPRESSION: Unremarkable left shoulder. I reviewed records from the following: PCP Assessment & Plan Assessment & Plan (1) Bilateral shoulder pain: Code(s): M25.511 - Pain in right shoulder; M25.512 - Pain in left shoulder Category: Medical Qualifiers: Chronicity: chronic Qualified Code(s): M25.511 - Pain in right shoulder; M25.512 - Pain in left shoulder; G89.29 - Other chronic pain (2) Myofascial pain: Code(s): M79.18 - Myalgia, other site Category: Medical Plan We both agreed that her symptoms most likely coming from upper trapezius being tight. However she has concern of having polymyalgia rheumatica because her mother had it. We will check for ESR level. We will get shoulder and cervical x-rays done today. Referring her to physical therapy to work on upper trapezius. Assessment and plan discussed with patient, and patient was agreeable. All questions were answered thoroughly. Follow up 2 months. Alysa Guerra MD, WONG Board Certified, [place] [employer] and Rehabilitation (ABPMR) Board Certified, [place] Board [employer] Electrodiagnostic Medicine (ABEM) Orders: Orders PT Evaluation and Treatment Today G89.29 - Other chronic pain, M25.511 - Pain in right shoulder, M25.512 - Pain in left shoulder, M79.18 - Myalgia, other site Erythrocyte Sedimentation Rate Today G89.29 - Other chronic pain, M25.511 - Pain in right shoulder, M25.512 - Pain in left shoulder, M79.18 - Myalgia, other site, M79.601 - Pain in right arm, M79.602 - Pain in left arm GEOFF Reflex Titer and Pattern Today G89.29 - Other chronic pain, M25.511 - Pain in right shoulder, M25.512 - Pain in left shoulder, M79.18 - Myalgia, other site, M79.601 - Pain in right arm, M79.602 - Pain in left arm Rheumatoid Factor Today G89.29 - Other chronic pain, M25.511 - Pain in right shoulder, M25.512 - Pain in left shoulder, M79.18 - Myalgia, other site, M79.601 - Pain in right arm, M79.602 - Pain in left arm XR shoulder LT min 2V Today G89.29 - Other chronic pain, M25.511 - Pain in right shoulder, M25.512 - Pain in left shoulder XR shoulder RT min 2V Today G89.29 - Other chronic pain, M25.511 - Pain in right shoulder, M25.512 - Pain in left shoulder XR cervical spine 3V Today G89.29 - Other chronic pain, M25.511 - Pain in right shoulder, M25.512 - Pain in left shoulder, M54.2 - Cervicalgia Coding Level of Care Code New Pt Level 4 (76715) Diagnoses Chronic pain of both shoulders M25.511; M25.512; G89.29 Chronicity: chronic Myofascial pain M79.18
[2024-10-30 11:35] VITALS: BMI 39.1
== END 2024-10-30 12:42 | disposition home or self-care (01) ==
LOC: HO.HOS 11:26
PROVIDERS: PCP Nurse Practitioner Family; Visit Provider Physical Medicine & Rehabilitation
DX: M25.511 Pain in right shoulder (principal); M25.512 Pain in left shoulder; G89.29 Other chronic pain; M79.18 Myalgia, other site
CPT/HCPCS: 99204

== ENCOUNTER 2024-10-30 11:25 | Outpatient (REF) | payer OTHER, SELFPAY ==
--- NOTE | ~2024-10-30 | XR_ITS ---
CLINICAL HISTORY: M25.511 - Pain in right shoulder 2 view right shoulder Comparison: None provided Findings: No fractures or dislocations. Periarticular osteophyte formation at the acromioclavicular and glenohumeral joints, indicating osteoarthritis. No erosions. No radiopaque foreign body. IMPRESSION: 1. No acute findings This document has been electronically signed by: Jose Jensen MD on 10/30/2024 16:44:27
--- NOTE | ~2024-10-30 | XR_ITS ---
CLINICAL HISTORY: M54.2 - Cervicalgia 4 views cervical spine Comparison: None provided Findings: Normal vertebral body alignment. No acute fractures or dislocation. Periarticular osteophyte formation at the acromioclavicular and glenohumeral joints, indicating osteoarthritis.. Prevertebral soft tissues within normal limits. IMPRESSION: No acute findings. This document has been electronically signed by: Jose Jensen MD on 10/30/2024 16:39:48
--- NOTE | ~2024-10-30 | XR_ITS ---
CLINICAL HISTORY: M25.512 - Pain in left shoulder 2 view left shoulder Comparison: 11/27/2021 Findings: No fractures or dislocations. Periarticular osteophyte formation at the acromioclavicular and glenohumeral joints, indicating osteoarthritis. No erosions. No radiopaque foreign body. IMPRESSION: 1. No acute findings This document has been electronically signed by: Jose Jensen MD on 10/30/2024 16:44:52
== END 2024-10-30 11:26 | disposition home or self-care (01) ==
LOC: HO.HOSX 11:25
PROVIDERS: PCP Nurse Practitioner Family; Visit Provider Physical Medicine & Rehabilitation
DX: M25.511 Pain in right shoulder (principal); M25.512 Pain in left shoulder; M54.2 Cervicalgia; G89.29 Other chronic pain; M79.18 Myalgia, other site; M79.601 Pain in right arm; M79.602 Pain in left arm
CPT/HCPCS: 72040; 73030

== ENCOUNTER → 2024-10-30 12:03 | Outpatient (BNV) | payer OTHER, SELFPAY | PROVIDERS: PCP Nurse Practitioner Family; Visit Provider Radiology Diagnostic Radiology | DX: M54.2 Cervicalgia (principal); M19.012 Primary osteoarthritis, left shoulder; M19.011 Primary osteoarthritis, right shoulder | CPT/HCPCS: 72040; 73030 ==

== ENCOUNTER 2024-10-31 07:25 | Outpatient (REF) | payer OTHER, SELFPAY ==
--- OUTSIDE RECORDS SUMMARY | 2024-10-31 07:28 | XMS_ITS | Clinical Summary ---
Author Organization [facility] ity Address [address] [place] [address] Care Team Providers Care Inspector And Mender Name Role Phone Unavailable Primary Care Provider [...]
[2024-10-31 07:51] LABS: MANUAL DIFF FLAG NO
[2024-10-31 08:18] LABS: Hematocrit 34.5 % (37.0-47.0); Hemoglobin 11.3 g/dl (12.0-16.0); Imm Gran Abs Auto 0.02 X10*3/uL (0.00-0.03); Imm Gran Pct Auto 0.4 % (0.0-0.4); Lymphocytes Absolute Auto 2.0 X10*3/uL (1.2-4.9); Mean Corpuscular HGB Conc 32.8 g/dl (31.0-35.0); Mean Corpuscular Hemoglobin 26.0 pg (27.0-33.0); Mean Corpuscular Volume 79.5 fL (80.0-98.0); NRBC Abs Auto 0.000 X10*3/uL (0.0-0.012); NRBC Pct Auto 0.0 /100WBC (0.0-0.2); Platelet Count 309 X10*3/uL (160-400); Red Blood Count 4.34 X10*6/uL (4.20-5.50); White Blood Count 5.2 X10*3/uL (4.8-10.8)
[2024-10-31 08:38] LABS: Alanine Aminotransferase 11 U/L (0-31); Albumin Level 3.9 g/dL (3.5-5.0); Alkaline Phosphatase 81 U/L (39-117); Anion Gap 11 (12-20); Aspartate Amino Transferase 19 U/L (5-31); Blood Urea Nitrogen 6 mg/dL (9-16); Calcium 8.7 mg/dL (8.4-10.2); Carbon Dioxide 21 mmol/L (22-29); Chloride 110 mmol/L (96-108); Estimated Glomerular Filt Rate > 60; Iron 41 mcg/dL (30-160); Percent Iron Saturation 13 % (15-50); Potassium 3.4 mmol/L (3.3-5.1); Sodium 139 mmol/L (135-145); Total Iron Binding Capacity 308 mcg/dL (228-428); Total Protein 6.9 g/dL (6.5-8.0); Unsaturated Iron Binding 267 ug/dL
[2024-11-05 21:58] LABS: Anti Nuclear Antibody Screen POSITIVE (NEGATIVE); Anti Nuclear Antibody Titer 1:80 titer
== END 2024-10-31 07:26 | disposition home or self-care (01) ==
LOC: HO.LAB 07:25
PROVIDERS: Absent Provider Nurse Practitioner Family; PCP Nurse Practitioner Family; Visit Provider Physical Medicine & Rehabilitation
DX: D50.8 Other iron deficiency anemias (principal); G89.29 Other chronic pain; M25.511 Pain in right shoulder; M25.512 Pain in left shoulder; M79.18 Myalgia, other site; M79.601 Pain in right arm; M79.602 Pain in left arm; Z01.84 Encounter for antibody response examination
CPT/HCPCS: 36415; 80053; 83540; 85025; 85652; 86038; 86039; 86431

== ENCOUNTER 2024-11-30 12:28 | Outpatient (AMB) | payer OTHER, SELFPAY ==
--- NOTE | 2024-11-30 12:31 | MHC.PC.OV ---
Vital Signs 11/30/24 12:36 Height 5 ft 5 in Weight 232 lb 2 oz BMI 38.6 BP 106/86 Blood Pressure Location Lt brachial Position Sitting Respiration 14 Pulse 88 Pulse Source Pulse Oximeter Temp 98.3 F Temp Source Oral Pulse Oximetry (%) 97 Oxygen Delivery Method Room Air Intake Visit Reasons: 8 weeks fu Mood/Genesight testing results 30 min Intake Note: Follow up Turpentiner Required: No Allergies bee pollen (BEE STINGS) Allergy (Intermediate, Verified 11/30/24 12:43) SWELLING capsaicin (CAPSAICIN) Allergy (Intermediate, Verified 11/30/24 12:43) BAD RED RASH, hives hydromorphone (From DILAUDID) Adverse Reaction (Intermediate, Verified 11/30/24 12:43) NAUSEA & VOMITING Medication List - Last Reconciled 11/30/24 by YENY Driscoll- bisacodyl 5 mg PO ONCE 1 day ferrous fumarate 324 mg PO BID mecobalamin (vitamin B12) 1,000 mcg PO DAILY mirtazapine 30 mg PO BEDTIME pantoprazole (Protonix) 40 mg PO DAILY polyethylene glycol 3350 (Miralax) 238 grams PO ONCE Tobacco use date assessed: 11/30/24 Dental Screening Dental Screen Date: 10/05/24 HPI HPI Comments History of Present Illness Details 43-year-old female with vitamin-D deficiency, MDD, generalized anxiety disorder, iron deficiency anemia, insomnia, chronic low back pain, fatty liver, GERD, kidney stones, sleep apnea on CPAP, POTs, suicide attempt via oxycodone and flexeril overdose 08/16/23, inappropriate use of narcotics (taking terminally ill Mother's liquid oxycodone), obesity Surgical history Gastric bypass, cholecystectomy, appendectomy, ESWL Health maintenance Mammogram 08/2024 WNL Colon to [place] [facility] Pap smear DUE 09/2024 Sleep study negative Specialists Cardiology visits twice per year, last 07/2024 VICTIM WITNESS ADMINISTRATOR 07/2024 did not schedule VICTIM WITNESS ADMINISTRATOR, referral closed. GI 09/2024 consult note reviewed, plan for EGD and colon History of Present Illness - The patient is a 44-year-old female presenting with a follow-up for insomnia and arthralgia. - Insomnia: Not Managed with mirtazapine 30mg; dosing recently increased. Persistent complaints of difficulty initiating and maintaining sleep. Wonders if related to shoulder pain. Did not complete GeneSight; not covered by insurance. Asked her to find out the cost for non-insurance and if doable, send me a message. For now i have cancelled the GeneSight order. - Arthralgia: Reports ongoing arm/shoulder pain, saw physiatry @ [facility], + GEOFF to referral to rheumatology. Appt at [facility] not until next year. Wonders about alternate - Family history indicative of Polymyalgia Rheumatica in the mother. - still waiting on colon/egd. Message sent to [facility] today. Review of Systems - Musculoskeletal: Reports arm pain. - Sleep: Reports difficulty falling and staying asleep. - Gastrointestinal: Reports past peptic ulcer disease. - Family History: Denies other significant family medical issues except mother's Polymyalgia Rheumatica. - Genitourinary: Denies nocturia or frequent urination. Physical Exam General: Well developed, well nourished, in no acute distress. Appears stated age. Head: Normocephalic, atraumatic. Eyes: Pupils are equal, round and reactive to light and accommodation. Conjunctivae are clear. Vision grossly normal. + strabismus Lungs: Clear to auscultation bilaterally. No rales, rhonchi or wheeze noted. Good air flow in all pettit. Heart: Regular rate and rhythm. No murmurs, click, rubs or gallops are noted. Pulses: Peripheral pulses are equal and palpable bilaterally. Extremities: No clubbing, cyanosis nor edema is noted. Patient wears stockings for support. Neurologic: Gait and station normal. Cranial Nerves 2-12 intact. Motor strength grossly symmetrical and intact. No sensory loss. Balance normal. Reports dizziness with position changes due to POTS. MSK: normal L shoulder Skin: No rashes, ulcers, or lesions noted. Turgor is good. Skin color is good. Hair and nails are without abnormalities. Psych: Normal eye contact, affect and mood appropriate, and normal interactions. Patient is alert and appropriate to context. Results - Labs: Positive GEOFF discussed. Discussion Notes I discussed the patient's primary concerns of insomnia and arm pain, leading to discussions about the referral to a side piece coverer. I acknowledged the difficulty with current rheumatology referrals and suggested options at [facility], weighing the benefits of family medical history accessibility. I recommended re-evaluating the use of mirtazapine for insomnia and proposed the consideration of Celecoxib for pain management due to its gastrointestinal safety profile. I advised a follow-up in six weeks to reassess treatment efficacy. Referrals and coordination with rheumatology were encouraged based on accessibility and patient preference. Patient was given time to ask questions. All questions were answered to their satisfaction. Assessment and Plan 1. Insomnia - Increase mirtazapine to 45 mg. - Monitor after adjustment. 2. Arthralgia - Rheumatology referral to [facility] for sooner appt; Try [facility], too. Then let me know. - Prescribe Celecoxib 100 mg twice daily. 3. Positive Antinuclear Antibody test - Rheumatology evaluation. 4. Peptic Ulcer Disease - Avoid NSAIDs and steroids. Message sent to [facility] [employer] to help schedule Patient Instructions - Take mirtazapine 45 mg every night. - Call the side piece coverer to schedule an appointment. - Take Celecoxib 100 mg twice daily as prescribed. - Report any side effects from medications or worsening symptoms. - Follow up in six weeks or as needed. Consent Patient was informed and verbally consented to the use of an ambient scribe for clinic note documentation during this visit. Total time spent caring for the patient today was 30 minutes. This includes time spent before the visit reviewing the chart, time spent during the visit, and time spent after the visit on documentation, reviewing laboratory results, diagnostic imaging, medications, performing a medically necessary evaluation, counseling on diagnoses, care coordination, ordering appropriate tests, ordering appropriate medications, review of tests performed by other providers, reporting test results with the patient, communication with other healthcare providers. [facility] Medical History (Updated 11/30/24 @ 12:49 by Shanell Olson, [facility]) Adjustment reaction with mixed disturbance of emotions and conduct Anemia Annual physical exam (~06/2024) Anxiety Back pain Colon cancer screening Fatty liver Gastric ulcer GERD (gastroesophageal reflux disease) History of tachycardia Hx of hypotension Instability of sacroiliac joint Kidney stones RENO on CPAP Sacroiliac joint pain Sacroiliitis Surgical History Hx of colonoscopy History of surgery History of laparoscopic appendectomy History of cholecystectomy Status post laser lithotripsy of ureteral calculus Gastric bypass status for obesity Family History Father Diabetes Mother Throat cancer HTN (hypertension) Maternal Grandmother Ovarian cancer Maternal Grandfather Prostate cancer Social History (Updated 11/30/24 @ 12:41 by Analisa Riddle CMA) Household Members: Other Household Members Other:: Stepfather Housing: House Do you presently have visiting nurse or other home services: No Alcohol intake: current Alcohol intake frequency: does not drink Comment: Rarely Patient Tobacco Use Status: Former Tobacco user Tobacco use type: Cigarette Years Smoked: quit 19 years ago e-Cigarette/Vaping Use: Never Used Second Hand Smoke Exposure: No Substance Use Type: Marijuana service: No Current occupational status: employed 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 Current occupational exposures/hazards: No Sexual orientation: Straight/Heterosexual Cognitive needs: No Hearing needs: No Vision needs: Yes Questionnaire Thrive Questionnaire Date Thrive assessed: 07/04/24 I am a: Patient What is your living situation today?: I have a steady place to live Within the past 12 months, did the food you bought not last and you didn't have the money to get more?: Never true Within the past 12 months, did you worry whether your food would run out before you got money to buy more?: Never true Do you have trouble paying for medicines?: No Do you have trouble getting transportation to medical appointments?: Yes Do you have trouble paying your heating and electricity bill?: No Do you have trouble taking care of your child, family member or friend?: No Do you have trouble with day-to-day activities such as bathing, preparing meals, shopping, managing finances, etc.?: No Are you currently unemployed and looking for a job?: No Are you interested in more education?: No Please select the resources that you would like help with: None Currently or been in a relationship where the following occur: No concerns reported THRIVE Score: 1 AUDIT C Alcohol Use Questionnaire (AUDIT-C) 1. How often do you have a drink containing alcohol?: Monthly or less 2. How many drinks containing alcohol do you have on a typical day when you are drinking?: 1 or 2 3. How often do you have six or more drinks on one occasion?: Never Total Score: 1 MONIK-7 AMB Questionnaire MONIK-7 Date MONIK - 7 assessed: 07/10/24 Source: Developed by Drs. Chadwick Sheth, Kami Mishra, Delfino Winchester and colleagues, with an educational pedro luis from [employer]. Physical exam (Primary Care) Vital Signs: Last Vital Signs Temp 98.3 F 11/30/24 12:36 Pulse 88 11/30/24 12:36 Resp 14 11/30/24 12:36 BP 106/86 11/30/24 12:36 Pulse Ox 97 11/30/24 12:36 Oxygen Delivery Method Room Air 11/30/24 12:36 BMI result Body Mass Index 38.6 Tobacco/Smoking Status: Tobacco use Status Tobacco use date assessed 11/30/24 11/30/24 12:35 Patient Tobacco Use Status Former Tobacco user 11/30/24 12:41 Tobacco use type Cigarette 11/30/24 12:41 e-Cigarette/Vaping Use Never Used 11/30/24 12:41 Thrive Assessment: Date of Thrive Assessment Date Thrive assessed 07/04/24 11/30/24 12:33 Currently or been in a relationship where the following occur: No concerns reported Coding Level of Care Code Est Pt Level 4 (61845) Complex EM visit Add On G2211 Diagnoses GEOFF positive R76.8 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 Orders: Referrals Rheumatology Referral R76.8 - Other specified abnormal immunological findings in serum Medications: New celecoxib (Celebrex) 100 mg PO BID 60 caps 2RF mirtazapine 45 mg PO BEDTIME 30 tabs 1RF
[2024-11-30 12:36] VITALS: BP 106/86; PULSE 88; RESP 14; TEMP 36.8; O2SAT 97; BMI 38.6
--- OUTSIDE RECORDS SUMMARY | 2024-11-30 14:46 | XMS_ITS | Clinical Summary ---
Author Organization [facility] ity Address [address] [place] [address] Care Team Providers Care Racecourse Barrier Attendant Name Role Phone Unavailable Primary Care Provider [...]
--- OUTSIDE RECORDS SUMMARY | 2024-11-30 14:46 | XMS_ITS | Clinical Summary ---
Author Organization [facility] Address [address] [place] [phone] Phone Care Team Providers Care Director Of Radiology Name Role Phone Unavailable Primary Care Provider Unavailabl e Allergies Active Allergy Reactions Criticality Noted Date Comments Hydromorphone 12/23/2018 Medications sucralfate (CARAFATE ORAL) Take 1 g by mouth 4 (four) times a day. 1 GM/10ml susp. 10ml 4 x daily. 12/24/19 Active pantoprazole (PROTONIX) 40 mg injection Inject 40 mg into the vein 2 (two) times a day. 12/24/19 Active ondansetron (ZOFRAN-ODT) 4 MG disintegrating tablet Take 4 mg by mouth every 8 (eight) hours. as needed for nausea 12/24/19 Active ADULT CYCLIC PN Inject 2,000 mL into the vein daily. TPN daily via CADD intravenously over 12 hours. 12/24/19 Active sodium chloride (NORMAL SALINE FLUSH) 0.9 % syringe flush Inject 10 mL into the vein as needed (flush). Flush with 10ml normal saline before and after each medication. Flush with 10-20ml normal saline after lab draws. Flush each lumen daily with ns and heparin when not in use. 12/24/19 Active clonazePAM (KLONOPIN) 0.25 MG disintegrating tablet Take 0.25 mg by mouth 2 (two) times a day as needed for anxiety. 01/08/20 Active acetaminophen (TYLENOL) 160 mg/5 mL Soln Take 15 mL by mouth every 4 (four) hours. 01/08/20 Active Social History Tobacco Use Types Packs/Day Years Used Date Smoking Tobacco: Never Assessed Education Answer Date Recorded Are you interested in more education? Not on greg e 07/20/2022 Are you concerned about learning? Not on file 07/20/2022 No 07/20/2022 No 07/20/2022 Digital Access Answer Date Recorded No 08/21/2022 No 08/21/2022 No 08/21/2022 Reliable internet access at home? Not on file 08/21/2022 Device with a working camera? Not on file Comments Unknown Sex and Gender Information Value Date Recorded Sex Assigned at Not on file Legal Sex Unknown 12/18/2018 4:28 PM EDT Gender Identity Not on file Sexual Orientation Not on file Last Filed Vital Signs Vital Sign Reading Time Taken Comments Blood Pressure 96/66 03/19/2019 2:03 PM EST Pulse 109 03/19/2019 2:03 PM EST Temperature 37.1 C (98.8 F) 03/19/2019 2:03 PM EST Respiratory Rate 16 03/19/2019 2:03 PM EST Oxygen Saturation 99% 03/19/2019 2:03 PM EST Inhaled Oxygen Concentration - - Weight 93.4 kg (206 lb) 03/19/2019 2:03 PM EST Height - - Body Mass Index - - Plan of Treatment Not on file Medical Devices Not on file Insurance [place] [place] [address] [place] [address] [place] [address] [place] [address] [place] [address] [place] [address] [place] [address] [place] [address] [place] [address] [place] [address] A[address] [facility] A[facility] Additional Source Comments The information contained in this document represents components of the legal health record. It is not the complete legal health record.[facility]
== END 2024-11-30 13:00 | disposition home or self-care (01) ==
LOC: HO.HMCFM 12:29
PROVIDERS: PCP Nurse Practitioner Family; Visit Provider Nurse Practitioner Family
DX: R76.8 Other specified abnormal immunological findings in serum (principal); F51.05 Insomnia due to other mental disorder

== ENCOUNTER 2025-01-12 10:25 | Outpatient (AMB) | payer OTHER, SELFPAY ==
[2025-01-12 10:31] VITALS: BP 110/75; PULSE 88; TEMP 36.8; O2SAT 98; BMI 39.8
--- NOTE | 2025-01-12 10:31 | AM.OFFWIN_ITS ---
Intake Vital Signs 01/12/25 10:31 Height 5 ft 5 in Weight 239 lb BMI 39.8 BP 110/75 Blood Pressure Location Lt brachial Position Sitting Pulse 88 Temp 98.2 F Temp Source Oral Pulse Oximetry (%) 98 Intake Visit Reasons: EP Congested, exposed to Covid Intake Note: Nasal congestion, headache and bodyach and exposed to Covid positive individuals since Jan 10, 2025 Patient Tobacco Use Status: Former Tobacco user Allergies bee pollen (BEE STINGS) Allergy (Intermediate, Verified 01/12/25 10:43) SWELLING capsaicin (CAPSAICIN) Allergy (Intermediate, Verified 01/12/25 10:43) BAD RED RASH, hives hydromorphone (From DILAUDID) Adverse Reaction (Intermediate, Verified 01/12/25 10:43) NAUSEA & VOMITING Do you need a note to return to daycare/school/sports/work: Yes HPI HPI Comments History of Present Illness Details History - The patient is a 44-year-old female pr esenting with symptoms of nasal congestion, ear congestion, headache, and body aches following exposure to COVID-19. - Symptoms began after visiting her [facility] house on Saturday, where all family members tested positive for COVID-19. - Reports nasal and ear congestion, head ache, and body aches, with a subjective fever noted this morning. - Denies chest pain, shortness of breath , cough, abdominal pain, nausea, vomiting, or diarrhea. - Managing symptoms with Tylenol, no use of decongestants or allergy medications. - She is a non-smoker. - She has no recent travel. Physical Exam General: Cooperative, healthy appearing, comfortable and no acute distress Orientation/consciousness: Patient oriented x3 Limitations: No limitations Head: Normal to inspection Ears: Hearing grossly normal bilaterally, external ears normal and TM's normal bilaterally Nose: Congested Face and sinus: Sinuses nontender to palpation. Mouth: Normal oral and palatal mucosa present and moist mucous membranes noted. Throat: Tonsils normal. Uvula is midline. Posterior oropharynx with erythema and no exudates. Eyes: Appearance normal, both eyes and all related structures Neck: Normal visual inspection, full ROM. No lymphadenopathy noted. Respiratory: Clear to auscultation bilaterally. Normal respiratory effort, able to speak in complete sentences. No respiratory distress, not tachypneic, no tripod positioning and no use of accessory muscles. Cardiovascular: Regular rate and rhythm. Normal S1 and S2 Skin: No rashes or lesions noted Patient was informed and verbally consented to the use of an ambient scribe for clinic note documentation during this visit [facility] Medical History (Updated 11/30/24 @ 12:49 by Shanell Olson [facility]) Colon cancer screening Adjustment reaction with mixed disturbance of emotions and conduct Sacroiliac joint pain Annual physical exam (~06/2024) Back pain Anemia GERD (gastroesophageal reflux disease) Kidney stones Fatty liver Anxiety RENO on CPAP History of tachycardia Hx of hypotension Gastric ulcer Instability of sacroiliac joint Sacroiliitis Surgical History Hx of colonoscopy History of surgery History of laparoscopic appendectomy History of cholecystectomy Status post laser lithotripsy of ureteral calculus Gastric bypass status for obesity Family History Father Diabetes Mother Throat cancer HTN (hypertension) Maternal Grandmother Ovarian cancer Maternal Grandfather Prostate cancer Social History (Updated 11/30/24 @ 12:41 by Analisa Riddle CMA) Household Members: Other Household Members Other:: Stepfather Housing: House Do you presently have visiting nurse or other home services: No Alcohol intake: current Alcohol intake frequency: does not drink Comment: Rarely Patient Tobacco Use Status: Former Tobacco user Tobacco use type: Cigarette Years Smoked: quit 19 years ago e-Cigarette/Vaping Use: Never Used Second Hand Smoke Exposure: No Substance Use Type: Marijuana service: No Current occupational status: employed 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 Current occupational exposures/hazards: No Sexual orientation: Straight/Heterosexual Cognitive needs: No Hearing needs: No Vision needs: Yes Review of Systems Const All systems reviewed & are unremarkable except as noted in HPI and below Physical Exam Vital Signs: Last Vital Signs Temp 98.2 F 01/12/25 10:31 Pulse 88 01/12/25 10:31 BP 110/75 01/12/25 10:31 Pulse Ox 98 01/12/25 10:31 BMI result Body Mass Index 39.8 Assessment & Plan Assessment & Plan (1) Congestion of nasal sinus: Code(s): R09.81 - Nasal congestion Plan Most likely URI vs viral illness vs covid vs flu vs RSV plan - Plan to test for COVID-19 to confirm exposure and infection status. - Symptomatic treatment with Tylenol for fever and body aches. - Consideration of additional medications to alleviate congestion and headache if symptoms persist. - drink lots of fluids - will call with the results - follow up as needed Orders: Orders Resp Pathogen Panel - [facility] Today J06.9 - Acute upper respiratory infection, unspecified Medications: New cetirizine-pseudoephedrine 5-120 mg ER 1 tab PO BID 14 tabs 0RF 7 days fluticasone propionate 50 mcg/actuation administer into each nostril 1 spray intranasal Q12H 16 grams 0RF Coding Level of Care Code Est Pt Level 3 (70630) Diagnoses Congestion of nasal sinus R09.81
--- OUTSIDE RECORDS SUMMARY | 2025-01-12 12:21 | XMS_ITS | Clinical Summary ---
Author Organization [facility] Address [address] [place] [address] Phone Care Team Providers Care Senior Python Developer Name Role Phone Unavailable Primary Care Provider [...] mouth every 4 (four) hours. 01/08/20 Active Encounters Date Type Department Care Team Description 01/12/2025 Transcribe Orders [facility] Rheumatology [address] [place] [address] Shanell Chris NP Positive GEOFF (antinuclear antibody) (Primary Dx) 12/01/2024 Telephone Campus Explorer [facility] [address] [place], [place] [id number] Nia Araya Referral from Last 3 Months Social History Tobacco Use Types Packs/Day Years [...] file Medical Devices Not on file Insurance GENERIC COMMERCIAL GENERIC COMMERCIAL GENERIC COMMERCIAL GENERIC COMMERCIAL GENERIC COMMERCIAL GENERIC COMMERCIAL [address] [place] [address] [phone] [place] [address], [place] [address] [place] [phone] Additional Source Comments The information contained in this document represents components of the legal health record. It is not the complete legal health record.[facility]
--- OUTSIDE RECORDS SUMMARY | 2025-01-12 12:22 | XMS_ITS | Encounter Summary ---
Author Organization [facility] Address [address] [place] [phone] Phone Care Team Providers Care Superintendent Board Mill Name Role Phone Unavailable Primary Care Provider Unavailabl e Reason for Referral * Consultation (Within 1 month) - New Request Specialty Diagnoses / Procedures Referred By Yumiko garcia Referred To Contact Rheumatology Diagnoses Positive GEOFF (antinuclear antibody) Shanell Chris NP [address] [place] [address] Phone: tel: fax: [email or web address] [address] [place] [address] Phone: tel: Referral ID Status Reason Start Date Expiration Date V isits Requested Visits Authorized [id number] New Request 01/12/2025 01/12/2026 1 1 Encounter Details Date Type Department Care Team ([facility] st Contact Info) Description 01/12/2025 Transcribe Orders [facility] Rheumatology [address] [place] [address] Shanell Chris NP [address] [place], [place] [id number] [email or web address] Positive GEOFF (antinuclear antibody) (Primary Dx) Social History Tobacco Use Types Packs/Day Years [...] on file Sexual Orientation Not on file documented as of this encounter Plan of Treatment Scheduled Referrals Name Type Priority Associated Diagnoses Order Schedule Ambulatory referral to [facility] Rheumatology Outpatient Referral Routine Positive GEOFF (antinuclear antibody) Ordered: 01/12/2025 documented as of this encounter Visit Diagnoses Diagnosis Positive GEOFF (antinuclear antibody)- Primary Other and unspecified nonspecific immunological findings documented in this encounter Additional Source Comments The information contained in this document represents components of the legal health record. It is not the complete legal health record.[facility]
--- OUTSIDE RECORDS SUMMARY | 2025-01-12 12:22 | XMS_ITS | Encounter Summary ---
Author Organization [facility] Address [address] [place] [address] Phone Care Team Providers Care Drier Helper Name Role Phone Unavailable Primary Care Provider Unavailabl e Reason for Visit * Reason Onset Date Comments Referral 12/01/2024 Encounter Details Date Type Department Care Team ([facility] st Contact Info) Description 12/01/2024 Telephone [facility] [address] [place] [address] Nia [email or web address] Referral Social History Tobacco Use Types Packs/Day Years [...] on file documented as of this encounter Progress Notes * Jayla Quezada - 01/12/2025 11:26 AM EDT Lvm for the patient to call back and schedule npv. * Rola Cunningham 01/08/2025 9:49 AM EDT Pt is calling to schedule appointment still looking for referral. She stated it has been several weeks. Please contact and advise. Central Support Director Home Health (Please do not reply to this user; this inbox is not monitored.) Thank you. * Eusebio Chambers - 12/23/2024 9:53 AM EDT Pt called in to follow up, pt will have her office fax to correct number Central Support Director Home Health (Please do not reply to this user; this inbox is not monitored.) Thank you. * Nia Araya - 12/01/2024 9:31 AM EDT [facility] Smart Phrases: Locating Referral Fax Hello, We are notifying you that the patient called to schedule a new patient appointment. The referral is not listed on file or in the media tab. The patient has informed us that the referral was faxed out. Please review the SFA and contact the patient with the referral determination if it is on file or not. Thank you If caller not the patient: Name: Relationship: Referral Order Details provided by caller Diagnosis: N/A Reason/Specify: N/A Referred To Name:N/A Referral Fax Out Dates: 11/30/24 Additional information: N/A Agent Action: > Route Encounter to FD Pool > Reason for Call: Referral > Comment: Call Back & Locate Referral in SFA Needed > Reiterate Scripting: Provide our referral not on file scripting Required Scripting: If the referral is not on file: Hello, thank you for calling. I see that you'vementioned your provider faxed over a referral, but we have not yet received it on our end. Sometimes there can be a delay in processing or receiving faxes. Can you please confirm the date it was sent and the fax number that was used? Provide the caller with the office fax number. I will be happy to send a message over to the office for them to review their records and let you know if they've received it. documented in this encounter Plan of Treatment Not on file documented as of this encounter Visit Diagnoses Not on filedocumented in this encounter Additional Source Comments The information contained in this document represents components of the legal health record. It is not the complete legal health record.[facility]
== END 2025-01-12 10:57 | disposition home or self-care (01) ==
PROVIDERS: PCP Nurse Practitioner Family; Visit Provider Physician Assistant Medical
DX: R09.81 Nasal congestion (principal)

== ENCOUNTER 2025-01-12 10:25 | Outpatient (REF) | payer OTHER, SELFPAY ==
[2025-01-12 14:44] LABS: Chlamydia pneumoniae PCR Not Detected (Not Detect.); Coronavirus 229E PCR Not Detected (Not Detect.); Coronavirus HKU1 PCR Not Detected (Not Detect.); Coronavirus NL63 PCR Not Detected (Not Detect.); Coronavirus OC43 PCR Not Detected (Not Detect.); RSV PCR Not Detected (Not Detect.); Rhino/Enterovirus PCR Not Detected (Not Detect.)
[2025-01-12 15:21] LABS: Influenza A H1 PCR Not Detected (Not Detect.); Influenza A H1-2009 PCR Not Detected (Not Detect.); Influenza A H3 PCR Not Detected (Not Detect.); SARS-CoV-2 PCR Not Detected (Not Detect.)
== END 2025-01-12 10:26 | disposition home or self-care (01) ==
LOC: HO.LNP 10:25
PROVIDERS: PCP Nurse Practitioner Family; Visit Provider Physician Assistant Medical
DX: R09.81 Nasal congestion (principal); R51.9 Headache, unspecified
CPT/HCPCS: 87633

== ENCOUNTER 2025-02-03 09:06 | Day surgery (SDC) | payer OTHER, SELFPAY ==
[2025-02-01 14:25] VITALS: BMI 39.3
[2025-02-03 10:00] LABS: UPreg QC Valid YES
[2025-02-03 10:27] VITALS: BMI 38.4
[2025-02-03 10:32] VITALS: BP 119/78; PULSE 94; RESP 15; TEMP 36.8; O2SAT 98
--- NOTE | 2025-02-03 10:34 | MHC.SHP ---
Pre-Procedural Eval Section A - 24 Hr Update-Section A only Date of Service: 02/03/25 Section B - Complete if H&P > 30 days Chief Complaint: screening,gerd Relevant Family History (Specify if Yes): No Relevant Social History: None Present Medications: see Short Stay Collaborative assessment Medical History: Significant History (Adjustment reaction with mixed disturbance of emotions and conduct Sacroiliac joint pain Annual physical exam (~06/2024) Back pain Anemia GERD (gastroesophageal reflux disease) Kidney stones Fatty liver Anxiety RENO on CPAP History of tachycardia Hx of hypotension Gastric ulcer Instability of sacroil) History of Previous Operations: Relevant previous surgery/procedure and date(s) ( Hx of colonoscopy History of surgery History of laparoscopic appendectomy History of cholecystectomy Status post laser lithotripsy of ureteral calculus Gastric bypass status for obesity) Allergies: Allergies Allergy/AdvReac Type Severity Reaction Status Date / Time bee pollen (BEE STINGS) Allergy Intermediate SWELLING Verified 02/03/25 10:22 capsaicin (CAPSAICIN) Allergy Intermediate BAD RED Verified 02/03/25 10:22 RASH, hives hydromorphone (From DILAUDID) AdvReac Intermediate NAUSEA & Verified 02/03/25 10:22 VOMITING Review of Systems Sugical H&P ROS: Negative: Constitution, Cardiovascular, Respiratory, Neurological, Psychiatric, Hem-Onc, Allergic/Immunologic, Gastrointestinal, Genitourinary, Musculoskeletal, Integumentary, Endocrine and Eyes/Ears/Nose/Throat Exam Surgical H&P Exam: Normal: HEENT, Normal: Heart, Normal: Lungs, Normal: Extremities, Normal: Abdomen, Normal: Skin and Normal: Neurological Plan Diagnosis/Plan: Unchanged I have reviewed the history and physical and performed a pertinent physical examination on my patient. No changes have occurred unless specified. Time Spent With Patient Time: Total time managing care of this patient today ____ minutes.
[2025-02-03] MEDS: Lactated Ringers 1,000 ML 100 ML IVCONT (10:48)
--- NOTE | 2025-02-03 11:41 | HO.ANESPROP2 ---
Documented by User: Abbi Ann NP 02/01/25 10:24 HPI - Anesthesia Eval Consult details Narrative: 44 yr old female for Upper Endoscopy and Colonoscopy POTS: [place] [facility], stable at visit 07/30/24, no changes to care plan. RENO: on CPAP PMFSH Active Problems Active Problems: All Active Problems GEOFF positive (Acute) Myofascial pain (Acute) Insomnia due to mental condition (Acute) Colon cancer screening (Acute) History of suicide attempt (Acute) Bilateral shoulder pain (Acute) Bilateral arm pain (Acute) RENO (obstructive sleep apnea) (Acute) MDD (major depressive disorder), recurrent episode (Acute) Encounter for general adult medical examination with abnormal findings (Acute 06/2024) Left ankle sprain (Acute) Adjustment reaction with mixed disturbance of emotions and conduct (Acute) Vitamin D deficiency (Acute) B12 deficiency (Acute) Morbid obesity (Acute) Fatty liver (Acute) GERD (gastroesophageal reflux disease) (Acute) Iron deficiency anemia (Acute) Sacroiliac joint pain (Acute) POTS (postural orthostatic tachycardia syndrome) (Acute) Anxiety (Acute) Annual physical exam (Acute ~06/2024) Gastric bypass status for obesity (Acute) Instability of sacroiliac joint (Acute) Sacroiliitis (Acute) Past Medical History Medical History (Updated 02/03/25 @ 10:21 by Tara Long RN) Colon cancer screening Adjustment reaction with mixed disturbance of emotions and conduct Sacroiliac joint pain Annual physical exam (~06/2024) Back pain Anemia GERD (gastroesophageal reflux disease) Kidney stones Fatty liver Anxiety RENO on CPAP History of tachycardia Hx of hypotension Gastric ulcer Instability of sacroiliac joint Sacroiliitis Family History Family History Father Diabetes Mother Throat cancer HTN (hypertension) Maternal Grandmother Ovarian cancer Maternal Grandfather Prostate cancer Family history of problems with anesthesia: No Surgical History Surgical History History of esophagogastroduodenoscopy (EGD) Hx of colonoscopy History of surgery History of laparoscopic appendectomy History of cholecystectomy Status post laser lithotripsy of ureteral calculus Gastric bypass status for obesity History of Problems with Anesthesia: No Social History Social History (Updated 11/30/24 @ 12:41 by Analisa Riddle CMA) Household Members: Other Household Members Other:: Stepfather Housing: House Do you presently have visiting nurse or other home services: No Alcohol intake: current Alcohol intake frequency: does not drink Comment: Rarely Patient Tobacco Use Status: Former Tobacco user Tobacco use type: Cigarette Years Smoked: quit 19 years ago e-Cigarette/Vaping Use: Never Used Second Hand Smoke Exposure: No Use of substances other than those prescribed or required for medical reasons: No Substance Use Type: Marijuana Are you DNR?: No Advance Directives: No Advance Directives Information Provided: Yes service: No Current occupational status: employed 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 Current occupational exposures/hazards: No Sexual orientation: Straight/Heterosexual Cognitive needs: No Hearing needs: No Vision needs: Yes Meds Allergies Allergy/AdvReac Type Severity Reaction Status Date / Time bee pollen (BEE STINGS) Allergy Intermediate SWELLING Verified 02/03/25 10:22 capsaicin (CAPSAICIN) Allergy Intermediate BAD RED Verified 02/03/25 10:22 RASH, hives hydromorphone (From DILAUDID) AdvReac Intermediate NAUSEA & Verified 02/03/25 10:22 VOMITING Exam Pertinent Lab Results Pertinent Lab Results: Laboratory Tests 10/31/24 07:49 WBC 5.2 RBC 4.34 Hgb 11.3 L Hct 34.5 L Plt Count 309 Sodium 139 Potassium 3.4 D Chloride 110 H Carbon Dioxide 21 L BUN 6 L Creatinine 0.62 Narrative Narrative: EKG 07/2024 EKG shows normal sinus rhythm with low-voltage QRS with poor R-wave progression due to lead placement, rate 81 Assessment and Plan Final Anesthetic Review Family History of Problems with Anesthesia: No History of Problems with Anesthesia: No Documented by User: Tara Gregorio DO 02/03/25 11:43 PMFSH Past Medical History Medical History (Updated 02/03/25 @ 10:21 by Tara Long RN) Colon cancer screening Adjustment reaction with mixed disturbance of emotions and conduct Sacroiliac joint pain Annual physical exam (~06/2024) Back pain Anemia GERD (gastroesophageal reflux disease) Kidney stones Fatty liver Anxiety RENO on CPAP History of tachycardia Hx of hypotension Gastric ulcer Instability of sacroiliac joint Sacroiliitis Family History Family History Father Diabetes Mother Throat cancer HTN (hypertension) Maternal Grandmother Ovarian cancer Maternal Grandfather Prostate cancer Family history of problems with anesthesia: No Surgical History Surgical History History of esophagogastroduodenoscopy (EGD) Hx of colonoscopy History of surgery History of laparoscopic appendectomy History of cholecystectomy Status post laser lithotripsy of ureteral calculus Gastric bypass status for obesity History of Problems with Anesthesia: No Social History Social History (Updated 11/30/24 @ 12:41 by Analisa Riddle CMA) Household Members: Other Household Members Other:: Stepfather Housing: House Do you presently have visiting nurse or other home services: No Alcohol intake: current Alcohol intake frequency: does not drink Comment: Rarely Patient Tobacco Use Status: Former Tobacco user Tobacco use type: Cigarette Years Smoked: quit 19 years ago e-Cigarette/Vaping Use: Never Used Second Hand Smoke Exposure: No Use of substances other than those prescribed or required for medical reasons: No Substance Use Type: Marijuana Are you DNR?: No Advance Directives: No Advance Directives Information Provided: Yes service: No Current occupational status: employed 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 Current occupational exposures/hazards: No Sexual orientation: Straight/Heterosexual Cognitive needs: No Hearing needs: No Vision needs: Yes Meds Allergies Allergy/AdvReac Type Severity Reaction Status Date / Time bee pollen (BEE STINGS) Allergy Intermediate SWELLING Verified 02/03/25 10:22 capsaicin (CAPSAICIN) Allergy Intermediate BAD RED Verified 02/03/25 10:22 RASH, hives hydromorphone (From DILAUDID) AdvReac Intermediate NAUSEA & Verified 02/03/25 10:22 VOMITING Exam Exam Date and Time: 02/03/25 1140 Height,Weight and Vital Signs: Height 5 ft 5 in Weight 104.7 kg Vital Signs Temperature 98.3 F 02/03/25 10:32 Pulse Rate 94 02/03/25 10:32 Respiratory Rate 15 02/03/25 10:32 Blood Pressure 119/78 02/03/25 10:32 Pulse Oximetry 98 02/03/25 10:32 Oxygen Delivery Method Room Air 02/03/25 10:32 Temperature 98.3 F 02/03/25 10:32 Pulse Rate 94 02/03/25 10:32 Respiratory Rate 15 02/03/25 10:32 Blood Pressure 119/78 02/03/25 10:32 Pulse Oximetry 98 02/03/25 10:32 Oxygen Delivery Method Room Air 02/03/25 10:32 Airway Mallampati Class: II TM Dist: >3cm Neck ROM: Full Loose/Missing/Broken Teeth: No (patient denies any loose or broken teeth) Heart: S1S2 Lungs: CTAB Assessment and Plan Assessment Anesthesia Assessment: Anesthesia Plan Discussed and Chart Reviewed Final Anesthetic Review Family History of Problems with Anesthesia: No History of Problems with Anesthesia: No NPO: Yes ASA Class: II Final Preanesthetic Review: No Changes in Pt Med Stat, Meds/Allgs Chart Reviewed, Consent Obtained/Reviewed and Anes Risks/Benef Reviewed Patient Risk: Low Procedure Risk: Low Anesthetic Plan Anesthetic Plan: MAC: and Agree w/ Assess. and Plan Disposition: Standard PACU
--- NOTE | 2025-02-03 12:11 | HO.OPN-COLON ---
Colonoscopy Operative Note Operative Note Date of Service: 02/03/25 Narrative: Operative Information Procedure Description: EGD, Colonoscopy Indication: GERD, screening Anesthesia: MAC FLEXIBLE TRANSORAL UPPER GASTROINTESTINAL ENDOSCOPY AND COLONOSCOPY PROCEDURE NOTE UPPER ENDOSCOPY Consent: Indications for the procedure and potential complications of bleeding, perforation, reaction to medications and missed diagnosis were discussed with the patient and informed consent was obtained. Instrument: Olympus GIF H 190 J mid size upper endoscope Monitoring: Vital signs and clinical assessment, continuous EKG monitoring, Pulse oximetry, Carbon Dioxide monitoring and blood pressure monitoring were done throughout the procedure. Procedure: The patient was placed in the left lateral decubitis position and pre-procedure medications were administered and a bite block was placed. The endoscope was inserted into the mouth and advanced under direct vision to the third part of duodenum. A careful inspection was made as the upper endoscope was withdrawn including a retroflexed examination of the proximal stomach; Findings and interventions are described below. Findings: Larynx:normal Esophagus: GE junction at 35 cm, diaphragm hiatus at 35 cm, irregular Z line, bx taken from GEJ and distal esophagus Stomach pouch: Normal mucosa. Biopsies were obtained. Grade 2 flap valve on retroflexed examination of the cardia. There were 2 retained krystyna which were removed jejunum: Normal, bx taken Intervention: Biopsies as noted above, COLONOSCOPY Instrument: Olympus variable stiffness pediatric scope 190L Colonoscopy Monitoring: Vital signs and clinical assessment, continuous EKG monitoring, Pulse oximetry, Carbon Dioxide monitoring and blood pressure monitoring were done throughout the procedure. Colon withdrawal time was 7 minutes. Procedure: The patient was placed in the left lateral decubitis position and pre-procedure medications were administered. After a digital rectal examination of the ano-rectum, the video colonoscope was inserted into the rectum and advanced through the colon to the cecum/TI. The colonoscope was slowly withdrawn in a retrograde panoramic fashion and the colon mucosa was carefully examined including a retroflexed view of the rectum. Findings and interventions are described below. Procedure Difficulty:moderate Findings: Terminal Ileum-normal Cecum:normal right sided retroflexion- normal Ascending Colon: normal Transverse Colon -normal Descending Colon:normal Sigmoid Colon: normal Rectum: Retroflexion with small internal hemorrhoids, grade I Anorectum - normal Colon preparation: Fleischmanns Bowel Preparation Scale Right colon; 1-2 Transverse colon: 1-2 Left colon; 1-2 (0 = Unprepared colon segment with mucosa not seen due to solid stool that cannot be cleared. 1 = Portion of mucosa of the colon segment seen, but other areas of the colon segment not well seen due to staining, residual stool and/or opaque liquid. 2 = Minor amount of residual staining, small fragments of stool and/or opaque liquid, but mucosa of colon segment seen well. 3 = Entire mucosa of colon segment seen well with no residual staining, small fragments of stool or opaque liquid) Impression and Post Procedure Diagnosis: Endoscopy Findings: retained krystyna Colonoscopy Findings: poor to fair prep internal hemorrhoids Plan: Await Pathology results Repeat Colonoscopy in 3-8 months or earlier if clinically indicated--next time 2 d prep High fiber diet leaflet avoid straining at stool, epsom salts and sitz bath, anusol supps or cream Above findings were reviewed with the patient and relevant handouts were provided if indicated.
[2025-02-03 12:15] VITALS: BP 109/70; PULSE 80; RESP 20; TEMP 36.8; O2SAT 100
[2025-02-03 12:30] VITALS: BP 119/75; PULSE 70; RESP 20; TEMP 37; O2SAT 100
== END 2025-02-03 12:54 | disposition home or self-care (01) ==
PROVIDERS: Nurse Practitioner; PCP Nurse Practitioner Family; Visit Provider Internal Medicine Gastroenterology
PROC: (CPT 45378; principal; 2025-02-03 11:50)
DX: Z12.11 Encounter for screening for malignant neoplasm of colon (principal); K21.00 Gastro-esophageal reflux disease with esophagitis, without bleeding; D50.8 Other iron deficiency anemias; K64.0 First degree hemorrhoids; R10.13 Epigastric pain
CPT/HCPCS: 45378; 43239; 43247; 81025; 88305; 88313; 88342; J2003; J2704

== ENCOUNTER → 2025-02-03 09:06 | Outpatient (BNV) | payer OTHER, SELFPAY | PROVIDERS: PCP Nurse Practitioner Family; Visit Provider Internal Medicine Gastroenterology | DX: Z12.11 Encounter for screening for malignant neoplasm of colon (principal); K64.0 First degree hemorrhoids; Z91.199 Patient's noncompliance with other medical treatment and regimen due to unspecified reason; K21.9 Gastro-esophageal reflux disease without esophagitis; Z48.02 Encounter for removal of sutures | CPT/HCPCS: 43239; 45378 ==

== ENCOUNTER 2025-03-06 18:27 | Emergency (ER) | payer OTHER, SELFPAY ==
--- NOTE | ~2025-03-06 | CT_ITS ---
CLINICAL HISTORY: hx Arsenio-en-Y, vomiting, eval hernia obstruction CT abdomen and pelvis with contrast Comparison: None provided Findings: No consolidation or effusion. Gallbladder is surgically absent. There is mild intrahepatic biliary ductal dilatation. No focal hepatic lesion. Pancreas, spleen and adrenal glands are within normal limits. The kidneys enhance symmetrically and are non hydronephrotic. Postsurgical changes are present from gastric bypass. Small bowel anastomotic sutures in the left abdomen. High-density material or oral contrast opacifies distal loops of small bowel. Appendix is surgically absent. No acute fracture. IMPRESSION: No acute findings. This document has been electronically signed by: Wilber Aceves MD, PHD on 03/07/2025 02:04:43
--- NOTE | ~2025-03-06 | XR_ITS ---
CLINICAL HISTORY: epigastric pain --- Additional Notes or Special Instructions: looking for hiatal hernia 1 view chest x-ray. Comparison: None Findings: No consolidation or effusion. Cardiac and mediastinal contours appear unremarkable. Bones unremarkable. Impression: 1. No acute pulmonary disease. This document has been electronically signed by: Manjinder Gonzalez MD on 03/06/2025 19:29:03
[2025-03-06 18:49] VITALS: BP 130/86; PULSE 138; RESP 22; TEMP 36.8; O2SAT 95; BMI 37.3
--- NOTE | 2025-03-06 18:55 | ED_ITS ---
HPI - Abdominal Pain General Chief Complaint: Abdominal Pain Stated Complaint: gastro pain Time Seen by Provider: 03/06/25 21:06 Source: patient Mode of arrival: ambulatory Limitations: no limitations History of Present Illness ED Provider: Dr. Victoria Brower HPI narrative: 44-year-old female with history of Arsenio-en-Y gastric bypass (2017) and prior gastric ulcer (treated endoscopically in January [address] Carey with staple removal) presents with five days of worsening heartburn, epigastric pain, nausea, and continuous non-bloody, non-bilious vomiting. She reports a new sensation of a ?lump? in her throat with gagging and dysphagia; this morning she was unable to swallow pills. Oral intake has been limited to small sips of water and a few bites of food, all of which are rapidly vomited. She attempted soup today with immediate emesis. Vomitus is described as ?very acidic? saliva-like fluid. No diarrhea; last bowel movement this morning was normal. She denies hematemesis or melena. She notes a dry, non-productive cough last night but no known fever. She attributes an elevated heart rate on arrival to anxiety. Pain is localized to the upper abdomen with occasional radiation to the back, similar to prior ulcer pain. Pantoprazole was increased to twice daily per her ordinary seaman?s office but has offered no relief. She took Tylenol for pain at approximately 10:30-11:00 AM today. She has a follow-up appointment with Dr. Leone on Saturday. Related Data Previous Rx's ?Medication ?Instructions ?Recorded ferrous fumarate 324 mg (106 mg 324 mg PO BID #180 tab s 07/10/24 iron) tablet mecobalamin (vitamin B12) 1,000 1,000 mcg PO DAILY #90 ea 07/10/24 mcg lozenges pantoprazole 40 mg tablet,delayed 40 mg PO DAILY #90 t abs 07/10/24 release (Protonix) celecoxib 100 mg capsule (Celebrex) 100 mg PO BID #60 caps 11/30/24 cetirizine 5 mg-pseudoephedrine ER 1 tab PO BID 7 days #14 tabs 01/12/25 120 mg tablet,extended release,12hr mirtazapine 45 mg tablet 45 mg PO BEDTIME #30 tabs hydrocodone 5 mg-acetaminophen 325 1 tab PO Q6H PRN se natali pain 03/07/25 mg tablet (scale score 7-10) #10 tabs ondansetron 4 mg disintegrating 4 mg PO Q8H PRN nausea and 03/07/25 tablet vomiting #10 tabs Allergies Allergy/AdvReac Type Severity Reaction Status Date / Time bee pollen (BEE STINGS) Allergy Intermediate SWELLING Verified 03/06/25 18:51 capsaicin (CAPSAICIN) Allergy Intermediate BAD RED Verified 03/06/25 18:51 RASH, hives hydromorphone (From DILAUDID) AdvReac Intermediate NAUSEA & Verified 03/06/25 18:51 VOMITING Review of Systems Review of Systems as per HPI, full review of systems performed and negative but for the above mentioned pertinent positives and negatives. [facility] Past Medical History Medical History Colon cancer screening Adjustment reaction with mixed disturbance of emotions and conduct Sacroiliac joint pain Annual physical exam (~06/2024) Back pain Anemia GERD (gastroesophageal reflux disease) Kidney stones Fatty liver Anxiety RENO on CPAP History of tachycardia Hx of hypotension Gastric ulcer Instability of sacroiliac joint Sacroiliitis Surgical History History of esophagogastroduodenoscopy (EGD) Hx of colonoscopy History of surgery History of laparoscopic appendectomy History of cholecystectomy Status post laser lithotripsy of ureteral calculus Gastric bypass status for obesity Family History Family History Father Diabetes Mother Throat cancer HTN (hypertension) Maternal Grandmother Ovarian cancer Maternal Grandfather Prostate cancer Social History Social History Household Members: Other Household Members Other:: Stepfather Housing: House Do you presently have visiting nurse or other home services: No Alcohol intake: current Alcohol intake frequency: does not drink Comment: Rarely Patient Tobacco Use Status: Former Tobacco user Tobacco use type: Cigarette Years Smoked: quit 19 years ago e-Cigarette/Vaping Use: Never Used Second Hand Smoke Exposure: No Substance Use Type: Marijuana Advance Directives: No Advance Directives Information Provided: No Do you have a plan to hurt others: No Plan service: No Current occupational status: employed 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 SKIN: Normal skin color for ethnicity, warm, dry, no rashes noted. HEENT:? Normocephalic, atraumatic, no stridor, dry mucous membranes, dentition intact, EOMI. NECK: Soft, supple, full ROM, midline structures nontender, no step-offs, no deformities, no lymphadenopathy. CHEST: Heart regular tachycardia, no murmurs, symmetric chest rise and fall. PULMONARY: Clear to auscultation bilaterally, diminished at the bases, no labored breathing, no wheezes/rhales/rhonchi. ABDOMINAL: Soft, nondistended, diffusely tender to palpation without rebound or guarding, positive bowel sounds in all quadrants. : Deferred. MUSCULOSKELETAL: Normal tone, full range of motion, no deformities, no peripheral edema. NEURO: Alert and oriented x3, CN II through XII intact, equal strength and sensation bilateral upper and lower extremities, no focal neurologic deficits.? PSYCHIATRIC: Flat affect, fluid speech, good eye contact and appropriate demeanor. Vital Signs: Vital Signs - 24 hr 03/06/25 18:49 03/06/25 23:25 Temperature 98.2 F 97.8 F Pulse Rate 138 H 85 Respiratory Rate 22 H 17 Blood Pressure 130/86 124/89 Pulse Oximetry 95 100 Oxygen Delivery Method Room Air Room Air BMI result Body Mass Index 37.3 Course Course Course Narrative: This is a RME preformed in triage by Sarah Sharp PA-C. Date: 03/06/25 , time?657 pm. Patient presents with worsening epigastric pain, hx of ulcers. Insurance did not cover sulcralfate ? 44-year-old female with history of Arsenio-en-Y gastric bypass in 2018 and prior postoperative marginal ulcer. ? One month ago underwent EGD by Dr. Oh with staple removal; heartburn began thereafter and ulcer-type symptoms have worsened. ? Persistent heartburn despite doubling pantoprazole to BID per GI recommendation on ; no appreciable improvement. ? Nausea and vomiting since Saturday; tolerating only small bites of food, overall poor PO intake. ? Dysphagia has improved slightly but continues; reports sensation of ?lump? in throat and pain localized to upper chest/throat area (rates current pain 7/10). ? Denies abdominal pain. ? Reports shortness of breath and anxiety today; noted subjective fever to 100 ?F and was told heart rate is elevated in clinic. ? History of prior ulcer episode requiring TPN for ~1 month. ? Has attempted to obtain sucralfate previously but insurance would not cover; willing to pay [id number] with coupon provided today. Review of Systems: ? Constitutional: Subjective fever to 100 ?F today. ? GI: Heartburn, nausea, vomiting, dysphagia, sensation of lump in throat; no abdominal pain reported. ? Respiratory: Shortness of breath today. ? Psychiatric: Anxiety. Checked [employer]rx in triage, coupon for sucralfate 1g 120 tablets for $26.00, gave it to patient. Work UP:?abd labs Will defer full ROS and PE to treating provider. Patient will continued to be monitored in the interim. Medical Decision Making Medical Decision Making MDM Narrative: ? IV access established; plan for IV fluids for presumed dehydration. ? Laboratory results reviewed: electrolytes, renal function, liver function tests, hemoglobin, and WBC count all within normal limits; no evidence of significant dehydration, infection, or anemia. ? Pain and nausea management initiated (specific medications not detailed in transcript). ? Discussed differential including recurrent ulcer, irritation post-EGD, reflux- related esophageal spasm, and [id number] complications such as internal hernia or small-bowel obstruction. ? Imaging plan: CT abdomen/pelvis ordered to rule out obstruction or internal hernia. Diagnosis: 1. Epigastric pain with persistent heartburn, nausea, vomiting, and dysphagia ? probable recurrent marginal ulcer versus post-procedural gastric irritation; rule out obstruction/internal hernia [id number]. Plan: - IV fluids for hydration. - Pain control ? avoid Dilaudid due to reported reaction; alternative analgesia as needed. - Continue pantoprazole BID as advised by gastroenterology. - CT abdomen/pelvis to evaluate for obstruction or internal hernia. - Monitor clinical status and laboratory results. - Patient to follow up Saturday as scheduled with Dr. Leone. Disposition: Pain improved after morphine. No further emesis. No hematochezia. Patient tolerated oral intake. Plan for follow up on Saturday with her ordinary seaman as scheduled. Discuss red flags, return precautions as well as importance of follow up. Provided with short course of pain medication and antiemetics for home. Discharged in stable condition. Differential Diagnosis Differential Diagnoses: The differential diagnosis associated with the presentation includes (as above) Admission/Observation Consideration of admission/observation: Escalation of care including admission/observation considered Lab Data MDM Lab Attestation statement: I reviewed the patient's lab results. 03/06/25 19:21 03/06/25 19:21 Labs: Lab Results 03/06/25 Range/Units 19:21 WBC 7.1 (4.8-10.8) X10*3/uL RBC 4.61 (4.20-5.50) X10*6/uL Hgb 12.1 (12.0-16.0) g/dl Hct 36.2 L (37.0-47.0) % MCV 78.5 L (80.0-98.0) fL MCH 26.2 L (27.0-33.0) pg MCHC 33.4 (31.0-35.0) g/dl RDW 14.6 (11.0-16.0) % Plt Count 413 H D (160-400) X10*3/uL MPV 9.9 (9.4-12.3) fL Immature Gran % (Auto) 0.1 (0.0-0.4) % Neut % (Auto) 54.1 (45-73) % Lymph % (Auto) 34.4 (20-40) % Polk % (Auto) 9.7 (2-11) % Eos % (Auto) 1.1 (0-4) % Baso % (Auto) 0.6 (0-2) % Lymph # (Auto) 2.4 (1.2-4.9) X10*3/uL Polk # (Auto) 0.7 (0.1-1.2) X10*3/uL Eos # (Auto) 0.1 (0.0-0.4) X10*3/uL Baso # (Auto) 0.0 (0.0-0.2) X10*3/uL Abs Immat Gran (auto) 0.01 (0.00-0.03) X10*3/uL Absolute Neuts (auto) 3.8 (2.0-8.3) x10*3/uL Absolute Nucleated RBC 0.000 (0.0-0.012) X10*3/uL Nucleated RBC % (auto) 0.0 (0.0-0.2) /100WBC Sodium 139 (135-145) mmol/L Potassium 3.4 (3.3-5.1) mmol/L Chloride 108 (96-108) mmol/L Carbon Dioxide 19 L (22-29) mmol/L Anion Gap 15 (12-20) BUN 14 (9-16) mg/dL Creatinine 0.87 (0.5-1.4) mg/dL Estim Creat Clear Calc 96.5 Estimated GFR > 60 Random Glucose 99 (60-115) mg/dL Calcium 8.8 (8.4-10.2) mg/dL Magnesium 1.9 (1.6-2.6) mg/dL Total Bilirubin 0.9 (0.0-1.0) mg/dL AST 17 (5-31) U/L ALT 12 (0-31) U/L Alkaline Phosphatase 90 (39-117) U/L Troponin I High Sens 3.6 (<3.5-17.0) ng/L Total Protein 7.6 (6.5-8.0) g/dL Albumin 4.4 (3.5-5.0) g/dL Lipase 17 (8-78) U/L Influenza Type A (PCR) NEGATIVE (Negative) Influenza Type B (PCR) NEGATIVE (Negative) RSV RNA Qual (PCR) NEGATIVE (Negative) SARS-CoV-2 RNA (RT-PCR) NEGATIVE (Negative) Independent Interpretation I performed an independent interpretation of an: Plain X-Ray Interpretation: My independent interpretation of the chest x-ray reveals no consolidations, pulmonary edema, pleural effusion, pneumothorax, obvious bony abnormalities. Radiology Impression Radiologist Impression: CT abdomen and pelvis with contrast Findings: No consolidation or effusion. Gallbladder is surgically absent. There is mild intrahepatic biliary ductal dilatation. No focal hepatic lesion. Pancreas, spleen and adrenal glands are within normal limits. The kidneys enhance symmetrically and are non hydronephrotic. Postsurgical changes are present from gastric bypass. Small bowel anastomotic sutures in the left abdomen. High-density material or oral contrast opacifies distal loops of small bowel. Appendix is surgically absent. No acute fracture. IMPRESSION: No acute findings. External Record Review External record reviewed: Inpatient record Prescription Management I considered prescription management with: Pain Medication Chronic Conditions Patient?s care impacted by: Other (GERD, gastric ulcers, hx Arsenio en Y bypass surgery) Medications Administered Discontinued Medications Generic Name Dose Route Start Last Admin Trade Name Freq PRN Reason Stop Dose Admin Diphenhydramine HCl 25 mg 03/06/25 22:02 03/06/25 22:55 Diphenhydramine Hcl 50 Mg/Ml Vial IVPUSH 03/06/25 22:03 25 mg ONCE ONE Administration Iohexol 85 ml 03/07/25 01:05 03/07/25 01:05 Iohexol 350 Mg/Ml 100 Ml Infus..Btl IV 03/07/25 01:06 85 ml ONCE ONE Administration Metoclopramide HCl 10 mg 03/06/25 22:02 03/06/25 22:55 Metoclopramide Hcl 10 Mg/2 Ml Vial IVPUSH 03/06/25 22:03 10 mg ONCE ONE Administration Morphine Sulfate 4 mg 03/07/25 00:26 03/07/25 00:31 Morphine Sulfate 4 Mg/Ml Cartridge IVPUSH 03/07/25 00:27 4 mg ONCE ONE Administration Protocol Pantoprazole Sodium 40 mg 03/06/25 22:02 03/06/25 22:55 Pantoprazole Sodium 40 Mg/10 Ml Vial IVPUSH 03/06/25 22:03 40 mg ONCE ONE Administration Discharge Plan Discharge Clinical Impression: Epigastric abdominal pain, Heartburn, History of gastric ulcer Patient Disposition: Home, Self-Care Instructions: Epigastric Pain (ED) Additional Instructions: Keep your appointment with your ordinary seaman this week. Return to the emergency department immediately with any new or worsening symptoms including: Worsening abdominal pain despite medications, fevers greater than 100?, inability to tolerate food or drink despite Zofran, vomiting blood or dark stomach contents, any new symptom that concerns you. Call 911 with any medical emergency. Prescriptions: New hydrocodone-acetaminophen 5-325 mg tablet 1 tab PO Q6H PRN (Reason: severe pain (scale score 7-10)) Qty: 10 0RF Rx Instructions: Partial Fill upon patient request. ondansetron 4 mg tablet,disintegrating 4 mg PO Q8H PRN (Reason: nausea and vomiting) Qty: 10 0RF No Action mirtazapine 45 mg tablet 45 mg PO BEDTIME Qty: 30 1RF mecobalamin (vitamin B12) 1,000 mcg lozenge 1,000 mcg PO DAILY Qty: 90 3RF Rx Instructions: allow to dissolve in mouth OR may chew lightly before swallowing ferrous fumarate 324 mg (106 mg iron) tablet 324 mg PO BID Qty: 180 1RF pantoprazole [Protonix] 40 mg tablet,delayed release (DR/EC) 40 mg PO DAILY Qty: 90 1RF celecoxib [Celebrex] 100 mg capsule 100 mg PO BID Qty: 60 2RF cetirizine-pseudoephedrine 5-120 mg tablet extended release 12 hr 1 tab PO BID 7 Days Qty: 14 0RF Print Language: Welsh
--- NOTE | 2025-03-06 19:01 | ECG_ITS ---
Test Reason : EPIGASTRIC PAIN Blood Pressure : */* mmHG Vent. Rate : 132 BPM Atrial Rate : 132 BPM P-R Int : 128 ms QRS Dur : 64 ms QT Int : 296 ms P-R-T Axes : 22 -36 50 degrees QTcB Int : 438 ms Sinus tachycardia Left axis deviation Abnormal ECG When compared with ECG of 16-Oct-2023 10:23, Vent. rate has increased by 77 bpm Non-specific change in ST segment in Lateral leads Nonspecific T wave abnormality has replaced inverted T waves in Inferior leads Referred By: Sarah Sharp Electronically Signed By: CAITLYN MARTINES MD
[2025-03-06 19:29] LABS: Hematocrit 36.2 % (37.0-47.0); Hemoglobin 12.1 g/dl (12.0-16.0); Imm Gran Abs Auto 0.01 X10*3/uL (0.00-0.03); Imm Gran Pct Auto 0.1 % (0.0-0.4); Lymphocytes Absolute Auto 2.4 X10*3/uL (1.2-4.9); MANUAL DIFF FLAG NO; Mean Corpuscular HGB Conc 33.4 g/dl (31.0-35.0); Mean Corpuscular Hemoglobin 26.2 pg (27.0-33.0); Mean Corpuscular Volume 78.5 fL (80.0-98.0); NRBC Abs Auto 0.000 X10*3/uL (0.0-0.012); NRBC Pct Auto 0.0 /100WBC (0.0-0.2); Platelet Count 413 X10*3/uL (160-400); Red Blood Count 4.61 X10*6/uL (4.20-5.50); White Blood Count 7.1 X10*3/uL (4.8-10.8)
[2025-03-06 19:43] LABS: Alanine Aminotransferase 12 U/L (0-31); Albumin Level 4.4 g/dL (3.5-5.0); Alkaline Phosphatase 90 U/L (39-117); Anion Gap 15 (12-20); Aspartate Amino Transferase 17 U/L (5-31); Blood Urea Nitrogen 14 mg/dL (9-16); Calcium 8.8 mg/dL (8.4-10.2); Carbon Dioxide 19 mmol/L (22-29); Chloride 108 mmol/L (96-108); Creatinine Clr Calc Pharmacy 96.5; Estimated Glomerular Filt Rate > 60; Lipase 17 U/L (8-78); Magnesium 1.9 mg/dL (1.6-2.6); Potassium 3.4 mmol/L (3.3-5.1); Sodium 139 mmol/L (135-145); Total Protein 7.6 g/dL (6.5-8.0)
[2025-03-06 19:50] LABS: Troponin-I High Sensitivity 3.6 ng/L (<3.5-17.0)
[2025-03-06 20:11] LABS: Resp Syncy Virus RNA Qual PCR NEGATIVE (Negative); SARS COV2 PCR INHOUSE NEGATIVE (Negative)
--- OUTSIDE RECORDS SUMMARY | 2025-03-06 20:52 | XMS_ITS | Clinical Summary ---
Author Organization [facility] it Address [address] [place] [address] Care Team Providers Care Hand Almond Blancher Name Role Phone Unavailable Primary Care Provider [...] Cervical Cancer Screening: P ap Smear 10/23/2000 HPV Vaccines (1 - 3-dose SCD M series) 10/23/2006 Depression Screening 03/25/2024 COVID-19 Vaccine ( - 2024-2 6 season) 2024 Influenza Vaccine (#1) 2024 RSV Immunization Adult Patie nts (1 - 1-dose 75+ series) 10/23/2054 HIB Vaccines Aged Out No longer eligi [...]
--- OUTSIDE RECORDS SUMMARY | 2025-03-06 20:52 | XMS_ITS | Clinical Summary ---
Author Organization [facility] Address [address] [place] [address] Phone Care Team Providers Care Fur Vault Attendant Name Role Phone Pcp, Unknown Primary Care Provider Unavailabl e Allergies Active [...] Department Care Team Description 01/12/2025 Transcribe Orders [facility] Rheumatology [address] [place] [address] Shanell Chris, ELLEN Positive GEOFF (antinuclear antibody) (Primary Dx) from Last 3 Months Social History Tobacco Use Types Packs/Day Years Used Date Smoking Tobacco: Never Assessed Education Answer Date Recorded Are you interested in more education? Not on greg e 01/12/2025 Are you concerned about learning? Not on file 01/12/2025 No 01/12/2025 No 01/12/2025 Digital Access Answer Date Recorded No 01/12/2025 No 01/12/2025 Reliable internet access at home? Not on file 01/12/2025 Device with a working camera? Not on [...] Mass Index - - Plan of Treatment Upcoming Encounters Date Type Department Care Team (Late st Contact Info) Description 07/01/2025 10:10 AM EDT Office Visit [facility] Rheumatology [address] [place] [address] Muriel Baez MD, MPH [address], [address] [place] [address] Health Maintenance Due Date Last Done Comments LIPID PANEL 1979 DEPRESSION SCREENING 1991 SMOKING Hx and SMOKELESS TOBACCO SCREENING 10/23/1992 HEPATITIS C SCREENING 10/23/1997 HIV ONE-TIME SCREENING (18-6 5 YEARS) 10/23/1997 COLOGUARD 10/23/2024 COLONOSCOPY 10/23/2024 COLORECTAL CANCER SCREENING 10/23/2024 FIT TEST 10/23/2024 FOBT 10/23/2024 INFLUENZA VACCINE (#1) 2024 9, 04/01/2018, 04/01/2013 SIGMOIDOSCOPY 10/23/2024 VIRTUAL COLONOSCOPY 10/23/2024 COVID-19 VACCINE (2 6 season) 2024 12/30/2020, 12/03/2020 Adult Td,Tdap Booster 08/02/2027 08/01/2017 , 04/16/2016 HEPATITIS A VACCINES Aged Out No long er eligible based on patient's age to complete this topic HIB VACCINES Aged Out No longer eligi ble based on patient's age to complete this topic MENINGOCOCCAL VACCINES (ACWY) Aged Out No longer eligible based on patient's age to complete this topic MENINGOCOCCAL VACCINES (B) Aged Out N o longer eligible based on patient's age to complete this topic PNEUMOCOCCAL VACCINES (0-49 years) Aged Out No longer eligible b ased on patient's age to complete this topic Medical Devices Not on file Insurance GENERIC COMMERCIAL GENERIC COMMERCIAL GENERIC COMMERCIAL GENERIC COMMERCIAL GENERIC COMMERCIAL [address] [place] [phone] [place] [id number] [place] [address] [id number] [place] [id number] Care Teams Fur Vault Attendant Relationship Specialty Start Date End Date Pcp, Unknown PCP - General 01/12/25 Additional Source Comments The information contained in this document represents components of the legal health record. It is not the complete legal health record.[facility]
[2025-03-06 23:25] VITALS: BP 124/89; PULSE 85; RESP 17; TEMP 36.6; O2SAT 100
[2025-03-07] MEDS: iohexoL 350 MG/ML 100 ML INFUS..BTL 85 ML IV (01:05)
[2025-03-07 02:45] VITALS: BP 110/81; PULSE 106; RESP 16; TEMP 36.6; O2SAT 98
== END 2025-03-07 02:51 | disposition home or self-care (01) ==
PROVIDERS: Physician Assistant Medical; Emergency Provider Emergency Medicine; PCP Nurse Practitioner Family
DX: R10.13 Epigastric pain (principal); R11.0 Nausea; Z03.818 Encounter for observation for suspected exposure to other biological agents ruled out; K21.9 Gastro-esophageal reflux disease without esophagitis; Z87.891 Personal history of nicotine dependence; Z87.11 Personal history of peptic ulcer disease
CPT/HCPCS: 36415; 71045; 74177; 80053; 83690; 83735; 84484; 85025; 87637; 93005; 96374; 96375; 99284; 99285; J1200; J2270; J2470; J2765; Q9967

== ENCOUNTER → 2025-03-06 19:01 | Outpatient (BNV) | payer OTHER, SELFPAY | PROVIDERS: Emergency Provider Emergency Medicine; PCP Nurse Practitioner Family; Visit Provider Internal Medicine Cardiovascular Disease | DX: R00.0 Tachycardia, unspecified (principal) | CPT/HCPCS: 93010 ==

== ENCOUNTER → 2025-03-07 00:22 | Outpatient (BNV) | payer OTHER, SELFPAY | PROVIDERS: Emergency Provider Emergency Medicine; PCP Nurse Practitioner Family; Visit Provider General Practice | DX: R11.11 Vomiting without nausea (principal); Z98.84 Bariatric surgery status | CPT/HCPCS: 74177 ==